=== PATIENT | male | born 1945 | race Caucasian/White ===

== ENCOUNTER → 2016-09-17 | Outpatient (CLI) | payer BC ==
[~2016-09-17] MED LIST: ALBUAER2 INH; FLUT220A INH; LISI-725 PO; PRLSR20 PO; SALM50AE2 INH; THEO300T14 PO; TIOTCAP INH
--- NOTE | 2016-09-17 10:29 | DIAGNOSTIC IMAGING REPORT ---
CT OF THE CHEST WITHOUT IV CONTRAST CLINICAL HISTORY: Abnormal chest CT. Follow-up examination. COMPARISON STUDY: 05/31/2016 CT DOSE: 321.33 mGycm TECHNIQUE: CT of the thorax was performed from the thoracic inlet to the lung bases. Images are reviewed in the axial, sagittal, and coronal planes. IV contrast was not administered for this examination. FINDINGS: Thyroid: Imaged portions of the thyroid gland are normal in appearance. Thoracic aorta: The thoracic aorta is normal in course and caliber, noting standard 3 vessel arch anatomy. Heart: The heart is normal in size. There is no pericardial effusion. There are coronary artery calcifications present. Lungs and pleural spaces: No pleural effusions are visualized. There is mild lower lobe bronchial wall thickening. There is an irregular flat lesion within the right lower lobe measuring 30 x 35 x 11 mm. This is in the area of previously described right lower lobe tree-in-bud opacities. The morphology of this lesion favors focal atelectasis. A three-month follow-up study is however recommended. Mediastinum: There is no pathologic mediastinal adenopathy by size criteria Shelli: There is no evidence of pathologic hilar adenopathy given the limitations of a noncontrast study Axilla: Clear. Upper abdomen: There are postsurgical changes within the upper abdomen. Skeletal structures: There are no lytic or blastic osseous lesions. IMPRESSION: 1. Developing irregular flat lesion within the right lower lobe measuring 30 x 35 x 11 mm. The morphology of this lesion favors focal atelectasis. A three-month follow-up study is recommended. 2. No evidence of pathologic adenopathy Electronically signed by: Miguel Angel Andrade M.D. 09/17/2016 10:28 AM Dictated Date/Time: 09/17/2016 10:21 AM
== END | disposition home or self-care (01) ==
LOC: C.CTS 09:46
PROVIDERS: ATTEND Internal Medicine Pulmonary Disease
DX: R09.89 Other specified symptoms and signs involving the circulatory and respiratory systems (principal); R91.8 Other nonspecific abnormal finding of lung field

== ENCOUNTER → 2017-01-15 | Outpatient (CLI) | payer BC ==
[~2017-01-15] MED LIST changes: +THEO1TAB14 PO; -THEO300T14 PO
--- NOTE | 2017-01-15 16:22 | DIAGNOSTIC IMAGING REPORT ---
TWO VIEW CHEST CLINICAL HISTORY: Atelectasis. FINDINGS: PA and lateral chest radiographs are compared to study dated 01/07/2016 and correlated with chest CT dated 09/17/2016. The heart is mildly enlarged and there is atherosclerotic calcification of the thoracic aorta. The pulmonary vasculature is noncongested. Emphysema and chronic interstitial thickening are similar to previous. No airspace consolidation or pleural effusion is seen. There is mild bibasilar atelectasis. There is no pneumothorax. The skeletal structures are osteopenic. Degenerative change is noted throughout the thoracic spine. IMPRESSION: Cardiomegaly and emphysema. No acute cardiopulmonary abnormality is identified. Electronically signed by: Trey Smith M.D. 01/15/2017 4:21 PM Dictated Date/Time: 01/15/2017 4:19 PM
== END | disposition home or self-care (01) ==
LOC: C.RAD1850 16:10
PROVIDERS: ATTEND Internal Medicine Pulmonary Disease
DX: J98.11 Atelectasis (principal); I51.7 Cardiomegaly; J43.9 Emphysema, unspecified

== ENCOUNTER → 2017-07-11 | Outpatient (CLI) | payer BC ==
[~2017-07-11] MED LIST changes: -THEO1TAB14 PO; +THEO300T14 PO
[2017-07-11 12:43] LABS: BASO ABS # 0.09 K/uL (0-0.2); EOS % 9.2 %; EOS ABS # 0.84 K/uL (0-0.5); HEMOGLOBIN 14.2 g/dL (14.0-18.0); IG# 0.02 K/uL (0.00-0.02); LYMPH % 19.5 %; LYMPH ABS # 1.79 K/uL (1.2-3.4); MEAN CELL VOLUME 92.2 fL (80-100); MEAN CORPUSCULAR HEMOGLOBIN 29.8 pg (25-34); MEAN CORPUSCULAR HGB CONC 32.3 g/dl (32-36); MEAN PLATELET VOLUME 11.4 fL (7.4-10.4); MONO % 6.9 %; MONO ABS # 0.63 K/uL (0.11-0.59); NEUT % 63.2 %; NEUT ABS # 5.79 K/uL (1.4-6.5); PLATELET COUNT 213 K/uL (130-400); RED CELL DISTRIBUTION WIDTH CV 14.8 % (11.5-14.5); RED CELL DISTRIBUTION WIDTH SD 49.7 fL (36.4-46.3); WHITE BLOOD COUNT 9.16 K/uL (4.8-10.8)
[2017-07-11 13:09] LABS: ALBUMIN 3.3 gm/dl (3.4-5.0); ALT/SGPT 21 U/L (12-78); BLOOD UREA NITROGEN 16 mg/dl (7-18); CALCIUM 8.9 mg/dl (8.5-10.1); CARBON DIOXIDE 27 mmol/L (21-32); CHOLESTEROL 144 mg/dl (0-200); CREATININE 1.24 mg/dl (0.60-1.40); GLUCOSE 123 mg/dl (70-99); POTASSIUM 4.1 mmol/L (3.5-5.1); SODIUM 138 mmol/L (136-145)
[2017-07-11 13:14] LABS: ALKALINE PHOSPHATASE 78 U/L (45-117); AST/SGOT 22 U/L (15-37); LDL CHOLESTEROL CALCULATED 74 mg/dl; TOTAL PROTEIN 7.9 gm/dl (6.4-8.2)
[2017-07-11 13:26] LABS: HEMOGLOBIN A1C 6.2 % (4.5-5.6)
== END | disposition home or self-care (01) ==
LOC: C.LABBFT 09:43
PROVIDERS: ATTEND Internal Medicine
DX: I25.10 Atherosclerotic heart disease of native coronary artery without angina pectoris (principal); I10 Essential (primary) hypertension; E78.00 Pure hypercholesterolemia, unspecified; R97.20 Elevated prostate specific antigen [PSA]; E11.9 Type 2 diabetes mellitus without complications; R79.89 Other specified abnormal findings of blood chemistry

== ENCOUNTER → 2017-07-15 | Outpatient (CLI) | payer BC | END | disposition home or self-care (01) | LOC: C.LABBFT 11:30 | PROVIDERS: ATTEND Internal Medicine | DX: R77.9 Abnormality of plasma protein, unspecified (principal) ==

== ENCOUNTER → 2017-07-22 | Outpatient (CLI) | payer BC ==
--- NOTE | 2017-07-22 15:45 | DIAGNOSTIC IMAGING REPORT ---
(CHEST) THORAX WITHOUT CLINICAL HISTORY: 72 years-old Male presenting with R09.89 Abnormal finding of lung, right lower lobe. TECHNIQUE: Multidetector CT imaging of the chest was performed without the use of intravenous contrast. IV contrast: None. A dose lowering technique was used consistent with the principles of ALARA (as low as reasonably achievable). COMPARISON: 09/20. CT DOSE (mGy.cm): The estimated cumulative dose is 415.35 mGy.cm. 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 On soft tissue windows, normal thyroid and thoracic inlet. Prominent mediastinal lymph nodes, the largest measuring 12 mm in the short axis in the precarinal region, previously 6 mm. Suggestion of right hilar lymphadenopathy, however, evaluation of chao limited in the absence of intravenous contrast. Atherosclerosis of the aorta. Mild multichamber enlargement of the heart. Coronary artery calcification. Trace pericardial effusion. Small right pleural effusion. Trace left pleural effusion. Upper abdomen normal. On lung windows, interval evolution of the previously noted irregular linear consolidation in the right lower lobe. This is now peripheral and difficult to measure. This primarily involves the medial basal and posterior basal segments of the right lower lobe. Scattered groundglass and solid peribronchovascular consolidation in the right lower lobe. Additional site of irregular peripheral consolidation noted in the right lower lobe immediately superior to the diaphragm. Underlying emphysema suggested. Subtle groundglass centrilobular nodules scattered throughout the lungs with an upper lobe predominance. Minimal dependent consolidation in the lingula likely atelectasis. Limited nodular dependent consolidation in the left lower lobe. Bronchial wall thickening. Central airways patent. On bone windows, degenerative changes of the spine. IMPRESSION: 1. Interval evolution of the regular bandlike consolidation in the medial basal and posterior basal segments of the right lower lobe. The morphology is now peripheral and difficult to measure as a discrete mass. Atelectasis or scarring is still favored though follow-up is warranted (3 month follow-up). PET/CT may also be helpful to evaluate for neoplasm. This may be amenable to endobronchial biopsy. 2. Findings suggest smoking-related lung injury. 3. Small right and trace left pleural effusions. 4. Small pericardial effusion. 5. Interval development of mediastinal lymphadenopathy. This could be reactive though this does raise concern for an underlying malignancy. Electronically signed by: Derick Washington M.D. 07/22/2017 3:44 PM Dictated Date/Time: 07/22/2017 3:34 PM
== END | disposition home or self-care (01) ==
LOC: C.CTS 15:05
PROVIDERS: ATTEND Internal Medicine
DX: R09.89 Other specified symptoms and signs involving the circulatory and respiratory systems (principal); J90 Pleural effusion, not elsewhere classified; I31.3 Pericardial effusion (noninflammatory)

== ENCOUNTER → 2017-07-26 | Outpatient (CLI) | payer BC | END | disposition home or self-care (01) | LOC: C.LABBFT 12:53 | PROVIDERS: ATTEND Internal Medicine | DX: R77.9 Abnormality of plasma protein, unspecified (principal) ==

== ENCOUNTER → 2017-08-20 | Outpatient (CLI) | payer BC ==
[~2017-08-20] MED LIST changes: +ALBINS/ INH; +APIX1TAB3 PO; +DILT-113 PO; +SYMIN160 INH; +TAMS0.4C38 PO; +VNTHFA/IN INH
--- NOTE | 2017-08-20 10:48 | DIAGNOSTIC IMAGING REPORT ---
KUB CLINICAL HISTORY: Nephrolithiasis. FINDINGS: 2 AP supine abdominal radiographs are compared to study dated 08/07/2017 and correlated with abdominal CT dated 03/01/2016. There is a nonobstructed abdominal bowel gas pattern. Moderate fecal retention is noted. Numerous surgical clips project over the upper abdomen. Suture material is noted in the left mid abdomen. No calculi are seen projecting over the left kidney. No calculi are seen projecting over the right kidney on today's examination. A 7 calcification projects over the right hemipelvis. This was not clearly seen previously and may represent a distal ureteral stone. The skeletal structures are osteopenic. Moderate lumbosacral spondylosis is observed. IMPRESSION: 1. No calculi are seen projecting over either kidney and today's examination. 2. There is a 7 mm calcification projecting over the distal right ureter in the pelvis. This was not clearly seen on 08/07/2017 and may represent a distal ureteral stone. Clinical correlation will be required. Electronically signed by: Trey Smith M.D. 08/20/2017 10:47 AM Dictated Date/Time: 08/20/2017 10:44 AM
== END | disposition home or self-care (01) ==
LOC: C.RAD1850 10:27
PROVIDERS: ATTEND Urology
DX: N20.0 Calculus of kidney (principal)

== ENCOUNTER → 2017-08-21 | Outpatient (CLI) | payer BC | END | disposition home or self-care (01) | LOC: C.CPL 15:15 | PROVIDERS: ATTEND Nurse Practitioner Adult Health | DX: N20.0 Calculus of kidney (principal); N20.1 Calculus of ureter ==

== ENCOUNTER → 2017-09-04 | Outpatient (CLI) | payer BC ==
[~2017-09-04] MED LIST changes: -ALBUAER2 INH; -FLUT220A INH; -LISI-725 PO; -SALM50AE2 INH; -THEO300T14 PO; -TIOTCAP INH
[2017-09-04 13:08] LABS: BASO % 0.6 %; BASO ABS # 0.05 K/uL (0-0.2); EOS % 5.3 %; EOS ABS # 0.45 K/uL (0-0.5); HEMATOCRIT 45.5 % (42-52); HEMOGLOBIN 14.9 g/dL (14.0-18.0); IG# 0.02 K/uL (0.00-0.02); LYMPH % 20.4 %; LYMPH ABS # 1.74 K/uL (1.2-3.4); MEAN CELL VOLUME 88.9 fL (80-100); MEAN CORPUSCULAR HEMOGLOBIN 29.1 pg (25-34); MEAN CORPUSCULAR HGB CONC 32.7 g/dl (32-36); MEAN PLATELET VOLUME 11.2 fL (7.4-10.4); MONO % 6.6 %; MONO ABS # 0.56 K/uL (0.11-0.59); NEUT % 66.9 %; NEUT ABS # 5.69 K/uL (1.4-6.5); PLATELET COUNT 235 K/uL (130-400); RED CELL DISTRIBUTION WIDTH CV 14.8 % (11.5-14.5); RED CELL DISTRIBUTION WIDTH SD 47.9 fL (36.4-46.3); WHITE BLOOD COUNT 8.51 K/uL (4.8-10.8)
[2017-09-04 13:24] LABS: BLOOD UREA NITROGEN 14 mg/dl (7-18); CARBON DIOXIDE 26 mmol/L (21-32); CREATININE 1.29 mg/dl (0.60-1.40); POTASSIUM 3.8 mmol/L (3.5-5.1); SODIUM 137 mmol/L (136-145)
== END | disposition home or self-care (01) ==
LOC: C.LAB1850 10:36
PROVIDERS: ATTEND Urology
DX: R97.20 Elevated prostate specific antigen [PSA] (principal); N20.0 Calculus of kidney

== ENCOUNTER → 2017-09-05 | Outpatient (CLI) | payer BC ==
--- NOTE | 2017-09-05 18:29 | DIAGNOSTIC IMAGING REPORT ---
KUB CLINICAL HISTORY: N20.0 NephrolithiasisTO BE DONE EITHER THE NIGHT BEFORE OR [facility]NI COMPARISON STUDY: 08/20/2017 FINDINGS: 7 mm distal right ureteral calculus unchanged from the prior study. This overlaps the inferior right sacrum. Kidneys show no significant nephrocalcinosis. Bowel pattern is nonobstructive. IMPRESSION: Unchanged 7 mm distal right ureteral calculus. The above report was generated using voice recognition software. It may contain grammatical, syntax or spelling errors. Electronically signed by: Richmond Mcqueen M.D. 09/05/2017 6:27 PM Dictated Date/Time: 09/05/2017 6:26 PM
== END | disposition home or self-care (01) ==
LOC: C.RAD 18:08
PROVIDERS: ATTEND Nurse Practitioner Adult Health
DX: N20.0 Calculus of kidney (principal); N20.1 Calculus of ureter

== ENCOUNTER → 2017-09-06 | Day surgery (SDC) | payer BC ==
[2017-09-03 10:09] VITALS: Ht 180.3 cm; Wt 94.1 kg
[~2017-09-06] VITALS: Ht 180.3 cm; Wt 94.1 kg
[~2017-09-06] MED LIST changes: +ATROPINE SULFATE 0.1 MG/ML 5ML SYR IV PRN; +CIPROFLOXACIN 400MG / D5W IV SCH; +DEXAMETHASONE SOD INJ 4 MG/ML VIAL IV PRN; +EpHEDrine SULFATE INJ 50 MG/ML AMP IV PRN; +FENTANYL CITRATE INJ 50 MCG/1 ML 2 ML VIAL IV PRN; +FENTANYL CITRATE INJ 50 MCG/1 ML 2 ML VIAL ONE; +KETOROLAC TROMETHAMINE 30 MG/ML VIAL IV. PRN; +LABETALOL HCL IV 5 MG/ML 20ML IV PRN; +LACTATED RINGER'S 1000ML 1,000 ML IV SCH; +LIDOCAINE HCL 2% 2 ML VIAL (20MG/ML) ONE; +METOCLOPRAMIDE HCL INJ 5 MG/ML 2 ML VIAL IV PRN; +MIDAZOLAM HCL 1 MG/ML 2ML VIAL ONE; +MoRPHine SULFATE 10 MG/ML CARP/VIAL IV PRN; +ONDANSETRON INJ 2 MG/ML 2 ML VIAL IV PRN; +OXYCODONE/ACETAMINOPHEN 5-325 TAB PO PRN; +OXYCODONE/ACETAMINOPHEN 7.5-325 TAB PO PRN; +PHENYLEPHRINE 100MCG/ML 5ML SYR IV PRN; +PROPOFOL IV EMULSION 10 MG/ML 20 ML VIAL IV ONE
--- NOTE | 2017-09-06 07:15 | History & Physical Bridge - [place] ---
H&P Re-Evaluation Bridge Note: I have examined the patient, reviewed the History & Physical and in the interval since the performance of the History & Physical I have noted the following changes of clinical significance: No changes noted
--- NOTE | 2017-09-06 07:17 | Discharge Instructions ---
Discharge Instructions Date of Service Sep 06, 2017. Admission Reason for Admission: Stones Discharge Discharge Diagnosis / Problem: R Ureteral Stone Discharge Goals Goal(s): Decrease discomfort, Improve function Activity Recommendations Activity Limitations: resume your previous activity Lifting Limitations: gradually increase as tolerated Exercise/Sports Limitations: gradually increase as tolerated Shower/Bathe: no limitations . Instructions / Follow-Up Instructions / Follow-Up May have blood in urine. May have pain in side or flank. May have pelvic pain. Call if any fevers or chills. Current Hospital Diet Patient's current hospital diet: Discharge Diet Recommended Diet: Regular Diet Procedures Procedures Performed: R ESWL Pending Studies Studies pending at discharge: no Laboratory Results Hemoglobin A1c Test 07/11/17 09:52 Range/Units Estimated Average Glucose 131 mg/dl Hemoglobin A1c 6.2 H 4.5-5.6 % Lipid Panel Test 07/11/17 09:52 Range/Units Triglycerides Level 70 0-150 mg/dl Cholesterol Level 144 0-200 mg/dl HDL Cholesterol 56 mg/dl Cholesterol/HDL Ratio 2.6 LDL Cholesterol, Calculated 74 mg/dl Medical Emergencies . Who to Call and When: Medical Emergencies: If at any time you feel your situation is an emergency, please call 911 immediately. . Non-Emergent Contact Non-Emergency issues call your: Primary Care Provider, Urologist Call Non-Emergent contact if: you have a fever, temperature is above 101, temperature is above 101.5, your pain is not controlled, your pain is worsening . . "Provider Documentation" section prepared by Ethan Talamantes. .
--- NOTE | 2017-09-06 07:49 | [facility] Operative Report ---
Operative Report Operative Date Sep 06, 2017. Pre-Operative Diagnosis R Distal Ureteral Stone Post-Operative Diagnosis Same Procedure(s) Performed R ESWL Surgeon Albin Estimated Blood Loss None Findings R Distal Ureteral Stone Specimens None Drains None Anesthesia Type General Complication(s) none Disposition Recovery Room / PACU Indications R Ureteral Stone which failed trial of passage. Risks and benefits discussed at length. Description of Procedure Patient was consented and brought back to the operating room. Patient was placed under anesthesia in the supine position. Patient was prepped and draped in the regular sterile fashion. A time out was completed. With the time out completed, The patient was assessed with fluoroscopy. The stone was identified and position was triangulated. At this point, the shock waves commenced. The stone was monitored throughout the process with fluoroscopy to assess progression and maintain position. The stone was pulverized with 3000 shocks at a maximum voltage of 6 with a total fluoroscopic time of 2:12. With the stone treated, the procedure ended. The patient was cleaned, aroused from anesthesia, and transferred to the pacu in stable condition having tolerated the procedure well with no complications. I was present and participated in all aspects of the procedure. The patient will be monitored in the PACU until transferred. I attest to the content of the Intraoperative Record and any orders documented therein. Any exceptions are noted below. Signed 09/06/2017 at 08:55
[2017-09-06 09:46] VITALS: TEMP 36.4
--- NOTE | 2017-09-06 10:03 | Anesthesia Progress Nt - [facility] ---
Anesthesia Post Op Note Date & Time Sep 06, 2017 at 10:03 Vital Signs Pain Intensity: 0 Vital Signs Past 12 Hours Date Time Temp Pulse Resp B/P (MAP) Pulse Ox O2 Delivery O2 Flow Rate FiO2 09/06/17 09:46 36.4 68 16 142/89 (106) 96 Room Air 09/06/17 09:40 36.7 62 16 128/94 97 09/06/17 09:37 68 20 09/06/17 09:37 66 20 98 09/06/17 09:36 141/92 09/06/17 09:32 73 22 09/06/17 09:32 70 22 144/63 96 09/06/17 09:27 62 15 122/87 96 09/06/17 09:27 63 15 09/06/17 09:22 73 19 09/06/17 09:22 64 19 96 09/06/17 09:21 126/90 09/06/17 09:17 76 21 09/06/17 09:17 75 21 96 09/06/17 09:16 128/92 09/06/17 09:12 19 09/06/17 09:12 77 19 09/06/17 09:11 135/88 09/06/17 09:09 36.5 67 16 135/93 95 Mask 09/06/17 09:08 135/93 09/06/17 09:07 65 6 09/06/17 09:07 78 6 98 09/06/17 06:36 36.4 80 16 154/88 (110) 100 Room Air Notes Mental Status: alert / awake / arousable, participated in evaluation Pt Amnestic to Procedure: Yes Nausea / Vomiting: adequately controlled Pain: adequately controlled Airway Patency, RR, SpO2: stable & adequate BP & HR: stable & adequate Hydration State: stable & adequate Anesthetic Complications: no major complications apparent
[2017-09-06 10:20] VITALS: BP 122/74; PULSE 57; O2SAT 96
== END | disposition home or self-care (01) ==
LOC: X.SURG 06:06
PROVIDERS: ATTEND Urology
DX: N20.1 Calculus of ureter (principal); N40.0 Benign prostatic hyperplasia without lower urinary tract symptoms; I25.10 Atherosclerotic heart disease of native coronary artery without angina pectoris; J44.9 Chronic obstructive pulmonary disease, unspecified; K21.0 Gastro-esophageal reflux disease with esophagitis; J43.9 Emphysema, unspecified; E11.9 Type 2 diabetes mellitus without complications; E78.5 Hyperlipidemia, unspecified; M10.9 Gout, unspecified; E78.00 Pure hypercholesterolemia, unspecified; I10 Essential (primary) hypertension; D47.2 Monoclonal gammopathy; Z87.891 Personal history of nicotine dependence; Z79.899 Other long term (current) drug therapy; Z79.52 Long term (current) use of systemic steroids

== ENCOUNTER → 2017-09-18 | Outpatient (CLI) | payer BC ==
[~2017-09-18] MED LIST changes: -APIX1TAB3 PO; -ATROPINE SULFATE 0.1 MG/ML 5ML SYR IV PRN; -CIPROFLOXACIN 400MG / D5W IV SCH; -DEXAMETHASONE SOD INJ 4 MG/ML VIAL IV PRN; -EpHEDrine SULFATE INJ 50 MG/ML AMP IV PRN; -FENTANYL CITRATE INJ 50 MCG/1 ML 2 ML VIAL IV PRN; -FENTANYL CITRATE INJ 50 MCG/1 ML 2 ML VIAL ONE; -KETOROLAC TROMETHAMINE 30 MG/ML VIAL IV. PRN; -LABETALOL HCL IV 5 MG/ML 20ML IV PRN; -LACTATED RINGER'S 1000ML 1,000 ML IV SCH; -LIDOCAINE HCL 2% 2 ML VIAL (20MG/ML) ONE; -METOCLOPRAMIDE HCL INJ 5 MG/ML 2 ML VIAL IV PRN; -MIDAZOLAM HCL 1 MG/ML 2ML VIAL ONE; -MoRPHine SULFATE 10 MG/ML CARP/VIAL IV PRN; -ONDANSETRON INJ 2 MG/ML 2 ML VIAL IV PRN; -OXYCODONE/ACETAMINOPHEN 5-325 TAB PO PRN; -OXYCODONE/ACETAMINOPHEN 7.5-325 TAB PO PRN; -PHENYLEPHRINE 100MCG/ML 5ML SYR IV PRN; -PROPOFOL IV EMULSION 10 MG/ML 20 ML VIAL IV ONE
--- NOTE | 2017-09-18 15:00 | DIAGNOSTIC IMAGING REPORT ---
KUB CLINICAL HISTORY: N20.0 nephrolithiasis COMPARISON STUDY: 09/05/2017 FINDINGS: There are multiple surgical clips within the upper abdomen. The renal shadows are partially obscured overlying bowel gas and fecal material. The previously identified distal right ureteral calculus is no longer visualized. Please correlate with recent strained urine samples. IMPRESSION: 1. No renal calculi identified 2. The previously described distal right ureteral calculus is no longer visualized and may have passed. Please correlate with patient's symptoms. Electronically signed by: Miguel Angel Andrade M.D. 09/18/2017 2:59 PM Dictated Date/Time: 09/18/2017 2:57 PM
== END | disposition home or self-care (01) ==
LOC: C.RAD1850 14:29
PROVIDERS: ATTEND Nurse Practitioner Adult Health
DX: N20.0 Calculus of kidney (principal)

== ENCOUNTER → 2017-09-19 | Outpatient (CLI) | payer BC | END | disposition home or self-care (01) | LOC: C.LABSPEC 17:09 | PROVIDERS: ATTEND Urology | DX: N20.0 Calculus of kidney (principal) ==

== ENCOUNTER → 2017-09-19 | Outpatient (CLI) | payer BC | END | disposition home or self-care (01) | LOC: C.PATHSPEC 17:37 | PROVIDERS: ATTEND Urology | DX: N40.0 Benign prostatic hyperplasia without lower urinary tract symptoms (principal) ==

== ENCOUNTER → 2018-01-15 | Outpatient (CLI) | payer BC ==
[2018-01-15 12:32] LABS: HEMOGLOBIN A1C 5.9 % (4.5-5.6)
[2018-01-15 12:45] LABS: BLOOD UREA NITROGEN 17 mg/dl (7-18); CREATININE 1.11 mg/dl (0.60-1.40)
== END | disposition home or self-care (01) ==
LOC: C.LAB1850 11:00
PROVIDERS: ATTEND Internal Medicine Pulmonary Disease
DX: E11.9 Type 2 diabetes mellitus without complications (principal); J44.9 Chronic obstructive pulmonary disease, unspecified

== ENCOUNTER → 2018-01-28 | Outpatient (CLI) | payer BC ==
[~2018-01-28] MED LIST changes: +OPTIRAY 320 IV PRN
--- NOTE | 2018-01-28 10:40 | DIAGNOSTIC IMAGING REPORT ---
CT (CHEST) THORAX WITH CLINICAL HISTORY: 72 years-old Male presenting with R09.89 Abnormal finding of lung R59.0 Mediastinal adenopathy. TECHNIQUE: Multidetector CT imaging of the chest was performed after the administration of intravenous contrast. IV contrast: 94 mL of Optiray 320. A dose lowering technique was used consistent with the principles of ALARA (as low as reasonably achievable). COMPARISON: 07/22/2017. CT DOSE (mGy.cm): The estimated cumulative dose is 474.33 mGycm. 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 On soft tissue windows, normal thyroid and thoracic inlet. Resolution of pathologically enlarged mediastinal lymph nodes. Scattered subcentimeter mediastinal and bilateral hilar lymph nodes likely reactive in the setting of known smoking related lung injury. Atherosclerosis of the aorta. Normal heart size. Coronary artery calcification. Trace pericardial effusion. Small right and trace left pleural effusions have resolved. Pneumobilia, which is chronic. Surgical clips in the region of the gastroesophageal junction, unchanged. On lung windows, linear opacities in the medial segment of the right middle lobe, medial basal right lower lobe, and anterior segment of the lingula. This is chronic largely dating back to 2017. The previously noted posterior basal right lower lobe consolidation has resolved. No new focal infiltrate or nodule. Lungs hyperinflated. Trace emphysema. Bronchial wall thickening with minimal subsegmental bronchial debris, likely mucous plugging. No pneumothorax. On bone windows, degenerative changes of the spine. IMPRESSION: 1. Resolution of right lower lobe consolidation in the posterior basal segment. 2. Resolution of pleural effusions. 3. Chronic scarring, unchanged. 4. Resolution of pathologically enlarged lymph nodes. Residual small lymph nodes likely reactive. 5. Smoking related lung injury. Electronically signed by: Derick Washington M.D. 01/28/2018 10:39 AM Dictated Date/Time: 01/28/2018 10:29 AM
== END | disposition home or self-care (01) ==
LOC: C.CTS 09:56
PROVIDERS: ATTEND Internal Medicine Pulmonary Disease
DX: R59.0 Localized enlarged lymph nodes (principal); R09.89 Other specified symptoms and signs involving the circulatory and respiratory systems; J98.4 Other disorders of lung; T65.291A Toxic effect of other tobacco and nicotine, accidental (unintentional), initial encounter; X58.XXXA Exposure to other specified factors, initial encounter

== ENCOUNTER 2019-11-28 02:25 | Inpatient (IN) ==
[2019-11-28] MEDS ORDERED: ALBUT/IPRATROP 3MG/0.5MG NEB 3 ML VIAL ONE (02:28)
[2019-11-28] MEDS ORDERED: ALBUT/IPRATROP 3MG/0.5MG NEB 3 ML VIAL NEB STA (02:28)
[2019-11-28] MEDS ORDERED: DEXAMETHASONE **PF** INJ 10 MG/ML VIAL IV ONE (02:32)
[2019-11-28 02:52] LABS: Basophils # (auto) 0.04 K/uL (0-0.2); Basophils % (auto) 0.3 %; Eosinophils # (auto) 1.03 K/uL (0-0.5); Eosinophils % (auto) 7.6 %; Hemoglobin 15.2 g/dL (14.0-18.0); Immature Granulocytes # (auto) 0.01 K/uL (0.00-0.02); Immature Granulocytes % (auto) 0.1 %; Lymphocytes # (auto) 2.32 K/uL (1.2-3.4); Mean Corpuscular Hemoglobin 29.4 pg (25-34); Mean Corpuscular Hgb Conc 31.7 g/dL (32-36); Mean Corpuscular Volume 92.8 fL (80-100); Mean Platelet Volume 11.5 fL (7.4-10.4); Monocytes # (auto) 0.38 K/uL (0.11-0.59); Monocytes % (auto) 2.8 %; Neutrophils # (auto) 9.85 K/uL (1.4-6.5); Neutrophils % (auto) 72.2 %; Platelet Count 222 K/uL (130-400); RDW Coefficient of Variation 13.9 % (11.5-14.5); RDW Standard Deviation 47.3 fL (36.4-46.3); Red Blood Count 5.17 M/uL (4.7-6.1); White Blood Count 13.63 K/uL (4.8-10.8)
[2019-11-28] MEDS ORDERED: ONDANSETRON INJ 2 MG/ML 2 ML VIAL IV STA (03:05)
[2019-11-28 03:09] LABS: Partial Thromboplastin Ratio 0.9; Partial Thromboplastin Time 26.5 Seconds (21.0-31.0); Prothrombin Time 10.9 Seconds (9.0-12.0)
[2019-11-28 03:12] LABS: Alanine Aminotransferase 29 U/L (12-78); Albumin Level 3.6 gm/dl (3.4-5.0); Aspartate Aminotransferase 25 U/L (15-37); BUN Creatinine Ratio 13.8 (10-20); Blood Urea Nitrogen 17 mg/dl (7-18); Calcium 8.6 mg/dl (8.5-10.1); Carbon Dioxide 24 mmol/L (21-32); Chloride 110 mmol/L (98-107); Creatinine Clr Calc Pharmacy 60.9 ml/min; Est GFR (African American) 68.4; Glucose 167 mg/dl (70-99); Potassium 4.2 mmol/L (3.5-5.1); Sodium 141 mmol/L (136-145)
[2019-11-28 03:17] LABS: Albumin Globulin Ratio 0.8 (0.9-2); Alkaline Phosphatase 90 U/L (45-117); Globulin 4.5 gm/dl (2.5-4.0); NT Pro B Type Natriuretic Pept 871 pg/ml (0-900); Total Protein 8.1 gm/dl (6.4-8.2); Troponin I < 0.015 ng/ml (0-0.045)
[2019-11-28] MEDS ORDERED: PIPERACILL/TAZOBAC CONSULT ACTIVE PRN (03:32)
[2019-11-28] MEDS ORDERED: PIPERACILLIN/TAZOBACTAM 4.5 GM/120 ML BAG IV ONE (03:32)
--- NOTE | 2019-11-28 03:34 | Emergency Department Note ---
History of Present Illness General Chief complaint: Respiratory Problems Stated complaint: RESP PROBLEMS Time Seen by Provider: 11/28/19 02:26 History of Present Illness Maximum Pain Intensity: 0 This 74-year-old presents to the ER complaining of acute shortness of breath Location: Chest Quality: Hard to breathe Severity: Severe Duration: Past few hours Timing: Started tonight Context: Patient could not breathe and the brought him in Modifying factors: better with nothing; worse with activity Patient states he went to bed last night feeling okay. He woke up gasping for air and asked his to bring him to the ER. He has history of COPD. He has a history of A. fib and is on Eliquis and has not missed any doses. Patient denies chest pain, fevers, flulike illness, cough, congestion, abdominal pain, leg pain or swelling. No history of CHF. 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 Patient denies any risk factors for COVID. His feels fine. No one in the household is sick. Home Medications Home Medications Medication Instructions Recorded Confirmed Type omeprazole 20 mg capsule,delayed 20 mg PO DAILY #90 cap 07/15/19 11/28/19 Rx release tiotropium bromide 18 mcg capsule 1 cap INHALATION DAILY #90 puffs 07/16/19 11/28/19 Rx with inhalation device albuterol sulfate 2.5 mg INH .q 4-6 h PRN #360 ml 09/01/19 11/28/19 Rx diltiazem HCl 180 mg 180 mg PO BID #180 cap 09/01/19 11/28/19 Rx capsule,extended release 24 hr albuterol sulfate 90 mcg/actuation 2 puffs INHALATION Q4H PRN #18 gm 09/18/19 11/28/19 Rx aerosol inhaler apixaban 5 mg tablet 5 mg PO BID #180 tab 11/12/19 11/28/19 Rx dutasteride 0.5 mg capsule 0.5 mg PO DAILY #90 cap 11/23/19 11/28/19 Rx tamsulosin 0.4 mg capsule 0.8 mg PO DAILY #180 cap 11/23/19 11/28/19 Rx losartan 50 mg tablet 50 mg PO DAILY #90 tab 11/25/19 11/28/19 Rx budesonide-formoterol [Symbicort] 2 puff INHALATION BID 11/28/19 11/28/19 History Allergies Allergy/AdvReac Type Severity Reaction Status Date / Time hydrocodone Allergy Intermediate FEELING Verified 11/28/19 02:41 HOT, SWEATY, simvastatin Allergy Intermediate Couldn't Verified 11/28/19 02:41 move. tramadol Allergy Intermediate Confused Verified 11/28/19 02:41 doxycycline AdvReac Mild STOMACH Verified 11/28/19 02:41 PAIN Past Med/Surg History Medical History Atrial fibrillation with rapid ventricular response Bronchitis Intestinal obstruction Sepsis Surgical History History of abdominal surgery History of cholecystectomy History of exploratory laparotomy History of pancreatectomy History of partial gastrectomy Family History Mother Cirrhosis Diabetes Stroke Sister Diabetes Social History Preferred Language: Lebanese marital status: current occupational status: retired Feels Safe at Home: Yes Smoking Status: Former smoker Hx Alcohol Use: Yes Hx Substance Use: No Review of Systems A total of 10 systems reviewed and were otherwise negative Physical Exam Vital Signs Vital Signs - 24 hr 11/28/19 02:25 11/28/19 02:32 11/28/19 02:59 Temperature 36.8 C Temperature Source Skin Pulse Rate 142 H 121 H Pulse Rate from SpO2 Sensor Pulse Rhythm Irregular Respiratory Rate 24 28 H Respiratory Effort / Characteristics Labored Spontaneous Labored Short of Breath Respiratory Pattern Regular Blood Pressure 166/115 H Blood Pressure Mean 132 Blood Pressure Position Lying Pulse Oximetry 98 100 Oxygen Delivery Method Non-rebreather Oxygen Flow Rate 15 Fraction of Inspired Oxygen 40 Sepsis Recent Fever Within 48 Hours No No Sepsis New/Unexplained Change in Mental Status No Sepsis Action Taken by Nursing No Action Required No Action Required 11/28/19 03:12 11/28/19 03:26 11/28/19 03:30 Temperature Temperature Source Pulse Rate 113 H 101 H Pulse Rate from SpO2 Sensor 97 H 100 H Pulse Rhythm Respiratory Rate 16 21 Respiratory Effort / Characteristics Respiratory Pattern Blood Pressure 106/78 115/75 Blood Pressure Mean 84 89 Blood Pressure Position Pulse Oximetry 100 97 95 Oxygen Delivery Method CPAP BiPAP BiPAP Oxygen Flow Rate Fraction of Inspired Oxygen 40 40 Sepsis Recent Fever Within 48 Hours Sepsis New/Unexplained Change in Mental Status Sepsis Action Taken by Nursing 11/28/19 04:00 11/28/19 04:30 11/28/19 05:00 Temperature Temperature Source Pulse Rate 111 H 99 H 97 H Pulse Rate from SpO2 Sensor 103 H 91 H 101 H Pulse Rhythm Respiratory Rate 17 24 20 Respiratory Effort / Characteristics Respiratory Pattern Blood Pressure 106/73 111/71 130/75 Blood Pressure Mean 83 87 102 Blood Pressure Position Pulse Oximetry 95 96 97 Oxygen Delivery Method BiPAP BiPAP BiPAP Oxygen Flow Rate Fraction of Inspired Oxygen 40 40 40 Sepsis Recent Fever Within 48 Hours Sepsis New/Unexplained Change in Mental Status Sepsis Action Taken by Nursing 11/28/19 05:30 Temperature Temperature Source Pulse Rate 93 H Pulse Rate from SpO2 Sensor 92 H Pulse Rhythm Respiratory Rate 22 Respiratory Effort / Characteristics Respiratory Pattern Blood Pressure 133/83 Blood Pressure Mean 92 Blood Pressure Position Pulse Oximetry 97 Oxygen Delivery Method BiPAP Oxygen Flow Rate Fraction of Inspired Oxygen 40 Sepsis Recent Fever Within 48 Hours Sepsis New/Unexplained Change in Mental Status Sepsis Action Taken by Nursing VITALS: Vitals are noted on the nurse's note and reviewed by myself. Vital signs hypoxic and tachycardic. GENERAL: White male in acute respiratory distress diaphoretic struggling to breathe SKIN: The skin was without rashes, erythema, edema, or bruising. There is no tenting of the skin. Capillary reflex less than 2 seconds. HEAD: Normocephalic atraumatic. EARS: External auditory canals clear, tympanic membranes pearly richardson without erythema or effusion bilaterally. EYES: Pupils equal round and reactive to light and accommodation. Conjunctivae without injection, sclerae without icterus. Extraocular movements intact. NOSE: Patent, turbinates without inflammation or discharge. No sinus tenderness. MOUTH: Mucous membranes moist. Pharynx without erythema or exudate. Uvula mi dline. Airway patent. Tongue does not deviate. NECK: Supple without nuchal rigidity. No lymphadenopathy. No thyromegaly. Cervical spine is nontender. No JVD. HEART: Tachycardic and irregularly irregular LUNGS: Diffuse inspiratory and end expiratory wheezes + retractions + accessory muscle use. ABDOMEN: Positive bowel sounds x 4. Normal tympanic percussion. Soft, nontender, without masses or organomegaly. Velarde sign negative. No guarding or rebound tenderness. No CVA tenderness MUSCULOSKELETAL: No muscle atrophy, or edema noted. NEURO: Patient was alert and oriented to person place and time. Normal sensation to light and sharp touch. No focal neurological deficits. Course Administered Medications Discontinued Medications Albuterol (Duoneb) Confirm Administered Dose 3 ml .ROUTE .STK-MED ONE Stop: 11/28/19 02:29 Last Admin: 11/28/19 03:22 Dose: Not Given Documented by: [id number] Albuterol (Duoneb) 3 ml NEB NOW STA Stop: 11/28/19 02:29 Last Admin: 11/28/19 02:58 Dose: 3 ml Documented by: [id number] Dexamethasone Sodium Phosphate (Decadron Pf) 10 mg IV NOW ONE Stop: 11/28/19 02:33 Last Admin: 11/28/19 02:51 Dose: 10 mg Documented by: [id number] Piperacillin Sod/Tazobactam Sod (Zosyn) 4.5 gm in 120 mls @ 240 mls/hr IV NOW ONE Stop: 11/28/19 04:01 Last Infusion: 11/28/19 04:27 Dose: 0 mls/hr Documented by: [id number] Admin: 11/28/19 03:57 Dose: 240 mls/hr Documented by: [id number] Ondansetron HCl (Zofran) 4 mg IV NOW STA Stop: 11/28/19 03:06 Last Admin: 11/28/19 03:22 Dose: 4 mg Documented by: [id number] Critical Care Time Critical Care Time: Yes Total Critical Care Time: 35 Medical Decision Making Medical Records Attestation: I reviewed the patient's medical records. Home Medications Current Medication List: was personally reviewed by me Laboratory Data Attestation: I reviewed the patient's lab results. Result diagrams: 11/28/19 02:40 11/28/19 02:40 Lab Results 11/28/19 11/28/19 11/28/19 Range/Units 02:40 02:40 02:40 WBC 13.63 H (4.8-10.8) K/uL RBC 5.17 (4.7-6.1) M/uL Hgb 15.2 (14.0-18.0) g/dL Hct 48.0 (42-52) % MCV 92.8 (80-100) fL MCH 29.4 (25-34) pg MCHC 31.7 L (32-36) g/dL RDW Std Deviation 47.3 H (36.4-46.3) fL RDW Coeff of Radha 13.9 (11.5-14.5) % Plt Count 222 (130-400) K/uL MPV 11.5 H (7.4-10.4) fL Immature Gran % (Auto) 0.1 % Neut % (Auto) 72.2 % Lymph % (Auto) 17.0 % [place] % (Auto) 2.8 % Eos % (Auto) 7.6 % Baso % (Auto) 0.3 % Immature Gran # (Auto) 0.01 (0.00-0.02) K/uL Neut # (Auto) 9.85 H (1.4-6.5) K/uL Lymph # (Auto) 2.32 (1.2-3.4) K/uL [place] # (Auto) 0.38 (0.11-0.59) K/uL Eos # (Auto) 1.03 H (0-0.5) K/uL Baso # (Auto) 0.04 (0-0.2) K/uL PT 10.9 (9.0-12.0) Seconds INR 1.0 (0.9-1.1) APTT 26.5 (21.0-31.0) Seconds PTT Ratio 0.9 Sodium 141 (136-145) mmol/L Potassium 4.2 (3.5-5.1) mmol/L Chloride 110 H (98-107) mmol/L Carbon Dioxide 24 (21-32) mmol/L Anion Gap 7.0 (3-11) BUN 17 (7-18) mg/dl Creatinine 1.21 (0.6-1.4) mg/dl Est Cr Clr Drug Dosing 60.9 ml/min Est GFR ( Amer) 68.4 Est GFR (Non-Af Amer) 59.0 BUN/Creatinine Ratio 13.8 (10-20) Glucose 167 H (70-99) mg/dl Calcium 8.6 (8.5-10.1) mg/dl Magnesium 2.0 (1.8-2.4) mg/dl Total Bilirubin 1.0 (0.2-1) mg/dl AST 25 (15-37) U/L ALT 29 (12-78) U/L Alkaline Phosphatase 90 (45-117) U/L Lactate Dehydrogenase (87-241) U/L Troponin I < 0.015 (0-0.045) ng/ml NT-Pro-B Natriuret Pep 871 (0-900) pg/ml Total Protein 8.1 (6.4-8.2) gm/dl Albumin 3.6 (3.4-5.0) gm/dl Globulin 4.5 H (2.5-4.0) gm/dl Albumin/Globulin Ratio 0.8 L (0.9-2) Adenovirus (PCR) (NotDetected) B. pertussis DNA (PCR) (NotDetected) B.parapertussis DNA PCR (NotDetected) C. pneumoniae DNA (PCR) (NotDetected) Coronavirus OC43 (PCR) (NotDetected) Coronavirus HKU1 (PCR) (NotDetected) Coronavirus 229E (PCR) (NotDetected) COVID-19 PCR (Negative) Coronavirus NL63 (PCR) (NotDetected) Human Metapneumovir PCR (NotDetected) Influenza Type A (PCR) (NotDetected) Influenza Type B (PCR) (NotDetected) M. pneumoniae (PCR) (NotDetected) Parainfluenza 1 (PCR) (NotDetected) Parainfluenza 2 (PCR) (NotDetected) Parainfluenza 3 (PCR) (NotDetected) Parainfluenza 4 (PCR) (NotDetected) RSV (PCR) (NotDetected) Entero/Rhino (PCR) (NotDetected) 11/28/19 11/28/19 11/28/19 Range/Units 02:40 03:55 03:55 WBC (4.8-10.8) K/uL RBC (4.7-6.1) M/uL Hgb (14.0-18.0) g/dL Hct (42-52) % MCV (80-100) fL MCH (25-34) pg MCHC (32-36) g/dL RDW Std Deviation (36.4-46.3) fL RDW Coeff of Radha (11.5-14.5) % Plt Count (130-400) K/uL MPV (7.4-10.4) fL Immature Gran % (Auto) % Neut % (Auto) % Lymph % (Auto) % [place] % (Auto) % Eos % (Auto) % Baso % (Auto) % Immature Gran # (Auto) (0.00-0.02) K/uL Neut # (Auto) (1.4-6.5) K/uL Lymph # (Auto) (1.2-3.4) K/uL [place] # (Auto) (0.11-0.59) K/uL Eos # (Auto) (0-0.5) K/uL Baso # (Auto) (0-0.2) K/uL PT (9.0-12.0) Seconds INR (0.9-1.1) APTT (21.0-31.0) Seconds PTT Ratio Sodium (136-145) mmol/L Potassium (3.5-5.1) mmol/L Chloride (98-107) mmol/L Carbon Dioxide (21-32) mmol/L Anion Gap (3-11) BUN (7-18) mg/dl Creatinine (0.6-1.4) mg/dl Est Cr Clr Drug Dosing ml/min Est GFR ( Amer) Est GFR (Non-Af Amer) BUN/Creatinine Ratio (10-20) Glucose (70-99) mg/dl Calcium (8.5-10.1) mg/dl Magnesium (1.8-2.4) mg/dl Total Bilirubin (0.2-1) mg/dl AST (15-37) U/L ALT (12-78) U/L Alkaline Phosphatase (45-117) U/L Lactate Dehydrogenase 315 H (87-241) U/L Troponin I (0-0.045) ng/ml NT-Pro-B Natriuret Pep (0-900) pg/ml Total Protein (6.4-8.2) gm/dl Albumin (3.4-5.0) gm/dl Globulin (2.5-4.0) gm/dl Albumin/Globulin Ratio (0.9-2) Adenovirus (PCR) Not Detected (NotDetected) B. pertussis DNA (PCR) Not Detected (NotDetected) B.parapertussis DNA PCR Not Detected (NotDetected) C. pneumoniae DNA (PCR) Not Detected (NotDetected) Coronavirus OC43 (PCR) Not Detected (NotDetected) Coronavirus HKU1 (PCR) Not Detected (NotDetected) Coronavirus 229E (PCR) Not Detected (NotDetected) COVID-19 PCR NEGATIVE (Negative) Coronavirus NL63 (PCR) Not Detected (NotDetected) Human Metapneumovir PCR Not Detected (NotDetected) Influenza Type A (PCR) Not Detected (NotDetected) Influenza Type B (PCR) Not Detected (NotDetected) M. pneumoniae (PCR) Not Detected (NotDetected) Parainfluenza 1 (PCR) Not Detected (NotDetected) Parainfluenza 2 (PCR) Not Detected (NotDetected) Parainfluenza 3 (PCR) Not Detected (NotDetected) Parainfluenza 4 (PCR) Not Detected (NotDetected) RSV (PCR) Not Detected (NotDetected) Entero/Rhino (PCR) Not Detected (NotDetected) Imaging Data Attestation: I personally reviewed and interpreted this imaging study as follows: Blood Pressure Blood Pressure Findings: Normal blood pressure MDM Narrative Prior records/ancillary studies reviewed. Triage Nursing notes reviewed. Additional history obtained from the family. The patient's history was concerning for respiratory difficulties. Differential diagnosis: Etiologies such as infections, reactive airway disease, pneumonia, pneum othorax, COPD, CHF, cardiac ischemia, pulmonary embolism, musculoskeletal, gastrointestinal, as well as others were entertained. Physical examination: As above. ER treatment provided: Patient was struggling to breathe and his sats in triage were in the low 80s. He was emergently brought back. Symptoms were rapid in onset and he denied any symptoms of feeling sick or exposure to COVID. He was immediately placed on oxygen and then BiPAP as he was struggling to breathe and fatiguing. An order was placed for continuous cardiac monitoring. The monitor shows a rate of 60-1 30 with a A. fib rhythm. Nebulizer, BiPAP, Decadron, Zosyn On reassessment the patient felt better. Diagnostic interpretation by me: The electrocardiogram was poor baseline, irregularly irregular, no acute ST-T wave changes, rate of 120s, impression atrial fibrillation interpreted by myself EKG ordered for dyspnea The labs revealed leukocytosis, hyperglycemia without DKA Lactic 2.14 Blood cultures pending Negative COVID. Negative bio fire Imaging studies: Chest x-ray with patchy pulmonary congestion to the lower lobes, no pneumothorax or free air per my interpretation Consultation: A consultation was placed with Dr. Rice, hospitalist. The case was discussed and diagnostics were reviewed. The patient was evaluated in the ER for further treatment. This appears to be consistent with acute respiratory failure with pneumonia. Blood cultures pending. Mildly elevated lactic. Leukocytosis. Patient was emergently brought back. He was struggling to breathe and fatiguing. He was immediately placed on oxygen and then BiPAP. He was given a nebulizer and steroids and had great improvement. He stated he felt much better. Patient denied any exposure or risk factors for COVID. He did not feel sick or or complained of any cold symptoms. X-ray was concerning for patchy infiltrates to the lower lobes. Bio fire and COVID test were negative. Patient is in a negative pressure room. Patient was reassessed multiple times and had great improvement. He was admitted to medicine. By the evaluation outlined above emergent etiologies such as CHF, cardiac ischemia, pulmonary embolism, pneumothorax, musculoskeletal, as well as others were deemed relatively unlikely. The pt informed about the findings as listed above. All questions were answered and pleased with the treatment. The chart was completed utilizing [employer] Speech voice recognition software. Grammatical errors, random word insertions, pronoun errors, and incomplete sentences are an occassional consequence of this system due to software limitations, ambient noise, and hardware issues. Any formal questions or concerns about the content, text, or information contained within the body of this dictation should be directly addressed to the physician assistant professor of spanish for clarification. Impression & Plan Acute respiratory failure, Pneumonia Discharge Plan Visit Data Chief Complaint: Respiratory Problems Stated Complaint: RESP PROBLEMS ED Provider: Breanna Gutierres ED Midlevel Provider: Renetta Bradley Discharge Problem: Acute respiratory failure, Pneumonia Patient Disposition: Admitted As Inpatient Condition: Fair Forms Stand Alone Forms: [facility] [employer] Prescriptions Prescriptions: No Action omeprazole 20 mg capsule,delayed release(DR/EC) 20 mg PO DAILY Qty: 90 RF: 2 tiotropium bromide 18 mcg capsule, w/inhalation device 1 cap inhalation DAILY Qty: 90 RF: 3 diltiazem HCl 180 mg capsule,extended release 24hr 180 mg PO BID Qty: 180 RF: 3 albuterol sulfate 2.5 mg /3 mL (0.083 %) solution for nebulization 2.5 mg INH .q 4-6 h PRN (Reason: shortness of breath or wheezing) Qty: 360 RF: 11 albuterol sulfate 90 mcg/actuation HFA aerosol inhaler 2 puffs inhalation Q4H PRN (Reason: shortness of breath or wheezing) Qty: 18 RF: 3 apixaban 5 mg tablet 5 mg PO BID Qty: 180 RF: 3 losartan 50 mg tablet 50 mg PO DAILY Qty: 90 RF: 3 tamsulosin 0.4 mg capsule 0.8 mg PO DAILY Qty: 180 RF: 3 dutasteride [Avodart] 0.5 mg capsule 0.5 mg PO DAILY Qty: 90 RF: 3 budesonide-formoterol [Symbicort] 160-4.5 mcg/actuation HFA aerosol inhaler 2 puff INHALATION BID RF: 0 Referrals Referrals: Dudley Hernandez MD [Primary Care Provider] - Discharge Problem: Acute respiratory failure Qualifiers: Respiratory failure complication: unspecified whether with hypoxia or hypercapnia Qualified Code(s): J96.00 - Acute respiratory failure, unspecified whether with hypoxia or hypercapnia
[2019-11-28 05:24] LABS: Adenovirus PCR Not Detected (NotDetected)
[2019-11-28 05:25] LABS: Bordetella parapertussis PCR Not Detected (NotDetected); Bordetella pertussis PCR Not Detected (NotDetected); Chlamydia pneumoniae PCR Not Detected (NotDetected); Coronavirus 229E PCR Not Detected (NotDetected); Coronavirus HKU1 PCR Not Detected (NotDetected); Coronavirus NL63 PCR Not Detected (NotDetected); Coronavirus OC43PCR Not Detected (NotDetected); Human Metapneumovirus PCR Not Detected (NotDetected); Influenza A PCR Not Detected (NotDetected); Influenza B PCR Not Detected (NotDetected); Mycoplasma pneumoniae PCR Not Detected (NotDetected); Parainfluenza Virus 1 PCR Not Detected (NotDetected); Parainfluenza Virus 2 PCR Not Detected (NotDetected); Parainfluenza Virus 3 PCR Not Detected (NotDetected); Parainfluenza Virus 4 PCR Not Detected (NotDetected); Respiratory Syncytial VirusPCR Not Detected (NotDetected); Rhinovirus/Enterovirus PCR Not Detected (NotDetected)
--- NOTE | 2019-11-28 05:30 | History & Physical Report ---
Date of Service November 28, 2019 Assessment & Plan (1) Acute respiratory failure: Mr. Wolff is a 74 yo M with a PMHx of COPD, atrial fibrillation on anticoagulation and pre-diabetes who presented to the ED with acute onset SOB. - patient found to be tachypneic and satting in the low 80s on arrival - patient's respiratory status improved with administration Duo-Neb, Decadron and BiPAP - currently satting 97% on BiPAP with an FiO2 of 40 - respiratory rate normalized - etiology: A-fib vs. COPD exacerbation secondary to PNA (2) Pneumonia: - consolidated infiltrates in b/l lung woods on CXR, final read pending - no risk factors for HCAP; presumed CAP - WBC elevated to 13 on admission - blood cultures obtained - COVID negative; RVP pending - patient not an aspiration risk - CURB 65 score of 1; PSI class IV - patient received 1 dose of IV zosyn in ED - will discontinue zosyn in favor of IV Levaquin for atypical coverage (3) AF (atrial fibrillation): - present on admission; may be etiology of sudden onset SOB after physical exertion today (yard work in mid-day sun) - on anticoagulation with Eliquis - rate controlled with home diltiazem dose - continue senior advisory (4) Chronic obstructive pulmonary disease: - patient denies any previous exacerbation - home regimen consists of spiriva, symbicort, and albuterol prn - ordered Symbicort Respules BID (5) BPH (benign prostatic hyperplasia): - continue home tamsulosin - patient has been self-cathing over the past few weeks - continue straight caths as needed - he has an outpatient cystoscopy schedule 12/02 (6) Diabetes mellitus type II, controlled: - patient believes he has always been in pre-diabetic range - most recent A1c 6.1 from earlier this week - diet/exercise controlled (7) Hypertension: - continue home losartan Dispo: Tele DVT ppx: on Eliquis Diet: Heart Healthy, DM II Code: full History of Present Illness Primary Care Provider: Josh Hernandez MD Mr. Wolff is a 74 yo male with a PMHx of COPD, atrial fibrillation on anticoagulation and pre-diabetes who presented to the ED for evaluation of acute onset SOB. Mr. Wolff was in his usual state of health on 11/27/19. He denies general malaise, cough, fever/chills. He worked outside in his yard all day with a good energy level. Before going to bed, he began to feel slightly SOB, and eventually awoke in the middle of the night with worsened breathing. This prompted him to seek medical attention. He has been compliant with his COPD medication regimen and denies any prior COPD exacerbations. He denies any sick contacts or recent travel. ED course: Patient afebrile on arrival, with O2 saturations in the low 80s (per ED PA-C). He was administered a Duo-neb, 10mg of Decadron and started on BiPAP with an FiO2 of 40. His breathing improved and respirations normalized. WBC 13.6 with neutrophilia. Blood cultures obtained. Trop undetectable. BNP 871. LDH elevated to 315. COVID-19 negative. RVP pending. UA ordered. EKG showing non-RVR a-fib. CXR showing consolidated infiltrates in bilateral lung woods, final read pending. Patient was started on IV Zosyn. Allergies Allergy/AdvReac Type Severity Reaction Status Date / Time hydrocodone Allergy Intermediate FEELING Verified 11/28/19 02:41 HOT, SWEATY, simvastatin Allergy Intermediate Couldn't Verified 11/28/19 02:41 move. tramadol Allergy Intermediate Confused Verified 11/28/19 02:41 doxycycline AdvReac Mild STOMACH Verified 11/28/19 02:41 PAIN Home Medications Home Medications Medication Instructions Recorded Confirmed Type omeprazole 20 mg capsule,delayed 20 mg PO DAILY #90 cap 07/15/19 11/28/19 Rx release tiotropium bromide 18 mcg capsule 1 cap INHALATION DAILY #90 puffs 07/16/19 11/28/19 Rx with inhalation device albuterol sulfate 2.5 mg INH .q 4-6 h PRN #360 ml 09/01/19 11/28/19 Rx diltiazem HCl 180 mg 180 mg PO BID #180 cap 09/01/19 11/28/19 Rx capsule,extended release 24 hr albuterol sulfate 90 mcg/actuation 2 puffs INHALATION Q4H PRN #18 gm 09/18/19 11/28/19 Rx aerosol inhaler apixaban 5 mg tablet 5 mg PO BID #180 tab 11/12/19 11/28/19 Rx dutasteride 0.5 mg capsule 0.5 mg PO DAILY #90 cap 11/23/19 11/28/19 Rx tamsulosin 0.4 mg capsule 0.8 mg PO DAILY #180 cap 11/23/19 11/28/19 Rx losartan 50 mg tablet 50 mg PO DAILY #90 tab 11/25/19 11/28/19 Rx azithromycin [Zithromax] 250 mg PO DAILY 4 Days #4 tab 11/28/19 Rx budesonide-formoterol [Symbicort] 2 puff INHALATION BID 11/28/19 11/28/19 History cefdinir 300 mg PO BID 6 Days #12 cap 11/28/19 Rx Past Med/Surg History Medical History Atrial fibrillation with rapid ventricular response Bronchitis Intestinal obstruction Sepsis Surgical History History of abdominal surgery History of cholecystectomy History of exploratory laparotomy History of pancreatectomy History of partial gastrectomy Family History Mother Cirrhosis Diabetes Stroke Sister Diabetes Social History Preferred Language: [place] Communication Ability: Effective Top Hat Body Maker Required: No Beliefs That Will Affect Care: None marital status: Current Living Situation: Spouse current occupational status: retired Feels Safe at Home: Yes Smoking Status: Never smoker Hx Alcohol Use: Yes Alcohol type: beer Hx Substance Use: No Review of Systems Constitutional: no fever, no chills and no weakness Respiratory: + dyspnea; no cough Physical Exam Constitutional: WD/WN, vitals as above cooperative Eyes: + anicteric sclerae ENMT: external ear and nose normal, oropharynx normal Neck: normal visual inspection and trachea midline Respiratory: normal respiratory effort; no labored breathing, does not use accessory muscles and no cough Auscultation: + rhonchi and + wheezes (end expiratory wheezes present in bilateral lung woods ) BIPAP in place . Moving air well Cardiovascular: Rate/Rhythm: + irregularly irregular Heart Sounds: normal S1 and normal S2; no murmur Extremities: + pedal edema (+1 pitting edema bilaterally ) Gastrointestinal (Abdomen): normal bowel sounds, soft, nontender, no hepatosplenomegaly Skin: no rashes, warm and dry Psychiatric: A+Ox3, euthymic affect Results & Data Results & Data ([place]) Vital Signs (Past 12 Hours) Vital Signs Temp Pulse Resp BP Pulse Ox 11/28/19 05:00 97 H 20 130/75 97 11/28/19 04:30 99 H 24 111/71 96 11/28/19 04:00 111 H 17 106/73 95 11/28/19 03:30 101 H 21 115/75 95 11/28/19 03:26 113 H 16 106/78 97 11/28/19 03:12 100 11/28/19 02:59 121 H 28 H 100 11/28/19 02:32 36.8 C 142 H 24 166/115 H 98 Supervising Physician Co-Signing Physician Notes Attending addendum: I have physically seen this patient, have supervised the medical residents activities, and agree with the H&P unless as otherwise noted. Assessment and Plan: Bilateral lower lobe pneumonia/COPD- COVID19 negative in the ED tonight. Received Zosyn 4.5 g IV x1 in the ED. Placed on ceftriaxone 1 g IV daily and levofloxacin 500 mg IV daily. DuoNebs 4 times daily and every 2 hours as needed continue BiPAP at current settings, but taper as symptoms improve. Pulmicort Respules 0.5 mg inhaled twice daily Atrial fibrillation/hypertension- Continue Eliquis, diltiazem and losartan. Diabetes mellitus- Placed on Accu-Cheks before meals and at bedtime with NovoLog coverage per scale. Remainder of orders and notations as noted. Resident Activity Tracking Resident Involvement: Resident Care Provided Care Provided: Adult Hospital Medicine (1) Acute respiratory failure Respiratory failure complication: unspecified whether with hypoxia or hypercapnia Qualified Code(s): J96.00 - Acute respiratory failure, unspecified whether with hypoxia or hypercapnia
--- NOTE | 2019-11-28 05:32 | Emergency Department Note ---
ED Visit Note I saw this patient in conjunction with Celia Bradley PA-C. I agree with her decision making and treatment plan. I saw this patient when he initially arrived in the emergency department. He underwent laboratory testing, EKG, chest x-ray and COVID testing. On repeat examination, the patient is on BiPAP and no longer in respiratory distress. He is feeling much better. He was easily able to communicate with me at this time. [facility] . : Acute respiratory failure Qualifiers: Respiratory failure complication: unspecified whether with hypoxia or hypercapnia Qualified Code(s): J96.00 - Acute respiratory failure, unspecified whether with hypoxia or hypercapnia
[2019-11-28] MEDS ORDERED: MAGNESIUM HYDROXIDE SUSP 30 ML UDC PO PRN (06:52)
[2019-11-28] MEDS ORDERED: ONDANSETRON INJ 2 MG/ML 2 ML VIAL IV PRN (06:52)
[2019-11-28] MEDS ORDERED: ALUMINUM/MAGNESIUM SUSP 30 ML UDC PO PRN (06:52)
[2019-11-28] MEDS ORDERED: ZOLPIDEM TARTRATE 5 MG TAB PO PRN (06:52)
[2019-11-28] MEDS ORDERED: ACETAMINOPHEN 325 MG TAB PO PRN (06:52)
[2019-11-28] MEDS ORDERED: POLYETHYLENE (MIRALAX) 17 GM PACK PO PRN (06:52)
[2019-11-28] MEDS ORDERED: BUDESONIDE 0.25 MG/2 ML VIAL (PULMICORT) NEB PRN (06:52)
[2019-11-28] MEDS ORDERED: ALBUT/IPRATROP 3MG/0.5MG NEB 3 ML VIAL NEB SCH (07:00)
[2019-11-28] MEDS: AVODART~ORDER AWAITING ACTION SCH ×2 (07:39→16:02)
--- NOTE | 2019-11-28 07:39 | XRay Report ---
XR chest 1V portable CLINICAL HISTORY: Dyspnea COMPARISON STUDY: Chest CT January 28, 2018. Chest radiograph August 27, 2018. FINDINGS: There is no pneumothorax or pleural effusion. Bibasilar consolidation is present. Cardiomed iastinal silhouette is unremarkable. There is no evidence for pulmonary edema. IMPRESSION: Bibasilar consolidation suggestive of pneumonia. Radiographic follow up to ensure resolu tion is recommended. ACT 112: Negative or not required by law. Electronically signed by: Gautam Givens M.D. 11/28/2019 7:38 AM
[2019-11-28] MEDS ORDERED: LEVOFLOXACIN/D5W 250 MG/50 ML BAG IV SCH (08:00)
[2019-11-28] MEDS ORDERED: UMECLIDINIUM BROMIDE 62.5MCG/BLISTER 7 PUFFS/INHALER INH SCH (09:00)
[2019-11-28] MEDS ORDERED: FLUTICASONE/VILANTEROL 100/25MCG 14 PUFFS/INHALER INH SCH (09:00)
[2019-11-28] MEDS ORDERED: dilTIAZem HCL 180 MG CAPCR PO SCH (09:00)
[2019-11-28] MEDS ORDERED: TAMSULOSIN HCL 0.4 MG CAP PO SCH (09:00)
[2019-11-28] MEDS ORDERED: PANTOprazole 40 MG TAB PO SCH (09:00)
[2019-11-28] MEDS ORDERED: APIXABAN 5 MG TABLET PO SCH (09:00)
[2019-11-28] MEDS ORDERED: LOSARTAN POTASSIUM 50 MG TAB PO SCH (09:00)
[2019-11-28] MEDS ORDERED: AZITHROMYCIN 250 MG TAB PO ONE (16:51)
--- NOTE | 2019-11-28 17:05 | Discharge Summary ---
Date of Service November 28, 2019 Admission HPI Per Admitting Provider Mr. Wolff is a 74 yo male with a PMHx of COPD, atrial fibrillation on anticoagulation and pre-diabetes who presented to the ED for evaluation of acute onset SOB. Mr. Wolff was in his usual state of health on 11/27/19. He denies general malaise, cough, fever/chills. He worked outside in his yard all day with a good energy level. Before going to bed, he began to feel slightly SOB, and eventually awoke in the middle of the night with worsened breathing. This prompted him to seek medical attention. He has been compliant with his COPD medication regimen and denies any prior COPD exacerbations. He denies any sick contacts or recent travel. ED course: Patient afebrile on arrival, with O2 saturations in the low 80s (per ED PA-C). He was administered a Duo-neb, 10mg of Decadron and started on BiPAP with an FiO2 of 40. His breathing improved and respirations normalized. WBC 13.6 with neutrophilia. Blood cultures obtained. Trop undetectable. BNP 871. LDH elevated to 315. COVID-19 negative. RVP pending. UA ordered. EKG showing non-RVR a-fib. CXR showing consolidated infiltrates in bilateral lung woods, final read pending. Patient was started on IV Zosyn. Principal Diagnosis acute hypoxic respiratory failure related to pneumonia (community acquired) superimposed on COPD Discharge Exam [facility] [place] [place] at mmm breathing unlabored no accessory muscles no conversational dyspnea no dyspnea on exertion no distress good effort skin no rashes no pallor or icterus neuro no focal deficits gait stable and fast - we walked ~200ft around the unit fairly briskly and he had no dyspnea, was 95% on RA at the end of the walk Discharge Data Allergies Allergy/AdvReac Type Severity Reaction Status Date / Time hydrocodone Allergy Intermediate FEELING Verified 11/28/19 02:41 HOT, SWEATY, simvastatin Allergy Intermediate Couldn't Verified 11/28/19 02:41 move. tramadol Allergy Intermediate Confused Verified 11/28/19 02:41 doxycycline AdvReac Mild STOMACH Verified 11/28/19 02:41 PAIN Consultations 11/28/19 07:07 ED Decision to Admit Routine Hospital Course (1) Acute respiratory failure: due to pneumonia superimposed on COPD (2) Pneumonia: CAP -fortunately quickly resolved. got ceftriaxone and levaquin initially -improving well --> stable for home --> finish course of treatment with zithromax and rocephin -PCP f/u (3) Chronic obstructive pulmonary disease: 95% on RA after ambulation - continue home regimen Total Time Total Time Spent Total Time Spent (In Minutes): >30 Discharge Plan Discharge Items Patient Disposition: Home - Self-Care Reason For Visit: RESPIRATORY DISTRESS Discharge Diagnosis: pneumonia - improving (see below) Condition on Discharge: Fair Activity: Resume your previous activity Activity Comment: take it easy for the next week or so, but there are no "formal restrictions Non-emergency contact: Primary Care Provider Follow-up/Referrals: Dudley Hernandez MD [Primary Care Provider] - Diet: Regular Addtl Attending Provider Instructions: pneumonia - your shortness of breath and low oxygen appears to have been from a pneumonia (and probably a subsequent flare of COPD). fortunately you're getting better really quickly and since you are no longer short of breath and off of oxygen/ able to walk around without oxygen or shortness of breath, it'll be very safe to get you home -we'll finish out a course of antibiotics with zithromax and cefdinir (the two different antibiotics due to covering for what the "usual suspects" for your kind of pneumonia would be) ---the zithromax will be a 250mg dose tomorrow, 11/29, 11/30, and 12/01 ---the cefdinir will be 300mg twice a day for the next 6 days (starting tomorrow morning) ---->both are usually really well tolerated, but if they're upsetting your stomach, it's OK to take with food --->we'll ask that you follow up with Dr Hernandez to follow through on making sure you get back to "good as new" Pending Studies at Discharge: No Stand-Alone Forms: [facility] [employer], Smoking Cessation Medications and DC Order Prescriptions: New azithromycin [Zithromax] 250 mg tablet 250 mg PO DAILY 4 Days Qty: 4 RF: 0 cefdinir 300 mg capsule 300 mg PO BID 6 Days Qty: 12 RF: 0 Continued omeprazole 20 mg capsule,delayed release(DR/EC) 20 mg PO DAILY Qty: 90 RF: 2 tiotropium bromide 18 mcg capsule, w/inhalation device 1 cap inhalation DAILY Qty: 90 RF: 3 diltiazem HCl 180 mg capsule,extended release 24hr 180 mg PO BID Qty: 180 RF: 3 albuterol sulfate 2.5 mg /3 mL (0.083 %) solution for nebulization 2.5 mg INH .q 4-6 h PRN (Reason: shortness of breath or wheezing) Qty: 360 RF: 11 albuterol sulfate 90 mcg/actuation HFA aerosol inhaler 2 puffs inhalation Q4H PRN (Reason: shortness of breath or wheezing) Qty: 18 RF: 3 apixaban 5 mg tablet 5 mg PO BID Qty: 180 RF: 3 losartan 50 mg tablet 50 mg PO DAILY Qty: 90 RF: 3 tamsulosin 0.4 mg capsule 0.8 mg PO DAILY Qty: 180 RF: 3 dutasteride [Avodart] 0.5 mg capsule 0.5 mg PO DAILY Qty: 90 RF: 3 budesonide-formoterol [Symbicort] 160-4.5 mcg/actuation HFA aerosol inhaler 2 puff INHALATION BID RF: 0 Discharge Orders: Discharge Order (Routine); Ordered 11/28/19 Ordered By: Ted Nails Admission Data Admit Date/Time: 11/28/19 06:02 Attending Provider: Ted Nails Admit Provider: Melinda Johnson Primary Care Provider: Dudley Hernandez Other Providers: Peewee Shields Coding Level of Care Code D/C Day Management >30 mins Diagnoses Acute respiratory failure J96.00 Respiratory failure complication: unspecified whether with hypoxia or hypercapnia Pneumonia J18.9 Chronic obstructive pulmonary disease J44.9
[2019-11-28 17:28] LABS: Appearance Urine Clear (Clear); Bacteria Urine Automated Negative (Negative); Bilirubin Urine Negative (Negative); Blood Urine 1+ (Negative); Color Urine Yellow; Epithelial Cell Urine Auto 20-30 /lpf (0-5); Glucose Urine UA 3+ (Negative); Ketones Urine Trace (Negative); Leukocyte Esterase Urine Negative (Negative); Nitrite Urine Negative (Negative); Protein Urine Negative (Negative); Specific Gravity Urine 1.026 (1.000-1.030); Urobilinogen Urine Negative (Negative)
--- NOTE | 2019-11-29 00:48 | Billing Data ---
Date of Service November 29, 2019 Coding Level of Care Code 27771 OBS Care - Level 3
--- NOTE | 2019-11-29 09:58 | Electrocardiogram Report ---
Test Reason : Blood Pressure : / mmHG Vent. Rate : 150 BPM Atrial Rate : 288 BPM P-R Int : 000 ms QRS Dur : 056 ms QT Int : 304 ms P-R-T Axes : 000 046 088 degrees QTc Int : 480 ms Poor data quality, interpretation may be adversely affected Possible Atrial fibrillation Low voltage QRS Abnormal ECG When compared with ECG of 21-AUG-2017 15:27, QRS voltage has decreased Repeat Tracing with better baseline Confirmed by Luke Krishna ([id number]) on 11/29/2019 9:58:38 AM Referred By: REFERRED SELF Confirmed By:Luke Krishna
[2019-11-30 13:56] LABS: iSTAT Arterial Blood Gas HCO3 22 meg/L (19-24); iSTAT Arterial Blood Gas pCO2 42 mmHg (35-46); iSTAT Arterial Blood Gas pH 7.32 (7.35-7.45); iSTAT Arterial Blood Gas pO2 184 mmHg (80-95); iSTAT Carbon Dioxide 23 mmol/L (24-31)
[2019-11-30 13:57] LABS: iSTAT Sample Type Arterial
== END 2019-11-28 18:13 | disposition home or self-care (01) | DRG 193 ==
LOC: ED 02:25 → SUATTDRO 06:02 → 2S 06:02

== ENCOUNTER 2020-06-01 08:52 | Inpatient (IN) ==
[2020-06-01] MEDS ORDERED: DEXAMETHASONE SOD INJ 10 MG/ML VIAL IV ONE (09:08)
[2020-06-01] MEDS ORDERED: ALBUT/IPRATROP 3MG/0.5MG NEB 3 ML VIAL NEB STA (09:08)
[2020-06-01 09:38] LABS: Basophils # (auto) 0.02 K/uL (0-0.2); Basophils % (auto) 0.1 %; Eosinophils # (auto) 0.01 K/uL (0-0.5); Eosinophils % (auto) 0.1 %; Hematocrit (blood only) 43.7 % (42-52); Hemoglobin 14.7 g/dL (14.0-18.0); Immature Granulocytes # (auto) 0.05 K/uL (0.00-0.02); Immature Granulocytes % (auto) 0.3 %; Lymphocytes # (auto) 0.56 K/uL (1.2-3.4); Lymphocytes % (auto) 3.5 %; Mean Corpuscular Hemoglobin 31.1 pg (25-34); Mean Corpuscular Hgb Conc 33.6 g/dL (32-36); Mean Corpuscular Volume 92.6 fL (80-100); Mean Platelet Volume 10.8 fL (7.4-10.4); Monocytes # (auto) 0.85 K/uL (0.11-0.59); Monocytes % (auto) 5.3 %; Neutrophils # (auto) 14.58 K/uL (1.4-6.5); Neutrophils % (auto) 90.7 %; Platelet Count 203 K/uL (130-400); RDW Coefficient of Variation 14.1 % (11.5-14.5); RDW Standard Deviation 48.2 fL (36.4-46.3); Red Blood Count 4.72 M/uL (4.7-6.1); White Blood Count 16.07 K/uL (4.8-10.8)
--- NOTE | 2020-06-01 09:45 | Emergency Department Note ---
Impression & Plan Acute exacerbation of chronic obstructive pulmonary disease, Pneumonia, Hypoxia ED Provider Note NAME: LUCI LEDEZMA AGE: 75 SEX: M : 1945 ARRIVES VIA: Walk-In INFORMANT: Patient, ED PROVIDER(S): Can Lane DO CHIEF COMPLAINT: Shortness of breath HPI: The patient is a 75-year-old male who presented to the emergency department for an evaluation of difficulty breathing. 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 He notices a cough which is sometimes productive for clear sputum. He also notices significant difficulty breathing with exertion. He notices no abdominal pain or vomiting. He does note chest heaviness but denies having any specific chest pain. He states his symptoms are much worse with exertion. He did not see his family doctor for the symptoms. He presented to the emergency department with his significant other. He denies having any lower extremity swelling. He has been compliant with all of his medications. He has been using his bronchodilators more than usual with some relief of his symptoms. The patient does have a history of COPD and feels that today's presentation is consistent with his previous COPD history. ROS: See above HPI for pertinent positives & negatives. A total of 10 systems reviewed and were otherwise negative. PAST MEDICAL HISTORY: See Below PAST SURGICAL HISTORY: See Below FAMILY HISTORY: See Below SOCIAL HISTORY: See Below HOME MEDICATIONS: See Below ALLERGIES: See Below VITALS: See Below PHYSICAL EXAMINATION: GENERAL: The patient is awake and alert. He is somewhat anxious appearing and appears to be in some degree of distress with breathing. EYES: The conjunctivae are clear. The pupils are round and reactive. EARS, NOSE, MOUTH AND THROAT: The nose is without any evidence of any deformity. NECK: The neck is nontender and supple. RESPIRATORY: Shallow respirations were noted. Poor air movement was noted. Diminished breath sounds are noted in both upper lung woods. Mild conversational dyspnea was noted. CARDIOVASCULAR: Irregular and tachycardic rate was noted auscultation. There was no definite murmur. GASTROINTESTINAL: The abdomen is soft. Abdomen is nontender. MUSCULOSKELETAL/EXTREMITIES: There is no evidence of gross deformity full range of motion is noted in the hips and shoulders. SKIN: Trace pedal edema was noted bilaterally. Skin was warm and dry. NEUROLOGIC: Patient is awake alert and oriented x3. MEDICAL DECISION MAKING: The patient is a 75-year-old male who presented to the emergency department for an evaluation of cough and shortness of breath. The patient is a history of COPD. He was treated with bronchodilator therapy as well as IV steroids. He was also treated with IV antibiotics and IV fluids. I discussed the patient's laboratory and radiographic studies with him. Given his presentation I do feel this is consistent with COPD exacerbation as well as pneumonia. Given the patient's age and comorbidities I feel he would be much better managed as an inpatient. I discussed [facility]. They have agreed to evaluate the patient in the emergency department for further management and disposition. The patient was feeling much better and breathing easier on reevaluation. He was also treated with Tylenol for fever. Triage Nursing notes reviewed. Prior medical records reviewed Vital Signs: reviewed and remarkable for fever, tachycardia and elevated blood pressure. He was also noted to have hypoxia. Differential diagnosis: Reactive airway disease, pneumonia, pneumothorax, COPD, CHF, infections, cardiac ischemia, pulmonary embolism, musculoskeletal, gastrointestinal, as well as other pathologies. ER treatment provided: See below Diagnostics interpreted by me: ECG: EKG was obtained in the emergency department. My interpretation is atrial fibrillation at 133 bpm. No PVCs were noted. Low voltage was noted throughout. Diffuse ST segment abnormalities were noted. This was compared to a tracing from August [id number]. No significant changes were noted. Cardiac Monitoring: An order was placed for continuous cardiac monitoring. The monitor shows a rate of 115 bpm with atrial fibrillation rhythm. Laboratory studies: As stated above and show below. Imaging studies: See below Consultation(s): 1140: I discussed this case with Deborah who is on-call [facility]. ED COURSE: Procedures: none PDMP:reviewed and no issues Critical Care: I have personally spent greater than 45 minutes of critical care time in the direct management of this patient. This includes bedside care, interpretation of diagnostic studies, and testing, discussion with consultants, patient, and family members, and other required patient management activities. This 45 minutes is in excess of all separately billable procedures. Past Med/Surg History Medical History Atrial fibrillation with rapid ventricular response Bronchitis Chronic bronchitis Chronic dyspnea Intestinal obstruction Sepsis Surgical History History of abdominal surgery History of cholecystectomy History of exploratory laparotomy History of pancreatectomy History of partial gastrectomy Family History Mother Cirrhosis Diabetes Stroke Sister Diabetes Social History Smoking Status: Former smoker Tobacco Type: Cigarettes Years Smoked: 30; Hx Alcohol Use: Yes Alcohol type: beer Hx Substance Use: No Preferred Language: Indonesian Communication Ability: Effective [employer] Clerk Required: No Beliefs That Will Affect Care: None marital status: Current Living Situation: Spouse current occupational status: retired Feels Safe at Home: Yes Assistive Devices: None Allergies Allergies Allergy/AdvReac Type Severity Reaction Status Date / Time hydrocodone Allergy Intermediate FEELING Verified 06/01/20 11:43 HOT, SWEATY, simvastatin Allergy Intermediate Myalgia Verified 06/01/20 11:43 tramadol Allergy Intermediate Confused Verified 06/01/20 11:43 doxycycline AdvReac Mild STOMACH Verified 06/01/20 11:43 PAIN Home Meds Previous Rx's Medication Instructions Recorded apixaban 5 mg tablet 5 mg PO BID #180 tab 11/12/19 omeprazole 20 mg capsule,delayed 20 mg PO DAILY #90 cap 01/15/20 release diltiazem HCl 180 mg 180 mg PO BID #180 cap 03/16/20 capsule,extended release 24 hr albuterol sulfate See Rx Instructions .ROUTE 04/21/20 .COMPLEX #360 ml albuterol sulfate 90 mcg/actuation 2 puff INHALATION Q4H PRN #54 gm 04/21/20 aerosol inhaler budesonide-formoterol HFA 160 2 puff INHALATION BID #3 inhaler 05/03/20 mcg-4.5 mcg/actuation aerosol inhaler losartan 50 mg tablet 50 mg PO DAILY #90 tab 05/30/20 tamsulosin 0.4 mg capsule 0.8 mg PO DAILY #180 cap 05/31/20 Results & Data (ED) Vital Signs Vital Signs - 24 hr 06/01/20 08:57 06/01/20 09:09 06/01/20 09:24 Temperature 37.6 C H Temperature Source Temporal Artery Scan Pulse Rate 133 H 110 H Pulse Rate [Apical] Pulse Rate from SpO2 Sensor 128 H 121 H Respiratory Rate 22 20 Respiratory Effort / Characteristics Short of Breath Respiratory Depth Respiratory Pattern Blood Pressure 131/78 151/86 H Blood Pressure [Right Arm] Blood Pressure Mean 95 103 Blood Pressure Mean [Right Arm] Blood Pressure Position Sitting Pulse Oximetry 89 L 96 93 Oxygen Delivery Method Room Air Nasal Cannula Nasal Cannula Oxygen Flow Rate 2 2 Sepsis Recent Fever Within 48 Hours No Sepsis New/Unexplained Change in Mental Status N/A Sepsis Action Taken by Nursing No Action Required Oxygen Flow Rate - Titration Pulse Oximetry Post Tiitration 06/01/20 09:26 06/01/20 09:29 06/01/20 09:30 Temperature Temperature Source Pulse Rate 118 H 119 H Pulse Rate [Apical] 125 H Pulse Rate from SpO2 Sensor 127 H Respiratory Rate 26 H 23 Respiratory Effort / Characteristics Non-Labored Spontaneous Respiratory Depth Normal Respiratory Pattern Regular Blood Pressure 147/94 H Blood Pressure [Right Arm] 151/86 H Blood Pressure Mean 129 Blood Pressure Mean [Right Arm] 107 Blood Pressure Position Pulse Oximetry 89 L 96 95 Oxygen Delivery Method Room Air Nasal Cannula Nasal Cannula Oxygen Flow Rate 2 2 Sepsis Recent Fever Within 48 Hours Sepsis New/Unexplained Change in Mental Status Sepsis Action Taken by Nursing Oxygen Flow Rate - Titration 2 Pulse Oximetry Post Tiitration 96 06/01/20 09:31 06/01/20 09:37 06/01/20 09:43 Temperature Temperature Source Pulse Rate 113 H Pulse Rate [Apical] 109 H Pulse Rate from SpO2 Sensor 118 H Respiratory Rate 24 21 Respiratory Effort / Characteristics Spontaneous Labored Short of Breath SOB on Exertion Spontaneous Short of Breath Respiratory Depth Shallow Respiratory Pattern Regular Blood Pressure Blood Pressure [Right Arm] Blood Pressure Mean Blood Pressure Mean [Right Arm] Blood Pressure Position Pulse Oximetry 96 97 Oxygen Delivery Method Nasal Cannula Nasal Cannula Oxygen Flow Rate 2 2 Sepsis Recent Fever Within 48 Hours Sepsis New/Unexplained Change in Mental Status Sepsis Action Taken by Nursing Oxygen Flow Rate - Titration Pulse Oximetry Post Tiitration 06/01/20 10:00 06/01/20 10:01 06/01/20 10:30 Temperature Temperature Source Pulse Rate 111 H 111 H 113 H Pulse Rate [Apical] Pulse Rate from SpO2 Sensor 111 H 119 H 117 H Respiratory Rate 21 22 24 Respiratory Effort / Characteristics Respiratory Depth Respiratory Pattern Blood Pressure 132/90 130/83 Blood Pressure [Right Arm] Blood Pressure Mean 119 103 Blood Pressure Mean [Right Arm] Blood Pressure Position Pulse Oximetry 96 96 95 Oxygen Delivery Method Nasal Cannula Oxygen Flow Rate 2 Sepsis Recent Fever Within 48 Hours Sepsis New/Unexplained Change in Mental Status Sepsis Action Taken by Nursing Oxygen Flow Rate - Titration Pulse Oximetry Post Tiitration 06/01/20 10:31 06/01/20 11:00 06/01/20 11:01 Temperature Temperature Source Pulse Rate 112 H 108 H 108 H Pulse Rate [Apical] Pulse Rate from SpO2 Sensor 115 H 109 H 105 H Respiratory Rate 20 28 H 26 H Respiratory Effort / Characteristics Respiratory Depth Respiratory Pattern Blood Pressure 149/87 H Blood Pressure [Right Arm] Blood Pressure Mean 104 Blood Pressure Mean [Right Arm] Blood Pressure Position Pulse Oximetry 96 94 94 Oxygen Delivery Method Nasal Cannula Nasal Cannula Nasal Cannula Oxygen Flow Rate 2 2 2 Sepsis Recent Fever Within 48 Hours Sepsis New/Unexplained Change in Mental Status Sepsis Action Taken by Nursing Oxygen Flow Rate - Titration Pulse Oximetry Post Tiitration 06/01/20 11:30 06/01/20 11:31 06/01/20 11:39 Temperature 38.2 C H Temperature Source Oral Pulse Rate 116 H 123 H Pulse Rate [Apical] Pulse Rate from SpO2 Sensor 117 H 123 H Respiratory Rate 22 20 Respiratory Effort / Characteristics Respiratory Depth Respiratory Pattern Blood Pressure 143/92 H Blood Pressure [Right Arm] Blood Pressure Mean 120 Blood Pressure Mean [Right Arm] Blood Pressure Position Pulse Oximetry 95 95 Oxygen Delivery Method Nasal Cannula Nasal Cannula Oxygen Flow Rate 2 2 Sepsis Recent Fever Within 48 Hours Sepsis New/Unexplained Change in Mental Status Sepsis Action Taken by Nursing Oxygen Flow Rate - Titration Pulse Oximetry Post Tiitration Home Medications Current Medication List: was personally reviewed by me Laboratory Data Attestation: I reviewed the patient's lab results. Result diagrams: 06/01/20 09:25 06/01/20 09:20 Lab Results 06/01/20 06/01/20 06/01/20 Range/Units 09:20 09:20 09:20 WBC (4.8-10.8) K/uL RBC (4.7-6.1) M/uL Hgb (14.0-18.0) g/dL Hct (42-52) % MCV (80-100) fL MCH (25-34) pg MCHC (32-36) g/dL RDW Std Deviation (36.4-46.3) fL RDW Coeff of Radha (11.5-14.5) % Plt Count (130-400) K/uL MPV (7.4-10.4) fL Immature Gran % (Auto) % Neut % (Auto) % Lymph % (Auto) % Day % (Auto) % Eos % (Auto) % Baso % (Auto) % Neut # (Auto) (1.4-6.5) K/uL Lymph # (Auto) (1.2-3.4) K/uL Day # (Auto) (0.11-0.59) K/uL Eos # (Auto) (0-0.5) K/uL Baso # (Auto) (0-0.2) K/uL Immature Gran # (Auto) (0.00-0.02) K/uL PT 10.8 (9.0-12.0) Seconds INR 1.0 (0.9-1.1) APTT 28.8 (21.0-31.0) Seconds PTT Ratio 1.0 D-Dimer 250 (0-500) ug/L FEU VBG pH (7.36-7.41) VBG pCO2 (38-50) mmHg VBG pO2 mmHg VBG HCO3 mmol/L VBG O2 Saturation % VBG Base Excess mEq/L Barometric Pressure mm/Hg Sodium 138 (136-145) mmol/L Potassium 4.4 (3.5-5.1) mmol/L Chloride 107 (98-107) mmol/L Carbon Dioxide 22 (21-32) mmol/L Anion Gap 9.0 (3-11) BUN 14 (7-18) mg/dl Creatinine 1.25 (0.6-1.4) mg/dl Est Cr Clr Drug Dosing 55.2 ml/min Est GFR ( Amer) 65.3 Est GFR (Non-Af Amer) 56.4 BUN/Creatinine Ratio 11.4 (10-20) Glucose 211 H (70-99) mg/dl Lactate (0.4-2.0) mmol/L Calcium 8.8 (8.5-10.1) mg/dl Magnesium 1.8 (1.8-2.4) mg/dl Total Bilirubin 1.6 H (0.2-1) mg/dl AST 13 L (15-37) U/L ALT 15 (12-78) U/L Alkaline Phosphatase 87 (45-117) U/L Troponin I < 0.015 (0-0.045) ng/ml Total Protein 7.3 (6.4-8.2) gm/dl Albumin 3.3 L (3.4-5.0) gm/dl Globulin 4.0 (2.5-4.0) gm/dl Albumin/Globulin Ratio 0.8 L (0.9-2) Procalcitonin < 0.05 (0-0.5) ng/ml COVID-19 Eval Order SARS-CoV-2, RNA, NAAT (NEGATIVE) 06/01/20 06/01/20 06/01/20 Range/Units 09:25 09:25 09:25 WBC 16.07 H (4.8-10.8) K/uL RBC 4.72 (4.7-6.1) M/uL Hgb 14.7 (14.0-18.0) g/dL Hct 43.7 (42-52) % MCV 92.6 (80-100) fL MCH 31.1 (25-34) pg MCHC 33.6 (32-36) g/dL RDW Std Deviation 48.2 H (36.4-46.3) fL RDW Coeff of Radha 14.1 (11.5-14.5) % Plt Count 203 (130-400) K/uL MPV 10.8 H (7.4-10.4) fL Immature Gran % (Auto) 0.3 % Neut % (Auto) 90.7 % Lymph % (Auto) 3.5 % Day % (Auto) 5.3 % Eos % (Auto) 0.1 % Baso % (Auto) 0.1 % Neut # (Auto) 14.58 H (1.4-6.5) K/uL Lymph # (Auto) 0.56 L (1.2-3.4) K/uL Day # (Auto) 0.85 H (0.11-0.59) K/uL Eos # (Auto) 0.01 (0-0.5) K/uL Baso # (Auto) 0.02 (0-0.2) K/uL Immature Gran # (Auto) 0.05 H (0.00-0.02) K/uL PT (9.0-12.0) Seconds INR (0.9-1.1) APTT (21.0-31.0) Seconds PTT Ratio D-Dimer (0-500) ug/L FEU VBG pH (7.36-7.41) VBG pCO2 (38-50) mmHg VBG pO2 mmHg VBG HCO3 mmol/L VBG O2 Saturation % VBG Base Excess mEq/L Barometric Pressure mm/Hg Sodium (136-145) mmol/L Potassium (3.5-5.1) mmol/L Chloride (98-107) mmol/L Carbon Dioxide (21-32) mmol/L Anion Gap (3-11) BUN (7-18) mg/dl Creatinine (0.6-1.4) mg/dl Est Cr Clr Drug Dosing ml/min Est GFR ( Amer) Est GFR (Non-Af Amer) BUN/Creatinine Ratio (10-20) Glucose (70-99) mg/dl Lactate (0.4-2.0) mmol/L Calcium (8.5-10.1) mg/dl Magnesium (1.8-2.4) mg/dl Total Bilirubin (0.2-1) mg/dl AST (15-37) U/L ALT (12-78) U/L Alkaline Phosphatase (45-117) U/L Troponin I (0-0.045) ng/ml Total Protein (6.4-8.2) gm/dl Albumin (3.4-5.0) gm/dl Globulin (2.5-4.0) gm/dl Albumin/Globulin Ratio (0.9-2) Procalcitonin (0-0.5) ng/ml COVID-19 Eval [facility] SARS-CoV-2, RNA, NAAT NEGATIVE (NEGATIVE) 06/01/20 06/01/20 Range/Units 09:29 09:29 WBC (4.8-10.8) K/uL RBC (4.7-6.1) M/uL Hgb (14.0-18.0) g/dL Hct (42-52) % MCV (80-100) fL MCH (25-34) pg MCHC (32-36) g/dL RDW Std Deviation (36.4-46.3) fL RDW Coeff of Radha (11.5-14.5) % Plt Count (130-400) K/uL MPV (7.4-10.4) fL Immature Gran % (Auto) % Neut % (Auto) % Lymph % (Auto) % Day % (Auto) % Eos % (Auto) % Baso % (Auto) % Neut # (Auto) (1.4-6.5) K/uL Lymph # (Auto) (1.2-3.4) K/uL Day # (Auto) (0.11-0.59) K/uL Eos # (Auto) (0-0.5) K/uL Baso # (Auto) (0-0.2) K/uL Immature Gran # (Auto) (0.00-0.02) K/uL PT (9.0-12.0) Seconds INR (0.9-1.1) APTT (21.0-31.0) Seconds PTT Ratio D-Dimer (0-500) ug/L FEU VBG pH 7.45 H (7.36-7.41) VBG pCO2 33 L (38-50) mmHg VBG pO2 45 mmHg VBG HCO3 23 mmol/L VBG O2 Saturation 81.1 % VBG Base Excess -0.8 mEq/L Barometric Pressure 740.0 mm/Hg Sodium (136-145) mmol/L Potassium (3.5-5.1) mmol/L Chloride (98-107) mmol/L Carbon Dioxide (21-32) mmol/L Anion Gap (3-11) BUN (7-18) mg/dl Creatinine (0.6-1.4) mg/dl Est Cr Clr Drug Dosing ml/min Est GFR ( Amer) Est GFR (Non-Af Amer) BUN/Creatinine Ratio (10-20) Glucose (70-99) mg/dl Lactate 2.7 H* (0.4-2.0) mmol/L Calcium (8.5-10.1) mg/dl Magnesium (1.8-2.4) mg/dl Total Bilirubin (0.2-1) mg/dl AST (15-37) U/L ALT (12-78) U/L Alkaline Phosphatase (45-117) U/L Troponin I (0-0.045) ng/ml Total Protein (6.4-8.2) gm/dl Albumin (3.4-5.0) gm/dl Globulin (2.5-4.0) gm/dl Albumin/Globulin Ratio (0.9-2) Procalcitonin (0-0.5) ng/ml COVID-19 Eval Order SARS-CoV-2, RNA, NAAT (NEGATIVE) Administered Medications Piperacillin Sod/Tazobactam Sod (Zosyn) 4.5 gm in 120 mls @ 240 mls/hr IV NOW ONE Stop: 06/01/20 11:48 Last Admin: 06/01/20 11:42 Dose: 240 mls/hr Documented by: [id number] Sodium Chloride (Nss) 500 mls @ 999 mls/hr IV .Q31M ONE Stop: 06/01/20 11:49 Last Admin: 06/01/20 11:43 Dose: 999 mls/hr Documented by: [id number] Discontinued Medications Albuterol (Albut/Ipratrop 3mg/0.5mg Neb 3 Ml Vial) 3 ml NEB NOW STA Stop: 06/01/20 09:09 Last Admin: 06/01/20 09:42 Dose: 3 ml Documented by: [id number] Dexamethasone (Dexamethasone Sod Inj 10 Mg/Ml Vial) 10 mg IV NOW ONE Stop: 06/01/20 09:09 Last Admin: 06/01/20 09:33 Dose: 10 mg Documented by: [id number] Imaging Data Radiologist's Impression: Patient: LUCI LEDEZMA Admit Date: 06/01/20 MR#: [id number] Address1: [address] [place] [address] Acct ID:[id number] Address2: Date: 1945 [facility] Zip: [place] [address] Age: 75 Location: ED Sex: M Room/Bed: Att Phy: Diagnosis: SOB Destiny Phy: Josh Hernandez MD Service Date: 06/01/20 Fam Phy: Interpreting Phy: Miguel Angel Andrade MD Admit Phy: Ordering Phy: Can Lane DO cc: ~ XR chest 1V portable CLINICAL HISTORY: SEPSIS COMPARISON STUDY: January 20, 2020 FINDINGS: There is radiographic evidence of pulmonary emphysema. The heart is the upper limits of normal in size. There is no failure. There is right lower lobe parenchymal consolidation consistent with a pneumonia. Increased markings are also present the left lung base, also likely infectious/inflammatory. IMPRESSION: 1. Multifocal airspace opacities right greater than left, likely secondary to a multifocal pneumonia. Clinical and radiographic follow-up is recommended. ACT 112: Negative or not required by law. Electronically signed by: Miguel Angel Andrade M.D. 06/01/2020 10:42 AM Dictated: 06/01/20 1041 Transcribed: 06/01/20 1041 Blood Pressure Blood Pressure Findings: Elevated blood pressure Discharge Plan Visit Data Chief Complaint: Shortness of Breath/Dyspnea Stated Complaint: SOB ED Provider: Can Lane Discharge Problem: Acute exacerbation of chronic obstructive pulmonary disease, Pneumonia, Hypoxia Patient Disposition: Being Evaluated by Hospitalist Condition: Good Forms Stand Alone Forms: My [employer] Prescriptions Prescriptions: No Action apixaban 5 mg tablet 5 mg PO BID Qty: 180 RF: 3 omeprazole 20 mg capsule,delayed release(DR/EC) 20 mg PO DAILY Qty: 90 RF: 2 diltiazem HCl 180 mg capsule,extended release 24hr 180 mg PO BID Qty: 180 RF: 3 albuterol sulfate 90 mcg/actuation HFA aerosol inhaler 2 puff inhalation Q4H PRN (Reason: shortness of breath or wheezing) Qty: 54 RF: 3 albuterol sulfate 2.5 mg /3 mL (0.083 %) solution for nebulization See Rx Instructions .ROUTE .COMPLEX Qty: 360 RF: 0 [id number] [Trelegy Ellipta] 200-62.5-25 mcg blister with device RF: 0 budesonide-formoterol [Symbicort] 160-4.5 mcg/actuation HFA aerosol inhaler 2 puff INHALATION BID Qty: 3 RF: 3 losartan 50 mg tablet 50 mg PO DAILY Qty: 90 RF: 3 tamsulosin 0.4 mg capsule 0.8 mg PO DAILY Qty: 180 RF: 3 Referrals Referrals: Dudley Hernandez MD [Primary Care Provider] -
[2020-06-01 09:48] LABS: Base Excess VBG -0.8 mEq/L; Oxygen Saturation VBG 81.1 %; pH VBG 7.45 (7.36-7.41)
[2020-06-01 09:50] LABS: D Dimer 250 ug/L FEU (0-500); Partial Thromboplastin Time 28.8 Seconds (21.0-31.0); Prothrombin Time 10.8 Seconds (9.0-12.0)
[2020-06-01 09:54] LABS: Alanine Aminotransferase 15 U/L (12-78); Albumin Level 3.3 gm/dl (3.4-5.0); Aspartate Aminotransferase 13 U/L (15-37); BUN Creatinine Ratio 11.4 (10-20); Blood Urea Nitrogen 14 mg/dl (7-18); Calcium 8.8 mg/dl (8.5-10.1); Carbon Dioxide 22 mmol/L (21-32); Chloride 107 mmol/L (98-107); Creatinine Clr Calc Pharmacy 55.2 ml/min; Est GFR (African American) 65.3; Est GFR (Non-African American) 56.4; Glucose 211 mg/dl (70-99); Magnesium 1.8 mg/dl (1.8-2.4); Potassium 4.4 mmol/L (3.5-5.1); Sodium 138 mmol/L (136-145)
[2020-06-01 09:59] LABS: Albumin Globulin Ratio 0.8 (0.9-2); Alkaline Phosphatase 87 U/L (45-117); Bilirubin,Total 1.6 mg/dl (0.2-1); Total Protein 7.3 gm/dl (6.4-8.2); Troponin I < 0.015 ng/ml (0-0.045)
--- NOTE | 2020-06-01 10:44 | XRay Report ---
XR chest 1V portable CLINICAL HISTORY: SEPSIS COMPARISON STUDY: January 20, 2020 FINDINGS: There is radiographic evidence of pulmonary emphysema. The heart is the upper limits of nor mal in size. There is no failure. There is right lower lobe parenchymal consolidation consistent with a pneumonia. Increased markings are also present the left lung base, also likely infectious/inflamma tory. IMPRESSION: 1. Multifocal airspace opacities right greater than left, likely secondary to a multifocal pneumonia. Clinical and radiographic follow-up is recommended. ACT 112: Negative or not required by law. Electronically signed by: Miguel Angel Andrade M.D. 06/01/2020 10:42 AM
[2020-06-01] MEDS ORDERED: PIPERACILLIN/TAZOBACTAM 4.5 GM/120 ML BAG IV ONE (11:19)
[2020-06-01] MEDS ORDERED: SODIUM CHLORIDE 0.9% 500 ML IV ONE (11:19)
[2020-06-01] MEDS ORDERED: PIPERACILL/TAZOBAC CONSULT ACTIVE PRN ×2 (11:19→15:57)
[2020-06-01] MEDS ORDERED: ACETAMINOPHEN 500 MG TAB PO STA (11:44)
--- NOTE | 2020-06-01 12:01 | History & Physical Report ---
Date of Service June 01, 2020 Assessment & Plan (1) Pneumonia: - Admit to med surg with tele - Sputum culture, mucinex, duonebs QID and Q2H prn, tessalon pearls - Wean O2 prn, does not wear any O2 - COVID swab neg, will check MRSA swab - WBC at time of admission = 16 - BCx x 2, follow - Tmax = 38.2 on admission - Lactic acid = 2.3, Procalcitonin neg - CXR reviewed with multifocal pna - Continue antibiotic therapy with zosyn IV and azithromycin PO (2) Hypoxia: - Initially 87-88% on RA, improved now with 2L O2, maintain between 90-92% with hx of COPD, pulse ox of 95% on 2L - VBG showing pH of 7.45, CO2 33, bicarb 23 - Respiratory alkalosis with no evidence of hypoxemia (3) Chronic obstructive pulmonary disease: - As above, treated with IV Decadron 10 mg in the ER, will continue prednisone 40 mg daily - Appears to be more pneumonia related versus COPD exacerbation (4) Hypertension: -History of such, BPH 140s over 90s on admission, patient missed morning medications including losartan, diltiazem -We will give dose of losartan now (5) AF (atrial fibrillation): -Permanent, continue Eliquis for anticoagulation, missed morning dose, resume with evening dose -Diltiazem ER 180 mg BID, dose, will give short acting 60 mg 1 time now and resume ER dosing this evening, patient denies palpitations or any chest complaints -EKG reviewed showing A. fib with heart rate in the 120s-130s. - Now lower after dosing. (6) CAD in [place] artery: - Hx of such, continue eliquis as above (7) Diabetes mellitus type II, controlled: Last A1c was 6.1 in November 2019, check A1c with a.m. labs, heart healthy diabetic diet, is not on oral antihyperglycemics, follow a.m. labs if elevated then can start sliding scale (8) DVT prophylaxis: Apixaban for afib History of Present Illness Primary Care Provider: Josh Hernandez MD This is a 75-year-old male with past medical history of A. fib on Eliquis, COPD, GERD, BPH, who presents with acute onset of worsening shortness of breath x1 day. Patient was working on cleaning antlers from a 9 point monique he shot earlier this season drinking a beer where he realized he was not feeling so well. He went inside took a shower and went to bed. He awoke this morning and felt significantly worse, had difficulty taking deep breaths and had difficulty getting dressed due to GIBSON. He admits to a cough with sputum production which is yellow/white/brown at times, denies hemoptysis. He does not typically require oxygen however was initially hypoxic with O2 sats at 87 to 88% on room air, is currently on 2 L with O2 sats at 94%. Denies any fevers, chills or sweats. He is febrile here in the ER with T-max = 38.2. Patient denies any known COVID-19 exposures or travel. He lives at home with his . He denies any abdominal complaints, no nausea or vomiting. He is hungry and requesting something to eat. Denies any other acute complaints or pain. Allergies Allergy/AdvReac Type Severity Reaction Status Date / Time hydrocodone Allergy Intermediate FEELING Verified 06/01/20 11:43 HOT, SWEATY, simvastatin Allergy Intermediate Myalgia Verified 06/01/20 11:43 tramadol Allergy Intermediate Confused Verified 06/01/20 11:43 doxycycline AdvReac Mild STOMACH Verified 06/01/20 11:43 PAIN Home Medications Medication Instructions Recorded Confirmed Type apixaban 5 mg tablet 5 mg PO BID #180 tab 11/12/19 06/01/20 Rx omeprazole 20 mg capsule,delayed 20 mg PO DAILY #90 cap 01/15/20 06/01/20 Rx release diltiazem HCl 180 mg 180 mg PO BID #180 cap 03/16/20 06/01/20 Rx capsule,extended release 24 hr albuterol sulfate See Rx Instructions .ROUTE 04/21/20 06/01/20 Rx .COMPLEX #360 ml albuterol sulfate 90 mcg/actuation 2 puff INHALATION Q4H PRN #54 gm 04/21/20 06/01/20 Rx aerosol inhaler budesonide-formoterol HFA 160 2 puff INHALATION BID #3 inhaler 05/03/20 06/01/20 Rx mcg-4.5 mcg/actuation aerosol inhaler losartan 50 mg tablet 50 mg PO DAILY #90 tab 05/30/20 06/01/20 Rx tamsulosin 0.8 mg PO HS 06/01/20 06/01/20 History Past Med/Surg History Medical History Atrial fibrillation with rapid ventricular response Bronchitis Chronic bronchitis Chronic dyspnea Intestinal obstruction Sepsis Surgical History History of abdominal surgery History of cholecystectomy History of exploratory laparotomy History of pancreatectomy History of partial gastrectomy Family History Mother Cirrhosis Diabetes Stroke Sister Diabetes Social History Smoking Status: Former smoker Tobacco Type: Cigarettes Years Smoked: 30; Smoking End Date: 1997; Hx Alcohol Use: Yes Alcohol type: beer Hx Substance Use: No Preferred Language: Swedish Communication Ability: Effective Software 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 Required: No Beliefs That Will Affect Care: None marital status: Current Living Situation: Spouse current occupational status: retired Feels Safe at Home: Yes Safety Concerns: Feels Safe At This Time Assistive Devices: Denture - Upper Review of Systems Review of Systems: Constitutional: No fever, sweats or chills Eyes: No diplopia, no worsening or blurred vision ENT: normal hearing, no trouble swallowing Respiratory: As per HPI + cough, + sputum, +dyspnea on exertion Cardiovascular: No chest pain, + slight tightness with deep breaths or pal pitations Abdomen: No pain, nausea, vomiting, diarrhea or constipation Musculoskeletal: No joint pain, calf pain, swelling Neurologic: No weakness, numbness/tingling, or balance problems Psychiatric: No anxiety or depression Skin: No rash or itch Physical Exam Physical Exam: General: awake, alert, no apparent distress Head: Normocephalic, atraumatic ENT: PERRL, EOMI, no pharyngeal exudate, mucous membranes moist Chest: on 2 L via NC, + barrel chested, diminshed at bases bilaterally, +faint crackles and expiratory wheeze at R base Cardiac: irregularly irregular, HR in 120s at bedside, no murmur, no JVD, normal peripheral pulses, good capillary refill Abdominal: NABS x 4 quadrants, soft, nondistended, nontender to palpation, no rebound or guarding Extremities: Normal inspection, 2+ peripheral edema BLE, no erythema, calfs nontender to palpation Psych: Normal mood and affect Neuro: AAO x 3, strength intact bilaterally and rated 5/5, no motor deficits, speech is clear, no peripheral sensory deficits Results & Data Results & Data ([facility]) Vital Signs (Past 12 Hours) Vital Signs Temp Pulse Pulse Resp BP BP Pulse Ox 06/01/20 11:39 38.2 C H 06/01/20 11:31 123 H 20 95 06/01/20 11:30 116 H 22 143/92 H 95 06/01/20 11:01 108 H 26 H 94 06/01/20 11:00 108 H 28 H 149/87 H 94 06/01/20 10:31 112 H 20 96 06/01/20 10:30 113 H 24 130/83 95 06/01/20 10:01 111 H 22 96 06/01/20 10:00 111 H 21 132/90 96 06/01/20 09:43 109 H 21 97 06/01/20 09:31 113 H 24 96 06/01/20 09:30 119 H 125 H 23 147/94 H 151/86 H 95 06/01/20 09:29 118 H 26 H 96 06/01/20 09:26 89 L 06/01/20 09:24 110 H 20 151/86 H 93 06/01/20 09:09 96 06/01/20 08:57 37.6 C H 133 H 22 131/78 89 L Diagnostic Findings XR chest 1V portable CLINICAL HISTORY: SEPSIS COMPARISON STUDY: January 20, 2020 FINDINGS: There is radiographic evidence of pulmonary emphysema. The heart is the upper limits of normal in size. There is no failure. There is right lower lobe parenchymal consolidation consistent with a pneumonia. Increased markings are also present the left lung base, also likely infectious/inflammatory. IMPRESSION: 1. Multifocal airspace opacities right greater than left, likely secondary to a multifocal pneumonia. Clinical and radiographic follow-up is recommended. ECG Additional Comments: 01-JUN-2020 09:08:14 [facility]-EDSTAT ROUTINE RETRIEVAL Poor data quality, interpretation may be adversely affected Atrial fibrillation with rapid ventricular response Septal infarct (cited on or before 01-JUN-2020) Abnormal ECG When compared with ECG of 28-NOV-2019 02:30, Questionable change in QRS axis Nonspecific T wave abnormality now evident in Inferior leads Nonspecific T wave abnormality, worse in Anterior leads Nonspecific T wave abnormality no longer evident in Lateral leads 25mm/s 10mm/mV 150Hz 9.0.9 12SL 241 HUNTER: 11 Referred by: REFERRED SELF Unconfirmed Vent. rate 133 BPM GA interval * ms QRS duration 62 ms QT/QTc 274/407 ms Code Status & VTE Plan Code Status Full code - discussed with the pt at bedside Supervising Physician Co-Signing Physician Notes I supervised Deborah Pineda PA-C on this patient's care. I examined the patient today independently of her. I discussed the plan of care with her with the plan being as written in her note except for any following changes/exceptions: None. PG Care Time/CCT Total # of Minutes Spent Total Time Spent with Patient: Total time spent is greater than 50% in coordina tion of care (as documented) at patient's floor/unit and/or counseling patient: Coding Level of Care Code 22329 Initial Inpt Care Lvl 3 Diagnoses Pneumonia J18.9 Laterality: right Lung location: lower lobe of lung Pneumonia type: due to unspecified organism Hypoxia R09.02 Chronic obstructive pulmonary disease J44.9 Hypertension I10 AF (atrial fibrillation) I48.91 CAD in [place] artery I25.10 Diabetes mellitus type II, controlled E11.9 DVT prophylaxis Z29.9 (1) Pneumonia Laterality: right Lung location: lower lobe of lung Pneumonia type: due to unspecified organism Qualified Code(s): J18.9 - Pneumonia, unspecified organism
[2020-06-01] MEDS ORDERED: dilTIAZem HCl 60 MG TAB PO ONE (12:35)
[2020-06-01] MEDS: LOSARTAN POTASSIUM 50 MG TAB PO SCH (14:22)
[2020-06-01] MEDS ORDERED: ALBUTEROL 0.083% NEBU SOLN 3 ML VIAL INH PRN (15:57)
[2020-06-01] MEDS ORDERED: ACETAMINOPHEN 325 MG TAB PO PRN (15:57)
[2020-06-01] MEDS ORDERED: NON-FORMULARY MEDICATION (Fluticasone-Umeclidin-Vilanter [Trelegy Ellipta] 200-62.5-25 mcg inhalation SCH (15:57)
[2020-06-01] MEDS ORDERED: ALBUTEROL HFA 8 GM INHALER INH PRN (15:57)
[2020-06-01] MEDS ORDERED: ONDANSETRON INJ 2 MG/ML 2 ML VIAL IV PRN (15:57)
[2020-06-01] MEDS ORDERED: AZITHROMYCIN 250 MG TAB PO ONE (15:57)
[2020-06-01] MEDS: PIPERACILLIN/TAZOBACTAM 3.375 GM in DEXTROSE 5% 100 ML IV SCH (18:12)
[2020-06-01] MEDS: BENZONATATE 100 MG CAPSULE PO SCH ×2 (18:13→20:46)
[2020-06-01] MEDS: dilTIAZem HCL 180 MG CAPCR PO SCH (20:45)
[2020-06-01] MEDS: APIXABAN 5 MG TABLET PO SCH (20:45)
[2020-06-01] MEDS: guaiFENesin 600 MG TABCR PO SCH (20:45)
[2020-06-01] MEDS ORDERED: TAMSULOSIN HCL 0.4 MG CAP PO SCH (21:00)
[2020-06-02] MEDS: PIPERACILLIN/TAZOBACTAM 3.375 GM in DEXTROSE 5% 100 ML IV SCH ×2 (00:11→08:20)
--- NOTE | 2020-06-02 06:27 | Electrocardiogram Report ---
Test Reason : Blood Pressure : / mmHG Vent. Rate : 133 BPM Atrial Rate : 104 BPM P-R Int : 000 ms QRS Dur : 062 ms QT Int : 274 ms P-R-T Axes : 000 -24 066 degrees QTc Int : 407 ms Poor data quality, interpretation may be adversely affected Atrial fibrillation with rapid ventricular response Septal infarct (cited on or before 01-JUN-2020) Abnormal ECG When compared with ECG of 28-NOV-2019 02:30, Questionable change in QRS axis Confirmed by Chon Barr ([id number]) on 06/02/2020 6:27:13 AM Referred By: REFERRED SELF Confirmed By:Chon Barr
[2020-06-02 07:03] LABS: Hemoglobin 13.6 g/dL (14.0-18.0); Mean Corpuscular Hemoglobin 30.8 pg (25-34); Mean Corpuscular Hgb Conc 33.2 g/dL (32-36); Mean Corpuscular Volume 92.8 fL (80-100); Mean Platelet Volume 11.2 fL (7.4-10.4); Platelet Count 189 K/uL (130-400); Red Blood Count 4.42 M/uL (4.7-6.1); White Blood Count 18.06 K/uL (4.8-10.8)
[2020-06-02 07:31] LABS: Albumin Level 2.8 gm/dl (3.4-5.0); BUN Creatinine Ratio 15.2 (10-20); Calcium 8.7 mg/dl (8.5-10.1); Creatinine Clr Calc Pharmacy 63.7 ml/min; Est GFR (African American) 70.8; Est GFR (Non-African American) 61.1; Potassium 4.1 mmol/L (3.5-5.1)
[2020-06-02 07:40] LABS: Albumin Globulin Ratio 0.7 (0.9-2); Bilirubin,Total 2.6 mg/dl (0.2-1); Globulin 4.1 gm/dl (2.5-4.0); Total Protein 6.9 gm/dl (6.4-8.2)
[2020-06-02] MEDS: LOSARTAN POTASSIUM 50 MG TAB PO SCH (08:18)
[2020-06-02] MEDS: dilTIAZem HCL 180 MG CAPCR PO SCH (08:18)
[2020-06-02] MEDS: guaiFENesin 600 MG TABCR PO SCH (08:19)
[2020-06-02] MEDS: APIXABAN 5 MG TABLET PO SCH (08:19)
[2020-06-02] MEDS: BENZONATATE 100 MG CAPSULE PO SCH (08:20)
[2020-06-02] MEDS ORDERED: AZITHROMYCIN 250 MG TAB PO SCH (09:00)
[2020-06-02] MEDS ORDERED: PANTOprazole 40 MG TAB PO SCH (09:00)
[2020-06-02] MEDS ORDERED: FLUTICASONE/VILANTEROL 200/25MCG 14 PUFFS/INHALER INH SCH (09:00)
[2020-06-02] MEDS ORDERED: predniSONE 20 MG TAB PO SCH (09:00)
--- NOTE | 2020-06-02 10:29 | Discharge Summary ---
Date of Service June 02, 2020 Admission HPI Per Admitting Provider This is a 75-year-old male with past medical history of A. fib on Eliquis, COPD, GERD, BPH, who presents with acute onset of worsening shortness of breath x1 day. Patient was working on cleaning antlers from a 9 point monique he shot earlier this season drinking a beer where he realized he was not feeling so well. He went inside took a shower and went to bed. He awoke this morning and felt significantly worse, had difficulty taking deep breaths and had difficulty getting dressed due to GIBSON. He admits to a cough with sputum production which is yellow/white/brown at times, denies hemoptysis. He does not typically require oxygen however was initially hypoxic with O2 sats at 87 to 88% on room air, is currently on 2 L with O2 sats at 94%. Denies any fevers, chills or sweats. He is febrile here in the ER with T-max = 38.2. Patient denies any known COVID-19 exposures or travel. He lives at home with his . He denies any abdominal complaints, no nausea or vomiting. He is hungry and requesting something to eat. Denies any other acute complaints or pain. Admission Exam Per Admitting Provider Physical Exam: General: awake, alert, no apparent distress Head: Normocephalic, atraumatic ENT: PERRL, EOMI, no pharyngeal exudate, mucous membranes moist Chest: on 2 L via NC, + barrel chested, diminished at bases bilaterally, +faint crackles and expiratory wheeze at R base Cardiac: irregularly irregular, HR in 120s at bedside, no murmur, no JVD, normal peripheral pulses, good capillary refill Abdominal: NABS x 4 quadrants, soft, nondistended, nontender to palpation, no rebound or guarding Extremities: Normal inspection, 2+ peripheral edema BLE, no erythema, calfs nontender to palpation Psych: Normal mood and affect Neuro: AAO x 3, strength intact bilaterally and rated 5/5, no motor deficits, speech is clear, no peripheral sensory deficits Principal Diagnosis Multifocal pneumonia Discharge Exam Physical Exam: General: awake, alert, no apparent distress Head: Normocephalic, atraumatic ENT: PERRL, EOMI, no pharyngeal exudate, mucous membranes moist Chest: on 1-2 L via NC, + barrel chested, diminished at bases bilaterally, +faint crackles and expiratory wheeze at R base - slightly improved today, feels breathing has improved. Cardiac: irregularly irregular, HR improved to 80-90, no murmur, no JVD, normal peripheral pulses, good capillary refill Abdominal: NABS x 4 quadrants, soft, nondistended, nontender to palpation, no rebound or guarding Extremities: Normal inspection, 2+ peripheral edema BLE, no erythema, calfs nontender to palpation Psych: Normal mood and affect Neuro: AAO x 3, strength intact bilaterally and rated 5/5, no motor deficits, speech is clear, no peripheral sensory deficits Discharge Data Allergies Allergy/AdvReac Type Severity Reaction Status Date / Time hydrocodone Allergy Intermediate FEELING Verified 06/01/20 11:43 HOT, SWEATY, simvastatin Allergy Intermediate Myalgia Verified 06/01/20 11:43 tramadol Allergy Intermediate Confused Verified 06/01/20 11:43 doxycycline AdvReac Mild STOMACH Verified 06/01/20 11:43 PAIN Consultations 06/01/20 11:39 ED Decision to Admit Stat 06/01/20 15:57 Consult Case Management - Discharge Planning Routine Hospital Course (1) Pneumonia: - Admit to med surg with tele - Sputum culture, mucinex, duonebs QID and Q2H prn, penny quiroz - was able to wean off to RA with sats 90-92% - COVID swab neg, will check MRSA swab - WBC at time of admission = 16 --> 18 but is likely inflammatory and on antibiotics + prednisone - BCx x 2, follow - Tmax = 38.2 on admission - afebrile overnight - Lactic acid = 2.3, Procalcitonin neg - CXR reviewed with multifocal pna - Continue antibiotic therapy with zosyn IV and azithromycin PO -- will transition to augmentin x 5 more days, and azithromycin x 3 more days - Continue prednisone taper with 40 mg daily ( x 2 d) then transition to 20 mg daily on 06/03 x 2 days, then 10 mg daily x 2 days. (2) Hypoxia: - Initially 87-88% on RA, improved now with 2L O2, maintain between 90-92% with hx of COPD - able to be weaned off as above - VBG showing pH of 7.45, CO2 33, bicarb 23 - Respiratory alkalosis with no evidence of hypoxemia (3) Chronic obstructive pulmonary disease: - As above, treated with IV Decadron 10 mg in the ER, will continue prednisone taper - Appears to be more pneumonia related versus COPD exacerbation (4) Hypertension: -History of such, BPH 140s over 90s on admission, patient missed morning medications including losartan, diltiazem -Improved with implementation of home medications (5) AF (atrial fibrillation): -Permanent, continue Eliquis for anticoagulation, missed morning dose, resume with evening dose -Diltiazem ER 180 mg BID, dose, will give short acting 60 mg 1 time now and resume ER dosing this evening, patient denies palpitations or any chest complaints -EKG reviewed showing A. fib with heart rate in the 120s-130s. - Rate in low 100s, due for morning meds soon (6) CAD in [place] artery: - Hx of such, continue eliquis as above (7) Diabetes mellitus type II, controlled: Last A1c was 6.1 in November 2019, check A1c with a.m. labs, heart healthy diabetic diet, is not on oral antihyperglycemics, follow a.m. labs if elevated then can start sliding scale (8) DVT prophylaxis: Apixaban for afib Total Time Total Time Spent Total Time Spent (In Minutes): 34 min Discharge Plan Discharge Items Patient Disposition: Home - Self-Care Reason For Visit: MULTIFOCAL PNA Discharge Diagnosis: Multifocal pneumonia Condition on Discharge: Good Activity: Resume your previous activity Lifting: Gradually increase as tolerated Bathing: No limitations Sexual Activity: When tolerated Exercise/Sports: Gradually increase as tolerated Driving/Machine Use: No limitations Non-emergency contact: Primary Care Provider Call non-emergency contact if: you have any medication questions and your symptoms worsen Follow-up/Referrals: Dudley Hernandez MD [Primary Care Provider] - 06/07/20 9:00 am (You have an appt with Karmen Melquiades on Thursday 06/07 @ 900am. Please arrive 15 minutes prior to your appt. It is important that you keep this appt, if it does not fit your schedule, please call [phone] to reschedule. ) Diet: Carb Consistent or DM2 and Heart Healthy Addtl Attending Provider Instructions: You were admitted to [facility] due to increased shortness of breath and diagnosed with multifocal pneumonia. COVID-19 testing was NEGATIVE. You were started on antibiotics and will continue these as tablets as directed below, upon going home. Take the prednisone tapr as directed below. If you develop fever, worsening shortness of breath, cough, chills, then call yo PCP or return to the ER. During your stay here you were treated with supportive care, medications and your symptoms improved. Imaging studies which were completed include CXR, and were abnorma showing pneumonia. Medications: Continue taking you medications as prescribed: Azithromycin 250 mg daily x 3 more days Augmentin 875 mg daily x 5 more days Take prednisone taper as follows: 40 mg x 1 day 20 mg x 2 days 10 mg x 2 days Appointments: Follow up with PCP within 1-2 weeks, you already have an appointment scheduled in late May. Pending Studies at Discharge: No Stand-Alone Forms: My [facility], Smoking Cessation Medications and DC Order Prescriptions: New azithromycin 250 mg Tablet 250 mg PO QAM 3 Days Qty: 3 RF: 0 prednisone 20 mg Tablet 40 mg PO DAILY Qty: 4 RF: 0 prednisone 10 mg tablet 10 mg PO DAILY Qty: 2 RF: 0 Continued apixaban 5 mg tablet 5 mg PO BID Qty: 180 RF: 3 omeprazole 20 mg capsule,delayed release(DR/EC) 20 mg PO DAILY Qty: 90 RF: 2 diltiazem HCl 180 mg capsule,extended release 24hr 180 mg PO BID Qty: 180 RF: 3 albuterol sulfate 90 mcg/actuation HFA aerosol inhaler 2 puff inhalation Q4H PRN (Reason: shortness of breath or wheezing) Qty: 54 RF: 3 albuterol sulfate 2.5 mg /3 mL (0.083 %) solution for nebulization See Rx Instructions .ROUTE .COMPLEX Qty: 360 RF: 0 budesonide-formoterol [Symbicort] 160-4.5 mcg/actuation HFA aerosol inhaler 2 puff INHALATION BID Qty: 3 RF: 3 losartan 50 mg tablet 50 mg PO DAILY Qty: 90 RF: 3 tamsulosin 0.4 mg capsule 0.8 mg PO HS RF: 0 Discontinued ceuuidispix-[id number]-[id number] [Trelegy Ellipta] 200-62.5-25 mcg blister with device 1 ea inhalation UD RF: 0 Discharge Orders: Discharge Order (Routine); Ordered 06/02/20 Ordered By: Dari Pineda Admission Data Admit Date/Time: 06/01/20 12:35 Attending Provider: Pablo Ventura Admit Provider: Pablo Ventura Primary Care Provider: Dudley Hernandez Other Providers: Pablo Ventura Coding Level of Care Code D/C Day Management >30 mins Diagnoses Pneumonia J18.9 Laterality: right Lung location: lower lobe of lung Pneumonia type: due to unspecified organism Hypoxia R09.02 Chronic obstructive pulmonary disease J44.9 Hypertension I10 AF (atrial fibrillation) I48.91 CAD in [place] artery I25.10 Diabetes mellitus type II, controlled E11.9 DVT prophylaxis Z29.9
== END 2020-06-02 13:09 | disposition home or self-care (01) | DRG 190 ==
LOC: ED 08:52 → 2N 12:35

== ENCOUNTER 2022-08-15 07:49 | Inpatient (IN) ==
[2022-08-15] MEDS ORDERED: ALBUT/IPRATROP 3MG/0.5MG NEB 3 ML VIAL NEB STA (08:02)
[2022-08-15] MEDS ORDERED: SODIUM CHLORIDE 0.9% 1000ML 1,000 ML IV ONE (08:02)
[2022-08-15] MEDS ORDERED: methylPREDNISolone 125 MG/2 ML VIAL IV STA (08:02)
[2022-08-15] MEDS ORDERED: guaiFENesin 600 MG TABCR PO STA (08:02)
--- NOTE | 2022-08-15 08:07 | Emergency Department Note ---
Impression & Plan COPD exacerbation, RSV (respiratory syncytial virus infection), Hypoxia, Shortness of breath at rest ED Provider Note NAME: LUCI LEDEZMA AGE: 77 SEX: M ARRIVES VIA: Ambulance INFORMANT: Patient ED PROVIDER(S): Gustabo Fong MD CHIEF COMPLAINT: SOB PLAN: Disposition: Admit MEDICAL DECISION MAKING: The patient is a pleasant 77-year-old gentleman with a past medical history of COPD, atrial fibrillation on Eliquis, hypertension, GERD, BPH who presents to [facility] emergency department via EMS for evaluation of worsening shortness of breath with cough, congestion over the past several days where the patient reports feeling increasingly short of breath. He denies nausea, vomiting, diarrhea or urinary symptoms. On arrival the patient is uncomfortable, mildly dyspneic but no acute distress, afebrile heart in the 100s in atrial fibrillation with O2 saturation 89% on room air placed on nasal cannula to the low 90s. He appears clinically dry. He has wheezes and rhonchi of bilateral lower lung woods. EKG demonstrates atrial fibrillation without overt acute ischemia. CXR interpreted as negative though with increased interstitial densities which may reflect scarring. WBC and platelets within normal limits. H/H similar to prior. Chemistry without metabolic acidosis. Electrolytes and LFTs without significant abnormality. High-sensitivity troponin 6.9, within normal limits. Lipase is not elevated. Procalcitonin is undetectable. COVID-19 and influenza PCR's were negative. RSV PCR was positive. Patient did feel improvement following IV flui d hydration, Solu-Medrol, guaifenesin and DuoNeb. Given his worsening respiratory status in the setting of his COPD now requiring oxygen he agrees with plan for admission for further management. Case was discussed with Dr. Barnhart, [facility] hospitalist, who will evaluate the patient for admission. Further management per admitting team. Triage Nursing notes reviewed and agree them. Prior/outside medical records reviewed Vital Signs: reviewed Differential diagnosis: Reactive airway disease, pneumonia, pneumothorax, COPD, CHF, infections, cardiac ischemia, pulmonary embolism, musculoskeletal, gastrointestinal, as well as other pathologies. ER treatment provided: See below. Diagnostics interpreted by me: ECG: Atrial fibrillation, RVR, 104 bpm, no ectopy, no overt ST elevation or depression, QTc 428, QRS 66 Cardiac Monitoring: An order for continuous cardiac monitoring was placed and demonstrated atrial fibrillation, 104 bpm, no ectopy. Laboratory studies: See below Imaging studies: See below Consultation(s): Case was discussed with Dr. Barnhart, [facility] hospitalist, who will evaluate the patient for admission. HPI: The patient is a pleasant 77-year-old gentleman with a past medical history of COPD, atrial fibrillation on Eliquis, hypertension, GERD, BPH who presents to the emergency department via EMS for evaluation of worsening shortness of breath with cough, congestion over the past several days where the patient reports feeling increasingly short of breath. He denies nausea, vomiting, diarrhea or u rinary symptoms. ROS: See above HPI for pertinent positives & negatives. A total of 10 systems reviewed and were otherwise negative. VITALS:See Below PHYSICAL EXAMINATION: GENERAL: Awake, alert, Mildly dyspneic-appearing, in no distress HENT: Normocephalic, atraumatic. Oropharynx with dry mucous membranes and otherwise unremarkable. EYES: Normal conjunctiva. Sclera non-icteric. NECK: Supple. No nuchal rigidity. FROM. No JVD. RESPIRATORY: Wheezing rhonchi bilateral lower lung woods. Mild increased work of breathing but no acute distress. CARDIAC: Tachycardic rate, irregular rhythm. Extremities warm and well perfused. Pulses equal. ABDOMEN: Soft, non-distended. No tenderness to palpation. No rebound or guardin g. No masses. RECTAL: Deferred. MUSCULOSKELETAL: Chest examination reveals no tenderness. The back is symmetrical on inspection without obvious abnormality. There is no CVA tenderness to palpation. No joint edema. LOWER EXTREMITIES: Calves are equal size bilaterally and non-tender. No edema. No discoloration. NEURO: Normal sensorium. No sensory or motor deficits noted. SKIN: No rash or jaundice noted. Gustabo Fong MD Past Med/Surg History Medical History Asthma exacerbation Atrial fibrillation with rapid ventricular response BPH with obstruction/lower urinary tract symptoms Bronchitis Chronic bronchitis Chronic dyspnea Chronic obstructive pulmonary disease Fluid overload Intestinal obstruction Peripheral eosinophilia Sepsis Surgical History History of abdominal surgery History of cholecystectomy History of exploratory laparotomy History of pancreatectomy History of partial gastrectomy Family History Mother Cirrhosis Diabetes Stroke Hypertension Sister Diabetes Multiple myeloma Brother Heart disease Other Coronary heart disease No family history of adverse response to anesthesia No family history of bleeding disorder Denies family history of Ovarian cancer Prostate cancer Breast cancer Colorectal cancer Social History Smoking Status: Former smoker Tobacco Type: Cigarettes Cigarettes Per Day: less than 1ppd; Second Hand Exposure: Yes; Hx Alcohol Use: Yes Alcohol type: beer Alcohol Intake Frequency Comment: 2-3 daily Hx Substance Use: No Preferred Language: British Communication Ability: Effective Hearing Ability: Hard of Hearing Hot Wire Glass 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 Required: No Beliefs That Will Affect Care: None marital status: Current Living Situation: Spouse current occupational status: retired Feels Safe at Home: Yes Safety Concerns: Feels Safe At This Time Childhood Exposure to Second-Hand Smoke: Yes caffeine: Yes (1 c coffee daily) Dental Care, Regularly: No Physical Activity Frequency: Daily Seatbelt Use: always Sunscreen Use: No Assistive Devices: Oxygen - Continuous Allergies Allergies Allergy/AdvReac Type Severity Reaction Status Date / Time hydrocodone Allergy Intermediate FEELING Verified 07/02/22 08:59 HOT, SWEATY, simvastatin Allergy Intermediate Myalgia Verified 07/02/22 08:59 tramadol Allergy Intermediate Confused Verified 07/02/22 08:59 doxycycline AdvReac Mild STOMACH Verified 07/02/22 08:59 PAIN Home Meds Home Medications Medication Instructions Recorded Confirmed guaifenesin 1,200 mg tablet, 1,200 mg PO DAILY 04/10/21 07/02/22 extended release 12 hr (Mucinex) dutasteride 0.5 mg capsule 0.5 mg PO DAILY 04/18/22 07/02/22 umeclidinium 62.5 mcg/actuation 1 inh inhalation DAILY 05/03/22 07/02/22 blister powder for inhalation (Incruse Ellipta) Previous Rx's Medication Instructions Recorded benralizumab 30 mg/mL subcutaneous 30 mg subcut .COMPLEX #1 mL 09/07/21 syringe (Fasenra) budesonide-formoterol HFA 160 2 puff inhalation BID #3 Inhalers 12/25/21 mcg-4.5 mcg/actuation aerosol inhaler (Symbicort) albuterol sulfate 90 mcg/actuation 2 puff inhalation Q4H PRN 01/25/22 aerosol inhaler shortness of breath or wheezing #54 grams omeprazole 20 mg capsule,delayed 20 mg PO DAILY #90 caps 02/12/22 release tamsulosin 0.4 mg capsule 0.8 mg PO DAILY #180 caps 02/15/22 montelukast 10 mg tablet 10 mg PO DAILY #30 tabs 04/12/22 (Singulair) apixaban 5 mg tablet 5 mg PO BID #180 tabs 05/14/22 albuterol sulfate 2.5 mg/3 mL See Rx Instructions .Route 07/02/22 (0.083 %) solution for nebulization .COMPLEX #360 mL roflumilast 500 mcg tablet 500 mcg PO DAILY #30 tabs 07/16/22 diltiazem HCl 180 mg 180 mg PO BID #180 caps 07/19/22 capsule,extended release 24 hr losartan 50 mg tablet 50 mg PO DAILY #90 tabs 08/01/22 Results & Data (ED) Vital Signs Vital Signs - 24 hr 08/15/22 07:37 08/15/22 07:37 08/15/22 07:37 Temperature 36.7 C Temperature Source Oral Pulse Rate 124 H Pulse Rate from SpO2 Sensor Pulse Rhythm Irregular Respiratory Rate 26 H Respiratory Effort / Characteristics Spontaneous Labored Short of Breath SOB on Exertion Spontaneous Short of Breath SOB on Exertion Respiratory Pattern Tachypnea Tachypnea Blood Pressure 132/97 Blood Pressure Mean 108 Pulse Oximetry 89 L 89 L Oxygen Delivery Method Room Air Room Air Nasal Cannula Oxygen Flow Rate 3 Sepsis Recent Fever Within 48 Hours No Sepsis New/Unexplained Change in Mental Status No Sepsis Action Taken by Nursing No Action Required Oxygen Flow Rate - Titration 3 Pulse Oximetry Post Tiitration 93 08/15/22 08:05 08/15/22 08:13 08/15/22 09:00 Temperature Temperature Source Pulse Rate 114 H 107 H 100 H Pulse Rate from SpO2 Sensor 117 H 100 H Pulse Rhythm Respiratory Rate 20 21 Respiratory Effort / Characteristics Respiratory Pattern Blood Pressure 127/78 Blood Pressure Mean 94 Pulse Oximetry 94 94 Oxygen Delivery Method Nasal Cannula Oxygen Flow Rate 3 2 Sepsis Recent Fever Within 48 Hours Sepsis New/Unexplained Change in Mental Status Sepsis Action Taken by Nursing Oxygen Flow Rate - Titration Pulse Oximetry Post Tiitration 08/15/22 10:00 08/15/22 11:01 Temperature Temperature Source Pulse Rate 99 H 115 H Pulse Rate from SpO2 Sensor 88 108 H Pulse Rhythm Respiratory Rate 28 H 20 Respiratory Effort / Characteristics Respiratory Pattern Blood Pressure 118/78 106/76 Blood Pressure Mean 91 86 Pulse Oximetry 96 90 Oxygen Delivery Method Oxygen Flow Rate 2 Sepsis Recent Fever Within 48 Hours Sepsis New/Unexplained Change in Mental Status Sepsis Action Taken by Nursing Oxygen Flow Rate - Titration Pulse Oximetry Post Tiitration Laboratory Data 08/15/22 07:57 08/15/22 07:57 Lab Results 08/15/22 08/15/22 08/15/22 Range/Units 07:57 07:57 07:57 WBC 10.77 (4.8-10.8) K/ul RBC 4.59 L (4.70-6.10) M/uL Hgb 13.0 L (14.0-18.0) g/dl Hct 39.4 L (42.0-52.0) % MCV 85.8 (80.0-100.0) fL MCH 28.3 (25.0-34.0) pg MCHC 33.0 (32.0-36.0) g/dL RDW Std Deviation 40.3 (36.4-46.3) fL RDW Coeff of Radha 13.0 (11.5-14.5) % Plt Count 189 (130-400) K/uL MPV 10.9 (9.4-12.4) fL Immature Gran % (Auto) 0.4 % Neut % (Auto) 79.1 % Lymph % (Auto) 14.4 % [place] % (Auto) 6.0 % Eos % (Auto) 0.0 % Baso % (Auto) 0.1 % Neut # (Auto) 8.52 H (1.40-6.50) K/uL Lymph # (Auto) 1.55 (1.2-3.4) K/uL [place] # (Auto) 0.65 H (0.11-0.59) K/uL Eos # (Auto) 0.00 (0-0.50) K/uL Baso # (Auto) 0.01 (0-0.2) K/uL Immature Gran # (Auto) 0.04 (0.01-0.20) K/uL Sodium 137 (136-145) mmol/L Potassium 3.3 L (3.5-5.1) mmol/L Chloride 104 (98-107) mmol/L Carbon Dioxide 26 (21-32) mmol/L Anion Gap 7 (3-11) BUN 18 (6-23) mg/dl Creatinine 1.08 (0.6-1.4) mg/dl Est Cr Clr Drug Dosing 62.6 ml/min Est GFR ( Amer) 76.9 ml/min Est GFR (Non-Af Amer) 66.3 ml/min BUN/Creatinine Ratio 16.7 (10-20) Glucose 140 H (70-99(Fasting)) mg/dl Calcium 9.2 (8.5-10.1) mg/dl Phosphorus 3.4 (2.5-4.9) mg/dl Magnesium 2.1 (1.7-2.4) mg/dl Total Bilirubin 0.8 (0.2-1.0) mg/dl AST 15 (13-39) U/L ALT 10 (7-52) U/L Alkaline Phosphatase 78 (34-104) U/L Troponin I High Sens 6.9 (0-20) pg/ml Total Protein 7.6 (6.0-8.3) gm/dl Albumin 3.4 (3.4-5.0) gm/dl Globulin 4.2 H (2.5-4.0) gm/dl Albumin/Globulin Ratio 0.8 L (0.9-2) Lipase < 3 L (11-82) U/L Procalcitonin < 0.05 (0-0.5) ng/ml SARS-CoV-2 (PCR) (Negative) Influenza Type A (PCR) (Neg) Influenza Type B (PCR) (Neg) RSV (RT-PCR) (Neg) 08/15/22 Range/Units 08:29 WBC (4.8-10.8) K/ul RBC (4.70-6.10) M/uL Hgb (14.0-18.0) g/dl Hct (42.0-52.0) % MCV (80.0-100.0) fL MCH (25.0-34.0) pg MCHC (32.0-36.0) g/dL RDW Std Deviation (36.4-46.3) fL RDW Coeff of Radha (11.5-14.5) % Plt Count (130-400) K/uL MPV (9.4-12.4) fL Immature Gran % (Auto) % Neut % (Auto) % Lymph % (Auto) % [place] % (Auto) % Eos % (Auto) % Baso % (Auto) % Neut # (Auto) (1.40-6.50) K/uL Lymph # (Auto) (1.2-3.4) K/uL [place] # (Auto) (0.11-0.59) K/uL Eos # (Auto) (0-0.50) K/uL Baso # (Auto) (0-0.2) K/uL Immature Gran # (Auto) (0.01-0.20) K/uL Sodium (136-145) mmol/L Potassium (3.5-5.1) mmol/L Chloride (98-107) mmol/L Carbon Dioxide (21-32) mmol/L Anion Gap (3-11) BUN (6-23) mg/dl Creatinine (0.6-1.4) mg/dl Est Cr Clr Drug Dosing ml/min Est GFR ( Amer) ml/min Est GFR (Non-Af Amer) ml/min BUN/Creatinine Ratio (10-20) Glucose (70-99(Fasting)) mg/dl Calcium (8.5-10.1) mg/dl Phosphorus (2.5-4.9) mg/dl Magnesium (1.7-2.4) mg/dl Total Bilirubin (0.2-1.0) mg/dl AST (13-39) U/L ALT (7-52) U/L Alkaline Phosphatase (34-104) U/L Troponin I High Sens (0-20) pg/ml Total Protein (6.0-8.3) gm/dl Albumin (3.4-5.0) gm/dl Globulin (2.5-4.0) gm/dl Albumin/Globulin Ratio (0.9-2) Lipase (11-82) U/L Procalcitonin (0-0.5) ng/ml SARS-CoV-2 (PCR) NEGATIVE (Negative) Influenza Type A (PCR) Negative (Neg) Influenza Type B (PCR) Negative (Neg) RSV (RT-PCR) Positive A* (Neg) Administered Medications Apixaban (Apixaban 5 Mg Tablet) 5 mg PO BID EMILIE Stop: 09/14/22 13:33 Last Admin: 08/15/22 14:21 Dose: 5 mg Documented By: MTR Diltiazem HCl (Diltiazem Hcl 180 Mg Capcr) 180 mg PO QAM EMILIE Stop: 09/14/22 12:09 Last Admin: 08/15/22 12:24 Dose: 180 mg Documented By: MTR(2) Tamsulosin HCl (Tamsulosin Hcl 0.4 Mg Cap) 0.8 mg PO DAILY [facility] Stop: 09/14/22 13:33 Last Admin: 08/15/22 14:20 Dose: 0.8 mg Documented By: MTR Discontinued Medications Albuterol (Albut/Ipratrop 3mg/0.5mg Neb 3 Ml Vial) 3 ml NEB NOW STA; Protocol Stop: 08/15/22 08:03 Last Admin: 08/15/22 08:22 Dose: 3 ml Documented By: MTR(2) Azithromycin (Azithromycin 250 Mg Tab) 500 mg PO NOW ONE Stop: 08/15/22 13:35 Last Admin: 08/15/22 14:21 Dose: 500 mg Documented By: MTR Guaifenesin (Guaifenesin 600 Mg Tabcr) 1,200 mg PO NOW STA Stop: 08/15/22 08:03 Last Admin: 08/15/22 08:22 Dose: 1,200 mg Documented By: MTR(2) Sodium Chloride (Nss 1000ml) 1,000 mls @ 999 mls/hr IV .Q1H1M ONE Stop: 08/15/22 09:02 Last Infusion: 08/15/22 09:11 Dose: 0 mls/hr Documented By: MTR(2) Admin: 08/15/22 08:23 Dose: 999 mls/hr Documented By: MTR(2) Methylprednisolone (Methylprednisolone 125 Mg/2 Ml Vial) 125 mg IV NOW STA Stop: 08/15/22 08:03 Last Admin: 08/15/22 08:22 Dose: 125 mg Documented By: MTR(2) Imaging Data Radiologist's Impression: Chest X-Ray 08/15/22 08:02 XR chest 1V portable CLINICAL HISTORY: Chest pain, nonspecific TECHNIQUE: Single frontal radiograph of the chest was obtained. Comparison: Comparison is made to chest radiograph 02/03/2021 FINDINGS: No lines and tubes are seen. Calcified aortic knob is seen. Emphysema is seen. Atelectasis is noted in the bilateral lung bases. No evidence of pleural effusion or pneumothorax. IMPRESSION: No acute chest disease. ACT 112: Negative or not required by law. Electronically signed by: Kirk Prado M.D. 08/15/2022 8:24 AM Discharge Plan Visit Data Chief Complaint: Shortness of Breath/Dyspnea Stated Complaint: SOB ED Provider: Gustabo Fong Discharge Problem: COPD exacerbation, RSV (respiratory syncytial virus infection), Hypoxia, Shortness of breath at rest Patient Disposition: Admitted As Inpatient Discharge Instructions Interventions: ED Discharge Assessment Last Done: 08/15/22 13:03
[2022-08-15 08:25] LABS: Basophils # (auto) 0.01 K/uL (0-0.2); Basophils % (auto) 0.1 %; Hematocrit (blood only) 39.4 % (42.0-52.0); Immature Granulocytes # (auto) 0.04 K/uL (0.01-0.20); Immature Granulocytes % (auto) 0.4 %; Lymphocytes # (auto) 1.55 K/uL (1.2-3.4); Lymphocytes % (auto) 14.4 %; Mean Corpuscular Hemoglobin 28.3 pg (25.0-34.0); Mean Corpuscular Volume 85.8 fL (80.0-100.0); Mean Platelet Volume 10.9 fL (9.4-12.4); Monocytes # (auto) 0.65 K/uL (0.11-0.59); Neutrophils # (auto) 8.52 K/uL (1.40-6.50); Neutrophils % (auto) 79.1 %; Platelet Count 189 K/uL (130-400); RDW Standard Deviation 40.3 fL (36.4-46.3); Red Blood Count 4.59 M/uL (4.70-6.10); White Blood Count 10.77 K/ul (4.8-10.8)
--- NOTE | 2022-08-15 08:25 | XRay Report ---
XR chest 1V portable CLINICAL HISTORY: Chest pain, nonspecific TECHNIQUE: Single frontal radiograph of the chest was obtained. Comparison: Comparison is made to chest radiograph 02/03/2021 FINDINGS: No lines and tubes are seen. Calcified aortic knob is seen. Emphysema is seen. Atelectasis is noted i n the bilateral lung bases. No evidence of pleural effusion or pneumothorax. IMPRESSION: No acute chest disease. ACT 112: Negative or not required by law. Electronically signed by: Kirk Prado M.D. 08/15/2022 8:24 AM
[2022-08-15 08:50] LABS: Anion Gap 7 (3-11); BUN Creatinine Ratio 16.7 (10-20); Blood Urea Nitrogen 18 mg/dl (6-23); Calcium 9.2 mg/dl (8.5-10.1); Carbon Dioxide 26 mmol/L (21-32); Chloride 104 mmol/L (98-107); Creatinine Clr Calc Pharmacy 62.6 ml/min; Est GFR (African American) 76.9 ml/min; Est GFR (Non-African American) 66.3 ml/min; Glucose 140 mg/dl (70-99(Fasting)); Potassium 3.3 mmol/L (3.5-5.1); Sodium 137 mmol/L (136-145)
[2022-08-15 08:51] LABS: Alanine Aminotransferase 10 U/L (7-52); Albumin Globulin Ratio 0.8 (0.9-2); Albumin Level 3.4 gm/dl (3.4-5.0); Alkaline Phosphatase 78 U/L (34-104); Aspartate Aminotransferase 15 U/L (13-39); Bilirubin,Total 0.8 mg/dl (0.2-1.0); Globulin 4.2 gm/dl (2.5-4.0); Lipase < 3 U/L (11-82); Magnesium 2.1 mg/dl (1.7-2.4); Phosphorus 3.4 mg/dl (2.5-4.9); Total Protein 7.6 gm/dl (6.0-8.3)
[2022-08-15 08:56] LABS: Troponin I High Sensitivity 6.9 pg/ml (0-20)
[2022-08-15 09:17] LABS: Influenza A virus by PCR Negative (Neg); Influenza B virus by PCR Negative (Neg); SARS CoV2 RNA(COVID-19) Ceph NEGATIVE (Negative)
--- NOTE | 2022-08-15 11:13 | History & Physical Report ---
Date of Service August 15, 2022 Assessment & Plan (1) Acute exacerbation of chronic obstructive pulmonary disease: Plan: Shortness of breath, URI symptoms. AoC COPD exacerbation Several days of dyspnea, congestion, increasing shortness of breath Fever improved, no night sweats, no leukocytosis. Suspect viral URI inciting acute on chronic COPD exacerbation. Pro-Afshin is pending, if positive or worsening signs suggestive of superimposed pneumonia add Rocephin Received methylprednisolone in ER continue steroids and azithromycin for COPD exacerbation Clinically hypovolemic, tachycardic to 100s in A-fib SPO2 88-89% EKG: Low voltage, poor quality. A-fib rate 104. QTc 428. No territorial ST segment changes. CXR: No acute findings WBC: 10.77, no leukocytosis. Hemoglobin 13.0 Creatinine with normal baseline, admitting creatinine 1.08. Mild hypokalemia at 3.3. COVID/flu/RSV: Pending. If COVID-positive patient would want treatment with remdesivir Received 1 L NSS, Methylpred 125 in ER, nebulizer x1 Patient with negative dobutamine stress echo for ischemia at 109% MPHR, negative dobutamine stress EKG and no dobutamine induced chest pain on 04/21/2021. Normal LV SF at that time. Procalcitonin: Pending - Was not diagnosed with COVID, bu tthink he had it when his did in 2019. Is vaccinated. 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 Derek Newton Scheduled for parotidectomy August 2022. 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 Next follow-up 09/2022 Type II DM Last A1c: 6.2% Diet controlled - Will add SSI while on steroids Dyslipidemia Has received statins in the past Has denied PCSK9 inhibitor in the past Outpatient follow-up Hypertension Previously well controlled at home, intermittent whitecoat hypertension in office Continue diltiazem, losartan Permanent A-fib with RVR Anticoagulated on apixaban Continue diltiazem 180 mg XR twice daily Missed morning dose, given stat in ER AsthmaCOVID overlap PFT 09/2021: FVC 86%, FEV1 1.4/44%, FEV1/FVC 51%, severe obstruction with significant postbronchodilator response. DLCO not reported. Continue high-dose Symbicort Patient is now able to tolerate Incruse while on dutasteride/Flomax. 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 On Fasenra, follows with allergy/immunology DVT prophylaxis: Anticoagulated Diet: Heart healthy Disposition: PCU in case IV rate control is required CODE STATUS: DNR/DNI, discussed with patient at bedside (2) Acute respiratory failure: (3) CAD in [place] artery: (4) BPH with obstruction/lower urinary tract symptoms: (5) Diabetes mellitus type II, controlled: (6) Mass of parotid gland: History of Present Illness Primary Care Provider: Josh Hernandez MD Forest is a 77-year-old male with a past medical history of MGUS, transaminitis, DM 2, CAD, BPH, permanent A-fib, asthmaCOPD overlap, and peripheral eosinophilia who presents for chest discomfort and upper respiratory symptoms of several days. Forest is seen with his and moy present in the room. Reports 'my lungs have been bad for 25 years with chronic shortness of breath' but has been worse last 3-4 days. Has had nausea and diarrhea and noted his O2 levels at home were lower than normal with more dyspnea. Last night he used his 's oxygen to sleep, he does not normally use oxygen. Even using 5L at home was having difficulty walking in the morning. No melena/BRBPR. Has had a fever of 101*F 3-4 days ago at home, next day come down 99-98.7 after that No night sweats No vomiting Mild stomachache 3-4 days ago which ahs passed Eating breakfast in room without nausea/vomiting Diarrhea has improved today +wheezing, improved with nebulizer in ER No chest pain, no chest pressure No bleeding NO headache/syncope/pre-syncope Did not take medications this AM due to shortness of breath SoB improved after neb, but still SoB even with eating in the room yon eli normal Medical History: Reviewed Medications: Reviewed Surgical History: Reviewed Allergies: Reviewed Social History: Reviewed. Chew tobacco use. NO cigarette use. Usually 2-3 beer qHS, no use in the last week. Code Status: DNR/DNI Allergies Allergy/AdvReac Type Severity Reaction Status Date / Time hydrocodone Allergy Intermediate FEELING Verified 07/02/22 08:59 HOT, SWEATY, simvastatin Allergy Intermediate Myalgia Verified 07/02/22 08:59 tramadol Allergy Intermediate Confused Verified 07/02/22 08:59 doxycycline AdvReac Mild STOMACH Verified 07/02/22 08:59 PAIN Home Medications Medication Instructions Recorded Confirmed Type guaifenesin 1,200 mg tablet, 1,200 mg PO DAILY 04/10/21 07/02/22 History extended release 12 hr (Mucinex) benralizumab 30 mg/mL subcutaneous 30 mg subcut .COMPLEX #1 mL 09/07/21 07/02/22 Rx syringe (Fasenra) budesonide-formoterol HFA 160 2 puff inhalation BID #3 Inhalers 12/25/21 07/02/22 Rx mcg-4.5 mcg/actuation aerosol inhaler (Symbicort) albuterol sulfate 90 mcg/actuation 2 puff inhalation Q4H PRN 01/25/22 07/02/22 Rx aerosol inhaler shortness of breath or wheezing #54 grams omeprazole 20 mg capsule,delayed 20 mg PO DAILY #90 caps 02/12/22 07/02/22 Rx release tamsulosin 0.4 mg capsule 0.8 mg PO DAILY #180 caps 02/15/22 07/02/22 Rx montelukast 10 mg tablet 10 mg PO DAILY #30 tabs 04/12/22 07/02/22 Rx (Singulair) dutasteride 0.5 mg capsule 0.5 mg PO DAILY 04/18/22 07/02/22 History umeclidinium 62.5 mcg/actuation 1 inh inhalation DAILY 05/03/22 07/02/22 History blister powder for inhalation (Incruse Ellipta) apixaban 5 mg tablet 5 mg PO BID #180 tabs 05/14/22 07/02/22 Rx albuterol sulfate 2.5 mg/3 mL See Rx Instructions .Route 07/02/22 Rx (0.083 %) solution for nebulization .COMPLEX #360 mL roflumilast 500 mcg tablet 500 mcg PO DAILY #30 tabs 07/16/22 Rx diltiazem HCl 180 mg 180 mg PO BID #180 caps 07/19/22 Rx capsule,extended release 24 hr losartan 50 mg tablet 50 mg PO DAILY #90 tabs 08/01/22 Rx Past Med/Surg History Medical History Asthma exacerbation Atrial fibrillation with rapid ventricular response BPH with obstruction/lower urinary tract symptoms Bronchitis Chronic bronchitis Chronic dyspnea Chronic obstructive pulmonary disease Fluid overload Intestinal obstruction Peripheral eosinophilia Sepsis Surgical History History of abdominal surgery History of cholecystectomy History of exploratory laparotomy History of pancreatectomy History of partial gastrectomy Family History Mother Cirrhosis Diabetes Stroke Hypertension Sister Diabetes Multiple myeloma Brother Heart disease Other Coronary heart disease No family history of adverse response to anesthesia No family history of bleeding disorder Denies family history of Ovarian cancer Prostate cancer Breast cancer Colorectal cancer Social History Smoking Status: Former smoker Tobacco Type: Cigarettes Cigarettes Per Day: less than 1ppd; Second Hand Exposure: Yes; Hx Alcohol Use: Yes Alcohol type: beer Alcohol Intake Frequency Comment: 2-3 daily Hx Substance Use: No Preferred Language: Chilean Communication Ability: Effective Hearing Ability: Hard of Hearing Retail Sales Director Required: No Beliefs That Will Affect Care: None marital status: Current Living Situation: Spouse current occupational status: retired Feels Safe at Home: Yes Childhood Exposure to Second-Hand Smoke: Yes caffeine: Yes (1 c coffee daily) Dental Care, Regularly: No Physical Activity Frequency: Daily Seatbelt Use: always Sunscreen Use: No Assistive Devices: Oxygen - at Night Review of Systems Review of Systems: All systems reviewed & are unremarkable except as noted in HPI & below Physical Exam Physical Exam: General: A&Ox3. NAD. Cooperative. HEENT: Atraumatic, normocephalic. Vision/hearing intact. Pulm: Diffuse wheezing, coarse in bases bibasillar. Symmetrical chest rise. No increased work of breathing. No respiratory distress. Cardiac: irir, -mrg. Radial pulses intact and symmetrical. Abdominal: Nontender, nondistended, soft. BS present. Ext: warm, dry. 5/5 distal extremity strength. No LE edema. Radial/PT pulses intact and symmetrical. Results & Data Results & Data ([facility]) Vital Signs (Past 12 Hours) Vital Signs Temp Pulse Resp BP Pulse Ox O2 Del Method O2 Flow Rate 08/15/22 11:01 115 H 20 106/76 90 2 08/15/22 10:00 99 H 28 H 118/78 96 08/15/22 09:00 100 H 21 127/78 94 2 08/15/22 08:13 107 H 08/15/22 08:05 114 H 20 94 Nasal Cannula 3 08/15/22 07:37 Nasal Cannula 3 08/15/22 07:37 36.7 C 124 H 26 H 132/97 89 L Room Air 08/15/22 07:37 89 L Room Air PG Care Time/CCT Total # of Minutes Spent Total Time Spent with Patient: Total time spent is greater than 50% in coordination of care (as documented) at patient's floor/unit and/or counseling patient: Coding Level of Care Code 27590 INT INP/OBS CARE MIN Diagnoses Acute exacerbation of chronic obstructive pulmonary disease J44.1 Acute respiratory failure J96.00 Respiratory failure complication: unspecified whether with hypoxia or hypercapnia CAD in [place] artery I25.10 BPH with obstruction/lower urinary tract symptoms N40.1; N13.8 Diabetes mellitus type II, controlled E11.9 Mass of parotid gland K11.8 (2) Acute respiratory failure Respiratory failure complication: unspecified whether with hypoxia or hypercapnia Qualified Code(s): J96.00 - Acute respiratory failure, unspecified whether with hypoxia or hypercapnia
[2022-08-15 11:33] LABS: RSV by PCR Positive (Neg)
[2022-08-15] MEDS: dilTIAZem HCL 180 MG CAPCR PO SCH (12:24)
[2022-08-15] MEDS ORDERED: ACETAMINOPHEN 325 MG TAB PO PRN (13:34)
[2022-08-15] MEDS ORDERED: ALBUTEROL HFA 8 GM INHALER INH PRN (13:34)
[2022-08-15] MEDS ORDERED: AZITHROMYCIN 250 MG TAB PO ONE (13:34)
[2022-08-15] MEDS: TAMSULOSIN HCL 0.4 MG CAP PO SCH (14:20)
[2022-08-15] MEDS: APIXABAN 5 MG TABLET PO SCH ×2 (14:21→20:29)
--- NOTE | 2022-08-15 15:35 | Electrocardiogram Report ---
Test Reason : Blood Pressure : / mmHG Vent. Rate : 104 BPM Atrial Rate : 040 BPM P-R Int : 000 ms QRS Dur : 066 ms QT Int : 326 ms P-R-T Axes : 000 -40 053 degrees QTc Int : 428 ms Poor data quality, interpretation may be adversely affected Atrial fibrillation with rapid ventricular response Left axis deviation Low voltage QRS Septal infarct (cited on or before 01-JUN-2020) Abnormal ECG When compared with ECG of 11-FEB-2021 20:28, Questionable change in initial forces of Anteroseptal leads Confirmed by Can Guan ([id number]) on 08/15/2022 3:35:18 PM Referred By: REFERRED SELF Confirmed By:Can Guan
[2022-08-16 06:52] LABS: Basophils # (auto) 0.01 K/uL (0-0.2); Basophils % (auto) 0.1 %; Hematocrit (blood only) 36.7 % (42.0-52.0); Hemoglobin 12.3 g/dl (14.0-18.0); Immature Granulocytes # (auto) 0.06 K/uL (0.01-0.20); Immature Granulocytes % (auto) 0.5 %; Lymphocytes # (auto) 1.03 K/uL (1.2-3.4); Lymphocytes % (auto) 8.4 %; Mean Corpuscular Hemoglobin 28.6 pg (25.0-34.0); Mean Corpuscular Hgb Conc 33.5 g/dL (32.0-36.0); Mean Corpuscular Volume 85.3 fL (80.0-100.0); Mean Platelet Volume 11.5 fL (9.4-12.4); Monocytes # (auto) 0.38 K/uL (0.11-0.59); Monocytes % (auto) 3.1 %; Neutrophils # (auto) 10.75 K/uL (1.40-6.50); Neutrophils % (auto) 87.9 %; Platelet Count 193 K/uL (130-400); RDW Coefficient of Variation 13.1 % (11.5-14.5); White Blood Count 12.23 K/ul (4.8-10.8)
[2022-08-16 07:11] LABS: Calcium 9.1 mg/dl (8.5-10.1); Creatinine Clr Calc Pharmacy 67.8 ml/min; Est GFR (African American) 84.4 ml/min; Est GFR (Non-African American) 72.8 ml/min; Potassium 4.2 mmol/L (3.5-5.1)
[2022-08-16] MEDS: APIXABAN 5 MG TABLET PO SCH ×2 (09:30→21:23)
[2022-08-16] MEDS: AZITHROMYCIN 250 MG TAB PO SCH (09:31)
[2022-08-16] MEDS: dilTIAZem HCL 180 MG CAPCR PO SCH ×2 (09:32→21:23)
[2022-08-16] MEDS: FLUTICASONE/VILANTEROL 100/25MCG 14 PUFFS/INHALER INH SCH (09:33)
[2022-08-16] MEDS: guaiFENesin 600 MG TABCR PO SCH (09:34)
[2022-08-16] MEDS: LOSARTAN POTASSIUM 50 MG TAB PO SCH (09:35)
[2022-08-16] MEDS: MONTELUKAST SODIUM 10 MG TABLET PO SCH (09:36)
[2022-08-16] MEDS: methylPREDNISolone 40 MG in SYRINGE 0 ML IV SCH ×2 (09:36→21:23)
[2022-08-16] MEDS: PANTOprazole 40 MG TAB PO SCH (09:37)
[2022-08-16] MEDS: TAMSULOSIN HCL 0.4 MG CAP PO SCH (09:38)
[2022-08-16] MEDS: ROFLUMILAST 500 MCG TAB PO SCH (09:38)
[2022-08-16] MEDS: UMECLIDINIUM BROMIDE 62.5MCG/BLISTER 7 PUFFS/INHALER INH SCH (09:39)
[2022-08-16] MEDS: ALBUT/IPRATROP 3MG/0.5MG NEB 3 ML VIAL NEB SCH ×3 (11:27→19:29)
--- NOTE | 2022-08-16 11:33 | Hospitalist Progress Note ---
Date of Service August 16, 2022 Assessment & Plan (1) Acute exacerbation of chronic obstructive pulmonary disease: Plan: Shortness of breath, URI symptoms, fever, low appetite, diarrhea. AoC COPD exacerbation 2/2 RSV CXR no PNA but with atelectasis Was requiring 5LNC at home (used his 's O2), now weaned to 2LNC Pro-Afshin negative - continue steroids and azithromycin for COPD exacerbation -add scheduled Duonebs -continue home maintenance inhalers -continue supplemental O2 AsthmaCOVID overlap PFT 09/2021: FVC 86%, FEV1 1.4/44%, FEV1/FVC 51%, severe obstruction with significant postbronchodilator response. DLCO not reported. Continue high-dose Symbicort Patient is now able to tolerate Incruse while on dutasteride/Flomax. 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 Derek Newton Scheduled for parotidectomy August 2022. 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 Next follow-up 09/2022 (10) Dyslipidemia: Plan: Has received statins in the past Has denied PCSK9 inhibitor in the past Outpatient follow-up (11) Hypertension: Plan: Previously well controlled at home, intermittent white coat hypertension in office Continue diltiazem, losartan -add home lasix back on Plan DVT proph-ELiquis DIspo-continued stay PCU Discussed care with at bedside Admission and Anticipated Discharge Date Admission Date: August 15, 2022 Subjective Feeling GIBSON with walking to the bathroom. Otherwise feels a little better. Still wheezing. No nausea or diarrhea. Is eating. Tele with Afib, rates controlled Physical Exam Constitutional: WD/WN, vitals as above Neck: + abnormal visual inspection (right parotid mass visible) Respiratory: normal respiratory effort; no cough Auscultation: + diminished lung sounds (throughout) and + wheezes (exp, bilat); no crackles and no rhonchi Cardiovascular: Rate/Rhythm: regular rate and + irregularly irregular Heart Sounds: no murmur Extremities: no edema Gastrointestinal (Abdomen): normal bowel sounds, soft, nontender, no hepatosplenomegaly Psychiatric: A+Ox3, euthymic affect Results & Data Results & Data ([facility]) Vital Signs (Past 12 Hours) Vital Signs Temp Pulse Pulse Resp BP Pulse Ox O2 Del Method 08/16/22 10:59 36.4 C L 105 H 19 119/63 94 Nasal Cannula 08/16/22 09:02 83 20 114/70 92 Room Air 08/16/22 08:43 Nasal Cannula 08/16/22 07:25 36.4 C L 74 20 117/78 95 Nasal Cannula 08/16/22 07:10 78 08/16/22 04:45 36.6 C 94 H 20 111/69 95 Nasal Cannula O2 Flow Rate 08/16/22 10:59 2 08/16/22 09:02 2 08/16/22 08:43 2 08/16/22 07:25 2 08/16/22 07:10 08/16/22 04:45 2 Laboratory Results CBC, CMP, troponin reviewed PG Care Time/CCT Total # of Minutes Spent Total Time Spent with Patient: Total time spent is greater than 50% in coordination of care (as documented) at patient's floor/unit and/or counseling patient: Coding Level of Care Code 41569 SUB INP/OBS CARE 3/50MIN Diagnoses Acute exacerbation of chronic obstructive pulmonary disease J44.1 RSV (respiratory syncytial virus infection) B33.8 Acute respiratory failure J96.00 Respiratory failure complication: unspecified whether with hypoxia or hypercapnia BPH with obstruction/lower urinary tract symptoms N40.1; N13.8 Diabetes mellitus type II, controlled E11.9 Mass of parotid gland K11.8 Permanent atrial fibrillation I48.21 Peripheral eosinophilia D72.19 Monoclonal gammopathy of undetermined significance D47.2 Dyslipidemia E78.5 Hypertension I10 (3) Acute respiratory failure Respiratory failure complication: unspecified whether with hypoxia or hypercapnia Qualified Code(s): J96.00 - Acute respiratory failure, unspecified whether with hypoxia or hypercapnia
[2022-08-16] MEDS: FUROSEMIDE 20 MG TAB PO SCH (12:25)
[2022-08-16] MEDS: DUTASTERIDE 0.5MG PO SCH ×2 (12:34→12:35)
[2022-08-17] MEDS: ALBUT/IPRATROP 3MG/0.5MG NEB 3 ML VIAL NEB SCH ×4 (06:59→19:07)
[2022-08-17 07:14] LABS: Hematocrit (blood only) 37.3 % (42.0-52.0); Hemoglobin 12.3 g/dl (14.0-18.0); Mean Corpuscular Hemoglobin 28.3 pg (25.0-34.0); Mean Corpuscular Volume 85.7 fL (80.0-100.0); Mean Platelet Volume 11.3 fL (9.4-12.4); Platelet Count 220 K/uL (130-400); RDW Coefficient of Variation 13.2 % (11.5-14.5); RDW Standard Deviation 41.2 fL (36.4-46.3); Red Blood Count 4.35 M/uL (4.70-6.10); White Blood Count 13.77 K/ul (4.8-10.8)
[2022-08-17 07:37] LABS: Basophils # (auto) 0.01 K/uL (0-0.2); Basophils % (auto) 0.1 %; Immature Granulocytes # (auto) 0.07 K/uL (0.01-0.20); Immature Granulocytes % (auto) 0.5 %; Lymphocytes # (auto) 0.97 K/uL (1.2-3.4); Monocytes # (auto) 0.29 K/uL (0.11-0.59); Monocytes % (auto) 2.1 %; Neutrophils # (auto) 12.43 K/uL (1.40-6.50); Neutrophils % (auto) 90.3 %
[2022-08-17 07:58] LABS: BUN Creatinine Ratio 26.9 (10-20); Calcium 9.1 mg/dl (8.5-10.1); Creatinine Clr Calc Pharmacy 65.4 ml/min; Est GFR (African American) 80.5 ml/min; Est GFR (Non-African American) 69.4 ml/min; Magnesium 2.2 mg/dl (1.7-2.4); Potassium 4.1 mmol/L (3.5-5.1)
[2022-08-17] MEDS: guaiFENesin 600 MG TABCR PO SCH (09:05)
[2022-08-17] MEDS: dilTIAZem HCL 180 MG CAPCR PO SCH ×2 (09:05→21:10)
[2022-08-17] MEDS: ROFLUMILAST 500 MCG TAB PO SCH (09:05)
[2022-08-17] MEDS: PANTOprazole 40 MG TAB PO SCH (09:05)
[2022-08-17] MEDS: AZITHROMYCIN 250 MG TAB PO SCH (09:05)
[2022-08-17] MEDS: APIXABAN 5 MG TABLET PO SCH ×2 (09:05→21:10)
[2022-08-17] MEDS: LOSARTAN POTASSIUM 50 MG TAB PO SCH (09:06)
[2022-08-17] MEDS: FUROSEMIDE 20 MG TAB PO SCH (09:06)
[2022-08-17] MEDS: MONTELUKAST SODIUM 10 MG TABLET PO SCH (09:06)
[2022-08-17] MEDS: FLUTICASONE/VILANTEROL 100/25MCG 14 PUFFS/INHALER INH SCH (09:06)
[2022-08-17] MEDS: TAMSULOSIN HCL 0.4 MG CAP PO SCH (09:06)
[2022-08-17] MEDS: UMECLIDINIUM BROMIDE 62.5MCG/BLISTER 7 PUFFS/INHALER INH SCH (09:06)
[2022-08-17] MEDS: DUTASTERIDE 0.5MG PO SCH (09:07)
[2022-08-17] MEDS: methylPREDNISolone 40 MG in SYRINGE 0 ML IV SCH ×2 (09:12→21:10)
--- NOTE | 2022-08-17 19:09 | Hospitalist Progress Note ---
Date of Service August 17, 2022 Assessment & Plan (1) Acute exacerbation of chronic obstructive pulmonary disease: Plan: Shortness of breath, URI symptoms, fever, low appetite, diarrhea. Acute exacerbation of COPD 2/2 RSV CXR no PNA but with atelectasis Was requiring 5LNC at home (used his 's O2), now weaned to room air and improving Still with some wheezing Pro-Afshin negative - continue steroids and azithromycin for COPD exacerbation -Continue scheduled Duonebs -continue home maintenance inhalers -continue supplemental O2 as needed keep pulse ox greater than 90%-Will need a two-step prior to discharge AsthmaCOVID overlap PFT 09/2021: FVC 86%, FEV1 1.4/44%, FEV1/FVC 51%, severe obstruction with significant postbronchodilator response. DLCO not reported. 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 Derek Newton Scheduled for parotidectomy August 27, 2022. 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 Next follow-up 09/2022 (10) Dyslipidemia: Plan: Has received statins in the past Has denied PCSK9 inhibitor in the past Outpatient follow-up (11) Hypertension: Plan: Blood pressures controlled Continue diltiazem, losartan --Continue home Lasix Plan DVT proph-ELiquis DIspo-continued stay PCU, improving, possible discharged home in the next 1 to 2 days Discussed care with at bedside Admission and Anticipated Discharge Date Admission Date: August 15, 2022 Subjective Patient feeling better today, weaned off oxygen. Still feeling short of breath with walking to the bathroom and back. No bowel movement today but had one yesterday. Telemetry with atrial fibrillation with rates in the 80s to 100s, PVCs Physical Exam Constitutional: WD/WN, vitals as above Neck: + abnormal visual inspection (right parotid mass visible) Respiratory: normal respiratory effort; no cough Auscultation: + diminished lung sounds (throughout) and + wheezes (exp, bilat); no crackles and no rhonchi Cardiovascular: Rate/Rhythm: regular rate and + irregularly irregular Heart Sounds: no murmur Extremities: no edema Gastrointestinal (Abdomen): normal bowel sounds, soft, nontender, no hepatosplenomegaly Psychiatric: A+Ox3, euthymic affect Results & Data Results & Data ([facility]) Vital Signs (Past 12 Hours) Vital Signs Temp Pulse Pulse Resp BP Pulse Ox O2 Del Method 08/17/22 16:00 80 08/17/22 15:42 36.6 C 101 H 20 116/55 L 93 Room Air 08/17/22 14:51 79 18 94 Room Air 08/17/22 12:10 36.5 C 119 H 20 109/63 91 Room Air 08/17/22 11:00 92 H 18 92 Room Air 08/17/22 10:42 Nasal Cannula 08/17/22 07:35 36.4 C L 101 H 18 122/72 92 Room Air O2 Flow Rate 08/17/22 16:00 08/17/22 15:42 08/17/22 14:51 08/17/22 12:10 08/17/22 11:00 08/17/22 10:42 2 08/17/22 07:35 Laboratory Results CBC, BMP, magnesium reviewed PG Care Time/CCT Total # of Minutes Spent Total Time Spent with Patient: Total time spent is greater than 50% in coordination of care (as documented) at patient's floor/unit and/or counseling patient: Coding Level of Care Code 63784 SUB INP/OBS CARE 2/35MIN Diagnoses Acute exacerbation of chronic obstructive pulmonary disease J44.1 RSV (respiratory syncytial virus infection) B33.8 Acute respiratory failure J96.00 Respiratory failure complication: unspecified whether with hypoxia or hypercapnia BPH with obstruction/lower urinary tract symptoms N40.1; N13.8 Diabetes mellitus type II, controlled E11.9 Mass of parotid gland K11.8 Permanent atrial fibrillation I48.21 Peripheral eosinophilia D72.19 Monoclonal gammopathy of undetermined significance D47.2 Dyslipidemia E78.5 Hypertension I10 (3) Acute respiratory failure Respiratory failure complication: unspecified whether with hypoxia or hypercapnia Qualified Code(s): J96.00 - Acute respiratory failure, unspecified whether with hypoxia or hypercapnia
[2022-08-18] MEDS: ALBUT/IPRATROP 3MG/0.5MG NEB 3 ML VIAL NEB SCH ×3 (07:02→14:48)
[2022-08-18] MEDS: DUTASTERIDE 0.5MG PO SCH (08:21)
[2022-08-18] MEDS: UMECLIDINIUM BROMIDE 62.5MCG/BLISTER 7 PUFFS/INHALER INH SCH (08:22)
[2022-08-18] MEDS: dilTIAZem HCL 180 MG CAPCR PO SCH (08:22)
[2022-08-18] MEDS: APIXABAN 5 MG TABLET PO SCH (08:22)
[2022-08-18] MEDS: FLUTICASONE/VILANTEROL 100/25MCG 14 PUFFS/INHALER INH SCH (08:22)
[2022-08-18] MEDS: PANTOprazole 40 MG TAB PO SCH (09:27)
[2022-08-18] MEDS: AZITHROMYCIN 250 MG TAB PO SCH (09:27)
[2022-08-18] MEDS: LOSARTAN POTASSIUM 50 MG TAB PO SCH (09:27)
[2022-08-18] MEDS: FUROSEMIDE 20 MG TAB PO SCH (09:27)
[2022-08-18] MEDS: TAMSULOSIN HCL 0.4 MG CAP PO SCH (09:27)
[2022-08-18] MEDS: guaiFENesin 600 MG TABCR PO SCH (09:27)
[2022-08-18] MEDS: MONTELUKAST SODIUM 10 MG TABLET PO SCH (09:27)
[2022-08-18] MEDS: ROFLUMILAST 500 MCG TAB PO SCH (09:27)
[2022-08-18] MEDS: methylPREDNISolone 40 MG in SYRINGE 0 ML IV SCH (09:28)
[2022-08-18 10:00] LABS: Calcium 8.9 mg/dl (8.5-10.1); Creatinine Clr Calc Pharmacy 68.1 ml/min; Est GFR (African American) 84.4 ml/min; Est GFR (Non-African American) 72.8 ml/min; Magnesium 2.2 mg/dl (1.7-2.4)
[2022-08-18] MEDS ORDERED: METOPROLOL TARTRATE 25 MG TAB PO SCH (12:45)
--- NOTE | 2022-08-18 15:35 | Discharge Summary ---
Date of Service August 18, 2022 Admission HPI Per Admitting Provider Forest is a 77-year-old male with a past medical history of MGUS, transaminitis, DM 2, CAD, BPH, permanent A-fib, asthmaCOPD overlap, and peripheral eosinophilia who presents for chest discomfort and upper respiratory symptoms of several days. Forest is seen with his and moy present in the room. Reports 'my lungs have been bad for 25 years with chronic shortness of breath' but has been worse last 3-4 days. Has had nausea and diarrhea and noted his O2 levels at home were lower than normal with more dyspnea. Last night he used his 's oxygen to sleep, he does not normally use oxygen. Even using 5L at home was having difficulty walking in the morning. No melena/BRBPR. Has had a fever of 101*F 3-4 days ago at home, next day come down 99-98.7 after that No night sweats No vomiting Mild stomachache 3-4 days ago which ahs passed Eating breakfast in room without nausea/vomiting Diarrhea has improved today +wheezing, improved with nebulizer in ER No chest pain, no chest pressure No bleeding NO headache/syncope/pre-syncope Did not take medications this AM due to shortness of breath SoB improved after neb, but still SoB even with eating in the room yon eli normal Medical History: Reviewed Medications: Reviewed Surgical History: Reviewed Allergies: Reviewed Social History: Reviewed. Chew tobacco use. NO cigarette use. Usually 2-3 beer qHS, no use in the last week. Code Status: DNR/DNI Principal Diagnosis COPD exacerbation, RSV, rapid atrial fibrillation, acute respiratory failure with hypoxia-resolved Discharge Exam Constitutional WD/WN, vitals as above Neck + abnormal visual inspection (right parotid mass visible) Respiratory normal respiratory effort; no labored breathing and no cough Auscultation: lungs clear to auscultation bilaterally; no diminished lung sounds Cardiovascular Rate/Rhythm: regular rate and + irregularly irregular Heart Sounds: no murmur Extremities: no edema Gastrointestinal (Abdomen) normal bowel sounds, soft, nontender, no hepatosplenomegaly Psychiatric A+Ox3, euthymic affect Discharge Data Allergies Allergy/AdvReac Type Severity Reaction Status Date / Time hydrocodone Allergy Intermediate FEELING Verified 07/02/22 08:59 HOT, SWEATY, simvastatin Allergy Intermediate Myalgia Verified 07/02/22 08:59 tramadol Allergy Intermediate Confused Verified 07/02/22 08:59 doxycycline AdvReac Mild STOMACH Verified 07/02/22 08:59 PAIN Consultations 08/15/22 10:47 ED Decision to Admit Stat Hospital Course (1) Acute exacerbation of chronic obstructive pulmonary disease: Shortness of breath, URI symptoms, fever, low appetite, diarrhea. Acute exacerbation of COPD 2/2 RSV CXR no PNA but with atelectasis Was requiring 5LNC at home (used his 's O2), now weaned to room air and improving. Two-step walk test revealed his pulse ox remained normal with exertion. Wheezing resolved Pro-Afshin negative -Received IV steroids and will convert to prednisone 40 mg a day 2 more days for total 5-day course on discharge -Completed 5-day course of azithromycin for COPD exacerbation-needs 2 more days on discharge -Continue albuterol nebulizers at home as needed -continue home maintenance inhalers AsthmaCOVID overlap PFT 09/2021: FVC 86%, FEV1 1.4/44%, FEV1/FVC 51%, severe obstruction with significant postbronchodilator response. DLCO not reported. Continue montelukast Continue Mucinex Continue Fasenra (2) RSV (respiratory syncytial virus infection): as above supportive care (3) Acute respiratory failure: as above, 2/2 COPD exacerbation and RSV He passed a two-step walk test but was dyspneic with exertion despite pulse ox being in the normal range His heart rate did go up to the 140s at its peak with his 6-minute walk test. His heart rate quickly recovered to the 80s in atrial fibrillation as soon as he rested. Suspect most of his dyspnea is related to tachycardia -Started metoprolol 25 Mg p.o. 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 Derek Newton Scheduled for parotidectomy August 27, 2022. Staging studies/adjuvant radiation treatment decision pending surgical pathology and excision follow-up -He will schedule a follow-up with his perl software engineer for pulmonary clearance prior to surgery (7) Permanent atrial fibrillation: Permanent A-fib with RVR-rates now well controlled except after receiving nebulizers and ambulating-has rates in the 140s at times which causes him dyspnea. Rates quickly improved back to normal with rest -Started metoprolol 25 Mg p.o. 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 Next follow-up 09/2022 (10) Dyslipidemia: Has received statins in the past Has denied PCSK9 inhibitor in the past Outpatient follow-up (11) Hypertension: Blood pressures controlled Continue diltiazem, losartan --Continue home Lasix -Adding metoprolol as above for more for rate control Plan DVT proph-ELiquis DIspo-stable for discharge to home today Discussed care with at bedside Total Time Total Time Spent Total Time Spent (In Minutes): 40 minutes Discharge Plan Discharge Items Patient Disposition: Home - Self-Care Reason For Visit: AOC COPD, AFIB RVR Discharge Diagnosis: COPD exacerbation, RSV, rapid atrial fibrillation, hypoxia Condition on Discharge: Fair Activity: As commented below Lifting: Gradually increase as tolerated Bathing: No limitations Exercise/Sports: Gradually increase as tolerated Non-emergency contact: Primary Care Provider and Electronic Equipment Trades Worker Call non-emergency contact if: you have any medication questions and your symptoms worsen Follow-up/Referrals: Josh Hernandez MD [Primary Care Provider] - (Follow-up within 1 to 2 weeks.) Serge Torrez MD [Physician] - (Call to follow-up within 1 week to get pulmonology clearance prior to your parotid gland surgery.) Diet: Heart Healthy Addtl Attending Provider Instructions: Please finish out 2 more days of the antibiotic called azithromycin as well as 2 more days of prednisone for your COPD exacerbation. You can continue your nebulizer 2-3 times a day as needed in addition to your daily maintenance inhalers. You no longer needed any extra oxygen at the time of discharge. Your heart rates were fast with walking around. For this, you were started on a new medication called metoprolol to be taken twice a day. Please call to make a follow-up appointment with your perl software engineer to get clearance prior to your upcoming surgery. Pending Studies at Discharge: No Stand-Alone Forms: My [facility], Smoking Cessation Medications and DC Order Prescriptions: New azithromycin 250 mg Tablet 250 mg PO QAM Qty: 2 0RF metoprolol tartrate 25 mg Tablet 25 mg PO BID Qty: 60 0RF prednisone 20 mg tablet 40 mg PO DAILY 2 Days Qty: 4 0RF Continued Fasenra 30 mg/mL syringe 30 mg subcut .COMPLEX Qty: 1 11RF Rx Instructions: INJECT 30MG SQ EVERY 4 WEEKS X 3 DOSES, THEN INJECT 30MG SQ EVERY 8 WEEKS MAINTENANCE APPROVED under pharmacy GOOD 08/23/21-11/15/21 APPROVED under medical benefit also GOOD 08/23/21-08/22/22 [id number] Will be a Buy and Bill budesonide-formoterol [Symbicort] 160-4.5 mcg/actuation HFA aerosol inhaler 2 puff INHALATION BID Qty: 3 3RF albuterol sulfate 90 mcg/actuation HFA aerosol inhaler 2 puff inhalation Q4H PRN (Reason: shortness of breath or wheezing) Qty: 54 3RF omeprazole 20 mg capsule,delayed release(DR/EC) 20 mg PO DAILY Qty: 90 3RF montelukast [Singulair] 10 mg tablet 10 mg PO DAILY Qty: 30 5RF apixaban 5 mg tablet 5 mg PO BID Qty: 180 3RF roflumilast 500 mcg tablet 500 mcg PO DAILY Qty: 30 0RF diltiazem HCl 180 mg capsule,extended release 24hr 180 mg PO BID Qty: 180 3RF losartan 50 mg tablet 50 mg PO DAILY Qty: 90 3RF dutasteride 0.5 mg capsule 0.5 mg PO DAILY tamsulosin 0.4 mg capsule 0.8 mg PO DAILY Qty: 180 3RF Incruse Ellipta 62.5 mcg/actuation blister with device 1 inh inhalation DAILY Mucinex 1,200 mg tablet extended release 12hr 1,200 mg PO DAILY furosemide 20 mg tablet 20 mg PO QAM albuterol sulfate 2.5 mg /3 mL (0.083 %) solution for nebulization See Rx Instructions .ROUTE .COMPLEX PRN (Reason: Wheezing) Rx Instructions: inhale 1 vial by nebulization every 4-6 hours if needed for shortness of breath or wheezing Discharge Orders: Discharge Order (Routine); Ordered 08/18/22 Ordered By: Kelly Mason Admission Data Admit Date/Time: 08/15/22 11:44 Attending Provider: Kelly Mason Admit Provider: Derick Barnhart Primary Care Provider: Josh Hernandez Other Providers: Derick Barnhart Coding Level of Care Code 09832 INP/OBS DISCH >30 MIN Diagnoses Acute exacerbation of chronic obstructive pulmonary disease J44.1 RSV (respiratory syncytial virus infection) B33.8 Acute respiratory failure J96.00 Respiratory failure complication: unspecified whether with hypoxia or hy percapnia BPH with obstruction/lower urinary tract symptoms N40.1; N13.8 Diabetes mellitus type II, controlled E11.9 Mass of parotid gland K11.8 Permanent atrial fibrillation I48.21 Peripheral eosinophilia D72.19 Monoclonal gammopathy of undetermined significance D47.2 Dyslipidemia E78.5 Hypertension I10
== END 2022-08-18 16:27 | disposition home or self-care (01) | DRG 190 ==
LOC: ED 07:49 → SUATTDRO 11:44 → 2S 11:44

== ENCOUNTER 2022-10-27 15:56 | Observation (INO) ==
[2022-10-27] MEDS ORDERED: methylPREDNISolone 125 MG/2 ML VIAL IV STA (16:18)
[2022-10-27] MEDS ORDERED: ALBUT/IPRATROP 3MG/0.5MG NEB 3 ML VIAL INH STA (16:18)
[2022-10-27 17:08] LABS: Hematocrit (blood only) 39.3 % (42.0-52.0); Hemoglobin 13.1 g/dl (14.0-18.0); Mean Corpuscular Hemoglobin 28.7 pg (25.0-34.0); Mean Corpuscular Hgb Conc 33.3 g/dL (32.0-36.0); Mean Corpuscular Volume 86.2 fL (80.0-100.0); Mean Platelet Volume 11.1 fL (9.4-12.4); Platelet Count 209 K/uL (130-400); RDW Coefficient of Variation 14.7 % (11.5-14.5); RDW Standard Deviation 46.7 fL (36.4-46.3); Red Blood Count 4.56 M/uL (4.70-6.10); White Blood Count 14.63 K/ul (4.8-10.8)
[2022-10-27 17:14] LABS: Albumin Level 3.5 gm/dl (3.4-5.0); Calcium 8.9 mg/dl (8.6-10.3); Creatinine Clr Calc Pharmacy 73.4 ml/min; Est GFR (African American) 90.9 ml/min; Est GFR (Non-African American) 78.4 ml/min; Globulin 3.5 gm/dl (2.5-4.0); Magnesium 1.9 mg/dl (1.7-2.4); Potassium 3.5 mmol/L (3.5-5.1)
--- NOTE | 2022-10-27 17:16 | Emergency Department Note ---
Impression & Plan SOB (shortness of breath), COPD exacerbation, Parainfluenza infection, Leukocytosis ED Provider Note NAME: LUCI LEDEZMA AGE: 77 SEX: M : 1945 ARRIVES VIA: Walk-In INFORMANT: [Patient] ED PROVIDER(S): [Trey Lundberg MD] CHIEF COMPLAINT: Short of breath HISTORY OF PRESENT ILLNESS: The patient is a 77-year-old male who presents to the ED with 3 days of cough and cold symptoms. He has been short of breath for at least 2 days and actually feels worse today than he did yesterday. His shortness of breath is with any exertion. The patient has had a low-grade fever. He was seen in the ED yesterday and diagnosed with parainfluenza 3 as well as a COPD flare. He was placed on prednisone. He has been taking Tylenol as well. Despite the prednisone, the patient feels worse, his breathing has worsened to the point where he can barely take a step. He presents back for evaluation. No vomiting, no diarrhea. He thinks his cough and stuffy nose is actually better, it is the breathing that is worse. PMHx/PSHx: See Below SOCIAL HISTORY: See Below. PHYSICAL EXAM: GENERAL: Patient is in no acute distress. HEENT: No acute trauma, normocephalic atraumatic, mucous membranes moist, no na huong congestion. NECK: No stridor, no adenopathy, no meningismus, trachea is midline. LUNGS: Diminished breath sounds, no wheezing or rhonchi, no obvious respiratory distress. HEART: Irregular rhythm, no murmurs, normal rate. Heart tones are distant. ABDOMEN: Soft, nontender, bowel sounds positive, no peritonitis. EXTREMITIES: No cyanosis or edema, full range of motion of all the joints without pain or difficulty, no signs for acute trauma. NEUROLOGIC: Oriented x 3, no acute motor or sensory deficits, no focal weakness. SKIN: No rash, no jaundice, no diaphoresis. DIFFERENTIAL DIAGNOSIS: Exacerbation of COPD, viral illness, pneumonia, CHF, pneumothorax, anemia, PR, PE, among others. EMERGENCY DEPARTMENT COURSE/PROCEDURES: Prior/Outside records reviewed: Recent ED note. ECG per my interpretation: Indication was shortness of breath. The ECG shows atrial fibrillation with low voltage. The rate is 91. There is diffuse nonspecific ST change. There is no ST elevation, no PVCs. The QTc is 400. Continuous Cardiac Monitoring per my interpretation: An order was placed for continuous cardiac monitoring. The monitor shows a rate of 93 with normal sinus rhythm. MEDICAL DECISION MAKING: There is a mild leukocytosis, this could be consistent with infection or his recent steroid use. There is a very mild anemia with a hemoglobin of 13.1, this is baseline for the patient. There is a normal platelet count. No coagulopathy. No renal failure or concerning electrolyte abnormality. No concerning liver enzyme elevation. BNP is mildly elevated consistent with potential fluid overload. ECG shows atrial fibrillation, no obvious ischemia. Cardiac enzyme testing x1 is not consistent with acute cardiac injury. COVID test returned negative. Chest film per my review does show evidence for COPD. There is some bilateral parenchymal congestion to the lower lungs consistent with a potential viral infection, no focal pneumonia per my review, no CHF. On exam, the patient was not moving a lot of air, he was not hypoxic. The patient received a DuoNeb, IV ceftriaxone and IV Solu-Medrol. The patient does seem slightly improved. The patient has a flare of his COPD from his parainfluenza infection. This has caused his worsening dyspnea. He feels worse today compared to yesterday despite the steroids that were prescribed. Hospitalization is indicated. I spoke with the patient and case management, the on-call hospitalist was consulted. DISPOSITION: Patient presentation and findings warrant a hospital stay. Past Med/Surg History Medical History Asthma exacerbation Atrial fibrillation with rapid ventricular response BPH with obstruction/lower urinary tract symptoms Bronchitis Chronic bronchitis Chronic dyspnea Chronic obstructive pulmonary disease Fluid overload Intestinal obstruction Peripheral eosinophilia Sepsis Surgical History History of abdominal surgery History of cholecystectomy History of exploratory laparotomy History of pancreatectomy History of partial gastrectomy Family History Mother Cirrhosis Diabetes Stroke Hypertension Sister Diabetes Multiple myeloma Brother Heart disease Other Coronary heart disease No family history of adverse response to anesthesia No family history of bleeding disorder Denies family history of Ovarian cancer Prostate cancer Breast cancer Colorectal cancer Social History Smoking Status: Former smoker Tobacco Type: Cigarettes Cigarettes Per Day: less than 1ppd; Second Hand Exposure: Yes; Do You Dip or Chew Tobacco: Yes (1 can every 5-6 days); Hx Alcohol Use: Yes Alcohol type: beer Alcohol Intake Frequency Comment: 2-3 daily Hx Substance Use: No Preferred Language: Macanese Communication Ability: Effective Hearing Ability: Hard of Hearing Help Desk Administrator Required: No Beliefs That Will Affect Care: None marital status: Current Living Situation: Spouse current occupational status: retired Feels Safe at Home: Yes Childhood Exposure to Second-Hand Smoke: Yes Diet: regular caffeine: Yes (1 c coffee daily) Dental Care, Regularly: No Physical Activity Frequency: Daily Seatbelt Use: always Sunscreen Use: No Assistive Devices: None Allergies Allergies Allergy/AdvReac Type Severity Reaction Status Date / Time hydrocodone Allergy Intermediate FEELING Verified 10/18/22 10:20 HOT, SWEATY, simvastatin Allergy Intermediate Myalgia Verified 10/18/22 10:20 tramadol Allergy Intermediate Confused Verified 10/18/22 10:20 doxycycline AdvReac Mild STOMACH Verified 10/18/22 10:20 PAIN Home Meds Home Medications Medication Instructions Recorded Confirmed guaifenesin 1,200 mg tablet, 1,200 mg PO DAILY 04/10/21 10/27/22 extended release 12 hr (Mucinex) dutasteride 0.5 mg capsule 0.5 mg PO DAILY 04/18/22 10/27/22 albuterol sulfate 2.5 mg/3 mL See Rx Instructions .Route 08/16/22 10/27/22 (0.083 %) solution for nebulization .COMPLEX PRN Wheezing furosemide 20 mg tablet 20 mg PO QAM 08/16/22 10/27/22 Previous Rx's Medication Instructions Recorded albuterol sulfate 90 mcg/actuation 2 puff inhalation Q4H PRN 01/25/22 aerosol inhaler shortness of breath or wheezing #54 grams omeprazole 20 mg capsule,delayed 20 mg PO DAILY #90 caps 02/12/22 release tamsulosin 0.4 mg capsule 0.8 mg PO DAILY #180 caps 02/15/22 apixaban 5 mg tablet 5 mg PO BID #180 tabs 05/14/22 diltiazem HCl 180 mg 180 mg PO BID #180 caps 07/19/22 capsule,extended release 24 hr losartan 50 mg tablet 50 mg PO DAILY #90 tabs 08/01/22 benralizumab 30 mg/mL subcutaneous 30 mg subcut .COMPLEX #1 mL 08/27/22 syringe (Fasenra) metoprolol tartrate 25 mg tablet 25 mg PO BID #180 tabs 09/04/22 budesonide-formoterol HFA 160 2 puff inhalation BID #3 Inhalers 09/11/22 mcg-4.5 mcg/actuation aerosol inhaler (Symbicort) umeclidinium 62.5 mcg/actuation 1 inh inhalation DAILY #30 ea 09/26/22 blister powder for inhalation (Incruse Ellipta) roflumilast 500 mcg tablet 500 mcg PO DAILY #90 tabs 10/08/22 montelukast 10 mg tablet 10 mg PO DAILY #30 tabs 10/23/22 (Singulair) prednisone 10 mg tablet 10 mg PO DIRECTED #31 tabs 10/26/22 Results & Data (ED) Vital Signs Vital Signs - 24 hr 10/27/22 16:08 10/27/22 16:25 10/27/22 16:41 Temperature 36.8 C Temperature Source Temporal Artery Scan Pulse Rate 110 H 93 H Pulse Rate [Apical] Respiratory Rate 18 Blood Pressure 112/72 Blood Pressure [Right Arm] Blood Pressure Mean 85 Blood Pressure Mean [Right Arm] Blood Pressure Position [Right Arm] Pulse Oximetry 92 94 Oxygen Delivery Method Room Air Room Air Sepsis Recent Fever Within 48 Hours No Sepsis New/Unexplained Change in Mental Status No Sepsis Action Taken by Nursing No Action Required 10/27/22 17:15 10/27/22 17:15 Temperature Temperature Source Pulse Rate 83 Pulse Rate [Apical] 83 Respiratory Rate 18 18 Blood Pressure Blood Pressure [Right Arm] 115/75 Blood Pressure Mean Blood Pressure Mean [Right Arm] 88 Blood Pressure Position [Right Arm] Sitting Pulse Oximetry 94 94 Oxygen Delivery Method Room Air Room Air Sepsis Recent Fever Within 48 Hours Sepsis New/Unexplained Change in Mental Status Sepsis Action Taken by Group Home Medications Current Medication List: was personally reviewed by me Laboratory Data Attestation: I reviewed the patient's lab results. 10/27/22 16:36 10/27/22 16:36 Lab Results 10/27/22 10/27/22 10/27/22 Range/Units 16:36 16:36 16:36 WBC 14.63 H (4.8-10.8) K/ul RBC 4.56 L (4.70-6.10) M/uL Hgb 13.1 L (14.0-18.0) g/dl Hct 39.3 L (42.0-52.0) % MCV 86.2 (80.0-100.0) fL MCH 28.7 (25.0-34.0) pg MCHC 33.3 (32.0-36.0) g/dL RDW Std Deviation 46.7 H (36.4-46.3) fL RDW Coeff of Radha 14.7 H (11.5-14.5) % Plt Count 209 (130-400) K/uL MPV 11.1 (9.4-12.4) fL Immature Gran % (Auto) 0.7 % Neut % (Auto) 91.3 % Lymph % (Auto) 3.5 % Hardeman % (Auto) 4.4 % Eos % (Auto) 0.0 % Baso % (Auto) 0.1 % Neut # (Auto) 13.37 H (1.40-6.50) K/uL Lymph # (Auto) 0.51 L (1.2-3.4) K/uL Hardeman # (Auto) 0.64 H (0.11-0.59) K/uL Eos # (Auto) 0.00 (0-0.50) K/uL Baso # (Auto) 0.01 (0-0.2) K/uL Immature Gran # (Auto) 0.10 (0.01-0.20) K/uL PT 11.1 (9.0-12.0) Seconds INR 1.0 (0.9-1.1) APTT 30.2 (21.0-31.0) Seconds PTT Ratio 1.1 Sodium 136 (136-145) mmol/L Potassium 3.5 (3.5-5.1) mmol/L Chloride 105 (98-107) mmol/L Carbon Dioxide 22 (21-32) mmol/L Anion Gap 9 (3-11) BUN 16 (6-23) mg/dl Creatinine 0.94 (0.6-1.4) mg/dl Est Cr Clr Drug Dosing 73.4 ml/min Est GFR ( Amer) 90.9 ml/min Est GFR (Non-Af Amer) 78.4 ml/min BUN/Creatinine Ratio 17.0 (10-20) Glucose 222 H (70-99(Fasting)) mg/dl Calcium 8.9 (8.6-10.3) mg/dl Magnesium 1.9 (1.7-2.4) mg/dl Total Bilirubin 1.0 D (0.2-1.0) mg/dl AST 14 (13-39) U/L ALT 10 (7-52) U/L Alkaline Phosphatase 75 (34-104) U/L Troponin I High Sens 8.6 (0-20) pg/ml B-Natriuretic Peptide (0-100) pg/ml Total Protein 7.0 (6.0-8.3) gm/dl Albumin 3.5 (3.4-5.0) gm/dl Globulin 3.5 (2.5-4.0) gm/dl Albumin/Globulin Ratio 1.0 (0.9-2) SARS-CoV-2, RNA, NAAT (NEGATIVE) 10/27/22 10/27/22 Range/Units 16:36 16:50 WBC (4.8-10.8) K/ul RBC (4.70-6.10) M/uL Hgb (14.0-18.0) g/dl Hct (42.0-52.0) % MCV (80.0-100.0) fL MCH (25.0-34.0) pg MCHC (32.0-36.0) g/dL RDW Std Deviation (36.4-46.3) fL RDW Coeff of Radha (11.5-14.5) % Plt Count (130-400) K/uL MPV (9.4-12.4) fL Immature Gran % (Auto) % Neut % (Auto) % Lymph % (Auto) % Hardeman % (Auto) % Eos % (Auto) % Baso % (Auto) % Neut # (Auto) (1.40-6.50) K/uL Lymph # (Auto) (1.2-3.4) K/uL Hardeman # (Auto) (0.11-0.59) K/uL Eos # (Auto) (0-0.50) K/uL Baso # (Auto) (0-0.2) K/uL Immature Gran # (Auto) (0.01-0.20) K/uL PT (9.0-12.0) Seconds INR (0.9-1.1) APTT (21.0-31.0) Seconds PTT Ratio Sodium (136-145) mmol/L Potassium (3.5-5.1) mmol/L Chloride (98-107) mmol/L Carbon Dioxide (21-32) mmol/L Anion Gap (3-11) BUN (6-23) mg/dl Creatinine (0.6-1.4) mg/dl Est Cr Clr Drug Dosing ml/min Est GFR ( Amer) ml/min Est GFR (Non-Af Amer) ml/min BUN/Creatinine Ratio (10-20) Glucose (70-99(Fasting)) mg/dl Calcium (8.6-10.3) mg/dl Magnesium (1.7-2.4) mg/dl Total Bilirubin (0.2-1.0) mg/dl AST (13-39) U/L ALT (7-52) U/L Alkaline Phosphatase (34-104) U/L Troponin I High Sens (0-20) pg/ml B-Natriuretic Peptide 207 H (0-100) pg/ml Total Protein (6.0-8.3) gm/dl Albumin (3.4-5.0) gm/dl Globulin (2.5-4.0) gm/dl Albumin/Globulin Ratio (0.9-2) SARS-CoV-2, RNA, NAAT NEGATIVE (NEGATIVE) Administered Medications Discontinued Medications Albuterol (Albut/Ipratrop 3mg/0.5mg Neb 3 Ml Vial) 3 ml INH NOW STA Stop: 10/27/22 16:19 Last Admin: 10/27/22 16:46 Dose: 3 ml Documented By: AMS Ceftriaxone Sodium (Rocephin) 2,000 mg in 70 mls @ 140 mls/hr IV NOW STA Stop: 10/27/22 17:50 Last Admin: 10/27/22 17:37 Dose: 140 mls/hr Documented By: AMS Methylprednisolone (Methylprednisolone 125 Mg/2 Ml Vial) 60 mg IV NOW STA Stop: 10/27/22 16:19 Last Admin: 10/27/22 16:45 Dose: 60 mg Documented By: AMS Imaging Data Radiologist's Impression: Chest X-Ray 10/27/22 16:18 XR chest 1V portable CLINICAL HISTORY: Dyspnea TECHNIQUE: Single frontal radiograph of the chest was obtained. Comparison: Comparison is made to chest radiograph 10/26/2022 FINDINGS: No lines and tubes are seen. Calcified aortic knob is seen. Peribronchial thickening is seen. No evidence of pleural effusion or pneumothorax. IMPRESSION: Peribronchial thickening is seen compatible with infectious/inflammatory airways disease or viral pneumonia. No vonda consolidation is seen. ACT 112: Negative or not required by law. Electronically signed by: Kirk Prado M.D. 10/27/2022 5:31 PM Discharge Plan Visit Data Chief Complaint: Shortness of Breath/Dyspnea Stated Complaint: SOB ED Provider: Trey Lundberg Discharge Problem: SOB (shortness of breath), COPD exacerbation, Parainfluenza infection, Leukocytosis Patient Disposition: Admitted As Inpatient Condition: Fair Forms Stand Alone Forms: My [facility] [employer] Prescriptions Prescriptions: No Action albuterol sulfate 90 mcg/actuation HFA aerosol inhaler 2 puff inhalation Q4H PRN (Reason: shortness of breath or wheezing) Qty: 54 3RF omeprazole 20 mg capsule,delayed release(DR/EC) 20 mg PO DAILY Qty: 90 3RF apixaban 5 mg tablet 5 mg PO BID Qty: 180 3RF diltiazem HCl 180 mg capsule,extended release 24hr 180 mg PO BID Qty: 180 3RF losartan 50 mg tablet 50 mg PO DAILY Qty: 90 3RF Fasenra 30 mg/mL syringe 30 mg subcut .COMPLEX Qty: 1 11RF Rx Instructions: INJECT 30MG SQ EVERY 8 WEEKS MAINTENANCE APPROVED under medical benefit GOOD 08/20/22-08/19/23 [id number] Will be a Buy and Bill budesonide-formoterol [Symbicort] 160-4.5 mcg/actuation HFA aerosol inhaler 2 puff INHALATION BID Qty: 3 3RF roflumilast 500 mcg tablet 500 mcg PO DAILY Qty: 90 3RF montelukast [Singulair] 10 mg tablet 10 mg PO DAILY Qty: 30 5RF dutasteride 0.5 mg capsule 0.5 mg PO DAILY tamsulosin 0.4 mg capsule 0.8 mg PO DAILY Qty: 180 3RF metoprolol tartrate 25 mg tablet 25 mg PO BID Qty: 180 3RF Incruse Ellipta 62.5 mcg/actuation blister with device 1 inh inhalation DAILY Qty: 30 3RF Mucinex 1,200 mg tablet extended release 12hr 1,200 mg PO DAILY prednisone 10 mg tablet 10 mg PO DIRECTED Qty: 31 0RF Rx Instructions: Prednisone 40 mg for 4 days, 30 mg for 3 days, 20 mg for 2 days and 10 mg for 2 days. furosemide 20 mg tablet 20 mg PO QAM albuterol sulfate 2.5 mg /3 mL (0.083 %) solution for nebulization See Rx Instructions .ROUTE .COMPLEX PRN (Reason: Wheezing) Rx Instructions: inhale 1 vial by nebulization every 4-6 hours if needed for shortness of breath or wheezing Referrals Referrals: Josh Hernandez MD [Primary Care Provider] -
[2022-10-27 17:19] LABS: Troponin I High Sensitivity 8.6 pg/ml (0-20)
[2022-10-27] MEDS ORDERED: cefTRIAXone SODIUM 2,000 MG/70 ML BAG IV STA (17:21)
[2022-10-27 17:25] LABS: Basophils # (auto) 0.01 K/uL (0-0.2); Basophils % (auto) 0.1 %; Immature Granulocytes % (auto) 0.7 %; Lymphocytes # (auto) 0.51 K/uL (1.2-3.4); Lymphocytes % (auto) 3.5 %; Monocytes # (auto) 0.64 K/uL (0.11-0.59); Monocytes % (auto) 4.4 %; Neutrophils # (auto) 13.37 K/uL (1.40-6.50); Neutrophils % (auto) 91.3 %
[2022-10-27 17:29] LABS: Partial Thromboplastin Ratio 1.1; Partial Thromboplastin Time 30.2 Seconds (21.0-31.0); Prothrombin Time 11.1 Seconds (9.0-12.0)
--- NOTE | 2022-10-27 17:33 | XRay Report ---
XR chest 1V portable CLINICAL HISTORY: Dyspnea TECHNIQUE: Single frontal radiograph of the chest was obtained. Comparison: Comparison is made to chest radiograph 10/26/2022 FINDINGS: No lines and tubes are seen. Calcified aortic knob is seen. Peribronchial thickening is seen. No evid ence of pleural effusion or pneumothorax. IMPRESSION: Peribronchial thickening is seen compatible with infectious/inflammatory airways disease or viral pne umonia. No vonda consolidation is seen. ACT 112: Negative or not required by law. Electronically signed by: Kirk Prado M.D. 10/27/2022 5:31 PM
--- NOTE | 2022-10-27 17:46 | History & Physical Report ---
Date of Service October 27, 2022 Assessment & Plan (1) Acute exacerbation of chronic obstructive pulmonary disease: Plan: Shortness of breath, weakness suspect 2/2 parainfluenza with COPD exacerbation With worsened wheezing, and weakness. No hypoxia. Congestion improved, exertional dyspnea worsened. No tachycardia. - On exam greatly reduced air movement, end expiratory wheezing - BC pending 10/26 Patient is with new leukocytosis of 14 in the setting of prednisone use Continue methylprednisolone 40 mg CXR with peribronchial thickening suspicious for infectious/inflammatory disease versus viral pneumonia, no consolidation is appreciated BNP 207, last 160 High-sensitivity troponin 8.6, troponin yesterday was 9.2 Creatinine 0.94, baseline less than 1. Creatinine/BUN ratio 17 No gross electrolyte derangement Procalcitonin pending EKG: A-fib, QTc 400, no territorial ST segment change Received empiric Rocephin for secondary coverage while in ER. Patient was febrile to 38.6*C while in ER. No consolidation is seen on x-ray. With positive parainfluenza and no consolidation will defer additional Rocephin and follow clinically. Will add 5-day course of azithromycin with concurrent COPD exacerbation, QT is not prolonged. Continue inhaler/formulary equivalent Continue montelukast Continue Fasenra Atrial fibrillation, Permanent, chronic anticoagulated, well-controlled rate On Eliquis, continue Admitting EKG A-fib, adequately rate controlled/without RVR Continue diltiazem Normal stress echo 2020 without evidence of ischemia No chest pain prior to admission, troponin 10/26 and 10/27 are normal Peripheral eosinophilia On Fasenra, follows outpatient with immunology No eosinophilia on admitting CBC MGUS Noted incidentally 2017, follows with oncology as outpatient, no acute change in management Type II DM Diet controlled Last A1c 6.2% Pharmacy consulted while on 3 times daily steroids for assistance in management It is not carb diet Hypertension More recently has been adequately controlled, does have whitecoat hypertension history Continue diltiazem, losartan DVT prophylaxis: Anticoagulated on DOAC Diet: Heart healthy Disposition: Medical surgical. No chest pain, no RVR and hemodynamically stable at time of admission. If chest pain/rapid rate develops transfer to telemetry CODE STATUS: DNR/DNI (2) Acute bronchitis due to parainfluenza virus: (3) COPD exacerbation: (4) CAD in [place] artery: (5) Asthma-COPD overlap syndrome: (6) Chronic obstructive pulmonary disease: (7) Permanent atrial fibrillation: History of Present Illness Primary Care Provider: Josh Hernandez MD [place] is a 77-year-old male with a past medical history of asthmaCOPD, MGUS, DM 2, CAD who presents with 3 days of shortness of breath, cough, and weakness which seems to be worsening over the last 3 days. Endorses low-grade fever. Was seen in the ER 10/26, was parainfluenza positive, was discharged home for parainfluenza illness for COPD flare on home prednisone however he has had progressively worsening weakness, he is unable to ambulate due to rapid fatigue, and represents for additional care. Worsened breathing, easy exercise fatigue without chest pain. Took several puffs of albuterol this AM which helped a little but not much. Wheezing i smuch worse last 2 days. Cannot go more than a few steps due to wheezing/shortness of breath, prednisone usually helps but hasn't seen much benefit from this. Has not felt feverish/chilly today but did have one fever in the ER. No night sweats. +increased sputum production, yellow in color. Normal sputum is clear, this is increased and change din the last 2-3 days. He denies chest pain at any point. No weight change, he has had intermittent leg swelling in the past but his legs are currently dry and does not think he has any swelling at all. He does not have shortness of breath which worsens when laying flat/denies orthopnea. Medical History: Reviewed Medications: Reviewed Surgical History: Reviewed Allergies: Reviewed Social History: Reviewed. Chew tobacco use. No cigarette use. Intermittent beer use in the evening, none in several days. Code Status: DNR/DNI Allergies Allergy/AdvReac Type Severity Reaction Status Date / Time hydrocodone Allergy Intermediate FEELING Verified 10/18/22 10:20 HOT, SWEATY, simvastatin Allergy Intermediate Myalgia Verified 10/18/22 10:20 tramadol Allergy Intermediate Confused Verified 10/18/22 10:20 doxycycline AdvReac Mild STOMACH Verified 10/18/22 10:20 PAIN Home Medications Medication Instructions Recorded Confirmed Type guaifenesin 1,200 mg tablet, 1,200 mg PO DAILY 04/10/21 10/27/22 History extended release 12 hr (Mucinex) albuterol sulfate 90 mcg/actuation 2 puff inhalation Q4H PRN 01/25/22 10/27/22 Rx aerosol inhaler shortness of breath or wheezing #54 grams omeprazole 20 mg capsule,delayed 20 mg PO DAILY #90 caps 02/12/22 10/27/22 Rx release tamsulosin 0.4 mg capsule 0.8 mg PO DAILY #180 caps 02/15/22 10/27/22 Rx dutasteride 0.5 mg capsule 0.5 mg PO DAILY 04/18/22 10/27/22 History apixaban 5 mg tablet 5 mg PO BID #180 tabs 05/14/22 10/27/22 Rx diltiazem HCl 180 mg 180 mg PO BID #180 caps 07/19/22 10/27/22 Rx capsule,extended release 24 hr losartan 50 mg tablet 50 mg PO DAILY #90 tabs 08/01/22 10/27/22 Rx albuterol sulfate 2.5 mg/3 mL See Rx Instructions .Route 08/16/22 10/27/22 History (0.083 %) solution for nebulization .COMPLEX PRN Wheezing furosemide 20 mg tablet 20 mg PO QAM 08/16/22 10/27/22 History benralizumab 30 mg/mL subcutaneous 30 mg subcut .COMPLEX #1 mL 08/27/22 10/27/22 Rx syringe (Fasenra) metoprolol tartrate 25 mg tablet 25 mg PO BID #180 tabs 09/04/22 10/27/22 Rx budesonide-formoterol HFA 160 2 puff inhalation BID #3 Inhalers 09/11/22 10/27/22 Rx mcg-4.5 mcg/actuation aerosol inhaler (Symbicort) umeclidinium 62.5 mcg/actuation 1 inh inhalation DAILY #30 ea 09/26/22 10/27/22 Rx blister powder for inhalation (Incruse Ellipta) roflumilast 500 mcg tablet 500 mcg PO DAILY #90 tabs 10/08/22 10/27/22 Rx montelukast 10 mg tablet 10 mg PO DAILY #30 tabs 10/23/22 10/27/22 Rx (Singulair) prednisone 10 mg tablet 10 mg PO DIRECTED #31 tabs 10/26/22 10/27/22 Rx Past Med/Surg History Medical History Asthma exacerbation Atrial fibrillation with rapid ventricular response BPH with obstruction/lower urinary tract symptoms Bronchitis Chronic bronchitis Chronic dyspnea Chronic obstructive pulmonary disease Fluid overload Intestinal obstruction Peripheral eosinophilia Sepsis Surgical History History of abdominal surgery History of cholecystectomy History of exploratory laparotomy History of pancreatectomy History of partial gastrectomy Family History Mother Cirrhosis Diabetes Stroke Hypertension Sister Diabetes Multiple myeloma Brother Heart disease Other Coronary heart disease No family history of adverse response to anesthesia No family history of bleeding disorder Denies family history of Ovarian cancer Prostate cancer Breast cancer Colorectal cancer Social History Smoking Status: Former smoker Tobacco Type: Cigarettes Cigarettes Per Day: less than 1ppd; Second Hand Exposure: Yes; Do You Dip or Chew Tobacco: Yes (1 can every 5-6 days); Hx Alcohol Use: Yes Alcohol type: beer Alcohol Intake Frequency Comment: 2-3 daily Hx Substance Use: No Preferred Language: Bengali Communication Ability: Effective Hearing Ability: Hard of Hearing Physics Department Chair Required: No Beliefs That Will Affect Care: None marital status: Current Living Situation: Spouse current occupational status: retired Feels Safe at Home: Yes Childhood Exposure to Second-Hand Smoke: Yes Diet: regular caffeine: Yes (1 c coffee daily) Dental Care, Regularly: No Physical Activity Frequency: Daily Seatbelt Use: always Sunscreen Use: No Assistive Devices: None Review of Systems Review of Systems: All systems reviewed & are unremarkable except as noted in HPI & below Physical Exam Physical Exam: General: A&Ox3. NAD. Cooperative. HEENT: Atraumatic, normocephalic. Hard of hearing. Vision and hearing otherwise grossly intact Pulm: Greatly diminished air movement in all woods, and expiratory wheezes are presentNo respiratory distress. Cardiac: RRR, -mrg. Radial pulses intact and symmetrical. Abdominal: Nontender, nondistended, soft. BS present. Extremities: Warm, dry. No pitting edema is present. Moves all extremities equally, ankle dorsiflexion/plantarflexion and coal shooter strength are 5/5 bilaterally, sensation of soft touch is intact in hands and feet Results & Data Results & Data Vital Signs (Past 12 Hours) Vital Signs Temp Pulse Pulse Resp BP BP Pulse Ox 10/27/22 17:15 83 18 94 10/27/22 17:15 83 18 115/75 94 10/27/22 16:41 93 H 10/27/22 16:25 94 10/27/22 16:08 36.8 C 110 H 18 112/72 92 O2 Del Method 10/27/22 17:15 Room Air 10/27/22 17:15 Room Air 10/27/22 16:41 10/27/22 16:25 Room Air 10/27/22 16:08 Room Air PG Care Time/CCT Total # of Minutes Spent Total Time Spent with Patient: Total time spent is greater than 50% in coordination of care (as documented) at patient's floor/unit and/or counseling patient: Coding Level of Care Code 61844 INT INP/OBS CARE 2/55MIN Diagnoses Acute exacerbation of chronic obstructive pulmonary disease J44.1 Acute bronchitis due to parainfluenza virus J20.4 CAD in [place] artery I25.10 Asthma-COPD overlap syndrome J44.9 Chronic obstructive pulmonary disease J44.9 Permanent atrial fibrillation I48.21
[2022-10-27] MEDS ORDERED: ALBUTEROL HFA 8 GM INHALER INH PRN (20:25)
[2022-10-27] MEDS ORDERED: ALBUT/IPRATROP 3MG/0.5MG NEB 3 ML VIAL NEB PRN (20:25)
[2022-10-27] MEDS ORDERED: AZITHROMYCIN 250 MG TAB PO ONE (20:25)
[2022-10-27] MEDS ORDERED: POLYETHYLENE (MIRALAX) 17 GM PACK PO PRN (20:25)
[2022-10-27] MEDS ORDERED: ACETAMINOPHEN 325 MG TAB PO PRN (20:25)
[2022-10-27] MEDS: APIXABAN 5 MG TABLET PO SCH (21:17)
[2022-10-27] MEDS: dilTIAZem HCL 180 MG CAPCR PO SCH (21:17)
[2022-10-27] MEDS: METOPROLOL TARTRATE 25 MG TAB PO SCH (21:17)
[2022-10-27] MEDS: guaiFENesin 600 MG TABCR PO SCH (21:18)
[2022-10-28 06:53] LABS: Hematocrit (blood only) 38.1 % (42.0-52.0); Mean Corpuscular Hgb Conc 34.1 g/dL (32.0-36.0); Mean Corpuscular Volume 84.9 fL (80.0-100.0); Mean Platelet Volume 11.4 fL (9.4-12.4); Platelet Count 214 K/uL (130-400); RDW Coefficient of Variation 14.7 % (11.5-14.5); RDW Standard Deviation 46.1 fL (36.4-46.3); Red Blood Count 4.49 M/uL (4.70-6.10); White Blood Count 14.87 K/ul (4.8-10.8)
[2022-10-28 07:13] LABS: BUN Creatinine Ratio 21.6 (10-20); Calcium 9.1 mg/dl (8.6-10.3); Creatinine Clr Calc Pharmacy 77.8 ml/min; Est GFR (African American) 96.7 ml/min; Est GFR (Non-African American) 83.4 ml/min; Potassium 4.3 mmol/L (3.5-5.1)
[2022-10-28 07:29] LABS: Basophils # (auto) 0.01 K/uL (0-0.2); Basophils % (auto) 0.1 %; Echinocytes 1+; Immature Granulocytes # (auto) 0.13 K/uL (0.01-0.20); Immature Granulocytes % (auto) 0.9 %; Lymphocytes # (auto) 0.84 K/uL (1.2-3.4); Lymphocytes % (auto) 5.6 %; Monocytes # (auto) 0.48 K/uL (0.11-0.59); Monocytes % (auto) 3.2 %; Neutrophils # (auto) 13.41 K/uL (1.40-6.50); Neutrophils % (auto) 90.2 %; Ovalocytes 1+; Polychromasia 1+
[2022-10-28] MEDS: FUROSEMIDE 20 MG TAB PO SCH (08:04)
[2022-10-28] MEDS: METOPROLOL TARTRATE 25 MG TAB PO SCH ×2 (08:04→21:11)
[2022-10-28] MEDS: PANTOprazole 40 MG TAB PO SCH (08:05)
[2022-10-28] MEDS: FLUTICASONE/VILANTEROL 200/25MCG 14 PUFFS/INHALER INH SCH (08:05)
[2022-10-28] MEDS: ROFLUMILAST 500 MCG TAB PO SCH (08:05)
[2022-10-28] MEDS: TAMSULOSIN HCL 0.4 MG CAP PO SCH (08:06)
[2022-10-28] MEDS: AZITHROMYCIN 250 MG TAB PO SCH (08:06)
[2022-10-28] MEDS: dilTIAZem HCL 180 MG CAPCR PO SCH ×2 (08:06→21:11)
[2022-10-28] MEDS: LOSARTAN POTASSIUM 50 MG TAB PO SCH (08:06)
[2022-10-28] MEDS: MONTELUKAST SODIUM 10 MG TABLET PO SCH (08:06)
[2022-10-28] MEDS: APIXABAN 5 MG TABLET PO SCH ×2 (08:06→21:11)
[2022-10-28] MEDS: UMECLIDINIUM BROMIDE 62.5MCG/BLISTER 7 PUFFS/INHALER INH SCH (08:07)
[2022-10-28] MEDS ORDERED: guaiFENesin 600 MG TABCR PO SCH (09:00)
[2022-10-28] MEDS ORDERED: methylPREDNISolone 40 MG in SYRINGE 0 ML IV SCH (09:00)
[2022-10-28] MEDS ORDERED: ALBUT/IPRATROP 3MG/0.5MG NEB 3 ML VIAL NEB PRN (09:31)
[2022-10-28] MEDS ORDERED: CARBOHYDRATES FOR HYPOGLYCEMIA PO PRN (09:42)
[2022-10-28] MEDS ORDERED: GLUCOSE 40% GEL 15 GM TUBE PO PRN (09:42)
[2022-10-28] MEDS ORDERED: DEXTROSE 50% 50 ML SYRINGE IV PRN (09:42)
[2022-10-28] MEDS ORDERED: GLUCOSE 10 TAB/TUBE PO PRN (09:42)
[2022-10-28] MEDS ORDERED: PHARMACY GLYCEMIC MGMT CONSULT PRN (09:42)
[2022-10-28] MEDS ORDERED: GLUCAGON FOR INJ 1 MG VIAL SQ PRN (09:42)
--- NOTE | 2022-10-28 09:43 | Hospitalist Progress Note ---
Date of Service October 28, 2022 Assessment & Plan (1) Acute exacerbation of chronic obstructive pulmonary disease: Plan: History of COPD/asthma overlap syndrome, follows with Pulm/Immunology outpatient PFT September 2022 with severe airflow obstruction, FEV1 39%, severe air trapping with RV 185%, severely reduced DLCO 48%, significant FEV1 decline from September 2021 PFT Presented with exertional dyspnea, wheezing, and weakness without hypoxia in the setting of positive Biofire for parainfluenza virus On exam greatly reduced air movement with end-expiratory wheezing Patient is with new leukocytosis of 14 in the setting of prednisone use, stable BCx 10/26 NGTD CXR with peribronchial thickening suspicious for infectious/inflammatory disease versus viral pneumonia, no consolidation is appreciated Procalcitonin detectable at 0.12, but not elevated, low likelihood of bacterial pneumonia Low likelihood PE as patient is not hemodynamically unstable, not hypoxic, on chronic Eliquis BNP 207, relatively stable from previous checks, no evidence of fluid o verload, Echo ordered (also to eval for pulmonary HTN) High-sensitivity troponin low, no evidence of ACS Treating as COPD exacerbation in the setting of parainfluenza infection Continue methylpred 40 mg IV TID, de-escalate as able Continue azithromycin for atypical coverage and anti-inflammatory effect, Duonebs scheduled and prn, Mucinex, home daily inhalers/montelukast/Daliresp Follow up with Pulmonology recommended; considering bronchoscopic lung volume reduction in the future (2) Asthma-COPD overlap syndrome: Plan: see above (3) Acute bronchitis due to parainfluenza virus: Plan: see above (4) CAD in [place] artery: Plan: BP controlled, continue diltiazem and losartan Continue metoprolol No evidence of ACS this admission, hsTroponin was 8, no EKG changes to suggest acute PA (5) Permanent atrial fibrillation: Plan: On Eliquis, continue Admitting EKG AFib without RVR Continue diltiazem (6) Diabetes mellitus type II, controlled: Plan: Diet controlled, continue DM2 diet Last A1c 6.2% in July 2021, repeat ordered Pharmacy consulted while on 3 times daily steroids for assistance in management Plan DVT prophylaxis: Anticoagulated on DOAC Diet: Heart healthy Disposition: Medical/surgical. No chest pain, no RVR and hemodynamically stable at time of admission. If chest pain/rapid rate develops transfer to telemetry CODE STATUS: DNR/DNI Admission and Anticipated Discharge Date Admission Date: October 27, 2022 Subjective Patient without any acute events overnight. Reports that he feels about the same today as yesterday. Still with some sensation of dyspnea with exertion, does report that this has been going on for the last several months but acutely worse in the last couple of days. Denies fevers. Review of Systems Review of Systems: All systems reviewed & are unremarkable except as noted in Subjective Physical Exam Constitutional: WD/WN, vitals as above Respiratory: Poor air movement bilaterally, expiratory wheezing noted Cardiovascular: RRR, no murmur, no edema Gastrointestinal (Abdomen): normal bowel sounds, soft, nontender, no hepatosplenomegaly Skin: no rashes, warm and dry Psychiatric: A+Ox3, euthymic affect Results & Data Results & Data Vital Signs (Past 12 Hours) Vital Signs Temp Pulse Resp BP Pulse Ox O2 Del Method 10/28/22 07:08 36.8 C 66 18 113/71 96 Room Air PG Care Time/CCT Total # of Minutes Spent Total Time Spent with Patient: Total time spent is greater than 50% in coordination of care (as documented) at patient's floor/unit and/or counseling patient: Coding Level of Care Code 88179 SUB INP/OBS CARE 3/50MIN Diagnoses Acute exacerbation of chronic obstructive pulmonary disease J44.1 Asthma-COPD overlap syndrome J44.9 Acute bronchitis due to parainfluenza virus J20.4 CAD in [place] artery I25.10 Permanent atrial fibrillation I48.21 Diabetes mellitus type II, controlled E11.9
[2022-10-28] MEDS: INSULIN ASPART PER UNIT CHARGE SC SCH ×3 (13:00→21:12)
[2022-10-28] MEDS: ALBUT/IPRATROP 3MG/0.5MG NEB 3 ML VIAL NEB SCH ×2 (13:13→19:25)
[2022-10-28] MEDS: methylPREDNISolone 40 MG in SYRINGE 0 ML IV SCH ×2 (13:45→21:12)
--- NOTE | 2022-10-28 14:13 | Pharmacy Report ---
Pharmacy Glycemic Short Note 2 - Date of Service October 28, 2022 - Glycemic Short BSG Results (Last 24 hours): 10/27/22 10/28/22 10/28/22 16:36 06:18 12:07 Glucose 222 H 149 H POC Glucose 142 H OUTPATIENT ANTIDIABETIC REGIMEN: * Diet controlled ASSESSMENT: * Forest is 77 yo T2DM admitted with acute exacerbation of chronic obstructive pulmonary disease. * He is diet controlled at home. Most recent A1c of 6.2% indicates good glycemic control. Repeat A1c pending. * Fasting BSG of 149 mg/dL today despite receiving methylprednisolone 60 mg IV in the ER on 10/27 PM, therefore I held off on basal insulin this morning. Methylprednisolone was later increased to 40 mg IV TID. Patient may require addition of basal insulin this evening. Will add conservative Lantus dose per scale. PLAN FOR INPATIENT GLYCEMIC CONTROL: * Basal insulin * Lantus 0-7 units SQ tonight (7 units for BSG 180 mg/dL or more) * Bolus insulin * NovoLog per scale ACHS or Q6hrs while NPO * Goal Range: Low 110 mg/dL - High 140 mg/dL * Correction Factor: 30 mg/dL/unit * Nutritional / Prandial insulin per carb ratio of 1 unit per 15 grams CHO consumed
[2022-10-28] MEDS ORDERED: LANTUS PER UNIT CHARGE SC SCH (21:00)
[2022-10-28] MEDS: guaiFENesin 600 MG TABCR PO SCH (21:11)
--- NOTE | 2022-10-28 21:14 | Electrocardiogram Report ---
Test Reason : Blood Pressure : / mmHG Vent. Rate : 091 BPM Atrial Rate : 000 BPM P-R Int : 000 ms QRS Dur : 062 ms QT Int : 326 ms P-R-T Axes : 000 006 084 degrees QTc Int : 400 ms Atrial fibrillation Low voltage QRS Septal infarct (cited on or before 27-OCT-2022) Abnormal ECG When compared with ECG of 26-OCT-2022 13:49, No significant change Confirmed by Justin Estrada ([id number]) on 10/28/2022 9:13:49 PM Referred By: Confirmed By:Justin Estrada
[2022-10-29] MEDS: ALBUT/IPRATROP 3MG/0.5MG NEB 3 ML VIAL NEB SCH ×2 (01:28→07:52)
[2022-10-29 08:01] LABS: Hematocrit (blood only) 39.2 % (42.0-52.0); Hemoglobin 12.8 g/dl (14.0-18.0); Mean Corpuscular Hemoglobin 28.6 pg (25.0-34.0); Mean Corpuscular Hgb Conc 32.7 g/dL (32.0-36.0); Mean Corpuscular Volume 87.7 fL (80.0-100.0); Mean Platelet Volume 11.7 fL (9.4-12.4); Platelet Count 231 K/uL (130-400); RDW Coefficient of Variation 14.7 % (11.5-14.5); RDW Standard Deviation 47.1 fL (36.4-46.3); Red Blood Count 4.47 M/uL (4.70-6.10); White Blood Count 13.33 K/ul (4.8-10.8)
[2022-10-29] MEDS: FLUTICASONE/VILANTEROL 200/25MCG 14 PUFFS/INHALER INH SCH (08:08)
[2022-10-29] MEDS: UMECLIDINIUM BROMIDE 62.5MCG/BLISTER 7 PUFFS/INHALER INH SCH (08:09)
[2022-10-29] MEDS: TAMSULOSIN HCL 0.4 MG CAP PO SCH (08:09)
[2022-10-29] MEDS: LOSARTAN POTASSIUM 50 MG TAB PO SCH (08:09)
[2022-10-29] MEDS: FUROSEMIDE 20 MG TAB PO SCH (08:09)
[2022-10-29] MEDS: METOPROLOL TARTRATE 25 MG TAB PO SCH (08:09)
[2022-10-29] MEDS: ROFLUMILAST 500 MCG TAB PO SCH (08:10)
[2022-10-29] MEDS: AZITHROMYCIN 250 MG TAB PO SCH (08:10)
[2022-10-29] MEDS: APIXABAN 5 MG TABLET PO SCH (08:10)
[2022-10-29] MEDS: MONTELUKAST SODIUM 10 MG TABLET PO SCH (08:10)
[2022-10-29] MEDS: PANTOprazole 40 MG TAB PO SCH (08:10)
[2022-10-29] MEDS: dilTIAZem HCL 180 MG CAPCR PO SCH (08:10)
[2022-10-29] MEDS: methylPREDNISolone 40 MG in SYRINGE 0 ML IV SCH (08:11)
[2022-10-29] MEDS: INSULIN ASPART PER UNIT CHARGE SC SCH (08:16)
[2022-10-29 08:22] LABS: BUN Creatinine Ratio 29.6 (10-20); Calcium 9.1 mg/dl (8.6-10.3); Creatinine Clr Calc Pharmacy 63.4 ml/min; Est GFR (African American) 76.9 ml/min; Est GFR (Non-African American) 66.3 ml/min; Potassium 4.3 mmol/L (3.5-5.1)
[2022-10-29 08:30] LABS: Estimated Average Glucose 131 mg/dl; Hemoglobin A1C 6.2 % (4.5-5.6)
[2022-10-29] MEDS ORDERED: methylPREDNISolone 40 MG in SYRINGE 0 ML IV SCH (09:00)
--- NOTE | 2022-10-29 11:03 | Discharge Summary ---
Date of Service October 29, 2022 Admission HPI Per Admitting Provider [place] is a 77-year-old male with a past medical history of asthmaCOPD, MGUS, DM 2, CAD who presents with 3 days of shortness of breath, cough, and weakness which seems to be worsening over the last 3 days. Endorses low-grade fever. Was seen in the ER 10/26, was parainfluenza positive, was discharged home for parainfluenza illness for COPD flare on home prednisone however he has had progressively worsening weakness, he is unable to ambulate due to rapid fatigue, and represents for additional care. Worsened breathing, easy exercise fatigue without chest pain. Took several puffs of albuterol this AM which helped a little but not much. Wheezing i smuch worse last 2 days. Cannot go more than a few steps due to wheezing/shortness of breath, prednisone usually helps but hasn't seen much benefit from this. Has not felt feverish/chilly today but did have one fever in the ER. No night sweats. +increased sputum production, yellow in color. Normal sputum is clear, this is increased and change din the last 2-3 days. He denies chest pain at any point. No weight change, he has had intermittent leg swelling in the past but his legs are currently dry and does not think he has any swelling at all. He does not have shortness of breath which worsens when laying flat/denies orthopnea. Medical History: Reviewed Medications: Reviewed Surgical History: Reviewed Allergies: Reviewed Social History: Reviewed. Chew tobacco use. No cigarette use. Intermittent beer use in the evening, none in several days. Code Status: DNR/DNI Principal Diagnosis Viral bronchitis, acute exacerbation COPD Discharge Exam General-alert and oriented x3, no fevers, no chills HEENT-head atraumatic and normocephalic, pupils equal and reactive to light, extraocular muscles intact Neck-no lymphadenopathy or thyromegaly, trachea midline Chest-diminished breath sounds bilaterally. No rales, wheezing or rhonchi Cardiac-regular rate and rhythm, normal S1 and S2 Abdomen-normal bowel sounds, nontender, no hepatosplenomegaly Extremities-no cyanosis, clubbing, or edema Neuro-cranial nerves II through XII intact, motor and sensory function within normal limits, strength symmetrical , no focal deficits Psych-normal affect, normal mood Discharge Data Allergies Allergy/AdvReac Type Severity Reaction Status Date / Time hydrocodone Allergy Intermediate FEELING Verified 10/18/22 10:20 HOT, SWEATY, simvastatin Allergy Intermediate Myalgia Verified 10/18/22 10:20 tramadol Allergy Intermediate Confused Verified 10/18/22 10:20 doxycycline AdvReac Mild STOMACH Verified 10/18/22 10:20 PAIN Consultations 10/27/22 17:26 ED Decision to Admit Stat Hospital Course (1) Acute exacerbation of chronic obstructive pulmonary disease: Due to viral bronchitis. He is now back to his baseline on room air. Will discharge today, October 29, on a prednisone tapering dose. (2) Asthma-COPD overlap syndrome: see above (3) Acute bronchitis due to parainfluenza virus: Improved. He will be discharged on a prednisone tapering dose. (4) CAD in [place] artery: Stable. Continue current medical management. (5) Permanent atrial fibrillation: Rate controlled. Continue current medications. Continue Eliquis (6) Diabetes mellitus type II, controlled: ADA diet. Sliding scale coverage. Resume usual medications at discharge Plan Home today, October 29, on prednisone tapering dose Total Time Total Time Spent Total Time Spent (In Minutes): 40 minutes Discharge Plan Discharge Items Patient Disposition: Home - Self-Care Reason For Visit: ARTHUR CANNON Discharge Diagnosis: Acute exacerbation COPD, viral bronchitis Condition on Discharge: Good Activity: Resume your previous activity Non-emergency contact: Primary Care Provider Call non-emergency contact if: you have any medication questions and your symptoms worsen Follow-up/Referrals: Josh Hernandez MD [Primary Care Provider] - Diet: Carb Consistent or DM2 Addtl Attending Provider Instructions: Take prednisone in a tapering dose fashion as directed Pending Studies at Discharge: No Stand-Alone Forms: My [employer], Smoking Cessation Medications and DC Order Prescriptions: New prednisone 10 mg tablet See Rx Instructions .ROUTE .COMPLEX Qty: 12 0RF Rx Instructions: 10 mg orally 3 times a day for 2 days, then 10 mg twice a day for 2 days, then 10 mg once a day for 2 days, then stop Continued albuterol sulfate 90 mcg/actuation HFA aerosol inhaler 2 puff inhalation Q4H PRN (Reason: shortness of breath or wheezing) Qty: 54 3RF omeprazole 20 mg capsule,delayed release(DR/EC) 20 mg PO DAILY Qty: 90 3RF apixaban 5 mg tablet 5 mg PO BID Qty: 180 3RF diltiazem HCl 180 mg capsule,extended release 24hr 180 mg PO BID Qty: 180 3RF losartan 50 mg tablet 50 mg PO DAILY Qty: 90 3RF Fasenra 30 mg/mL syringe 30 mg subcut .COMPLEX Qty: 1 11RF Rx Instructions: INJECT 30MG SQ EVERY 8 WEEKS MAINTENANCE APPROVED under medical benefit GOOD 08/20/22-08/19/23 [id number] Will be a Buy and Bill budesonide-formoterol [Symbicort] 160-4.5 mcg/actuation HFA aerosol inhaler 2 puff INHALATION BID Qty: 3 3RF roflumilast 500 mcg tablet 500 mcg PO DAILY Qty: 90 3RF montelukast [Singulair] 10 mg tablet 10 mg PO DAILY Qty: 30 5RF dutasteride 0.5 mg capsule 0.5 mg PO DAILY tamsulosin 0.4 mg capsule 0.8 mg PO DAILY Qty: 180 3RF metoprolol tartrate 25 mg tablet 25 mg PO BID Qty: 180 3RF Incruse Ellipta 62.5 mcg/actuation blister with device 1 inh inhalation DAILY Qty: 30 3RF Mucinex 1,200 mg tablet extended release 12hr 1,200 mg PO DAILY prednisone 10 mg tablet 10 mg PO DIRECTED Qty: 31 0RF Rx Instructions: Prednisone 40 mg for 4 days, 30 mg for 3 days, 20 mg for 2 days and 10 mg for 2 days. furosemide 20 mg tablet 20 mg PO QAM albuterol sulfate 2.5 mg /3 mL (0.083 %) solution for nebulization See Rx Instructions .ROUTE .COMPLEX PRN (Reason: Wheezing) Rx Instructions: inhale 1 vial by nebulization every 4-6 hours if needed for shortness of breath or wheezing Discharge Orders: Discharge Order (Routine); Ordered 10/29/22 Ordered By: Alber Moyer Admission Data Admit Date/Time: 10/27/22 18:15 Attending Provider: Alber Moyer Admit Provider: Derick Barnhart Primary Care Provider: Josh Hernandez Other Providers: Derick Barnhart Coding Level of Care Code 98642 INP/OBS DISCH >30 MIN Diagnoses Acute exacerbation of chronic obstructive pulmonary disease J44.1 Asthma-COPD overlap syndrome J44.9 Acute bronchitis due to parainfluenza virus J20.4 CAD in [place] artery I25.10 Permanent atrial fibrillation I48.21 Diabetes mellitus type II, controlled E11.9
--- NOTE | 2022-10-29 12:16 | XCELERA ---
[id number]
== END 2022-10-29 11:56 | disposition home or self-care (01) ==
LOC: ED 15:56 → 3W 15:56 → SUATTDRO 18:15 → 3W 20:13

== ENCOUNTER 2023-06-16 11:40 | Inpatient (IN) ==
--- NOTE | 2023-06-16 12:19 | Emergency Department Note ---
Impression & Plan Acute respiratory failure with hypoxia, Rhinovirus infection, Pneumonia, COPD with acute exacerbation ED Provider Note NAME: LUCI LEDEZMA AGE: 78 SEX: M ARRIVES VIA: Walk-In INFORMANT: Patient ED PROVIDER(S): Gustabo Fong MD CHIEF COMPLAINT: Shortness of breath. PLAN: Disposition: Admit MEDICAL DECISION MAKING: The patient is a pleasant 78-year-old gentleman with a past medical history of asthma-COPD, MGUS, type 2 diabetes, CAD who presents to the emergency department via walk-in accompanied by family for worsening cough, congestion and shortness of breath over the past 4 days or so. He reports no significant sputum production. He is not on oxygen normally. He is on Eliquis for history of atrial fibrillation. On my evaluation the patient is uncomfortable but no acute distress, afebrile with heart in the 100s and O2 saturation down to 86% initially on 6 L nasal cannula eventually improving at rest with mild increased work of breathing. He has wheezes of bilateral lung woods with rhonchi of the mid to lower right lung woods. EKG without overt acute ischemia with atrial fibrillation similar to prior. Chest x-ray demonstrates right basilar consolidation typical for pneumonia/aspiration pneumonitis. Cardiomegaly is present with emphysema and otherwise no evidence of congestive failure. WBC 11.8 K, nonspecific. H/H and platelets within normal limits. Chemistry without metabolic acidosis. Total bili 1.5, nonspecific with LFTs otherwise unremarkable. High-sensitivity troponin 5.1, within normal limits. Respiratory viral panel/[employer] was positive for enterovirus/rhinovirus. Patient treated initially with cautious IV fluid hydration with 500cc NSS given history of elevated right-sided heart pressures. 30cc/kg deferred. Solu-Medrol, hour-long DuoNeb, guaifenesin additionally administered. Given the patient's hypoxia from baseline with evidence of pneumonia agrees plan for admission for further management. Blood cultures, lactate and procalcitonin ordered and are pending. Case was discussed with Sammy Man, [facility] PAC, with Dr. Shields, [facility] hospitalist who will evaluate the patient for admission. Further management per admitting team. Triage Nursing notes reviewed and agree them. Prior/external medical records reviewed Vital Signs: reviewed Differential diagnosis: Reactive airway disease, pneumonia, pneumothorax, COPD, CHF, infections, cardiac ischemia, pulmonary embolism, musculoskeletal, gastrointestinal, as well as other pathologies. ER treatment provided: See below. Diagnostics interpreted by me: ECG: Atrial fibrillation with RVR, 117 bpm, no ectopy, no overt ST elevation or depression, QTc 418, QRS 64. Cardiac Monitoring: An order for continuous cardiac monitoring was placed and demonstrated Atrial fibrillation with RVR, 117 bpm, no ectopy Laboratory studies: See below Imaging studies: See below Consultation(s): Case was discussed with Sammy Man, [facility] PAC, with Dr. Shields, [facility] hospitalist who will evaluate the patient for admission. HPI: The patient is a pleasant 78-year-old gentleman with a past medical history of asthma-COPD, MGUS, type 2 diabetes, CAD who presents to the emergency department via walk-in accompanied by family for worsening cough, congestion and shortness of breath over the past 4 days or so. He reports no significant sputum production. He is not on oxygen normally. He is on Eliquis for history of atrial fibrillation. ROS: See above HPI for pertinent positives & negatives. A total of 10 systems reviewed and were otherwise negative. VITALS:See Below PHYSICAL EXAMINATION: GENERAL: Awake, alert, uncomfortable-appearing, in no distress HENT: Normocephalic, atraumatic. Oropharynx with dry mucous membranes and otherwise unremarkable. EYES: Normal conjunctiva. Sclera non-icteric. NECK: Supple. No nuchal rigidity. FROM. No JVD. RESPIRATORY: Wheezes of bilateral lung woods with rhonchi of the mid to lower right lung woods. Mild increased work of breathing but no acute distress. CARDIAC: Tachycardic rate, irregular rhythm. Extremities warm and well perfused. Pulses equal. ABDOMEN: Soft, non-distended. No tenderness to palpation. No rebound or guarding. No masses. RECTAL: Deferred. MUSCULOSKELETAL: Chest examination reveals no tenderness. The back is symmetrical on inspection without obvious abnormality. There is no CVA tenderness to palpation. No joint edema. LOWER EXTREMITIES: Calves are equal size bilaterally and non-tender. No edema. No discoloration. NEURO: Normal sensorium. No sensory or motor deficits noted. SKIN: No rash or jaundice noted. 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 Asthma exacerbation Asthma-COPD overlap syndrome Peripheral eosinophilia Fluid overload Chronic obstructive pulmonary disease Chronic bronchitis Chronic dyspnea Permanent atrial fibrillation Sepsis Intestinal obstruction Bronchitis Atrial fibrillation with rapid ventricular response CAD in ruby artery Diabetes mellitus type II, controlled Surgical History History of pancreatectomy History of abdominal surgery History of cholecystectomy History of exploratory laparotomy History of partial gastrectomy Family History Mother Cirrhosis Diabetes Stroke Hypertension Sister Diabetes Multiple myeloma Brother Heart disease Other Coronary heart disease No family history of adverse response to anesthesia No family history of bleeding disorder Denies family history of Ovarian cancer Prostate cancer Breast cancer Colorectal cancer Social History Smoking Status: Heavy tobacco smoker Tobacco Type: Cigarettes Cigarettes Per Day: less than 1ppd; Second Hand Exposure: Yes; Do You Dip or Chew Tobacco: Yes (1 can every 5-6 days); Hx Alcohol Use: Yes Alcohol type: beer Alcohol Intake Frequency Comment: 2-3 daily Hx Substance Use: No Preferred Language: Romanian Communication Ability: Effective Hearing Ability: Hard of Hearing Market Research Assistant Required: No Beliefs That Will Affect Care: None marital status: Current Living Situation: Spouse current occupational status: retired Feels Safe at Home: Yes Childhood Exposure to Second-Hand Smoke: Yes Diet: regular caffeine: Yes (1 c coffee daily) Dental Care, Regularly: No Physical Activity Frequency: Daily Seatbelt Use: always Sunscreen Use: No Assistive Devices: Nebulizer Allergies Allergies Allergy/AdvReac Type Severity Reaction Status Date / Time hydrocodone Allergy Intermediate FEELING Verified 06/03/23 10:29 HOT, SWEATY, simvastatin Allergy Intermediate Myalgia Verified 06/03/23 10:29 tramadol Allergy Intermediate Confused Verified 06/03/23 10:29 doxycycline AdvReac Mild STOMACH Verified 06/03/23 10:29 PAIN Home Meds Home Medications Medication Instructions Recorded Confirmed guaifenesin 1,200 mg tablet, 1,200 mg PO DAILY 04/10/21 06/16/23 extended release 12 hr (Mucinex) albuterol sulfate 2.5 mg/3 mL See Rx Instructions .Route 08/16/22 06/16/23 (0.083 %) solution for nebulization .COMPLEX PRN Wheezing Previous Rx's Medication Instructions Recorded albuterol sulfate 90 mcg/actuation 2 puff inhalation Q4H PRN 01/25/22 aerosol inhaler shortness of breath or wheezing #54 grams diltiazem HCl 180 mg 180 mg PO BID #180 caps 07/19/22 capsule,extended release 24 hr losartan 50 mg tablet 50 mg PO DAILY #90 tabs 08/01/22 benralizumab 30 mg/mL subcutaneous 30 mg subcut .COMPLEX #1 mL 08/27/22 syringe (Fasenra) metoprolol tartrate 25 mg tablet 25 mg PO BID #180 tabs 09/04/22 budesonide-formoterol HFA 160 2 puff inhalation BID #3 Inhalers 09/11/22 mcg-4.5 mcg/actuation aerosol inhaler (Symbicort) roflumilast 500 mcg tablet 500 mcg PO DAILY #90 tabs 10/08/22 umeclidinium 62.5 mcg/actuation 1 inh inhalation DAILY #30 ea 01/08/23 blister powder for inhalation (Incruse Ellipta) omeprazole 20 mg capsule,delayed 20 mg PO DAILY #90 caps 02/04/23 release dutasteride 0.5 mg capsule 0.5 mg PO DAILY #90 caps 03/12/23 tamsulosin 0.4 mg capsule 0.8 mg (2 x 0.4 mg) PO DAILY #180 03/12/23 caps montelukast 10 mg tablet 10 mg PO DAILY #30 tabs 04/24/23 (Singulair) apixaban 5 mg tablet 5 mg PO BID #180 tabs 05/06/23 Results & Data (ED) Vital Signs Vital Signs - 24 hr 06/16/23 11:50 06/16/23 11:54 06/16/23 11:55 Temperature 36.8 C Temperature Source Temporal Artery Scan Pulse Rate 117 H Pulse Rate [Left Finger] Pulse Rate from SpO2 Sensor Pulse Rhythm Respiratory Rate 26 H Respiratory Effort / Characteristics Spontaneous Labored Respiratory Depth Normal Respiratory Pattern Regular Blood Pressure 121/67 Blood Pressure Mean 85 Pulse Oximetry 86 L 86 L 86 L Oxygen Delivery Method Room Air Room Air Nasal Cannula Oxygen Flow Rate 6 Sepsis Recent Fever Within 48 Hours No Sepsis New/Unexplained Change in Mental Status No Sepsis Action Taken by Nursing No Action Required Oxygen Flow Rate - Titration 4 Pulse Oximetry Post Tiitration 90 06/16/23 11:55 06/16/23 12:32 06/16/23 12:48 Temperature Temperature Source Pulse Rate 98 H 96 H Pulse Rate [Left Finger] 91 H Pulse Rate from SpO2 Sensor 87 Pulse Rhythm Regular Respiratory Rate 26 H 17 20 Respiratory Effort / Characteristics Spontaneous Respiratory Depth Respiratory Pattern Blood Pressure 139/74 Blood Pressure Mean 95 Pulse Oximetry 93 94 96 Oxygen Delivery Method Nasal Cannula Nasal Cannula Oxygen Flow Rate 6 6 Sepsis Recent Fever Within 48 Hours Sepsis New/Unexplained Change in Mental Status Sepsis Action Taken by Nursing Oxygen Flow Rate - Titration Pulse Oximetry Post Tiitration 06/16/23 12:52 06/16/23 13:00 06/16/23 13:30 Temperature Temperature Source Pulse Rate 90 95 H 93 H Pulse Rate [Left Finger] Pulse Rate from SpO2 Sensor 95 H 93 H Pulse Rhythm Respiratory Rate 20 22 Respiratory Effort / Characteristics Respiratory Depth Respiratory Pattern Blood Pressure 130/72 144/79 H Blood Pressure Mean 98 113 Pulse Oximetry 96 98 Oxygen Delivery Method Oxygen Flow Rate Sepsis Recent Fever Within 48 Hours Sepsis New/Unexplained Change in Mental Status Sepsis Action Taken by Nursing Oxygen Flow Rate - Titration Pulse Oximetry Post Tiitration 06/16/23 14:00 06/16/23 14:00 06/16/23 14:30 Temperature Temperature Source Pulse Rate 108 H 112 H Pulse Rate [Left Finger] Pulse Rate from SpO2 Sensor 118 H 108 H Pulse Rhythm Respiratory Rate 19 26 H Respiratory Effort / Characteristics Respiratory Depth Respiratory Pattern Blood Pressure 128/84 111/74 Blood Pressure Mean 100 86 Pulse Oximetry 96 97 Oxygen Delivery Method Oxygen Flow Rate Sepsis Recent Fever Within 48 Hours Sepsis New/Unexplained Change in Mental Status Sepsis Action Taken by Nursing Oxygen Flow Rate - Titration Pulse Oximetry Post Tiitration 06/16/23 15:00 06/16/23 15:30 06/16/23 15:30 Temperature Temperature Source Pulse Rate 115 H 112 H Pulse Rate [Left Finger] Pulse Rate from SpO2 Sensor 108 H 115 H Pulse Rhythm Respiratory Rate 24 22 24 Respiratory Effort / Characteristics Respiratory Depth Respiratory Pattern Blood Pressure 133/80 129/71 Blood Pressure Mean 94 98 Pulse Oximetry 92 93 94 Oxygen Delivery Method Oxygen Flow Rate Sepsis Recent Fever Within 48 Hours Sepsis New/Unexplained Change in Mental Status Sepsis Action Taken by Nursing Oxygen Flow Rate - Titration Pulse Oximetry Post Tiitration 06/16/23 16:00 06/16/23 16:00 Temperature Temperature Source Pulse Rate 106 H Pulse Rate [Left Finger] Pulse Rate from SpO2 Sensor 102 H Pulse Rhythm Respiratory Rate 24 Respiratory Effort / Characteristics Respiratory Depth Respiratory Pattern Blood Pressure 114/73 Blood Pressure Mean 90 Pulse Oximetry 97 Oxygen Delivery Method Oxygen Flow Rate Sepsis Recent Fever Within 48 Hours Sepsis New/Unexplained Change in Mental Status Sepsis Action Taken by Nursing Oxygen Flow Rate - Titration Pulse Oximetry Post Tiitration Laboratory Data Attestation: I reviewed the patient's lab results. 06/16/23 12:12 06/16/23 12:12 Lab Results 06/16/23 06/16/23 Range/Units 12:12 12:13 WBC 11.87 H (4.8-10.8) K/ul RBC 4.93 (4.70-6.10) M/uL Hgb 14.9 (14.0-18.0) g/dl Hct 43.8 (42.0-52.0) % MCV 88.8 (80.0-100.0) fL MCH 30.2 (25.0-34.0) pg MCHC 34.0 (32.0-36.0) g/dL RDW Std Deviation 42.6 (36.4-46.3) fL RDW Coeff of Radha 13.1 (11.5-14.5) % Plt Count 235 (130-400) K/uL MPV 11.2 (9.4-12.4) fL Immature Gran % (Auto) 0.5 % Neut % (Auto) 90.5 % Lymph % (Auto) 3.1 % [place] % (Auto) 5.6 % Eos % (Auto) 0.0 % Baso % (Auto) 0.3 % Neut # (Auto) 10.75 H (1.40-6.50) K/uL Lymph # (Auto) 0.37 L (1.20-3.40) K/uL [place] # (Auto) 0.66 H (0.11-0.59) K/uL Eos # (Auto) 0.00 (0.00-0.50) K/uL Baso # (Auto) 0.03 (0.00-0.20) K/uL Immature Gran # (Auto) 0.06 (0.01-0.20) K/uL PT 11.4 (9.0-12.0) Seconds INR 1.0 (0.9-1.1) APTT 31 (21-31) Seconds PTT Ratio 1.1 Sodium 135 L (136-145) mmol/L Potassium 3.5 (3.5-5.1) mmol/L Chloride 101 (98-107) mmol/L Carbon Dioxide 23 (21-32) mmol/L Anion Gap 11 (3-11) BUN 18 (6-23) mg/dl Creatinine 0.98 (0.6-1.4) mg/dl Est Cr Clr Drug Dosing 67.2 ml/min Est GFR ( Amer) 85.8 ml/min Est GFR (Non-Af Amer) 74.1 ml/min BUN/Creatinine Ratio 18.4 (10-20) Glucose 178 H (70-99(Fasting)) mg/dl Calcium 9.1 (8.6-10.3) mg/dl Magnesium 1.9 (1.7-2.4) mg/dl Total Bilirubin 1.5 H (0.2-1.0) mg/dl AST 10 L (13-39) U/L ALT 9 (7-52) U/L Alkaline Phosphatase 85 (34-104) U/L Troponin I High Sens 5.1 (0-20) pg/ml Total Protein 8.0 (6.0-8.3) gm/dl Albumin 3.9 (3.4-5.0) gm/dl Globulin 4.1 H (2.5-4.0) gm/dl Albumin/Globulin Ratio 1.0 (0.9-2) Procalcitonin 0.11 (0-0.5) ng/ml Adenovirus (PCR) Not Detected (NotDetected) B. pertussis DNA (PCR) Not Detected (NotDetected) B.parapertussis DNA PCR Not Detected (NotDetected) C. pneumoniae DNA (PCR) Not Detected (NotDetected) Coronavirus OC43 (PCR) Not Detected (NotDetected) Coronavirus HKU1 (PCR) Not Detected (NotDetected) Coronavirus 229E (PCR) Not Detected (NotDetected) SARS-CoV-2 (PCR) Not Detected (NotDetected) Coronavirus NL63 (PCR) Not Detected (NotDetected) Human Metapneumovir PCR Not Detected (NotDetected) Influenza Type A (PCR) Not Detected (NotDetected) Influenza Type B (PCR) Not Detected (NotDetected) M. pneumoniae (PCR) Not Detected (NotDetected) Parainfluenza 1 (PCR) Not Detected (NotDetected) Parainfluenza 2 (PCR) Not Detected (NotDetected) Parainfluenza 3 (PCR) Not Detected (NotDetected) Parainfluenza 4 (PCR) Not Detected (NotDetected) RSV (PCR) Not Detected (NotDetected) Entero/Rhino (PCR) DETECTED A* (NotDetected) Administered Medications Discontinued Medications Albuterol (Albut/Ipratrop 3mg/0.5mg Neb 3 Ml Vial) 12 ml NEB ONE ONE; Protocol Stop: 06/16/23 12:28 Last Admin: 06/16/23 12:46 Dose: 12 ml Documented By: WILDA Guaifenesin (Guaifenesin 600 Mg Tabcr) 1,200 mg PO NOW STA Stop: 06/16/23 12:28 Last Admin: 06/16/23 12:50 Dose: 1,200 mg Documented By: ROBERT Sodium Chloride (Nss) 500 mls @ 999 mls/hr IV .Q31M ONE Stop: 06/16/23 12:57 Last Infusion: 06/16/23 15:31 Dose: Infused Documented By: Admin: 06/16/23 12:49 Dose: 999 mls/hr Documented By: ROBERT Azithromycin 500 mg/ Dextrose 255 mls @ 127.5 mls/hr IV NOW STA Stop: 06/16/23 18:32 Last Admin: 06/16/23 17:31 Dose: 127.5 mls/hr Documented By: ROBERT Ceftriaxone Sodium 2,000 mg/ (Dextrose) 50 mls @ 100 mls/hr IV NOW STA; Protocol Stop: 06/16/23 17:02 Last Admin: 06/16/23 17:31 Dose: 100 mls/hr Documented By: ROBERT Methylprednisolone (Methylprednisolone 125 Mg/2 Ml Vial) 125 mg IV NOW STA Stop: 06/16/23 12:28 Last Admin: 06/16/23 12:50 Dose: 125 mg Documented By: ROBERT Imaging Data Radiologist's Impression: Chest X-Ray 06/16/23 11:55 SINGLE VIEW CHEST CLINICAL HISTORY: Atypical chest pain FINDINGS: 2 AP, portable, upright chest radiographs are compared to study dated 10/27/2022 and correlated with chest CT dated 05/22/2021. The heart is enlarged noting atherosclerotic calcification of the thoracic aorta. The pulmonary vasculature is noncongested. Emphysema and chronic interstitial thickening similar to previous. There is right basilar consolidation. Scarring/atelectasis is again seen at the left lung base. No large pleural effusion or pneumothorax is identified. The skeletal structures are osteopenic. The bony thorax is grossly intact. Surgical clips are seen in the upper abdomen. IMPRESSION: 1. Cardiomegaly indication emphysema without radiographic evidence of congestive failure. 2. Right basilar consolidation is typical for pneumonia/aspiration pneumonitis. Clinical correlation will be required and radiographic follow-up to resolution is recommended. ACT 112: Negative or not required by law. Electronically signed by: Trey Smith M.D. 06/16/2023 1:13 PM Discharge Plan Visit Data Chief Complaint: Shortness of Breath/Dyspnea Stated Complaint: SHORTNESS OF BREATH, FATIGUE, NAUSEA ED Provider: Gustabo Fong Discharge Problem: Acute respiratory failure with hypoxia, Rhinovirus infection, Pneumonia, COPD with acute exacerbation Discharge Instructions Interventions: ED Discharge Assessment Last Done: 06/16/23 18:00 Discharge Problem: Pneumonia Qualifiers: Pneumonia type: due to unspecified organism Laterality: right Lung location: l ower lobe of lung Qualified Code(s): J18.9 - Pneumonia, unspecified organism
[2023-06-16] MEDS ORDERED: guaiFENesin 600 MG TABCR PO STA (12:27)
[2023-06-16] MEDS ORDERED: ALBUT/IPRATROP 3MG/0.5MG NEB 3 ML VIAL NEB ONE (12:27)
[2023-06-16] MEDS ORDERED: methylPREDNISolone 125 MG/2 ML VIAL IV STA (12:27)
[2023-06-16] MEDS ORDERED: SODIUM CHLORIDE 0.9% 500 ML IV ONE (12:27)
[2023-06-16 12:37] LABS: Hematocrit (blood only) 43.8 % (42.0-52.0); Hemoglobin 14.9 g/dl (14.0-18.0); Mean Corpuscular Hemoglobin 30.2 pg (25.0-34.0); Mean Corpuscular Volume 88.8 fL (80.0-100.0); Mean Platelet Volume 11.2 fL (9.4-12.4); Platelet Count 235 K/uL (130-400); RDW Coefficient of Variation 13.1 % (11.5-14.5); RDW Standard Deviation 42.6 fL (36.4-46.3); Red Blood Count 4.93 M/uL (4.70-6.10); White Blood Count 11.87 K/ul (4.8-10.8)
[2023-06-16 12:47] LABS: Albumin Level 3.9 gm/dl (3.4-5.0); BUN Creatinine Ratio 18.4 (10-20); Bilirubin,Total 1.5 mg/dl (0.2-1.0); Calcium 9.1 mg/dl (8.6-10.3); Creatinine Clr Calc Pharmacy 67.2 ml/min; Est GFR (African American) 85.8 ml/min; Est GFR (Non-African American) 74.1 ml/min; Globulin 4.1 gm/dl (2.5-4.0); Magnesium 1.9 mg/dl (1.7-2.4); Potassium 3.5 mmol/L (3.5-5.1)
[2023-06-16 12:54] LABS: Troponin I High Sensitivity 5.1 pg/ml (0-20)
[2023-06-16 13:03] LABS: Partial Thromboplastin Ratio 1.1; Partial Thromboplastin Time 31 Seconds (21-31); Prothrombin Time 11.4 Seconds (9.0-12.0)
[2023-06-16 13:08] LABS: Basophils # (auto) 0.03 K/uL (0.00-0.20); Basophils % (auto) 0.3 %; Immature Granulocytes # (auto) 0.06 K/uL (0.01-0.20); Immature Granulocytes % (auto) 0.5 %; Lymphocytes # (auto) 0.37 K/uL (1.20-3.40); Lymphocytes % (auto) 3.1 %; Monocytes # (auto) 0.66 K/uL (0.11-0.59); Monocytes % (auto) 5.6 %; Neutrophils # (auto) 10.75 K/uL (1.40-6.50); Neutrophils % (auto) 90.5 %
--- NOTE | 2023-06-16 13:14 | XRay Report ---
SINGLE VIEW CHEST CLINICAL HISTORY: Atypical chest pain FINDINGS: 2 AP, portable, upright chest radiographs are compared to study dated 10/27/2022 and correla kylie with chest CT dated 05/22/2021. The heart is enlarged noting atherosclerotic calcification of the thoracic aorta. The pulmonary vasculature is noncongested. Emphysema and chronic interstitial thicken ing similar to previous. There is right basilar consolidation. Scarring/atelectasis is again seen at the left lung base. No large pleural effusion or pneumothorax is identified. The skeletal structures are osteopenic. The bony thorax is grossly intact. Surgical clips are seen in the upper abdomen. IMPRESSION: 1. Cardiomegaly indication emphysema without radiographic evidence of congestive failure. 2. Right basilar consolidation is typical for pneumonia/aspiration pneumonitis. Clinical correlation will be required and radiographic follow-up to resolution is recommended. ACT 112: Negative or not required by law. Electronically signed by: Trey Smith M.D. 06/16/2023 1:13 PM
[2023-06-16 15:45] LABS: Adenovirus PCR Not Detected (NotDetected); Bordetella parapertussis PCR Not Detected (NotDetected); Bordetella pertussis PCR Not Detected (NotDetected); Chlamydia pneumoniae PCR Not Detected (NotDetected); Coronavirus 229E PCR Not Detected (NotDetected); Coronavirus CoV-2 (COVID19)PCR Not Detected (NotDetected); Coronavirus HKU1 PCR Not Detected (NotDetected); Coronavirus NL63 PCR Not Detected (NotDetected); Coronavirus OC43PCR Not Detected (NotDetected); Human Metapneumovirus PCR Not Detected (NotDetected); Influenza A PCR Not Detected (NotDetected); Influenza B PCR Not Detected (NotDetected); Mycoplasma pneumoniae PCR Not Detected (NotDetected); Parainfluenza Virus 1 PCR Not Detected (NotDetected); Parainfluenza Virus 2 PCR Not Detected (NotDetected); Parainfluenza Virus 3 PCR Not Detected (NotDetected); Parainfluenza Virus 4 PCR Not Detected (NotDetected); Respiratory Syncytial VirusPCR Not Detected (NotDetected)
[2023-06-16 15:59] LABS: Rhinovirus/Enterovirus PCR DETECTED (NotDetected)
--- NOTE | 2023-06-16 16:10 | History & Physical Report ---
Date of Service June 16, 2023 Assessment & Plan (1) Acute respiratory failure with hypoxia: Plan: -Admit to med/tele on continuous pulse oximetry -Currently stable on 2L NC -Presented to the ED with 3 days of progressive SOB, worsening cough and sputum production, and generalized weakness -Found to to be rhinovirus positive for full resp biofire -Chest xray also shows a right basilar consolidation is typical for pneumonia/aspiration pneumonitis -Respiratory status has improved after 125 mg IV solu-medrol, hour long DuoNeb, and dose of Guaifenesin -Will treat him for CAP and COPD exacerbation at this time -Will start Azithromycin and Ceftriaxone daily -Conitnue 40 mg IV solu-medrol q8h -Will start BIDR Budesonide and formoterol -BID Guaifenesin -QIDR DuoNebs, incentive spirometry, flutter therapy -Blood cultures have been obtain, follow sputum culture ordered on admission -PRN O2 to keep SpO2 between 89-92% -Home Eliquis for DVT PPX -HH/DMII diet with 2gm sodium restriction -AM CBC, BMP, PT/INR (2) Atrial fibrillation with rapid ventricular response: Plan: -Patient noted to be in afib RVR wth HR in the 110's on arrival -HR has fluctuated between the 90's-120's since arrival -Patient has known aifb and took his am doses of metoprolol and diltiazem -RVR likely due to acute illness and increased demand on his heart -Patient has been asymptomatic and hemodynamically stable -Potassium at 3.5, mag at 1.9 >Will give 40 meq PO KCL on admission -Will hold IV medications at this time as we do not want to suppress his hearts compensation to his acute illness -Continue Eliquis, Metoprolol, and diltiazem -Communication placed to alert military source operations specialist provider if his HR sustains in the 120's or greater for more than 10 min (3) Acute exacerbation of chronic obstructive pulmonary disease: Plan: -See acute hypoxic respiratory failure (4) Pneumonia: Plan: -See Acute hypoxic respiratory failure (5) Diabetes mellitus type II, controlled: Plan: -Has been diet controlled -Patient will likely be hyperglycemic while on IV steroids -Will monitor BSG ACHS, goal will be 110-160 while on steroids -Start CF 50 ACHS overnight -If he is hyperglycemic tomorrow can start basal regimen as well (6) Hypertension: Plan: -Stable -Continue losartan (7) BPH (benign prostatic hyperplasia): Plan: -Continue Flomax Plan The patient was discussed with Dr. Shields at the time of the admission History of Present Illness Chief Complaint: Cough, SOB, Generalized weakness Primary Care Provider: Josh Hernandez MD [place] is a 78-year-old male with a past medical history of severe asthmaCOPD overlap syndrome, aifb on Eliquis, MGUS, DM 2, CAD, and HFpEF who presented to the [facility] ED on 06/16 with complaints of increased cough, SOB, and generalized weakness. He was noted to be hypoxic at 86% on RA, tachycardic at 117, but otherwise stable. Labs were significant for a leukocytosis of 11, total bili of 1.5, and full respiratory biofire positive for rhinovirus. Chest xray was read as 1. Cardiomegaly indication emphysema without radiographic evidence of congestive failure. 2. Right basilar consolidation is typical for pneumonia/aspiration pneumonitis. Clinical correlation will be required and radiographic follow-up to resolution is recommended.. Prior to admission the patient was stabilized on 6L NC, and given an hour long dueoneb treatment, 125 mg IV methylprednisolone, 500 mL NSS, and a dose of guaifenesin. At the time of the exam the patient was lying in bed in no acute distress with his sitting bedside. He states that he started to develop increased cough frequency, increased sputum production compared to his baseline cough, and generalized weakness on 06/13. Symptoms progressed to the point that he was unable to walk more than a few steps this am without becoming significantly SOB. He does not use oxygen at home and has been taking his medications as prescribed. He denies recent fever, chest pain, hemoptysis, abd pain, nausea, vomiting, diarrhea, dysuria, hematuria, melena, LE swelling and recent trauma. He states that his respiratory status has significantly improved compared to arrival. We discussed code status. At this time he wishes to be a conditional code. We does not want a trial of intubation in the event of respiratory failure. In the event of cardiac arrest, he would want CPR and defibrillation. If it came to the point where he would need to be intubated he would want CPR discontinued. Please refer to Dr. Shields's attestation for any changes to the treatment plan Allergies Allergy/AdvReac Type Severity Reaction Status Date / Time hydrocodone Allergy Intermediate FEELING Verified 06/03/23 10:29 HOT, SWEATY, simvastatin Allergy Intermediate Myalgia Verified 06/03/23 10:29 tramadol Allergy Intermediate Confused Verified 06/03/23 10:29 doxycycline AdvReac Mild STOMACH Verified 06/03/23 10:29 PAIN Home Medications Medication Instructions Recorded Confirmed Type guaifenesin 1,200 mg tablet, 1,200 mg PO DAILY 04/10/21 06/16/23 History extended release 12 hr (Mucinex) albuterol sulfate 90 mcg/actuation 2 puff inhalation Q4H PRN 01/25/22 06/16/23 Rx aerosol inhaler shortness of breath or wheezing #54 grams diltiazem HCl 180 mg 180 mg PO BID #180 caps 07/19/22 06/16/23 Rx capsule,extended release 24 hr losartan 50 mg tablet 50 mg PO DAILY #90 tabs 08/01/22 06/16/23 Rx albuterol sulfate 2.5 mg/3 mL See Rx Instructions .Route 08/16/22 06/16/23 History (0.083 %) solution for nebulization .COMPLEX PRN Wheezing benralizumab 30 mg/mL subcutaneous 30 mg subcut .COMPLEX #1 mL 08/27/22 06/16/23 Rx syringe (Fasenra) metoprolol tartrate 25 mg tablet 25 mg PO BID #180 tabs 09/04/22 06/16/23 Rx budesonide-formoterol HFA 160 2 puff inhalation BID #3 Inhalers 09/11/22 06/16/23 Rx mcg-4.5 mcg/actuation aerosol inhaler (Symbicort) roflumilast 500 mcg tablet 500 mcg PO DAILY #90 tabs 10/08/22 06/16/23 Rx umeclidinium 62.5 mcg/actuation 1 inh inhalation DAILY #30 ea 01/08/23 06/16/23 Rx blister powder for inhalation (Incruse Ellipta) omeprazole 20 mg capsule,delayed 20 mg PO DAILY #90 caps 02/04/23 06/16/23 Rx release dutasteride 0.5 mg capsule 0.5 mg PO DAILY #90 caps 03/12/23 06/16/23 Rx tamsulosin 0.4 mg capsule 0.8 mg (2 x 0.4 mg) PO DAILY #180 03/12/23 06/16/23 Rx caps montelukast 10 mg tablet 10 mg PO DAILY #30 tabs 04/24/23 06/16/23 Rx (Singulair) apixaban 5 mg tablet 5 mg PO BID #180 tabs 05/06/23 06/16/23 Rx Past Med/Surg History Medical History (Updated 06/16/23 @ 16:46 by Sammy Man PA-C) Pulmonary air trapping BPH with obstruction/lower urinary tract symptoms Asthma exacerbation Asthma-COPD overlap syndrome Peripheral eosinophilia Fluid overload Chronic obstructive pulmonary disease Chronic bronchitis Chronic dyspnea Permanent atrial fibrillation Sepsis Intestinal obstruction Bronchitis Atrial fibrillation with rapid ventricular response CAD in [place] artery Diabetes mellitus type II, controlled Surgical History History of pancreatectomy History of abdominal surgery History of cholecystectomy History of exploratory laparotomy History of partial gastrectomy Family History Mother Cirrhosis Diabetes Stroke Hypertension Sister Diabetes Multiple myeloma Brother Heart disease Other Coronary heart disease No family history of adverse response to anesthesia No family history of bleeding disorder Denies family history of Ovarian cancer Prostate cancer Breast cancer Colorectal cancer Social History Smoking Status: Heavy tobacco smoker Tobacco Type: Cigarettes Cigarettes Per Day: less than 1ppd; Second Hand Exposure: Yes; Do You Dip or Chew Tobacco: Yes (1 can every 5-6 days); Hx Alcohol Use: Yes Alcohol type: beer Alcohol Intake Frequency Comment: 2-3 daily Hx Substance Use: No Preferred Language: Irish Communication Ability: Effective Hearing Ability: Hard of Hearing Public Policy Manager Required: No Beliefs That Will Affect Care: None marital status: Current Living Situation: Spouse current occupational status: retired Feels Safe at Home: Yes Childhood Exposure to Second-Hand Smoke: Yes Diet: regular caffeine: Yes (1 c coffee daily) Dental Care, Regularly: No Physical Activity Frequency: Daily Seatbelt Use: always Sunscreen Use: No Assistive Devices: Nebulizer Physical Exam Physical Exam: Physical Exam: General: In no acute distress, stated age, well-nourished, ill appearing but non-toxic HEENT: Normocephalic, atraumatic, no scleral icterus, pupils around round, symmetrical, and reactive to light, moist mucus membranes, trachea midline, no thyromegaly Chest/Pulm: No respiratory distress, symmetrical chest expansion, rhonchi noted in the RLL with scattered expiratory wheezing in all other lung woods Cardiac: irregular rate and rhythm, no murmurs noted Abdomen: Negative for ascites and bruising, normoactive bowel sounds, soft, non-tender to palpation throughout Musculoskeletal: Symmetrical and without signs of acute trauma, upper and lower extremities with full ROM, no atrophy, spasticity, or flaccidity Extremities: Radial, dorsalis pedis, and posterior tibial pulses are intact and symmetrical, no edema noted in the BL LE's Skin: Warm, dry, no rashes , lesions, or scars noted Neuro: Alert and oriented to person, place, month, year, and president, no focal defects, no tremors noted Psych: No acute distress, calm and cooperative during the exam Results & Data Results & Data Vital Signs (Past 12 Hours) Vital Signs Temp Pulse Pulse Resp BP Pulse Ox O2 Del Method 06/16/23 15:30 24 94 06/16/23 15:30 112 H 22 129/71 93 06/16/23 15:00 115 H 24 133/80 92 06/16/23 14:30 112 H 26 H 111/74 97 06/16/23 14:00 108 H 19 96 06/16/23 14:00 128/84 06/16/23 13:30 93 H 22 144/79 H 98 06/16/23 13:00 95 H 20 130/72 96 06/16/23 12:52 90 06/16/23 12:48 91 H 20 96 Nasal Cannula 06/16/23 12:32 96 H 17 139/74 94 06/16/23 11:55 98 H 26 H 93 Nasal Cannula 06/16/23 11:55 86 L Nasal Cannula 06/16/23 11:54 86 L Room Air 06/16/23 11:50 36.8 C 117 H 26 H 121/67 86 L Room Air O2 Flow Rate 06/16/23 15:30 06/16/23 15:30 06/16/23 15:00 06/16/23 14:30 06/16/23 14:00 06/16/23 14:00 06/16/23 13:30 06/16/23 13:00 06/16/23 12:52 06/16/23 12:48 6 06/16/23 12:32 06/16/23 11:55 6 06/16/23 11:55 6 06/16/23 11:54 06/16/23 11:50 Laboratory Results Abnormal lab results 06/16/23 Range/Units 12:12 WBC 11.87 H (4.8-10.8) K/ul Neut # (Auto) 10.75 H (1.40-6.50) K/uL Lymph # (Auto) 0.37 L (1.20-3.40) K/uL [place] # (Auto) 0.66 H (0.11-0.59) K/uL Sodium 135 L (136-145) mmol/L Glucose 178 H (70-99(Fasting)) mg/dl Total Bilirubin 1.5 H (0.2-1.0) mg/dl AST 10 L (13-39) U/L Globulin 4.1 H (2.5-4.0) gm/dl Entero/Rhino (PCR) DETECTED A* (NotDetected) Diagnostic Findings Chest X-Ray 06/16/23 11:55 SINGLE VIEW CHEST CLINICAL HISTORY: Atypical chest pain FINDINGS: 2 AP, portable, upright chest radiographs are compared to study dated 10/27/2022 and correlated with chest CT dated 05/22/2021. The heart is enlarged noting atherosclerotic calcification of the thoracic aorta. The pulmonary vasculature is noncongested. Emphysema and chronic interstitial thickening similar to previous. There is right basilar consolidation. Scarring/atelectasis is again seen at the left lung base. No large pleural effusion or pneumothorax is identified. The skeletal structures are osteopenic. The bony thorax is grossly intact. Surgical clips are seen in the upper abdomen. IMPRESSION: 1. Cardiomegaly indication emphysema without radiographic evidence of congestive failure. 2. Right basilar consolidation is typical for pneumonia/aspiration pneumonitis. Clinical correlation will be required and radiographic follow-up to resolution is recommended. ACT 112: Negative or not required by law. Electronically signed by: Trey Smith M.D. 06/16/2023 1:13 PM ECG Additional Comments: Atrial fibrillation with rapid ventricular response Low voltage QRS Septal infarct (cited on or before 27-OCT-2022) T wave abnormality, consider anterior ischemia Abnormal ECG When compared with ECG of 27-OCT-2022 16:26, Questionable change in initial forces of Septal leads Inverted T waves have replaced nonspecific T wave abnormality in Anterior leads Code Status & VTE Plan Code Status Conditional code; See HPI VTE Prophylaxis Plan VTE Prophylaxis will be ordered: Yes Supervising Physician Co-Signing Physician Notes Attending addendum: I have physically seen this patient, have supervised the GIN's activities, and agree with the H&P unless as otherwise noted. Assessment and Plan: Acute respiratory failure with hypoxia/COPD exacerbation/pneumonia with possible aspiration/rhinovirus infection- Admit to monitored bed Remainder BioFire negative From the ED received the following with improvement in symptoms: Solu-Medrol 125 mg IV, 12 mL DuoNeb, and guaifenesin 1200 mg p.o. Ceftriaxone 2 g IV daily Azithromycin 5 mg IV daily Solu-Medrol 40 mg IV every 8 hours Start twice daily budesonide and formoterol Guaifenesin 1200 mg p.o. twice daily Duonebs every 4 hours while awake and every 2 hours when necessary. Titrate oxygen for pulse ox around 92% Atrial fibrillation with RVR/hypertension- The patient will be admitted to telemetry for serial cardiac enzymes, serial EKG's, cardiac rhythm monitoring and a 2-D echocardiogram with Dopplers. Continue Eliquis Likely in part due to physiologic stress of infection IV fluids as noted above Optimize potassium 3.5 with giving Klor-Con 40 mEq p.o. Continue metoprolol and diltiazem Continue losartan for now, to discontinue if blood pressure becomes borderline and still needs negative inotropes Diabetes mellitus- Follow blood sugars closely while on steroids Placed on Accu-Cheks with SSI as noted PG Care Time/CCT Total # of Minutes Spent Total Time Spent with Patient: Total time spent is greater than 50% in coordination of care (as documented) at patient's floor/unit and/or counseling patient: Coding [place] [address] INT INP/OBS CARE 3/75MIN Patient Type Established Medical Decision Making High Complexity Diagnoses Acute respiratory failure with hypoxia J96.01 Atrial fibrillation with rapid ventricular response I48.91 Acute exacerbation of chronic obstructive pulmonary disease J44.1 Pneumonia J18.9 Controlled type 2 diabetes mellitus without complication, without long-term current use of insulin E11.9 Diabetes mellitus complication status: without complication Diabetes mellitus long-term insulin use: without medical terminologist use Primary hypertension I10 Hypertension type: primary hypertension BPH (benign prostatic hyperplasia) N40.0 (5) Diabetes mellitus type II, controlled Diabetes mellitus complication status: without complication Diabetes mellitus medical terminologist insulin use: without medical terminologist use Qualified Code(s): E11.9 - Type 2 diabetes mellitus without complications (6) Hypertension Hypertension type: primary hypertension Qualified Code(s): I10 - Essential (primary) hypertension
[2023-06-16] MEDS ORDERED: AZITHROMYCIN 500 MG in DEXTROSE 5% 250 ML IV STA (16:33)
[2023-06-16] MEDS ORDERED: cefTRIAXone SODIUM 2,000 MG in DEXTROSE 5 % MINI-B 50 ML IV STA (16:33)
[2023-06-16] MEDS ORDERED: ACETAMINOPHEN 325 MG TAB PO PRN (16:38)
[2023-06-16] MEDS ORDERED: GLUCOSE 40% GEL 15 GM TUBE PO PRN (16:46)
[2023-06-16] MEDS ORDERED: CARBOHYDRATES FOR HYPOGLYCEMIA PO PRN (16:46)
[2023-06-16] MEDS ORDERED: GLUCOSE 10 TAB/TUBE PO PRN (16:46)
[2023-06-16] MEDS ORDERED: GLUCAGON FOR INJ 1 MG VIAL SQ PRN (16:46)
[2023-06-16] MEDS ORDERED: DEXTROSE 50% 50 ML SYRINGE IV PRN (16:46)
[2023-06-16] MEDS ORDERED: POTASSIUM CHLORIDE CRTAB 20 MEQ TABCR PO STA ×2 (16:57→22:46)
[2023-06-16] MEDS: FORMOTEROL 20 MCG/2 ML VIAL NEB SCH (20:39)
[2023-06-16] MEDS: BUDESONIDE 0.5 MG/2 ML VIAL (PULMICORT) NEB SCH (20:39)
[2023-06-16] MEDS: ALBUT/IPRATROP 3MG/0.5MG NEB 3 ML VIAL NEB SCH (20:39)
[2023-06-16] MEDS: APIXABAN 5 MG TABLET PO SCH (21:57)
[2023-06-16] MEDS: guaiFENesin 600 MG TABCR PO SCH (21:57)
[2023-06-16] MEDS: dilTIAZem HCL 180 MG CAPCR PO SCH (21:57)
[2023-06-16] MEDS: METOPROLOL TARTRATE 25 MG TAB PO SCH (21:57)
[2023-06-16] MEDS: INSULIN ASPART PER UNIT CHARGE SC SCH (22:12)
[2023-06-17 06:14] LABS: Hematocrit (blood only) 38.7 % (42.0-52.0); Hemoglobin 12.4 g/dl (14.0-18.0); Mean Corpuscular Hemoglobin 28.9 pg (25.0-34.0); Mean Corpuscular Volume 90.2 fL (80.0-100.0); Mean Platelet Volume 11.3 fL (9.4-12.4); Platelet Count 210 K/uL (130-400); RDW Coefficient of Variation 13.3 % (11.5-14.5); Red Blood Count 4.29 M/uL (4.70-6.10); White Blood Count 13.07 K/ul (4.8-10.8)
[2023-06-17 06:23] LABS: BUN Creatinine Ratio 18.4 (10-20); Calcium 8.7 mg/dl (8.6-10.3); Est GFR (African American) 80.8 ml/min; Est GFR (Non-African American) 69.7 ml/min; Potassium 4.1 mmol/L (3.5-5.1)
[2023-06-17 06:27] LABS: Prothrombin Time 11.4 Seconds (9.0-12.0)
[2023-06-17 06:41] LABS: Basophils # (auto) 0.03 K/uL (0.00-0.20); Basophils % (auto) 0.2 %; Immature Granulocytes # (auto) 0.06 K/uL (0.01-0.20); Immature Granulocytes % (auto) 0.5 %; Lymphocytes # (auto) 0.73 K/uL (1.20-3.40); Lymphocytes % (auto) 5.6 %; Monocytes # (auto) 1.03 K/uL (0.11-0.59); Monocytes % (auto) 7.9 %; Neutrophils # (auto) 11.22 K/uL (1.40-6.50); Neutrophils % (auto) 85.8 %
[2023-06-17 07:43] LABS: Estimated Average Glucose 126 mg/dl
[2023-06-17] MEDS: FORMOTEROL 20 MCG/2 ML VIAL NEB SCH ×2 (07:47→19:25)
[2023-06-17] MEDS: BUDESONIDE 0.5 MG/2 ML VIAL (PULMICORT) NEB SCH ×2 (07:47→19:25)
[2023-06-17] MEDS: ALBUT/IPRATROP 3MG/0.5MG NEB 3 ML VIAL NEB SCH ×4 (07:48→19:25)
--- NOTE | 2023-06-17 08:06 | Hospitalist Progress Note ---
Date of Service June 17, 2023 Assessment & Plan (1) COPD with acute exacerbation: Plan: Acute exacerbation most likely due to pneumonia in the right lower lobe Pulm medications include budesonide/formoterol (ICS/LABA), umeclidinium (LAMA), Roflumilast, montelukast, guaifenesin. Continue these on discharge While inpatient, patient started on budesonide nebulizers twice daily ER, formoterol nebulizer twice daily ER, methylprednisolone 40 mg IV every 8 hours, Roflumilast daily. If patient seems to have improvement, will change IV nebulizer treatments to as needed and place patient back on home medications with metered-dose inhalers. Patient follows with Dr. Torrez as an outpatient. Patient has history of elevated eosinophils. ANCA testing is negative. Continue benralizumab (Fasenra) on discharge for his eosinophilia Most recent PFTs from 09/26/2022 revealed FVC of 83% predicted, FEV1 of 39% predicted, FEV1/FVC of 47% of predicted. Patient has significant air trapping with elevated RV, TLC with RV/TLC at 147% of predicted. Does have slight decrease in DLCO at 48% of predicted with improvement for alveolar volume to 58% of predicted. Continue supplemental oxygen to maintain SpO2 between 88 and 92% Patient would benefit from pulmonary rehab. Continue with flutter valve while inpatient as patient is considerably rhonchorous. He does report sputum production. A sample of brownish-yellow sputum was sent to the lab for evaluation this afternoon. Await culture results (2) Pneumonia: Plan: Right lower lobe consolidation consistent with aspiration/bacterial pneumonia Patient started on azithromycin and ceftriaxone on admission. Sputum sample sent to lab this afternoon. Await culture results. Continue IV antibiotics until resulted (day #2) Procalcitonin was not significantly elevated at 0.11 Patient did have elevated lactic acid Daily chest x-ray while inpatient Maintain supportive care with nebulizer treatment, flutter valve, incentive spirometry, supplemental oxygen Repeat chest x-ray in the morning (3) Rhinovirus infection: Plan: Supportive care Negative for COVID, RSV, influenza type A, type B Continue to treat possible bacterial pneumonia as above (4) Acute respiratory failure with hypoxia: Plan: Severe COPD and air trapping per pulmonary function testing in September 2022 Continue ICS, LABA, LAMA Continue with methylprednisolone IV. If wheezes improved, can convert to oral prednisone after initial 24 hours of IV steroids Recommend pulmonary rehab as an outpatient Continue to follow with Dr. Torrez as an outpatient (5) Atrial fibrillation with rapid ventricular response: Plan: Chronic history of atrial fibrillation Continue apixaban 5 mg p.o. twice daily, diltiazem,metoprolol Currently rate controlled in the 80s Continue on telemetry (6) CAD in [place] artery: Plan: No significant ST changes on EKG on admission Troponin on admission was 5.1 PG/mL QTc 418 ms Repeat EKG this morning as patient was in atrial fibrillation with tachycardia Continue diltiazem, metoprolol, losartan Continue to follow on telemetry (7) Chronic reflux esophagitis: Plan: Continue pantoprazole (8) BPH (benign prostatic hyperplasia): Plan: Continue tamsulosin (9) Diabetes mellitus type II, controlled: Plan: Hemoglobin A1c 6% Patient does not appear to be on home insulin Continue with NovoLog sliding scale insulin while inpatient due to IV steroids Plan Admission and Anticipated Discharge Date Admission Date: June 16, 2023 Supervising Physician Co-Signing Physician Notes PA Supervision Note: I did not personally see or examine the patient today, but I verified all alas points of ROLO Law's assessment and plan with the following exceptions/additions: None Subjective Attending: Dr. Mason This is a 78-year-old male with a past medical history of severe asthmaCOPD overlap syndrome, aifb on Eliquis, MGUS, DM 2, CAD, and HFpEF who presented to the [facility] ED on 06/16 with complaints of 3 days of increased cough, SOB, and generalized weakness. He was noted to be hypoxic at 86% on RA, tachycardic at 117 and in atrial fibrillation. Imaging reviewed pneumonia in the right lower lobe. Antibiotic treatment was initiated with azithromycin and ceftriaxone. Blood cultures x 2 are pending. Lactic acid last evening was 5.2. There is no repeat lab. Procalcitonin is 0.11. Bio fire detected entero/rhinovirus negative for RSV, influenza type a, type B, COVID-19. Heart rate is currently controlled in the 80s. Oxygen saturation is 97% on 2 L via nasal cannula Patient seen and examined at bedside with his present. He continues to feel ill and reports considerable heaviness in the chest with cough. He denies any chest pain or tightness. Heaviness is similar to previous COPD exacerbation. Patient reports that he does not use any supplemental oxygen at home. He is currently found to be 92% on room air. Vital signs are all stable. No other acute complaints at this time Review of Systems 2 Review of Systems: A total of 10 systems was reviewed and is negative other than as listed in the HPI Physical Exam 2 Physical Exam: GENERAL : No acute distress. Appears ill EYES: No icterus, gaze conjugate NOSE: No evidence of epistaxis MOUTH: No lesions or candidiasis NECK: Supple. No appreciation of stridor LUNGS: Lungs sound rhonchorous in all lung woods. No bronchospasm HEART: Regular, rate controlled ABDOMEN: Soft, NT, ND, BS Present EXTREMITIES: No LE edema, pedal pulses intact NEURO: A&OX3 Results & Data Results & Data Vital Signs (Past 12 Hours) Vital Signs Temp Pulse Pulse Resp BP Pulse Ox O2 Del Method 06/17/23 07:32 82 06/17/23 07:25 36.9 C 79 19 115/79 97 Nasal Cannula 06/17/23 03:42 36.7 C 84 18 106/67 96 Room Air 06/16/23 23:20 Nasal Cannula 06/16/23 23:20 36.7 C 110 H 18 135/76 94 Nasal Cannula 06/16/23 20:39 93 H 19 92 Nasal Cannula O2 Flow Rate 06/17/23 07:32 06/17/23 07:25 2.0 06/17/23 03:42 06/16/23 23:20 4 06/16/23 23:20 4 06/16/23 20:39 2 Laboratory Results Abnormal Labs 06/16/23 06/16/23 06/16/23 12:12 16:16 18:43 WBC 11.87 H RBC Hgb Hct Neut # (Auto) 10.75 H Lymph # (Auto) 0.37 L [place] # (Auto) 0.66 H Sodium 135 L Glucose 178 H POC Glucose Hemoglobin A1c Lactate 3.8 H* 5.2 H* Total Bilirubin 1.5 H AST 10 L Globulin 4.1 H Entero/Rhino (PCR) DETECTED A* 06/16/23 06/16/23 06/17/23 22:01 23:28 05:27 WBC 13.07 H RBC 4.29 L Hgb 12.4 L Hct 38.7 L Neut # (Auto) 11.22 H Lymph # (Auto) 0.73 L [place] # (Auto) 1.03 H Sodium Glucose 177 H POC Glucose 318 H* 273 H Hemoglobin A1c 6.0 H Lactate Total Bilirubin AST Globulin Entero/Rhino (PCR) 06/17/23 05:27 06/17/23 05:27 Diagnostic Findings Chest X-Ray 06/16/23 11:55 SINGLE VIEW CHEST CLINICAL HISTORY: Atypical chest pain FINDINGS: 2 AP, portable, upright chest radiographs are compared to study dated 10/27/2022 and correlated with chest CT dated 05/22/2021. The heart is enlarged noting atherosclerotic calcification of the thoracic aorta. The pulmonary vasculature is noncongested. Emphysema and chronic interstitial thickening similar to previous. There is right basilar consolidation. Scarring/atelectasis is again seen at the left lung base. No large pleural effusion or pneumothorax is identified. The skeletal structures are osteopenic. The bony thorax is grossly intact. Surgical clips are seen in the upper abdomen. IMPRESSION: 1. Cardiomegaly indication emphysema without radiographic evidence of congestive failure. 2. Right basilar consolidation is typical for pneumonia/aspiration pneumonitis. Clinical correlation will be required and radiographic follow-up to resolution is recommended. ACT 112: Negative or not required by law. Electronically signed by: Trey Smith M.D. 06/16/2023 1:13 PM PG Care Time/CCT Total # of Minutes Spent Total Time Spent with Patient: Total time spent is greater than 50% in coordination of care (as documented) at patient's floor/unit and/or counseling patient: Coding Level of Care Code 12209 SUB INP/OBS CARE 2/35MIN Diagnoses COPD with acute exacerbation J44.1 Pneumonia J18.9 Laterality: right Lung location: lower lobe of lung Pneumonia type: due to unspecified organism Rhinovirus infection B34.8 Acute respiratory failure with hypoxia J96.01 Atrial fibrillation with rapid ventricular response I48.91 CAD in [place] artery I25.10 Chronic reflux esophagitis K21.0 BPH (benign prostatic hyperplasia) N40.0 Controlled type 2 diabetes mellitus without complication, without long-term current use of insulin E11.9 Diabetes mellitus complication status: without complication Diabetes mellitus lobsterman insulin use: without usp use Time Spent (min) 40 Comment 30 minutes spent [id number] with patient and plus chart review and documentation (2) Pneumonia Laterality: right Lung location: lower lobe of lung Pneumonia type: due to unspecified organism Qualified Code(s): J18.9 - Pneumonia, unspecified organism (9) Diabetes mellitus type II, controlled Diabetes mellitus complication status: without complication Diabetes mellitus usp insulin use: without lobsterman use Qualified Code(s): E11.9 - Type 2 diabetes mellitus without complications
[2023-06-17] MEDS: INSULIN ASPART PER UNIT CHARGE SC SCH ×4 (08:43→21:26)
[2023-06-17] MEDS: METOPROLOL TARTRATE 25 MG TAB PO SCH ×2 (08:52→21:30)
[2023-06-17] MEDS: guaiFENesin 600 MG TABCR PO SCH ×2 (09:16→21:29)
[2023-06-17] MEDS: FINASTERIDE 5 MG TAB PO SCH (09:16)
[2023-06-17] MEDS: LOSARTAN POTASSIUM 50 MG TAB PO SCH (09:16)
[2023-06-17] MEDS: PANTOprazole 40 MG TAB PO SCH (09:17)
[2023-06-17] MEDS: TAMSULOSIN HCL 0.4 MG CAP PO SCH (09:18)
[2023-06-17] MEDS: ROFLUMILAST 500 MCG TAB PO SCH (09:18)
[2023-06-17] MEDS: APIXABAN 5 MG TABLET PO SCH ×2 (09:18→21:28)
[2023-06-17] MEDS: dilTIAZem HCL 180 MG CAPCR PO SCH ×2 (09:19→21:28)
[2023-06-17] MEDS: methylPREDNISolone 40 MG in SYRINGE 0 ML IV SCH ×3 (09:22→21:31)
--- NOTE | 2023-06-17 14:28 | Electrocardiogram Report ---
Test Reason : Blood Pressure : / mmHG Vent. Rate : 117 BPM Atrial Rate : 000 BPM P-R Int : 000 ms QRS Dur : 064 ms QT Int : 300 ms P-R-T Axes : 000 028 102 degrees QTc Int : 418 ms Atrial fibrillation with rapid ventricular response Low voltage QRS Possible Old Septal infarct (cited on or before 27-OCT-2022) Diffuse Minor Nonspecific T wave abnormality Abnormal ECG When compared with ECG of 27-OCT-2022 16:26, HR has increased by 26 bpm Otherwise no significant change Confirmed by Charlie Palafox ([id number]) on 06/17/2023 2:28:29 PM Referred By: REFERRED SELF Confirmed By:Charlie Palafox
[2023-06-17] MEDS: cefTRIAXone SODIUM 2,000 MG in DEXTROSE 5 % MINI-B 50 ML IV SCH (16:07)
[2023-06-17] MEDS: AZITHROMYCIN 500 MG in DEXTROSE 5% 250 ML IV SCH (16:44)
[2023-06-18 06:37] LABS: Basophils # (auto) 0.02 K/uL (0.00-0.20); Basophils % (auto) 0.1 %; Hematocrit (blood only) 37.9 % (42.0-52.0); Hemoglobin 12.7 g/dl (14.0-18.0); Immature Granulocytes # (auto) 0.12 K/uL (0.01-0.20); Immature Granulocytes % (auto) 0.9 %; Lymphocytes # (auto) 0.79 K/uL (1.20-3.40); Lymphocytes % (auto) 5.9 %; Mean Corpuscular Hemoglobin 29.6 pg (25.0-34.0); Mean Corpuscular Hgb Conc 33.5 g/dL (32.0-36.0); Mean Corpuscular Volume 88.3 fL (80.0-100.0); Mean Platelet Volume 11.6 fL (9.4-12.4); Monocytes # (auto) 0.52 K/uL (0.11-0.59); Monocytes % (auto) 3.9 %; Neutrophils # (auto) 12.05 K/uL (1.40-6.50); Neutrophils % (auto) 89.2 %; Platelet Count 238 K/uL (130-400); RDW Coefficient of Variation 13.2 % (11.5-14.5); RDW Standard Deviation 42.6 fL (36.4-46.3); Red Blood Count 4.29 M/uL (4.70-6.10)
[2023-06-18 07:02] LABS: BUN Creatinine Ratio 28.9 (10-20); Calcium 8.8 mg/dl (8.6-10.3); Creatinine Clr Calc Pharmacy 67.9 ml/min; Est GFR (African American) 86.9 ml/min; Potassium 4.3 mmol/L (3.5-5.1)
[2023-06-18 07:11] LABS: Prothrombin Time 11.4 Seconds (9.0-12.0)
--- NOTE | 2023-06-18 07:20 | XRay Report ---
SINGLE VIEW CHEST CLINICAL HISTORY: Pneumonia. FINDINGS: 2 AP, portable, upright chest radiographs are compared to study dated 06/16/2023 and correl ated with chest CT dated 05/22/2021. The heart is enlarged noting atherosclerotic calcification of the thoracic aorta. The pulmonary vasculature is noncongested. Emphysema and chronic interstitial thicke frances is similar to previous. Again seen is right basilar consolidation. There are also mild opacities at the left lung base which are similar to prior studies and likely represents scarring/atelectasis. No large pleural effusion or pneumothorax is identified. The skeletal structures are osteopenic. The bony thorax is grossly intact. Surgical clips are seen in the upper abdomen. IMPRESSION: 1. Cardiomegaly and emphysema without radiographic evidence of congestive failure. 2. Right basilar consolidation is similar previous and typical for pneumonia/aspiration pneumonitis. Clinical correlation will be required and continued radiographic follow-up to resolution is recommend ed. ACT 112: Negative or not required by law. Electronically signed by: Trey Smith M.D. 06/18/2023 7:19 AM
[2023-06-18] MEDS: ALBUT/IPRATROP 3MG/0.5MG NEB 3 ML VIAL NEB SCH ×4 (07:35→19:30)
[2023-06-18] MEDS: FORMOTEROL 20 MCG/2 ML VIAL NEB SCH ×2 (07:35→19:30)
[2023-06-18] MEDS: BUDESONIDE 0.5 MG/2 ML VIAL (PULMICORT) NEB SCH ×2 (07:35→19:30)
[2023-06-18] MEDS: guaiFENesin 600 MG TABCR PO SCH ×2 (08:10→21:00)
[2023-06-18] MEDS: dilTIAZem HCL 180 MG CAPCR PO SCH ×2 (08:10→21:00)
[2023-06-18] MEDS: methylPREDNISolone 40 MG in SYRINGE 0 ML IV SCH ×2 (08:10→16:17)
[2023-06-18] MEDS: TAMSULOSIN HCL 0.4 MG CAP PO SCH (08:10)
[2023-06-18] MEDS: METOPROLOL TARTRATE 25 MG TAB PO SCH ×2 (08:11→21:01)
[2023-06-18] MEDS: PANTOprazole 40 MG TAB PO SCH (08:11)
[2023-06-18] MEDS: FINASTERIDE 5 MG TAB PO SCH (08:11)
[2023-06-18] MEDS: ROFLUMILAST 500 MCG TAB PO SCH (08:11)
[2023-06-18] MEDS: LOSARTAN POTASSIUM 50 MG TAB PO SCH (08:12)
[2023-06-18] MEDS: APIXABAN 5 MG TABLET PO SCH ×2 (08:12→21:00)
[2023-06-18] MEDS: INSULIN ASPART PER UNIT CHARGE SC SCH ×4 (08:31→21:00)
[2023-06-18] MEDS: NYSTATIN SUSP 500,000 U/5 ML UDC PO SCH ×3 (13:59→21:00)
[2023-06-18] MEDS: AZITHROMYCIN 500 MG in DEXTROSE 5% 250 ML IV SCH (16:17)
[2023-06-18] MEDS: cefTRIAXone SODIUM 2,000 MG in DEXTROSE 5 % MINI-B 50 ML IV SCH (18:26)
--- NOTE | 2023-06-18 22:26 | Hospitalist Progress Note ---
Date of Service June 18, 2023 Assessment & Plan (1) COPD with acute exacerbation: Plan: Acute exacerbation most likely due to pneumonia in the right lower lobe and rhinovirus Improving, with acute respiratory failure with hypoxia-down to 1 L nasal cannula-not on oxygen at home Pulm medications include budesonide/formoterol (ICS/LABA), umeclidinium (LAMA), Roflumilast, montelukast, guaifenesin. Continue these on discharge While inpatient, continue budesonide nebulizers twice daily, formoterol nebulizer twice daily, Continue methylprednisolone 40 mg IV every 8 hours Continue roflumilast daily Continue supplemental oxygen to maintain SpO2 between 88 and 92% Patient would benefit from pulmonary rehab. He also is currently being evaluated for ablative lung therapy Continue with flutter valve while inpatient as patient is considerably rhonchorous. He does report sputum production. Sputum sample pending (2) Pneumonia: Plan: Right lower lobe consolidation consistent with secondary bacterial pneumonia despite procalcitonin being normal at 0.11. Elevated lactate from hypoxia Repeat chest x-ray 1/2 similar with right lower lobe infiltrate Continue azithromycin and ceftriaxone Follow chest x-ray to resolution in 4 to 6 weeks Pulmonary care as above Sputum culture pending-follow Blood cultures no growth to date (3) Rhinovirus infection: Plan: Supportive care Negative for COVID, RSV, influenza type A, type B (4) Acute respiratory failure with hypoxia: Plan: With a history of severe COPD and air trapping per pulmonary function testing in September 2022 Continue ICS, LABA, LAMA Continue with methylprednisolone IV. If wheezes improved, can convert to oral prednisone likely tomorrow Recommend pulmonary rehab as an outpatient Continue to follow with Dr. Torrez as an outpatient (5) Atrial fibrillation with rapid ventricular response: Plan: Chronic history of atrial fibrillation-was with elevated rates on admission which is now improved Continue apixaban 5 mg p.o. twice daily, diltiazem,metoprolol Continue on telemetry (6) CAD in [place] artery: Plan: Unclear history of the CAD after review of cardiology notes-question if this is presumed? No significant ST changes on EKG on admission Troponin negative, no chest pain Statin intolerant, not on aspirin but is on Eliquis Continue diltiazem, metoprolol, losartan (7) Chronic reflux esophagitis: Plan: Continue pantoprazole (8) BPH (benign prostatic hyperplasia): Plan: Continue tamsulosin No acute issues (9) Diabetes mellitus type II, controlled: Plan: Hemoglobin A1c 6% Patient does not appear to be on home insulin Continue with NovoLog sliding scale insulin while inpatient due to IV steroids Plan Disposition-continued stay but possible discharge home in the next 1 to 2 days, may need two-step walk test prior to discharge Admission and Anticipated Discharge Date Admission Date: June 16, 2023 Subjective Patient feeling better but still getting dyspneic with walking short distances to the bathroom and back. Moving bowels, eating and drinking, with a mild cough, no other concerns Telemetry with A-fib with rates in the 80s to 90s Physical Exam Constitutional: WD/WN, vitals as above Respiratory: + tachypneic (With short distances) A uscultation: + rhonchi (Right lower lung field) and + wheezes (Bilateral); no crackles Cardiovascular: Rate/Rhythm: regular rate and + irregularly irregular Heart Sounds: no murmur Extremities: no edema Psychiatric: A+Ox3, euthymic affect Results & Data Results & Data Vital Signs (Past 12 Hours) Vital Signs Temp Pulse Resp BP Pulse Ox Pulse Ox O2 Del Method 06/18/23 21:35 94 Room Air 06/18/23 20:19 36.5 C 76 18 123/75 95 Nasal Cannula 06/18/23 20:00 Nasal Cannula 06/18/23 19:30 67 18 93 Nasal Cannula 06/18/23 17:00 91 06/18/23 15:18 36.4 C L 84 19 128/73 92 Nasal Cannula 06/18/23 14:47 80 18 94 Nasal Cannula 06/18/23 11:20 36.8 C 103 H 18 122/72 103 H Room Air 06/18/23 11:00 90 O2 Del Method O2 Flow Rate O2 Flow Rate 06/18/23 21:35 06/18/23 20:19 1 06/18/23 20:00 1 06/18/23 19:30 1 06/18/23 17:00 Nasal Cannula 1 06/18/23 15:18 1.0 06/18/23 14:47 1 06/18/23 11:20 06/18/23 11:00 Nasal Cannula 1 Laboratory Results CBC, BMP, hemoglobin A1c reviewed PG Care Time/CCT Total # of Minutes Spent Total Time Spent with Patient: Total time spent is greater than 50% in coordination of care (as documented) at patient's floor/unit and/or counseling patient: Coding Level of Care Code 81524 SUB INP/OBS CARE 2/35MIN Diagnoses COPD with acute exacerbation J44.1 Pneumonia J18.9 Laterality: right Lung location: lower lobe of lung Pneumonia type: due to unspecified organism Rhinovirus infection B34.8 Acute respiratory failure with hypoxia J96.01 Atrial fibrillation with rapid ventricular response I48.91 CAD in [place] artery I25.10 Chronic reflux esophagitis K21.0 BPH (benign prostatic hyperplasia) N40.0 Controlled type 2 diabetes mellitus without complication, without long-term current use of insulin E11.9 Diabetes mellitus complication status: without complication Diabetes mellitus long-term insulin use: without intermission coordinator use (2) Pneumonia Laterality: right Lung location: lower lobe of lung Pneumonia type: due to unspecified organism Qualified Code(s): J18.9 - Pneumonia, unspecified organism (9) Diabetes mellitus type II, controlled Diabetes mellitus complication status: without complication Diabetes mellitus long-term insulin use: without intermission coordinator use Qualified Code(s): E11.9 - Type 2 diabetes mellitus without complications
[2023-06-19] MEDS: methylPREDNISolone 40 MG in SYRINGE 0 ML IV SCH ×2 (00:11→08:59)
[2023-06-19] MEDS: ALBUT/IPRATROP 3MG/0.5MG NEB 3 ML VIAL NEB SCH ×2 (05:33→11:35)
[2023-06-19] MEDS: FORMOTEROL 20 MCG/2 ML VIAL NEB SCH (05:33)
[2023-06-19] MEDS: BUDESONIDE 0.5 MG/2 ML VIAL (PULMICORT) NEB SCH (05:33)
[2023-06-19 06:44] LABS: Hematocrit (blood only) 36.7 % (42.0-52.0); Hemoglobin 12.3 g/dl (14.0-18.0); Mean Corpuscular Hemoglobin 29.4 pg (25.0-34.0); Mean Corpuscular Hgb Conc 33.5 g/dL (32.0-36.0); Mean Corpuscular Volume 87.6 fL (80.0-100.0); Mean Platelet Volume 11.3 fL (9.4-12.4); Platelet Count 279 K/uL (130-400); RDW Coefficient of Variation 12.9 % (11.5-14.5); RDW Standard Deviation 41.1 fL (36.4-46.3); Red Blood Count 4.19 M/uL (4.70-6.10); White Blood Count 13.62 K/ul (4.8-10.8)
[2023-06-19 06:50] LABS: BUN Creatinine Ratio 35.9 (10-20); Calcium 8.4 mg/dl (8.6-10.3); Est GFR (African American) 80.8 ml/min; Est GFR (Non-African American) 69.7 ml/min; Potassium 3.9 mmol/L (3.5-5.1)
[2023-06-19 07:00] LABS: INR 1.1 (0.9-1.1); Prothrombin Time 11.8 Seconds (9.0-12.0)
[2023-06-19 07:16] LABS: Basophils # (auto) 0.01 K/uL (0.00-0.20); Basophils % (auto) 0.1 %; Immature Granulocytes % (auto) 0.7 %; Lymphocytes # (auto) 1.02 K/uL (1.20-3.40); Lymphocytes % (auto) 7.5 %; Monocytes # (auto) 0.33 K/uL (0.11-0.59); Monocytes % (auto) 2.4 %; Neutrophils # (auto) 12.16 K/uL (1.40-6.50); Neutrophils % (auto) 89.3 %; RBC Morphology Unremarkable
[2023-06-19] MEDS ORDERED: levoFLOXacin/D5W 750 MG/150 ML BAG IV SCH (08:00)
[2023-06-19] MEDS: INSULIN ASPART PER UNIT CHARGE SC SCH ×2 (08:49→12:19)
[2023-06-19] MEDS: dilTIAZem HCL 180 MG CAPCR PO SCH (08:49)
[2023-06-19] MEDS: PANTOprazole 40 MG TAB PO SCH (08:50)
[2023-06-19] MEDS: FINASTERIDE 5 MG TAB PO SCH (08:50)
[2023-06-19] MEDS: TAMSULOSIN HCL 0.4 MG CAP PO SCH (08:50)
[2023-06-19] MEDS: APIXABAN 5 MG TABLET PO SCH (08:50)
[2023-06-19] MEDS: METOPROLOL TARTRATE 25 MG TAB PO SCH (08:50)
[2023-06-19] MEDS: ROFLUMILAST 500 MCG TAB PO SCH (08:50)
[2023-06-19] MEDS: LOSARTAN POTASSIUM 50 MG TAB PO SCH (08:50)
[2023-06-19] MEDS: guaiFENesin 600 MG TABCR PO SCH (08:51)
[2023-06-19] MEDS: NYSTATIN SUSP 500,000 U/5 ML UDC PO SCH ×2 (08:51→12:35)
--- NOTE | 2023-06-19 14:23 | Discharge Summary ---
Discharge Summary Date of Service June 19, 2023 Notes For Next Care Provider Medication Changes From Visit Levaquin 750mg po daily x 6 more days Prednisone taper Admission HPI Per Admitting Provider Forest is a 78-year-old male with a past medical history of severe asthmaCOPD overlap syndrome, aifb on Eliquis, MGUS, DM 2, CAD, and HFpEF who presented to the [facility] ED on 06/16 with complaints of increased cough, SOB, and generalized weakness. He was noted to be hypoxic at 86% on RA, tachycardic at 117, but otherwise stable. Labs were significant for a leukocytosis of 11, total bili of 1.5, and full respiratory biofire positive for rhinovirus. Chest xray was read as 1. Cardiomegaly indication emphysema without radiographic evidence of congestive failure. 2. Right basilar consolidation is typical for pneumonia/aspiration pneumonitis. Clinical correlation will be required and radiographic follow-up to resolution is recommended.. Prior to admission the patient was stabilized on 6L NC, and given an hour long dueoneb treatment, 125 mg IV methylprednisolone, 500 mL NSS, and a dose of guaifenesin. At the time of the exam the patient was lying in bed in no acute distress with his sitting bedside. He states that he started to develop increased cough frequency, increased sputum production compared to his baseline cough, and generalized weakness on 06/13. Symptoms progressed to the point that he was unable to walk more than a few steps this am without becoming significantly SOB. He does not use oxygen at home and has been taking his medications as prescribe d. He denies recent fever, chest pain, hemoptysis, abd pain, nausea, vomiting, diarrhea, dysuria, hematuria, melena, LE swelling and recent trauma. He states that his respiratory status has significantly improved compared to arrival. We discussed code status. At this time he wishes to be a conditional code. We does not want a trial of intubation in the event of respiratory failure. In the event of cardiac arrest, he would want CPR and defibrillation. If it came to the point where he would need to be intubated he would want CPR discontinued. Please refer to Dr. Shields's attestation for any changes to the treatment plan Principal Dx & Hospital Course #1 = Principal Diagnosis (1) COPD with acute exacerbation: Acute exacerbation due to PNA RLL from Pseudomonas and rhinovirus; with acute respiratory failure with hypoxia Hypoxia resolved Pulm medications include budesonide/formoterol (ICS/LABA), umeclidinium (LAMA), Roflumilast, montelukast, guaifenesin. Continue these on discharge While inpatient, received budesonide nebulizers twice daily, formoterol nebulizer twice daily, and methylprednisolone 40 mg IV every 8 hours with improvement He was able to cough up a large amount of sputum and had resolution of his hypoxia Continue roflumilast daily Patient would benefit from pulmonary rehab. He also is currently being evaluated for ablative lung therapy as an outpatient f/u with PULM as outpt (2) Pneumonia: Right lower lobe consolidation consistent with secondary bacterial pneumonia despite procalcitonin being normal at 0.11. Elevated lactate from hypoxia Repeat chest x-ray 1/ similar with right lower lobe infiltrate Received azithromycin and ceftriaxone but then Pseudomonas growing from sputum cx sensitive to FQs--> converted to Levaquin 750mg daily on day of discharge- finish out 7 day course at home Follow chest x-ray to resolution in 4 to 6 weeks Pulmonary care as above Blood cultures remain no growth to date (3) Rhinovirus infection: Supportive care Negative for COVID, RSV, influenza type A, type B (4) Acute respiratory failure with hypoxia: With a history of severe COPD and air trapping per pulmonary function testing in September 2022 Continue ICS, LABA, LAMA steroid taper on discharge Recommend pulmonary rehab as an outpatient Continue to follow with Dr. Torrez as an outpatient (5) Atrial fibrillation with rapid ventricular response: Chronic history of atrial fibrillation-was with elevated rates on admission which is now improved Continue apixaban 5 mg p.o. twice daily, diltiazem,metoprolol (6) CAD in [place] artery: Unclear history of the CAD after review of cardiology notes-question if this is presumed? No significant ST changes on EKG on admission Troponin negative, no chest pain Statin intolerant, not on aspirin but is on Eliquis Continue diltiazem, metoprolol, losartan (7) Chronic reflux esophagitis: Continue pantoprazole (8) BPH (benign prostatic hyperplasia): Continue tamsulosin No acute issues (9) Diabetes mellitus type II, controlled: Hemoglobin A1c 6% Patient does not appear to be on home insulin received NovoLog sliding scale insulin while inpatient due to IV steroids Plan Disposition-dc to home, passed a 2 step walk test prior to discharge and does not require supplemental O2 Discharge Exam Constitutional WD/WN, vitals as above Respiratory Auscultation: + wheezes (Bilateral); no crackles Cardiovascular Rate/Rhythm: regular rate and + irregularly irregular Heart Sounds: no murmur Extremities: no edema Psychiatric A+Ox3, euthymic affect Updated Medication List Medication Instructions Recorded Confirmed Type guaifenesin 1,200 mg tablet, 1,200 mg PO DAILY 04/10/21 06/16/23 History extended release 12 hr (Mucinex) albuterol sulfate 90 mcg/actuation 2 puff inhalation Q4H PRN 01/25/22 06/16/23 Rx aerosol inhaler shortness of breath or wheezing #54 grams diltiazem HCl 180 mg 180 mg PO BID #180 caps 07/19/22 06/16/23 Rx capsule,extended release 24 hr losartan 50 mg tablet 50 mg PO DAILY #90 tabs 08/01/22 06/16/23 Rx albuterol sulfate 2.5 mg/3 mL See Rx Instructions .Route 08/16/22 06/16/23 History (0.083 %) solution for nebulization .COMPLEX PRN Wheezing benralizumab 30 mg/mL subcutaneous 30 mg subcut .COMPLEX #1 mL 08/27/22 06/16/23 Rx syringe (Fasenra) metoprolol tartrate 25 mg tablet 25 mg PO BID #180 tabs 09/04/22 06/16/23 Rx budesonide-formoterol HFA 160 2 puff inhalation BID #3 Inhalers 09/11/22 06/16/23 Rx mcg-4.5 mcg/actuation aerosol inhaler (Symbicort) roflumilast 500 mcg tablet 500 mcg PO DAILY #90 tabs 10/08/22 06/16/23 Rx umeclidinium 62.5 mcg/actuation 1 inh inhalation DAILY #30 ea 01/08/23 06/16/23 Rx blister powder for inhalation (Incruse Ellipta) omeprazole 20 mg capsule,delayed 20 mg PO DAILY #90 caps 02/04/23 06/16/23 Rx release dutasteride 0.5 mg capsule 0.5 mg PO DAILY #90 caps 03/12/23 06/16/23 Rx tamsulosin 0.4 mg capsule 0.8 mg (2 x 0.4 mg) PO DAILY #180 03/12/23 06/16/23 Rx caps montelukast 10 mg tablet 10 mg PO DAILY #30 tabs 04/24/23 06/16/23 Rx (Singulair) apixaban 5 mg tablet 5 mg PO BID #180 tabs 05/06/23 06/16/23 Rx levofloxacin 750 mg tablet 750 mg PO DAILY #6 tabs 06/19/23 Rx nystatin 100,000 unit/mL oral 5 ml PO QID 10 days #200 mL 06/19/23 Rx suspension prednisone 10 mg tablet 10 mg PO DIRECTED #20 tabs 06/19/23 Rx Hospital Stay Data Consultations 06/16/23 16:02 ED Decision to Admit Stat Pending Results Patient Have Any Pending Studies at Discharge: Yes (Final blood cultures-no growth to date) Discharge Instructions Given to Patient (Per Discharging Provider) Please finish out 6 more days of the antibiotic for your pneumonia. It is called levofloxacin. Continue the prednisone taper as prescribed. Continue your usual inhalers and albuterol nebs as needed. Total Time Total Time Spent Total Time Spent (In Minutes): 35 min Coding Level of Care Code 25750 INP/OBS DISCH >30 MIN Diagnoses COPD with acute exacerbation J44.1 Pneumonia J18.9 Laterality: right Lung location: lower lobe of lung Pneumonia type: due to unspecified organism Rhinovirus infection B34.8 Acute respiratory failure with hypoxia J96.01 Atrial fibrillation with rapid ventricular response I48.91 CAD in [place] artery I25.10 Chronic reflux esophagitis K21.0 BPH (benign prostatic hyperplasia) N40.0 Controlled type 2 diabetes mellitus without complication, without long-term current use of insulin E11.9 Diabetes mellitus jail insulin use: without ferry terminal supervisor use Diabetes mellitus complication status: without complication
== END 2023-06-19 14:55 | disposition home or self-care (01) | DRG 177 ==
LOC: ED 11:40 → SUATTDRO 16:11 → EDINP 16:11 → 4W 18:00

== ENCOUNTER 2025-05-28 13:14 | Inpatient (IN) ==
[2025-05-28 14:17] LABS: Hematocrit (blood only) 39.7 % (42.0-52.0); Hemoglobin 13.0 g/dL (14.0-18.0); Immature Granulocytes # (auto) 0.07 K/uL (0.01-0.20); Immature Granulocytes % (auto) 0.6 %; Mean Corpuscular Hemoglobin 29.4 pg (25.0-34.0); Mean Corpuscular Volume 89.8 fL (80.0-100.0); Platelet Count 206 K/uL (130-400); RDW Standard Deviation 50.0 fL (36.4-46.3); Red Blood Count 4.42 M/uL (4.70-6.10); White Blood Count 10.79 K/ul (4.8-10.8)
--- NOTE | 2025-05-28 14:29 | XRay Report ---
SINGLE VIEW CHEST CLINICAL HISTORY: Dyspnea FINDINGS: A PA chest radiograph is compared to study dated 02/08/2025 and correlated with chest CT navdeep ed 05/22/2021. The heart is enlarged noting atherosclerotic calcification of the thoracic aorta. The p ulmonary vasculature is noncongested. Emphysema and chronic interstitial thickening similar to previo us. There is a right pleural effusion with right basilar consolidation. Scarring/atelectasis is noted at the left lung base. No pneumothorax is seen. The skeletal structures are osteopenic. The bony tho rax is grossly intact. Atherosclerotic calcification is seen in the carotid bulbs. IMPRESSION: 1. Cardiomegaly and emphysema without radiographic evidence of congestive failure. 2. There is a right pleural effusion with right basilar consolidation. This could represent atelectas is and/or pneumonia. Clinical correlation will be required and radiographic follow-up to resolution i s recommended. ACT 112: Negative or not required by law. Electronically signed by: Trey Smith M.D. 05/28/2025 2:27 PM
[2025-05-28 14:34] LABS: Alanine Aminotransferase 7.0 U/L (7-52); Albumin Globulin Ratio 0.8 (0.9-2); Albumin Level 3.1 gm/dl (3.4-5.0); Alkaline Phosphatase 78.0 U/L (34-104); Anion Gap 8.0 (3-11); Bilirubin,Total 1.7 mg/dl (0.2-1.0); Creatinine Clr Calc Pharmacy 77.8 ml/min; Globulin 3.7 gm/dl (2.5-4.0); Total Protein 6.8 gm/dl (6.0-8.3)
[2025-05-28 14:43] LABS: Blood Urea Nitrogen 18.0 mg/dl (6-23); Calcium 8.5 mg/dl (8.6-10.3); Carbon Dioxide 26.0 mmol/L (21-32); Chloride 102.0 mmol/L (98-107); Glucose 194.0 mg/dl (70-99(Fasting)); Magnesium 1.8 mg/dl (1.7-2.4); Potassium 3.8 mmol/L (3.5-5.1); Sodium 136.0 mmol/L (136-145)
[2025-05-28 14:46] LABS: INR 1.0 (0.9-1.1); Partial Thromboplastin Time 28 Seconds (21-31); Prothrombin Time 11.0 Seconds (9.0-12.0)
--- NOTE | 2025-05-28 14:56 | Emergency Department Note ---
Impression & Plan Pneumonia, Pleural effusion, GIBSON (dyspnea on exertion), Chest pain ED Provider Note NAME: LUCI LEDEZMA AGE: 80 SEX: M : 1945 ARRIVES VIA: Walk-In INFORMANT: Patient, ED PROVIDER(S): Can Lane DO CHIEF COMPLAINT: Difficulty breathing HPI: The patient is a 80-year-old male who presented to the emergency department for an evaluation of difficulty breathing. The patient does have a history of COPD. He has a remote history of smoking as well. He presented to the emergency department today because he is not feeling much better. He does have a history of a rescue pack that his pulmonary doctor did provide for him. He started on the steroid a few days ago and started on the antibiotic last evening. He does not have any hemoptysis. He denies having any leg swelling or leg pain. He did have some right sided chest pain recently. This is since gone away. ROS: See above HPI for pertinent positives & negatives. A total of 10 systems reviewed and were otherwise negative. PAST MEDICAL HISTORY: See Below PAST SURGICAL HISTORY: See Below FAMILY HISTORY: See Below SOCIAL HISTORY: See Below HOME MEDICATIONS: See Below ALLERGIES: See Below VITALS: See Below PHYSICAL EXAMINATION: GENERAL: Patient is awake alert in no acute distress patient is resting comfortably and showing no signs of anxiety EYES: The conjunctivae are clear. The pupils are round and reactive. EARS, NOSE, MOUTH AND THROAT: The nose is without any evidence of any deformity. NECK: The neck is nontender and supple. RESPIRATORY: Diminished breath sounds are noted throughout. There were rales at the right base. There was no conversational dyspnea. CARDIOVASCULAR: Tachycardic and irregular heart sounds were noted to auscultation. There is no definite murmur. GASTROINTESTINAL: The abdomen is soft. Abdomen is nontender. MUSCULOSKELETAL/EXTREMITIES: There is no evidence of gross deformity full range of motion is noted in the hips and shoulders. SKIN: Trace pedal edema was noted bilaterally. NEUROLOGIC: Patient is awake alert and oriented x3 MEDICAL DECISION MAKING: The patient is a 80-year-old male who has a history of COPD who presented to the emergency department for an evaluation of chest pain and difficulty breathing. The patient tried his rescue pack which includes a steroid as well as an antibiotic that he is symptoms are not improving. He is also been using his other outpatient medications as prescribed. The patient did have abnormal lung sounds on physical exam. Chest x-ray showed the possibility of a right sided pleural effusion and possible infiltrate. Given his smoking history I did feel that further laboratory and radiographic studies should be obtained. I discussed the patient's laboratory and radiographic studies with him. Ultimately the patient was found have signs of infiltrate with a pleural effusion. Given this combination as well as the patient's ongoing symptoms I discussed his condition with the on-call [facility] hospitalist. Vital signs were reassuring but he did become very dyspneic with a short amount of exertion. Triage Nursing notes reviewed. Prior medical records reviewed Vital Signs: reviewed and remarkable for no significant abnormalities Differential diagnosis: Reactive airway disease, pneumonia, pneumothorax, COPD, CHF, infections, cardiac ischemia, pulmonary embolism, musculoskeletal, gastrointestinal, as well as other pathologies. ER treatment provided: See below Diagnostics interpreted by me: ECG: EKG was obtained in the emergency department. My interpretation is atrial fibrillation at 101 bpm. There was no PVCs noted. Nonspecific ST abnormalities were appreciated. This was compared to a tracing from February 08, 2025. No changes were noted. Cardiac Monitoring: An order was placed for continuous cardiac monitoring. The monitor shows a rate of 87 bpm with atrial fibrillation. Laboratory studies: As stated above and show below. Imaging studies: See below. Radiographic imaging was reviewed by myself Consultation(s): I discussed this case with Lesvia who is on-call for the [facility] hospitalist group. Past Med/Surg History Problem List (Updated 05/28/25 @ 16:[address] DO) Chest pain (Acute) GIBSON (dyspnea on exertion) (Acute) Pleural effusion (Acute) Pneumonia (Acute) Prolonged Q-T interval on ECG Cardiomyopathy Permanent atrial fibrillation Chronic systolic (congestive) heart failure Fever (Acute) SIRS (systemic inflammatory response syndrome) (Acute) Abscess of scrotum (Acute) Scrotal abscess Scrotal swelling Hematuria (Acute) Pulmonary hypertension Asthma-COPD overlap syndrome Chronic obstructive pulmonary disease History of dysplastic nevus CAD in [place] artery Pulmonary air trapping Tricuspid regurgitation (Acute) Recurrent cellulitis (Acute) Nephrolithiasis (Acute) Monoclonal gammopathy of undetermined significance (Acute) Mediastinal adenopathy (Acute) Hypertension (Chronic) Dyslipidemia (Acute) Chronic reflux esophagitis (Acute) Allergic rhinitis (Acute) Actinic keratoses Mitral regurgitation Hypoxia (Acute) Statin myopathy (Acute) Peripheral eosinophilia Medical History BPH with obstruction/lower urinary tract symptoms Chronic dyspnea Diabetes mellitus type II, controlled Gout Gastric ulcer Pneumonia Chronic bronchitis Sepsis Intestinal obstruction Bronchitis Surgical History History of pancreatectomy History of abdominal surgery History of cholecystectomy History of exploratory laparotomy History of partial gastrectomy Family History Mother Cirrhosis Diabetes Stroke Hypertension Sister Diabetes Multiple myeloma Brother Heart disease Other Coronary heart disease No family history of adverse response to anesthesia No family history of bleeding disorder Denies family history of Ovarian cancer Prostate cancer Breast cancer Colorectal cancer Social History Smoking Status: Former smoker Tobacco Type: Cigarettes Age Started Using Tobacco: 19; Age Quit Using Tobacco: 51; packs per day: 0.25; Cigarettes Per Day: less than 1ppd; Second Hand Exposure: Yes; Do You Dip or Chew Tobacco: Yes (1 can every 5-6 days); Hx Alcohol Use: Yes Alcohol type: beer Alcohol Intake Frequency Comment: 2-3 daily Hx Substance Use: No Preferred Language: [place] Communication Ability: Effective Visual Impairment: No Limitations Hearing Ability: Hard of Hearing Emergency Veterinarian Required: No Beliefs That Will Affect Care: None marital status: Current Living Situation: Spouse current occupational status: retired Feels Safe at Home: Yes Childhood Exposure to Second-Hand Smoke: Yes Diet: regular caffeine: Yes (1 c coffee daily) Dental Care, Regularly: No Physical Activity Frequency: Daily Seatbelt Use: always Sunscreen Use: No Assistive Devices: None Allergies Allergies Allergy/AdvReac Type Severity Reaction Status Date / Time hydrocodone Allergy Intermediate FEELING Verified 03/12/25 11:23 HOT, SWEATY, simvastatin Allergy Intermediate Myalgia Verified 03/12/25 11:23 tramadol Allergy Intermediate Confused Verified 03/12/25 11:23 doxycycline AdvReac Mild STOMACH Verified 03/12/25 11:23 PAIN Home Meds Home Medications Medication Instructions Recorded Confirmed guaifenesin 1,200 mg tablet, 1,200 mg PO DAILY 04/10/21 03/12/25 extended release 12 hr (Mucinex) Previous Rx's Medication Instructions Recorded apixaban 5 mg tablet 5 mg PO BID #180 tabs 04/24/24 budesonide-formoterol HFA 160 2 puff inhalation BID #30.6 grams 07/17/24 mcg-4.5 mcg/actuation aerosol inhaler albuterol sulfate 90 mcg/actuation 2 puff inhalation Q4H PRN 08/05/24 aerosol inhaler shortness of breath or wheezing #3 Inhalers metoprolol tartrate 25 mg tablet 25 mg PO BID #180 tabs 08/25/24 roflumilast 500 mcg tablet 500 mcg PO DAILY #90 tabs 09/21/24 tiotropium bromide 2.5 2 inh inhalation QAM #12 grams 09/29/24 mcg/actuation mist for inhalation (Spiriva Respimat) tamsulosin 0.4 mg capsule 0.8 mg (2 x 0.4 mg) PO DAILY #180 11/11/24 caps diltiazem HCl 120 mg 120 mg PO BID #180 caps 11/25/24 capsule,extended release 24 hr albuterol sulfate 2.5 mg/3 mL See Rx Instructions .Route 01/20/25 (0.083 %) solution for nebulization .COMPLEX PRN Wheezing #540 mL omeprazole 20 mg capsule,delayed 20 mg PO DAILY #90 caps 02/11/25 release montelukast 10 mg tablet 10 mg PO DAILY #30 tabs 03/15/25 (Singulair) dutasteride 0.5 mg capsule 0.5 mg PO DAILY #90 caps 05/19/25 Results & Data (ED) Vital Signs Vital Signs - 24 hr 05/28/25 13:18 05/28/25 14:35 05/28/25 16:31 Temperature 36.6 C Temperature Source Temporal Artery Scan Pulse Rate 120 H 102 H Pulse Rate [Apical] 87 Respiratory Rate 19 24 Respiratory Effort / Characteristics Non-Labored Spontaneous Respiratory Depth Normal Respiratory Pattern Regular Blood Pressure 122/71 Blood Pressure [Left Arm] 143/84 H Blood Pressure Mean 88 Blood Pressure Mean [Left Arm] 103 Pulse Oximetry 93 93 Oxygen Delivery Method Room Air Room Air Sepsis Recent Fever Within 48 Hours No Sepsis New/Unexplained Change in Mental Status No Sepsis Action Taken by Nursing No Action Required Home Medications Current Medication List: was personally reviewed by me Laboratory Data Attestation: I reviewed the patient's lab results. 05/28/25 13:54 05/28/25 13:54 Lab Results 05/28/25 05/28/25 05/28/25 Range/Units 13:54 14:30 15:45 WBC 10.79 (4.8-10.8) K/ul RBC 4.42 L (4.70-6.10) M/uL Hgb 13.0 L (14.0-18.0) g/dL Hct 39.7 L (42.0-52.0) % MCV 89.8 (80.0-100.0) fL MCH 29.4 (25.0-34.0) pg MCHC 32.7 (32.0-36.0) g/dL RDW Std Deviation 50.0 H (36.4-46.3) fL RDW Coeff of Radha 14.9 H (11.5-14.5) % Plt Count 206 (130-400) K/uL MPV 11.3 (9.4-12.4) fL Immature Gran % (Auto) 0.6 % Neut % (Auto) 78.7 % Lymph % (Auto) 12.1 % Hudson % (Auto) 6.6 % Eos % (Auto) 1.6 % Baso % (Auto) 0.4 % Neut # (Auto) 8.49 H (1.40-6.50) K/uL Lymph # (Auto) 1.31 (1.20-3.40) K/uL Hudson # (Auto) 0.71 H (0.11-0.59) K/uL Eos # (Auto) 0.17 (0.00-0.50) K/uL Baso # (Auto) 0.04 (0.00-0.20) K/uL Immature Gran # (Auto) 0.07 (0.01-0.20) K/uL PT 11.0 (9.0-12.0) Seconds INR 1.0 (0.9-1.1) APTT 28 (21-31) Seconds PTT Ratio 1.0 Sodium 136 (136-145) mmol/L Potassium 3.8 (3.5-5.1) mmol/L Chloride 102 (98-107) mmol/L Carbon Dioxide 26 (21-32) mmol/L Anion Gap 8 (3-11) BUN 18 (6-23) mg/dl Creatinine 0.81 (0.6-1.4) mg/dl Est Cr Clr Drug Dosing 77.8 ml/min eGFR 89.69 BUN/Creatinine Ratio 22.2 H (10-20) Glucose 194 H (70-99(Fasting)) mg/dl Lactate 1.6 (0.4-2.0) mmol/L Calcium 8.5 L (8.6-10.3) mg/dl Magnesium 1.8 (1.7-2.4) mg/dl Total Bilirubin 1.7 H (0.2-1.0) mg/dl AST 9 L (13-39) U/L ALT 7 (7-52) U/L Alkaline Phosphatase 78 (34-104) U/L Troponin I High Sens 5.4 (0-20) pg/ml C-Reactive Protein 13.72 H (0-0.5) mg/dl B-Natriuretic Peptide 147 H (0-100) pg/ml Total Protein 6.8 (6.0-8.3) gm/dl Albumin 3.1 L (3.4-5.0) gm/dl Globulin 3.7 (2.5-4.0) gm/dl Albumin/Globulin Ratio 0.8 L (0.9-2) Procalcitonin < 0.02 (0-0.5) ng/ml SARS-CoV-2 (PCR) NEGATIVE (Negative) Influenza Type A (PCR) Negative (Neg) Influenza Type B (PCR) Negative (Neg) RSV (RT-PCR) Negative (Neg) Administered Medications Discontinued Medications Albuterol (Albut/Ipratrop 3mg/0.5mg Neb 3 Ml Vial) 3 ml NEB NOW STA; Protocol Stop: 05/28/25 14:47 Last Admin: 05/28/25 15:58 Dose: 3 ml Documented By: ÁNGEL Sodium Chloride (Nss) 500 mls @ 999 mls/hr IV .Q31M ONE Stop: 05/28/25 16:02 Last Admin: 05/28/25 15:59 Dose: 999 mls/hr Documented By: ÁNGEL Ceftriaxone Sodium (Rocephin) 2,000 mg in 50 mls @ 100 mls/hr IV NOW STA Stop: 05/28/25 16:01 Last Admin: 05/28/25 15:58 Dose: 100 mls/hr Documented By: AVM Ioversol (Optiray 320 125ml) 120 ml IV ONCE ONE Stop: 05/28/25 15:32 Last Admin: 05/28/25 15:32 Dose: 120 ml Documented By: PAOLO Imaging Data Attestation: I personally reviewed and interpreted this imaging study as follows: My Impression: 1 view chest x-ray was obtained in the emergency department. My interpretation is right-sided pleural effusion no free air or final report below. Radiologist's Impression: Chest X-Ray 05/28/25 13:21 SINGLE VIEW CHEST CLINICAL HISTORY: Dyspnea FINDINGS: A PA chest radiograph is compared to study dated 02/08/2025 and correlated with chest CT dated 05/22/2021. The heart is enlarged noting atherosclerotic calcification of the thoracic aorta. The pulmonary vasculature is noncongested. Emphysema and chronic interstitial thickening similar to previous. There is a right pleural effusion with right basilar consolidation. Scarring/atelectasis is noted at the left lung base. No pneumothorax is seen. The skeletal structures are osteopenic. The bony thorax is grossly intact. Atherosclerotic calcification is seen in the carotid bulbs. IMPRESSION: 1. Cardiomegaly and emphysema without radiographic evidence of congestive failure. 2. There is a right pleural effusion with right basilar consolidation. This could represent atelectasis and/or pneumonia. Clinical correlation will be required and radiographic follow-up to resolution is recommended. ACT 112: Negative or not required by law. Electronically signed by: Trey Smith M.D. 05/28/2025 2:27 PM Chest CTA 05/28/25 14:41 CT angio chest PE protocol CT DOSE: 692.03 mGy.cm HISTORY: 80 years-old Male with PE. Acute shortness of breath TECHNIQUE: Multiple CTA images of the chest were obtained after the intravenous administration of 120 ml Optiray. Coronal and sagittal MIPS were obtained from the axial data set and were submitted for review. All measurements were obtained according to NASCET criteria. A dose lowering technique was utilized adhering to the principles of ALARA. COMPARISON: Outside hospital chest CT 06/11/2023 FINDINGS: CTA: Mild cardiomegaly with moderate coronary artery calcifications. Mild fusiform dilation of the ascending thoracic aorta measures 4.0 x 4.0 cm at the level of the main pulmonary artery. No thoracic aortic aneurysm or dissection identified. No central pulmonary emboli identified. Suboptimal violation of the bibasilar segmental and subsegmental branches secondary to respiratory motion and contrast bolus timing. CT CHEST: Small pericardial effusion measures up to 11 mm anteriorly. Small left with small to moderate right pleural effusions. No pneumothorax. Mild pulmonary emphysema with bronchial wall thickening. Prominent mucous plugging is most pronounced in the right lung base. Similar findings are also present on the exam from 2022. Right basilar predominant air space consolidation with additional mild patchy airspace opacities associated with the mucous plugging within the left lung base. Scattered tree-in-bud nodules. Mild intralobular septal thickening. No acute upper abdominal abnormality. Cholecystectomy. Postoperative changes of the stomach. No acute fracture identified. IMPRESSION: 1. No pulmonary emboli identified. 2. Findings suggestive of aspiration pneumonia with bibasilar, right greater than left mucous plugging and consolidation. Three-month follow-up chest CT after treatment course recommended in order to document resolution. 3. Follow-up speech pathology consultation with video swallow recommended. 4. Small pericardial effusion with small left and [id number] right pleural effusions. ACT 112: Negative or not required by law. The above report was generated using voice recognition software. It may contain grammatical, syntax or spelling errors. Electronically signed by: Yobany Fair M.D. 05/28/2025 3:47 PM Discharge Plan Visit Data Chief Complaint: Respiratory Problems Stated Complaint: COPD, WHEEZING, SOB ED Provider: Can Lane Discharge Problem: Pneumonia, Pleural effusion, GIBSON (dyspnea on exertion), Chest pain Patient Disposition: Being Evaluated by Hospitalist Condition: Fair Forms Stand Alone Forms: [facility] Prescriptions Prescriptions: No Action apixaban 5 mg tablet 5 mg PO BID Qty: 180 3RF budesonide-formoterol 160-4.5 mcg/actuation HFA aerosol inhaler 2 puff inhalation BID Qty: 30.6 3RF albuterol sulfate 90 mcg/actuation HFA aerosol inhaler 2 puff inhalation Q4H PRN (Reason: shortness of breath or wheezing) Qty: 3 3RF metoprolol tartrate 25 mg tablet 25 mg PO BID Qty: 180 3RF roflumilast 500 mcg tablet 500 mcg PO DAILY Qty: 90 3RF Spiriva Respimat 2.5 mcg/actuation mist 2 inh inhalation QAM Qty: 12 3RF diltiazem HCl 120 mg capsule,extended release 24hr 120 mg PO BID Qty: 180 3RF albuterol sulfate 2.5 mg /3 mL (0.083 %) solution for nebulization See Rx Instructions .ROUTE .COMPLEX PRN (Reason: Wheezing) Qty: 540 3RF Rx Instructions: inhale 1 vial by nebulization twice a day and every 4-6 hours if needed for shortness of breath or wheezing omeprazole 20 mg capsule,delayed release(DR/EC) 20 mg PO DAILY Qty: 90 3RF montelukast [Singulair] 10 mg tablet 10 mg PO DAILY Qty: 30 5RF dutasteride 0.5 mg capsule 0.5 mg PO DAILY Qty: 90 3RF Mucinex 1,200 mg tablet extended release 12hr 1,200 mg PO DAILY tamsulosin 0.4 mg capsule 0.8 mg PO DAILY Qty: 180 3RF Referrals Referrals: Melinda Johnson MD [Primary Care Provider] -
[2025-05-28 15:17] LABS: Influenza A virus by PCR Negative (Neg); Influenza B virus by PCR Negative (Neg); SARS CoV2 RNA(COVID-19) Ceph NEGATIVE (Negative)
[2025-05-28] MEDS: OPTIRAY 320 125ml IV ONE (15:32)
--- NOTE | 2025-05-28 15:47 | Electrocardiogram Report ---
Test Reason : Blood Pressure : */* mmHG Vent. Rate : 101 BPM Atrial Rate : * BPM P-R Int : * ms QRS Dur : 62 ms QT Int : 344 ms P-R-T Axes : * -2 26 degrees QTcB Int : 446 ms Atrial fibrillation with rapid ventricular response Nonspecific ST and T wave abnormality Abnormal ECG When compared with ECG of 08-Feb-2025 19:55, QRS axis Shifted right Borderline criteria for Inferior infarct are no longer Present Confirmed by Justin Estrada ([id number]) on 05/28/2025 3:47:04 PM Referred By: Confirmed By: Justin Estrada
--- NOTE | 2025-05-28 15:49 | CT Scan Report ---
CT angio chest PE protocol CT DOSE: 692.03 mGy.cm HISTORY: 80 years-old Male with PE. Acute shortness of breath TECHNIQUE: Multiple CTA images of the chest were obtained after the intravenous administration of 120 ml Optiray. Coronal and sagittal MIPS were obtained from the axial data set and were submitted for review. All measurements were obtained according to NASCET criteria. A dose lowering technique was u tilized adhering to the principles of ALARA. COMPARISON: Outside hospital chest CT 06/11/2023 FINDINGS: CTA: Mild cardiomegaly with moderate coronary artery calcifications. Mild fusiform dilation of the ascendi ng thoracic aorta measures 4.0 x 4.0 cm at the level of the main pulmonary artery. No thoracic aortic aneurysm or dissection identified. No central pulmonary emboli identified. Suboptimal violation of t he bibasilar segmental and subsegmental branches secondary to respiratory motion and contrast bolus t iming. CT CHEST: Small pericardial effusion measures up to 11 mm anteriorly. Small left with small to moderate right p leural effusions. No pneumothorax. Mild pulmonary emphysema with bronchial wall thickening. Prominent mucous plugging is most pronounced in the right lung base. Similar findings are also present on the exam from 2022. Right basilar predominant air space consolidation with additional mild patchy airspac e opacities associated with the mucous plugging within the left lung base. Scattered tree-in-bud nodu les. Mild intralobular septal thickening. No acute upper abdominal abnormality. Cholecystectomy. Postoperative changes of the stomach. No acute fracture identified. IMPRESSION: 1. No pulmonary emboli identified. 2. Findings suggestive of aspiration pneumonia with bibasilar, right greater than left mucous pluggin g and consolidation. Three-month follow-up chest CT after treatment course recommended in order to do cument resolution. 3. Follow-up speech pathology consultation with video swallow recommended. 4. Small pericardial effusion with small left and [id number] right pleural effusions. ACT 112: Negative or not required by law. The above report was generated using voice recognition software. It may contain grammatical, syntax o r spelling errors. Electronically signed by: Yobany Fair M.D. 05/28/2025 3:47 PM
[2025-05-28] MEDS: cefTRIAXone SODIUM 2,000 MG/50 ML BAG IV STA (15:58)
[2025-05-28] MEDS: ALBUT/IPRATROP 3MG/0.5MG NEB 3 ML VIAL NEB STA (15:58)
[2025-05-28] MEDS: SODIUM CHLORIDE 0.9% 500 ML IV ONE (15:59)
--- NOTE | 2025-05-28 16:33 | History & Physical Report ---
"Date of Service May 28, 2025 Assessment & Plan (1) Asthma-COPD overlap syndrome: (2) Chronic obstructive pulmonary disease: (3) Acute exacerbation of chronic obstructive pulmonary disease: (4) Pleural effusion: (5) Chest pain: (6) CAD in [place] artery: Plan Pt is a 80 y/o M w/ a PMHx significant for COPD, Asthma, T2DM, CAD, Atrial Fibrillation, BPH, IgM kappa monoclonal gammopathy who presents with worsening SOB. #COPD Exacerbation | COPD w/ Asthma overlap | Pleural Effusion - Hx recent pneumonia treated w/ abx and 5 day steroid taper completed on 05/25; CXR 05/28 w/ Cardiomegaly + Emphysema w/out evidence congestive failure, R pleural effusion w/ rt basilar consolidation; Chest CTA 05/28 w/ evidence of aspiration pneumonia w/ R>L Mucous Plugging and consolidation as well as a sm pericardial effusion, small left and [id number] right pleural effusions. -Continue Symbicort, Singulair -Loading Dose Solumedrol 125mg IV -Prednisone 30mg TID x2 days, then taper -IV Azithromycin -DuoNeb 0.5% Q4HWA -Albuterol HFA Q4H -Mucinex prn congestion -Sputum Culture -CBC, BMP, BNP, Procal, CRP in AM -Will message Pulm in AM to review CT w/ pleural effusion, consider thoracentesis if no improvement w/ steroid therapy -Consider Echo #Chest Pain - RESOLVED; noted in ED. Troponin 5.4 and EKG without signs of ischemia on admission -Repeat Trop in AM for reassurance -Monitor for sx closely #CAD | Atrial Fibrillation - No acute concerns -Continue Eliquis, Diltiazem, Metoprolol # T2DM - HbA1C 6.5% (03/15/25) -Loose SSI: BSG 110-150, CF 35, CR 15 -Glycemic Consult, pharmacy #HTN - No acute concerns -Continue Losartan #GERD - No acute concerns -Continue omeprazole - change to formularly as necessary #BPH - No acute concerns -Continue Tamsulosin, Dutasyeride #IgM kappa monoclonal gammopathy - No acute concerns, follows w/ oncology VTE Proph: Eliquis Dispo: Admit Med/Tele History of Present Illness Chief Complaint: SOB, Congestion Primary Care Provider: Melinda Johnson MD Pt is a 80 y/o M w/ a PMHx significant for Stage III COPD, Asthma, T2DM, CAD, Atrial Fibrillation, BPH, IgM kappa monoclonal gammopathy who presents with worsening SOB. Pt notes that he started to notice a respiratory decline 1month [employer], but that it became a significant change approximately 1.5wks [employer], he suddenly started to become significantly more SOB. His , at bedside, notes that it became more difficult for pt to do simple things like eating and that he would often require breaks prior to finishing his meal. Pt notes that he then went to the cargo service supervisor who provided him with a 5-day prednisone taper which he completed on 05/25. He notes that despite completing the taper, he continues to feel short of breath. Pt notes that he continues to cough and produce sputum, but notes that he has not been able to tell if there has been an increase as he typically has a productive cough. He otherwise denies fever/chills, changes in weight, fatigue, hemoptysis, chest pain, palpitations, nausea, vomiting, diarrhea, and constipation. He additionally denies any changes in appetite. Pt was transported to the ED via and daughter. While in the ED, the patient received a CXR 05/28 w/ Cardiomegaly + Emphysema w/out evidence congestive failure, R pleural effusion w/ rt basilar consolidation; Chest CTA 05/28 w/ evidence of aspiration pneumonia w/ R>L Mucous Plugging and consolidation as well as a sm pericardial effusion, small left and [id number] right pleural effusions. Pt was admitted to the hospital for further evaluation and care. Pt was additionally noted to have CP while in the ED but noted it had resolved during out conversation. Troponin in the ED 5.4; EGG at that time was without evidence of infarct. Pt is being admitted for further evaluation and care. Allergies Allergy/AdvReac Type Severity Reaction Status Date / Time hydrocodone Allergy Intermediate FEELING Verified 03/12/25 11:23 HOT, SWEATY, simvastatin Allergy Intermediate Myalgia Verified 03/12/25 11:23 tramadol Allergy Intermediate Confused Verified 03/12/25 11:23 doxycycline AdvReac Mild STOMACH Verified 03/12/25 11:23 PAIN Home Medications Medication Instructions Recorded Confirmed Type guaifenesin 1,200 mg tablet, 1,200 mg PO DAILY 04/10/21 05/28/25 History extended release 12 hr (Mucinex) apixaban 5 mg tablet 5 mg PO BID #180 tabs 04/24/24 05/28/25 Rx budesonide-formoterol HFA 160 2 puff inhalation BID #30.6 grams 07/17/24 05/28/25 Rx mcg-4.5 mcg/actuation aerosol inhaler albuterol sulfate 90 mcg/actuation 2 puff inhalation Q4H PRN 08/05/24 05/28/25 Rx aerosol inhaler shortness of breath or wheezing #3 Inhalers metoprolol tartrate 25 mg tablet 25 mg PO BID #180 tabs 08/25/24 05/28/25 Rx roflumilast 500 mcg tablet 500 mcg PO DAILY #90 tabs 09/21/24 05/28/25 Rx tiotropium bromide 2.5 2 inh inhalation QAM #12 grams 09/29/24 05/28/25 Rx mcg/actuation mist for inhalation (Spiriva Respimat) tamsulosin 0.4 mg capsule 0.8 mg (2 x 0.4 mg) PO DAILY #180 11/11/24 05/28/25 Rx caps diltiazem HCl 120 mg 120 mg PO BID #180 caps 11/25/24 05/28/25 Rx capsule,extended release 24 hr omeprazole 20 mg capsule,delayed 20 mg PO DAILY #90 caps 02/11/25 05/28/25 Rx release montelukast 10 mg tablet 10 mg PO DAILY #30 tabs 03/15/25 05/28/25 Rx (Singulair) dutasteride 0.5 mg capsule 0.5 mg PO DAILY #90 caps 05/19/25 05/28/25 Rx albuterol sulfate 2.5 mg/3 mL 2.5 mg inhalation Q4H PRN Wheezing 05/28/25 1 07/29/24 History (0.083 %) solution for nebulization Past Med/Surg History Problem List (Updated 05/28/25 @ 16:[address] DO) Chest pain (Acute) GIBSON (dyspnea on exertion) (Acute) Pleural effusion (Acute) Pneumonia (Acute) Prolonged Q-T interval on ECG Cardiomyopathy Permanent atrial fibrillation Chronic systolic (congestive) heart failure Fever (Acute) SIRS (systemic inflammatory response syndrome) (Acute) Abscess of scrotum (Acute) Scrotal abscess Scrotal swelling Hematuria (Acute) Pulmonary hypertension Asthma-COPD overlap syndrome Chronic obstructive pulmonary disease History of dysplastic nevus CAD in [place] artery Pulmonary air trapping Tricuspid regurgitation (Acute) Recurrent cellulitis (Acute) Nephrolithiasis (Acute) Monoclonal gammopathy of undetermined significance (Acute) Mediastinal adenopathy (Acute) Hypertension (Chronic) Dyslipidemia (Acute) Chronic reflux esophagitis (Acute) Allergic rhinitis (Acute) Actinic keratoses Mitral regurgitation Hypoxia (Acute) Statin myopathy (Acute) Peripheral eosinophilia Medical History BPH with obstruction/lower urinary tract symptoms Chronic dyspnea Diabetes mellitus type II, controlled Gout Gastric ulcer Pneumonia Chronic bronchitis Sepsis Intestinal obstruction Bronchitis Surgical History History of pancreatectomy History of abdominal surgery History of cholecystectomy History of exploratory laparotomy History of partial gastrectomy Family History Mother Cirrhosis Diabetes Stroke Hypertension Sister Diabetes Multiple myeloma Brother Heart disease Other Coronary heart disease No family history of adverse response to anesthesia No family history of bleeding disorder Denies family history of Ovarian cancer Prostate cancer Breast cancer Colorectal cancer Social History Smoking Status: Former smoker Tobacco Type: Cigarettes Age Started Using Tobacco: 19; Age Quit Using Tobacco: 51; packs per day: 0.25; Cigarettes Per Day: less than 1ppd; Second Hand Exposure: Yes; Do You Dip or Chew Tobacco: Yes (1 can every 5-6 days); Hx Alcohol Use: Yes Alcohol type: beer Alcohol Intake Frequency Comment: 2-3 daily Hx Substance Use: No Preferred Language: Honduran Communication Ability: Effective Visual Impairment: No Limitations Hearing Ability: Hard of Hearing Diffusion Furnace Operator Required: No Beliefs That Will Affect Care: None marital status: Current Living Situation: Spouse current occupational status: retired Feels Safe at Home: Yes Childhood Exposure to Second-Hand Smoke: Yes Diet: regular caffeine: Yes (1 c coffee daily) Dental Care, Regularly: No Physical Activity Frequency: Daily Seatbelt Use: always Sunscreen Use: No Assistive Devices: None Review of Systems Review of Systems: All systems reviewed & are unremarkable except as noted in Subjective Physical Exam Physical Exam: General: Pt is a 80 y/o WD/WN M in NAD in bed, and daughter at bedside. VS: reviewed, remarkable - Pt was eating a sandwich during our conversation and O2 sat was 94% on RA Skin: Warm and dry; no lesions or ulcerations Respiratory: Crackles heard @ Rt lung base, expiratory wheezing + prolonged expiration diffusely noted in lungs bilat Cardio: Irregularly Irregular, no murmurs Abdomen: Round, normoactive BS x4, nontender to palpation MSK: FROM of extremities, no deformities Extremities: no edema. Strength +5 throughout Neuro: A&Ox4, cooperative Results & Data Results & Data Vital Signs (Past 12 Hours) Vital Signs Temp Pulse Resp BP Pulse Ox O2 Del Method 05/28/25 14:35 102 H 05/28/25 13:18 97.9 F 120 H 19 122/71 93 Room Air Laboratory Results Reviewed: CBC, CMP, PT/INR, CRP, BNP, Procalcitonin Diagnostic Findings Reviewed: EKG, CXR, Chest CTA Code Status & VTE Plan Code Status Conditional Code PG Care Time/CCT Total # of Minutes Spent Total Time Spent with Patient: Total time spent is greater than 50% in coordination of care (as documented) at patient's floor/unit and/or counseling patient: Coding Level of Care Code 63412 INT INP/OBS CARE 3/75MIN Diagnoses Asthma-COPD overlap syndrome J44.9 Chronic obstructive pulmonary disease J44.9 Acute exacerbation of chronic obstructive pulmonary disease J44.1 Pleural effusion J90 Chest pain R07.9 CAD in [place] artery I25.10"
[2025-05-28] MEDS ORDERED: ALBUTEROL HFA 8 GM INHALER INH PRN (23:06)
[2025-05-28] MEDS ORDERED: PHARMACY GLYCEMIC MGMT CONSULT PRN (23:06)
[2025-05-28] MEDS ORDERED: ONDANSETRON INJ 2 MG/ML 2 ML VIAL IV PRN (23:06)
[2025-05-28] MEDS ORDERED: ACETAMINOPHEN 325 MG TAB PO PRN (23:06)
[2025-05-28] MEDS ORDERED: MELATONIN 3 MG TAB PO PRN (23:06)
[2025-05-28] MEDS ORDERED: GLUCOSE 10 TAB/TUBE PO PRN (23:06)
[2025-05-28] MEDS ORDERED: GLUCOSE 40% GEL 15 GM TUBE PO PRN (23:06)
[2025-05-28] MEDS ORDERED: GLUCAGON FOR INJ 1 MG VIAL SQ PRN (23:06)
[2025-05-28] MEDS ORDERED: POLYETHYLENE (MIRALAX) 17 GM PACK PO PRN (23:06)
[2025-05-28] MEDS ORDERED: CARBOHYDRATES FOR HYPOGLYCEMIA PO PRN (23:06)
[2025-05-28] MEDS ORDERED: DEXTROSE 50% 50 ML SYRINGE IV PRN (23:06)
[2025-05-29] MEDS: INSULIN ASPART PER UNIT CHARGE SC SCH (00:04)
[2025-05-29] MEDS: AZITHROMYCIN 250 MG TAB PO SCH (00:05)
[2025-05-29] MEDS: METOPROLOL TARTRATE 25 MG TAB PO SCH (00:05)
[2025-05-29] MEDS: APIXABAN 5 MG TABLET PO SCH (00:05)
[2025-05-29] MEDS: ALBUTEROL 0.5% NEB SOLN 2.5 MG/0.5 ML VIAL NEB SCH (01:50)
[2025-05-29 06:54] LABS: Hematocrit (blood only) 39.7 % (42.0-52.0); Hemoglobin 13.2 g/dL (14.0-18.0); Immature Granulocytes # (auto) 0.06 K/uL (0.01-0.20); Immature Granulocytes % (auto) 0.9 %; Mean Corpuscular Hemoglobin 29.7 pg (25.0-34.0); Mean Corpuscular Volume 89.2 fL (80.0-100.0); Platelet Count 216 K/uL (130-400); RDW Standard Deviation 48.7 fL (36.4-46.3); Red Blood Count 4.45 M/uL (4.70-6.10); White Blood Count 6.97 K/ul (4.8-10.8)
[2025-05-29 07:49] LABS: Anion Gap 8.0 (3-11); Blood Urea Nitrogen 15.0 mg/dl (6-23); Calcium 8.8 mg/dl (8.6-10.3); Carbon Dioxide 26.0 mmol/L (21-32); Chloride 103.0 mmol/L (98-107); Creatinine Clr Calc Pharmacy 89.9 ml/min; Glucose 176.0 mg/dl (70-99(Fasting)); Potassium 4.5 mmol/L (3.5-5.1); Sodium 137.0 mmol/L (136-145)
--- NOTE | 2025-05-29 08:18 | Hospitalist Progress Note ---
"Date of Service May 29, 2025 Assessment & Plan (1) Asthma-COPD overlap syndrome: (2) Chronic obstructive pulmonary disease: (3) Acute exacerbation of chronic obstructive pulmonary disease: (4) Pleural effusion: (5) Chest pain: (6) CAD in [place] artery: Plan Pt is a 80 y/o M w/ a PMHx significant for COPD, Asthma, T2DM, CAD, Atrial Fibrillation, BPH, IgM kappa monoclonal gammopathy who presents with worsening SOB. #COPD Exacerbation | COPD w/ Asthma overlap | Pleural Effusion - Hx recent pneumonia treated w/ abx and 5 day steroid taper completed on 05/25; CXR 05/28 w/ Cardiomegaly + Emphysema w/out evidence congestive failure, R pleural effusion w/ rt basilar consolidation; Chest CTA 05/28 w/ evidence of aspiration pneumonia w/ R>L Mucous Plugging and consolidation as well as a sm pericardial effusion, small left and [id number] right pleural effusions. -Pulm Consult: transition to nebulized variant of medications, hypertonic saline alone w/ flutter valve 2-D echo, official swallow eval No indication for thoracentesis at this time -Continue Symbicort, Singulair -STOP Prednisone, transitioned to SoluMedrol 40 IV BID -IV Azithromycin -DuoNeb 0.5% Q4HWA -Albuterol HFA Q4H -Mucinex prn congestion -Sputum Culture -CBC, BMP, BNP, Procal, CRP in AM -Will message Pulm in AM to review CT w/ pleural effusion, consider thoracentesis if no improvement w/ steroid therapy -Consider Echo #Chest Pain - RESOLVED; noted in ED. Troponin 5.4 and EKG without signs of ischemia on admission -Repeat Trop in AM for reassurance -Monitor for sx closely #CAD | Atrial Fibrillation - No acute concerns -Continue Eliquis, Diltiazem, Metoprolol # T2DM - HbA1C 6.5% (03/15/25) -Loose SSI: BSG 110-150, CF 35, CR 15 -Glycemic Consult, pharmacy #HTN - No acute concerns -Continue Losartan #GERD - No acute concerns -Continue omeprazole - change to formularly as necessary #BPH - No acute concerns -Continue Tamsulosin, Dutasyeride #IgM kappa monoclonal gammopathy - No acute concerns, follows w/ oncology VTE Proph: Eliquis Dispo: Admit Med/Tele Admission and Anticipated Discharge Date Admission Date: May 28, 2025 Subjective Pt was laying in bed today in [facility]. He notes that he continues to feel quite SOB and didn't get much alleviation of sx following steroid therapy. Patient additionally notes that the antibiotic he was taking outpatient was originally prescribed to him as a prophylactic antibiotic therapy. Patient states he tried taking one of the pills prior to coming into the emergency room in hopes that it would alleviate his symptoms. Despite having an O2 saturation of 97% on room air patient notes he continues to feel extraordinarily dyspneic. Patient continues to endorse cough shortness of breath. Discussed pulmonary consultation with patient which she was agreeable to. Patient otherwise denies chills, changes in weight, fatigue, chest pain, palpitations, nausea, vomiting, diarrhea, and constipation. Telemetry: A-fib in the 80s overnight into AM Review of Systems Review of Systems: All systems reviewed & are unremarkable except as noted in Subjective Physical Exam Physical Exam: General: Pt is a 80 y/o WD/WN M in NAD in bed, and daughter at bedside. VS: reviewed, unremarkable Skin: Warm and dry; no lesions or ulcerations Respiratory: Crackles heard @ Rt lung base, expiratory wheezing + prolonged expiration diffusely noted in lungs bilat Cardio: Irregularly Irregular, no murmurs Abdomen: Round, normoactive BS x4, nontender to palpation MSK: FROM of extremities, no deformities Extremities: no edema. Strength +5 throughout Neuro: A&Ox4, cooperative Results & Data Results & Data Vital Signs (Past 12 Hours) Vital Signs Temp Pulse Pulse Pulse Resp BP BP 05/29/25 07:36 97.3 F L 78 18 142/93 H 05/29/25 07:24 79 05/29/25 03:07 97.5 F L 76 16 125/79 05/29/25 01:12 85 05/28/25 23:28 98 H 05/28/25 23:11 05/28/25 23:11 97.5 F L 115 H 18 150/75 H 05/28/25 22:47 94 H 18 132/88 Pulse Ox O2 Del Method 05/29/25 07:36 95 Room Air 05/29/25 07:24 05/29/25 03:07 97 Room Air 05/29/25 01:12 05/28/25 23:28 05/28/25 23:11 Room Air 05/28/25 23:11 91 Room Air 05/28/25 22:47 94 Room Air Laboratory Results Reviewed: CBC, BMP, Troponin, CRP, Procalcitonin, PG Care Time/CCT Total # of Minutes Spent Total Time Spent with Patient: Total time spent is greater than 50% in coordination of care (as documented) at patient's floor/unit and/or counseling patient: Coding Level of Care Code 30407 SUB INP/OBS CARE 3/50MIN Diagnoses Asthma-COPD overlap syndrome J44.9 Chronic obstructive pulmonary disease J44.9 Acute exacerbation of chronic obstructive pulmonary disease J44.1 Pleural effusion J90 Chest pain R07.9 CAD in [place] artery I25.10"
[2025-05-29] MEDS: ROFLUMILAST 500 MCG TAB PO SCH (09:14)
[2025-05-29] MEDS: TAMSULOSIN HCL 0.4 MG CAP PO SCH (09:16)
[2025-05-29] MEDS: MONTELUKAST SODIUM 10 MG TABLET PO SCH (09:16)
[2025-05-29] MEDS: guaiFENesin 600 MG TABCR PO SCH (09:16)
[2025-05-29] MEDS: FINASTERIDE 5 MG TAB PO SCH (09:17)
[2025-05-29] MEDS: FLUTICASONE/VILANTEROL 100/25MCG 14 PUFFS/INHALER INH SCH (09:17)
[2025-05-29] MEDS: UMECLIDINIUM BROMIDE 62.5MCG/BLISTER 7 PUFFS/INHALER INH SCH (09:17)
--- NOTE | 2025-05-29 12:58 | Pulmonary Consultation ---
Date of Consultation May 29, 2025 Assessment & Plan (1) Multifocal pneumonia: (2) Asthma-COPD overlap syndrome: (3) Acute exacerbation of COPD with asthma: (4) Pleural effusion: (5) Ex-smoker: Plan CTA chest 05/28/2025 personally reviewed: Patchy opacities appreciated bilaterally in the right upper lobe as well as right lower lobe Moderate left-sided pleural effusion with consolidative process in the right lower lobe Endobronchial opacities likely mucous Right hilar and subcarinal lymphadenopathy 2D echo 09/23/2023: EF 45-50%, mild to moderate MR, moderate TR, RV mildly dilated with normal function -- Multifocal pneumonia Respiratory panel negative for COVID, influenza A/B as well as RSV BNP 166 -- Bilateral pleural effusion R>L Likely cardiac in etiology with BNP 166 -- Asthma-COPD overlap syndrome On Brezri and Fascenra at home Absolute eosinophil count 910 on 02/08/2025 IgE 10 and RAST panel negative for everything on 05/04/2021 --A-fib On Eliquis Plan: Patient does not multifocal pneumonia, continue with antibiotics Follow-up sputum culture It seems that he has mucous plugging within the right lower lobe. Would start the patient on hypertonic saline nebulized along with Mucinex and flutter valve The pleural effusion is likely coming from cardiac etiology given that it is bilateral. I ordered 2D echo to see if there is any decline in the cardiac function compared to September 2023 No urgent indication for thoracentesis right now. Change inhalers to nebulized medication while in the hospital. Continue with Incruse Will get official swallow eval as there is likelihood that he might be aspirating I spent more than 75 minutes looking in the chart, images, discussing the plan of care with the patient, RN as well as primary team Please note the above document was generated using voice recognition software. It may contain grammatical, syntax or spelling errors.Any formal questions or concerns about the content, text or information contained within the body of this dictation should be directly addressed to the provider for clarification. History of Present Illness Attending Physician: Juan Foreman MD History of Present Illness 80-year-old male was admitted to the hospital for COPD exacerbation Past medical history: A-fib, IgM kappa monoclonal gammopathy, coronary artery disease, diabetes type 2, A-fib on Eliquis Patient following up with Dr. Torrez as an outpatient At the time of examination patient was having his lunch Patient's was in the room at the time of examination He was not in any respiratory distress He says he is compliant with his inhalers and uses on a regular basis He is also taking Fasenra. With complaint of cough and having difficulty bringing up the phlegm Since coming to the hospital he is bringing up the phlegm. Denies any hemoptysis He was not feeling well for the last couple of days. Denies any sick contacts No fever or chills No dysuria or diarrhea prior to coming to the hospital No unusual headache or blurry vision No nausea or vomiting Social history: Approximately [id number]-[id number] smoking history quit in 1997, used to work in [employer] No history of lung cancer in the family No pets at home Allergies Allergy/AdvReac Type Severity Reaction Status Date / Time hydrocodone Allergy Intermediate FEELING Verified 03/12/25 11:23 HOT, SWEATY, simvastatin Allergy Intermediate Myalgia Verified 03/12/25 11:23 tramadol Allergy Intermediate Confused Verified 03/12/25 11:23 doxycycline AdvReac Mild STOMACH Verified 03/12/25 11:23 PAIN Home Medications Medication Instructions Recorded Confirmed Type guaifenesin 1,200 mg tablet, 1,200 mg PO DAILY 04/10/21 05/28/25 History extended release 12 hr (Mucinex) apixaban 5 mg tablet 5 mg PO BID #180 tabs 04/24/24 05/28/25 Rx budesonide-formoterol HFA 160 2 puff inhalation BID #30.6 grams 07/17/24 05/28/25 Rx mcg-4.5 mcg/actuation aerosol inhaler albuterol sulfate 90 mcg/actuation 2 puff inhalation Q4H PRN 08/05/24 05/28/25 Rx aerosol inhaler shortness of breath or wheezing #3 Inhalers metoprolol tartrate 25 mg tablet 25 mg PO BID #180 tabs 08/25/24 05/28/25 Rx roflumilast 500 mcg tablet 500 mcg PO DAILY #90 tabs 09/21/24 05/28/25 Rx tiotropium bromide 2.5 2 inh inhalation QAM #12 grams 09/29/24 05/28/25 Rx mcg/actuation mist for inhalation (Spiriva Respimat) tamsulosin 0.4 mg capsule 0.8 mg (2 x 0.4 mg) PO DAILY #180 11/11/24 05/28/25 Rx caps diltiazem HCl 120 mg 120 mg PO BID #180 caps 11/25/24 05/28/25 Rx capsule,extended release 24 hr omeprazole 20 mg capsule,delayed 20 mg PO DAILY #90 caps 02/11/25 05/28/25 Rx release montelukast 10 mg tablet 10 mg PO DAILY #30 tabs 03/15/25 05/28/25 Rx (Singulair) dutasteride 0.5 mg capsule 0.5 mg PO DAILY #90 caps 05/19/25 05/28/25 Rx albuterol sulfate 2.5 mg/3 mL 2.5 mg inhalation Q4H PRN Wheezing 05/28/25 05/28/25 History (0.083 %) solution for nebulization Patient History Medical History BPH with obstruction/lower urinary tract symptoms Chronic dyspnea Diabetes mellitus type II, controlled Gout Gastric ulcer Pneumonia Chronic bronchitis Sepsis Intestinal obstruction Bronchitis Surgical History History of pancreatectomy History of abdominal surgery History of cholecystectomy History of exploratory laparotomy History of partial gastrectomy Family History Mother Cirrhosis Diabetes Stroke Hypertension Sister Diabetes Multiple myeloma Brother Heart disease Other Coronary heart disease No family history of adverse response to anesthesia No family history of bleeding disorder Denies family history of Ovarian cancer Prostate cancer Breast cancer Colorectal cancer Social History Smoking Status: Former smoker Tobacco Type: Cigarettes Age Started Using Tobacco: 19; Age Quit Using Tobacco: 51; packs per day: 0.25; Cigarettes Per Day: less than 1ppd; Second Hand Exposure: Yes; Do You Dip or Chew Tobacco: Yes (1 can every 5-6 days); Hx Alcohol Use: Yes Alcohol type: beer Alcohol Intake Frequency Comment: 2-3 daily Hx Substance Use: No Preferred Language: Pashto Communication Ability: Effective Visual Impairment: No Limitations Hearing Ability: Hard of Hearing Color Print Inspector Required: No Beliefs That Will Affect Care: None marital status: Current Living Situation: Spouse current occupational status: retired Other Information That Helps Us Care for You: No Feels Safe at Home: Yes Safety Concerns: Feels Safe At This Time Childhood Exposure to Second-Hand Smoke: Yes Diet: regular caffeine: Yes (1 c coffee daily) Dental Care, Regularly: No Physical Activity Frequency: Daily Seatbelt Use: always Sunscreen Use: No Assistive Devices: Denture - Upper and Glasses Review of Systems 2 Review of Systems: All systems reviewed & are unremarkable except as noted in HPI & below Physical Exam 2 Physical Exam: Constitutional: No acute distress HEENT: EOMI, PERRLA Respiratory system: Decreased air entry bilaterally, more decreased on the right, no wheeze, no rhonchi, positive mild crackles bilateral lower lobe CVS: S1-S2 positive, no murmurs or gallops Abdomen: Soft, nontender, nondistended, positive bowel sounds x4 Extremities: +2 pulses bilaterally radialis/ dorsalis pedis, no cyanosis, no edema Neuro: Awake alert oriented x3 Psych: Normal mood and affect G/U: No [place] Skin: no rashes, warm and dry Lymphatic: no cervical or axillary lymphadenopathy Results & Data Results & Data Vital Signs (Past 12 Hours) Vital Signs Temp Pulse Pulse Pulse Resp BP BP 05/29/25 12:13 68 18 05/29/25 11:03 36.3 C L 81 20 126/85 05/29/25 09:30 92 H 18 05/29/25 07:36 36.3 C L 78 18 142/93 H 05/29/25 07:24 79 05/29/25 03:07 36.4 C L 76 16 125/79 05/29/25 01:12 85 Pulse Ox O2 Del Method 05/29/25 12:13 97 Room Air 05/29/25 11:03 96 Room Air 05/29/25 09:30 96 Room Air 05/29/25 07:36 95 Room Air 05/29/25 07:24 05/29/25 03:07 97 Room Air 05/29/25 01:12 Laboratory Results 05/29/25 06:20 05/29/25 06:20 PG Care Time/CCT Total # of Minutes Spent Total Time Spent with Patient: Total time spent is greater than 50% in coordination of care (as documented) at patient's floor/unit and/or counseling patient: Coding Level of Care Code 11011 INT INP/OBS CARE MIN Diagnoses Multifocal pneumonia J18.8 Asthma-COPD overlap syndrome J44.9 Acute exacerbation of COPD with asthma J44.1 Pleural effusion J90 Ex-smoker Z87.891
--- NOTE | 2025-05-29 13:49 | Pharmacy Report ---
Pharmacy Glycemic Short Note 2 - Date of Service May 29, 2025 - Glycemic Short BSG Results (Last 24 hours): 05/28/25 05/28/25 05/29/25 13:54 23:32 06:20 Glucose 194 H 176 H POC Glucose 187 H 05/29/25 05/29/25 08:14 11:58 Glucose POC Glucose 145 H 192 H OUTPATIENT ANTIDIABETIC REGIMEN: * diet controlled HbA1c: 6.5% on 03/15/25 ASSESSMENT: * Forest is a 80 year old male who was admitted yesterday with a COPD/asthma exacerbation. Pharmacy was consulted for glycemic management while he is admitted. * BSG last evening was 187mg/dL. He received 125mg iv methylprednisolone in the ED, and was then started on prednisone 30mg PO TID. A weight based bolus insulin regimen with a stress of 2 was started at that time. * Fasting BSG was 145mg/dL this morning and trended up to 192mg/dL with lunch. Bolus insulin regimen was tightened to a stress of 3 while he is on the tid prednisone. PLAN FOR INPATIENT GLYCEMIC CONTROL: * Basal insulin * none * Bolus insulin * NovoLog per scale ACHS or Q6hrs while NPO * Goal Range: Low 110 mg/dL - High 140 mg/dL * Correction Factor: 25 mg/dL/unit * Nutritional / Prandial insulin per carb ratio of 1 unit per 8 grams CHO consumed
[2025-05-29] MEDS: ADVANCED PROBIOTIC 625 MG CAPSULE PO SCH (17:52)
[2025-05-29] MEDS: BUDESONIDE 0.5 MG/2 ML VIAL (PULMICORT) NEB SCH (19:47)
[2025-05-29] MEDS: FORMOTEROL 20 MCG/2 ML VIAL NEB SCH (19:47)
[2025-05-29] MEDS: SODIUM CHLOR 7% 4 ML NEB NEB SCH (20:00)
[2025-05-30 06:19] LABS: Hematocrit (blood only) 35.1 % (42.0-52.0); Hemoglobin 11.7 g/dL (14.0-18.0); Immature Granulocytes # (auto) 0.27 K/uL (0.01-0.20); Immature Granulocytes % (auto) 1.7 %; Mean Corpuscular Hemoglobin 29.3 pg (25.0-34.0); Mean Corpuscular Volume 87.8 fL (80.0-100.0); Platelet Count 254 K/uL (130-400); RDW Standard Deviation 48.1 fL (36.4-46.3); Red Blood Count 4.00 M/uL (4.70-6.10); White Blood Count 16.03 K/ul (4.8-10.8)
[2025-05-30 06:57] LABS: Anion Gap 7.0 (3-11); Blood Urea Nitrogen 22.0 mg/dl (6-23); Calcium 8.5 mg/dl (8.6-10.3); Carbon Dioxide 26.0 mmol/L (21-32); Chloride 104.0 mmol/L (98-107); Creatinine Clr Calc Pharmacy 80.8 ml/min; Glucose 198.0 mg/dl (70-99(Fasting)); Potassium 4.1 mmol/L (3.5-5.1); Sodium 137.0 mmol/L (136-145)
--- NOTE | 2025-05-30 08:50 | Hospitalist Progress Note ---
"Date of Service May 30, 2025 Assessment & Plan (1) Asthma-COPD overlap syndrome: (2) Chronic obstructive pulmonary disease: (3) Acute exacerbation of chronic obstructive pulmonary disease: (4) Pleural effusion: (5) Chest pain: (6) CAD in [place] artery: Plan Pt is a 80 y/o M w/ a PMHx significant for COPD, Asthma, T2DM, CAD, Atrial Fibrillation, BPH, IgM kappa monoclonal gammopathy who presents with worsening SOB. #COPD Exacerbation | COPD w/ Asthma overlap | Pleural Effusion - Hx recent pneumonia treated w/ abx and 5 day steroid taper completed on 05/25; CXR 05/28 w/ Cardiomegaly + Emphysema w/out evidence congestive failure, R pleural effusion w/ rt basilar consolidation; Chest CTA 05/28 w/ evidence of aspiration pneumonia w/ R>L Mucous Plugging and consolidation as well as a sm pericardial effusion, small left and [id number] right pleural effusions. -Pulm Consult: transition to nebulized variant of medications, hypertonic saline alone w/ flutter valve 2-D echo; No indication for thoracentesis at this time -Sputum Culture pending - prelim result with moderate normal nicky -Echo pending -VSFF scheduled for 05/31 -Continue Symbicort, Singulair -Continue SoluMedrol 40 IV BID, per pulm -IV Azithromycin -DuoNeb 0.5% Q4HWA -Albuterol HFA Q4H -Mucinex prn congestion -CBC, BMP, BNP, Procal, CRP in AM #Chest Pain - RESOLVED; noted in ED. Troponin 5.4 and EKG without signs of ischemia on admission; repeat trop 05/29 negative -Monitor for sx closely #CAD | Atrial Fibrillation - No acute concerns -Continue Eliquis, Diltiazem, Metoprolol # T2DM - HbA1C 6.5% (03/15/25) -Loose SSI: BSG 110-150, CF 35, CR 15 -Glycemic Consult, pharmacy #HTN - No acute concerns -Continue Losartan #GERD - No acute concerns -Continue omeprazole - change to formularly as necessary #BPH - No acute concerns -Continue Tamsulosin, Dutasyeride #IgM kappa monoclonal gammopathy - No acute concerns, follows w/ oncology VTE Proph: Eliquis Dispo: Med/Tele; PT/OT consulted Admission and Anticipated Discharge Date Admission Date: May 28, 2025 Subjective patient was lying in bed today in [facility]. Patient states that his shortness of breath has improved greatly, notes that they walked around hospital hallways for 5 laps. patient was eating meal during conversation, oxygen saturation remained at 98% on room air while eating. Patient states that video swallowing test was scheduled for tomorrow 05/31. patient otherwise endorses cough, difficulty sleeping, sputum production. Patient denies congestion, chest pain, palpitations, abdominal pain, nausea, vomiting, diarrhea, and constipation. Telemetry: Atrial fibrillation in the 60s and 90s overnight, atrial fibrillation 80s in the a.m. Review of Systems Review of Systems: All systems reviewed & are unremarkable except as noted in Subjective Physical Exam Physical Exam: General: Pt is a 80 y/o WD/WN M in [facility] in bed, and daughter at bedside. VS: reviewed, unremarkable Skin: Warm and dry; no lesions or ulcerations Respiratory: Crackles heard @ Rt lung base, expiratory wheezing + prolonged expiration diffusely noted in lungs bilat Cardio: Irregularly Irregular, no murmurs Abdomen: Round, normoactive BS x4, nontender to palpation MSK: FROM of extremities, no deformities Extremities: no edema. Strength +5 throughout Neuro: A&Ox4, cooperative Results & Data Results & Data Vital Signs (Past 12 Hours) Vital Signs Temp Pulse Pulse Resp BP BP Pulse Ox 05/30/25 07:58 05/30/25 07:54 97.7 F 88 22 136/85 96 05/30/25 07:18 94 H 15 97 05/30/25 03:34 98.1 F 80 18 121/74 95 05/30/25 00:00 97.9 F 87 18 129/80 96 05/29/25 22:01 87 05/29/25 21:41 O2 Del Method 05/30/25 07:58 Room Air 05/30/25 07:54 Room Air 05/30/25 07:18 Room Air 05/30/25 03:34 Room Air 05/30/25 00:00 Room Air 05/29/25 22:01 05/29/25 21:41 Room Air Laboratory Results Reviewed: CBC, BMP, procalcitonin, CRP PG Care Time/CCT Total # of Minutes Spent Total Time Spent with Patient: Total time spent is greater than 50% in coordination of care (as documented) at patient's floor/unit and/or counseling patient: Coding Level of Care Code 44102 SUB INP/OBS CARE 235MIN Diagnoses Asthma-COPD overlap syndrome J44.9 Chronic obstructive pulmonary disease J44.9 Acute exacerbation of chronic obstructive pulmonary disease J44.1 Pleural effusion J90 Chest pain R07.9 CAD in ak chin artery I25.10"
[2025-05-31 07:11] LABS: Hematocrit (blood only) 37.7 % (42.0-52.0); Hemoglobin 12.1 g/dL (14.0-18.0); Immature Granulocytes # (auto) 0.15 K/uL (0.01-0.20); Immature Granulocytes % (auto) 1.0 %; Mean Corpuscular Hemoglobin 28.7 pg (25.0-34.0); Mean Corpuscular Volume 89.3 fL (80.0-100.0); Platelet Count 303 K/uL (130-400); RDW Standard Deviation 49.2 fL (36.4-46.3); Red Blood Count 4.22 M/uL (4.70-6.10); White Blood Count 15.53 K/ul (4.8-10.8)
[2025-05-31 07:34] LABS: Anion Gap 8.0 (3-11); Blood Urea Nitrogen 27.0 mg/dl (6-23); Calcium 8.8 mg/dl (8.6-10.3); Carbon Dioxide 28.0 mmol/L (21-32); Chloride 103.0 mmol/L (98-107); Creatinine Clr Calc Pharmacy 60.5 ml/min; Glucose 187.0 mg/dl (70-99(Fasting)); Potassium 4.4 mmol/L (3.5-5.1); Sodium 139.0 mmol/L (136-145)
[2025-05-31] MEDS: LANTUS PER UNIT CHARGE SC SCH (08:51)
--- NOTE | 2025-05-31 09:02 | Pulmonology Progress Note ---
Date of Service May 31, 2025 Assessment & Plan (1) Multifocal pneumonia: (2) Asthma-COPD overlap syndrome: (3) Acute exacerbation of COPD with asthma: (4) Pleural effusion: (5) Ex-smoker: Plan CTA chest 05/28/2025 personally reviewed: Patchy opacities appreciated bilaterally in the right upper lobe as well as right lower lobe Moderate left-sided pleural effusion with consolidative process in the right lower lobe Endobronchial opacities likely mucous Right hilar and subcarinal lymphadenopathy 2D echo 09/23/2023: EF 45-50%, mild to moderate MR, moderate TR, RV mildly dilated with normal function -- Multifocal pneumonia Respiratory panel negative for COVID, influenza A/B as well as RSV BNP 166 -- Bilateral pleural effusion R>L Likely cardiac in etiology with BNP 166 Bedside ultrasound 05/31/2025 showed small right-sided pleural effusion, no left-sided pleural effusion B-lines posteriorly -- Asthma-COPD overlap syndrome On Brezri and Fascenra at home Absolute eosinophil count 910 on 02/08/2025 IgE 10 and RAST panel negative for everything on 05/04/2021 --A-fib On Eliquis Plan: For multifocal pneumonia, continue with antibiotics Sputum culture negative to date Continue with hypertonic saline nebulized along with Mucinex and flutter valve for mucus plugging in the right lower lobe Recommend to continue with the same regimen even at home Follow-up 2D echo No urgent indication for thoracentesis right now. Continue with nebulized bronchodilators along with Incruse Follow-up swallow eval Please note the above document was generated using voice recognition software. It may contain grammatical, syntax or spelling errors.Any formal questions or concerns about the content, text or information contained within the body of this dictation should be directly addressed to the provider for clarification. Admission and Anticipated Discharge Date Admission Date: May 28, 2025 Subjective Patient seen and examined at bedside. No acute distress, no dressing was overnight He was saturating 98% on room air He was about to go for a walk by physical therapy Denied any headache Has been coughing up and bringing up phlegm Denies any hemoptysis Fair appetite Review of Systems 2 Review of Systems: All systems reviewed & are unremarkable except as noted in Subjective Physical Exam 2 Physical Exam: Constitutional: No acute distress HEENT: EOMI, PERRLA Respiratory system: Decreased air entry bilaterally, no wheeze, no rhonchi, positive crackles bilaterally more on the right side CVS: S1-S2 positive, no murmurs or gallops Abdomen: Soft, nontender, nondistended, positive bowel sounds x4 Extremities: +2 pulses bilaterally radialis/ dorsalis pedis, no cyanosis, no edema Neuro: Awake alert oriented x3 Psych: Normal mood and affect G/U: No Jeffers Skin: no rashes, warm and dry Lymphatic: no cervical or axillary lymphadenopathy Results & Data Results & Data Vital Signs (Past 12 Hours) Vital Signs Temp Pulse Pulse Resp BP Pulse Ox O2 Del Method 05/31/25 07:51 36.3 C L 74 20 135/83 97 Room Air 05/31/25 07:28 68 05/31/25 07:06 74 18 98 Room Air 05/31/25 04:00 36.5 C 74 18 122/79 96 Room Air 05/30/25 22:36 36.5 C 80 18 123/72 96 Room Air Laboratory Results 05/31/25 06:01 05/31/25 06:01 PG Care Time/CCT Total # of Minutes Spent Total Time Spent with Patient: Total time spent is greater than 50% in coordination of care (as documented) at patient's floor/unit and/or counseling patient: Coding Level of Care Code 22624 SUB INP/OBS CARE 2/35MIN Diagnoses Multifocal pneumonia J18.8 Asthma-COPD overlap syndrome J44.9 Acute exacerbation of COPD with asthma J44.1 Pleural effusion J90 Ex-smoker Z87.891
--- NOTE | 2025-05-31 10:47 | XRay Report ---
XR chest 1V portable CLINICAL HISTORY: f/u COMPARISON STUDY: Chest radiograph and chest CT May 28, 2025. FINDINGS: There is no pneumothorax. Small right and trace left pleural effusions are unchanged. Bibas ilar opacities, greater on the right, persist. Cardiac mediastinal silhouette is stable. There is no evidence for overt pulmonary edema. IMPRESSION: 1. No significant change in bibasilar opacities, right greater than left. The findings favor pneumoni a or aspiration pneumonitis. 2. No change in small right and trace left pleural effusions. ACT 112: Negative or not required by law. Electronically signed by: Gautam Givens M.D. 05/31/2025 10:45 AM
[2025-05-31 11:33] VITALS: BP 111/66; TEMP 97.5
--- NOTE | 2025-05-31 12:59 | Pharmacy Report ---
Pharmacy Glycemic Short Note 2 - Date of Service May 31, 2025 - Glycemic Short BSG Results (Last 24 hours): 05/30/25 05/30/25 05/31/25 17:20 20:40 06:01 Glucose 187 H POC Glucose 133 H 140 H 05/31/25 05/31/25 08:00 11:52 Glucose POC Glucose 159 H 146 H OUTPATIENT ANTIDIABETIC REGIMEN: * diet controlled HbA1c: 6.5% on 03/15/25 ASSESSMENT: 05/31 * Patient received total of 19 units of insulin yesterday, all correctional * Fasting BSG 187 mg/dL - will add on some basal insulin this AM, low dose * Steroids now changing, may need to loosen CF/CR later 05/29 * Forest is a 80 year old male who was admitted yesterday with a COPD/asthma exacerbation. Pharmacy was consulted for glycemic management while he is admitted. * BSG last evening was 187mg/dL. He received 125mg iv methylprednisolone in the ED, and was then started on prednisone 30mg PO TID. A weight based bolus insulin regimen with a stress of 2 was started at that time. * Fasting BSG was 145mg/dL this morning and trended up to 192mg/dL with lunch. Bolus insulin regimen was tightened to a stress of 3 while he is on the tid prednisone. PLAN FOR INPATIENT GLYCEMIC CONTROL: * Basal insulin * Lantus 8 units once daily * Bolus insulin * NovoLog per scale ACHS or Q6hrs while NPO * Goal Range: Low 110 mg/dL - High 140 mg/dL * Correction Factor: 25 mg/dL/unit * Nutritional / Prandial insulin per carb ratio of 1 unit per 10 grams CHO consumed
--- NOTE | 2025-05-31 13:28 | Procedure Note ---
Procedure Note Date of Service May 31, 2025 Bedside Ultrasound: Lung: Right:-Small hypoechoic simple right-sided pleural effusion with compressive atelectasis, B-lines posteriorly Left:-No pleural effusion, B-lines posteriorly with curtain sign Please note the above document was generated using voice recognition software. It may contain grammatical, syntax or spelling errors.Any formal questions or concerns about the content, text or information contained within the body of this dictation should be directly addressed to the provider for clarification. [facility] [place] (Charges) Pulmonary/Thoracic Procedure 1: Pulmonary and Thoracic: 29488 US, Chest, real time with imaging documentation Coding CPT Codes Pulmonary/Thoracic - Pulmonary and Thoracic: 71651 US, Chest, real time with imaging documentation ([id number]) Additional Codes Date of Service (PG.SURGERY)
[2025-05-31 14:03] VITALS: RESP 18; O2SAT 99
--- NOTE | 2025-05-31 14:18 | Hospitalist Progress Note ---
"Date of Service May 31, 2025 Assessment & Plan (1) Asthma-COPD overlap syndrome: (2) Chronic obstructive pulmonary disease: (3) Acute exacerbation of chronic obstructive pulmonary disease: (4) Pleural effusion: (5) Chest pain: (6) CAD in [place] artery: Plan Pt is a 80 y/o M w/ a PMHx significant for COPD, Asthma, T2DM, CAD, Atrial Fibrillation, BPH, IgM kappa monoclonal gammopathy who presents with worsening SOB. #COPD Exacerbation | COPD w/ Asthma overlap | Pleural Effusion - Hx recent pneumonia treated w/ abx and 5 day steroid taper completed on 05/25; CXR 05/28 w/ Cardiomegaly + Emphysema w/out evidence congestive failure, R pleural effusion w/ rt basilar consolidation; Chest CTA 05/28 w/ evidence of aspiration pneumonia w/ R>L Mucous Plugging and consolidation as well as a sm pericardial effusion, small left and [id number] right pleural effusions. Pulm Consult: transition to nebulized variant of medications, hypertonic saline alone w/ flutter valve 2-D echo; No indication for thoracentesis at this time Sputum Culture from 05/28 finalized without growth BCx NGTD x 48h Echocardiogram on 05/29 revealed LVEF at 60 to 65%; no regional wall motion abnormalities Continue Symbicort, Singulair Decreased Solu-Medrol 40 mg IV BID -> daily on 05/31 Will plan to send patient home on a prednisone taper DuoNeb 0.5% Q4HWA Albuterol HFA Q4H Mucinex PRN for congestion Patient is not currently on antibiotics on 05/31 Elevated white blood cell count in the setting of steroid use #Dysphagia Concern for aspiration pneumonia Video swallow conducted on 05/31 No aspiration events, but did exhibit esophageal dysmotility Aspiration precautions #Chest Pain - RESOLVED; noted in ED. Troponin 5.4 and EKG without signs of ischemia on admission; repeat trop 05/29 negative #CAD | Atrial Fibrillation - No acute concerns Continue Eliquis, Diltiazem, Metoprolol # T2DM - HbA1C 6.5% (03/15/25) Loose SSI: BSG 110-150, CF 35, CR 15 Glycemic Consult, pharmacy #HTN - No acute concerns Continue Losartan #GERD - No acute concerns Continue omeprazole - change to formularly as necessary #BPH - No acute concerns Continue Tamsulosin, Dutasyeride #IgM kappa monoclonal gammopathy - No acute concerns, follows w/ oncology Disposition: Discharge home VTE PPx: Eliquis Admission and Anticipated Discharge Date Admission Date: May 28, 2025 Subjective Mr. Wolff ROS: Patient endorses Patient denies Results & Data Results & Data Vital Signs (Past 12 Hours) Vital Signs Temp Pulse Pulse Resp BP Pulse Ox O2 Del Method 05/31/25 14:02 65 18 99 Room Air 05/31/25 11:32 36.4 C L 68 20 111/66 98 Room Air 05/31/25 08:00 Room Air 05/31/25 07:51 36.3 C L 74 20 135/83 97 Room Air 05/31/25 07:28 68 05/31/25 07:06 74 18 98 Room Air 05/31/25 04:00 36.5 C 74 18 122/79 96 Room Air PG Care Time/CCT Total # of Minutes Spent Total Time Spent with Patient: Total time spent is greater than 50% in coordination of care (as documented) at patient's floor/unit and/or counseling patient: Coding [place] [address] SUB INP/OBS CARE 3/50MIN Patient Type Established Medical Decision Making High Complexity Diagnoses Asthma-COPD overlap syndrome J44.9 Chronic obstructive pulmonary disease J44.9 Acute exacerbation of chronic obstructive pulmonary disease J44.1 Pleural effusion J90 Chest pain R07.9 CAD in kn[place] artery I25.10"
--- NOTE | 2025-05-31 14:19 | Fluoroscopy Report ---
MODIFIED BARIUM SWALLOW CLINICAL HISTORY: Evaluate for aspiration. Abnormal chest CT. COMPARISON STUDY: None. FLUOROSCOPY TIME: 1.05 minutes. Ka,r: 6.82 mGy. TECHNIQUE: A modified barium swallow was performed in conjunction with Speech Pathology. The patient ingested varying consistencies of barium containing material. Video fluoroscopy was performed. FINDINGS: No aspiration was identified with thin liquids, nectar thick liquids, pudding or cracker an d pudding consistencies. Epiglottic inversion was normal. Laryngeal elevation was normal. Note was ma de of moderate esophageal dysmotility. IMPRESSION: 1. Intact swallowing mechanism. No tracheal aspiration. 2. Moderate esophageal dysmotility. 3. Full recommendations by Speech pathology to follow. ACT 112: Negative or not required by law. Electronically signed by: Gautam Givens M.D. 05/31/2025 2:18 PM
--- NOTE | 2025-05-31 14:48 | Discharge Summary ---
Discharge Summary Date of Service May 31, 2025 Principal Dx & Hospital Course #1 = Principal Diagnosis (1) Asthma-COPD overlap syndrome: (2) Chronic obstructive pulmonary disease: (3) Acute exacerbation of chronic obstructive pulmonary disease: (4) Pleural effusion: (5) Chest pain: (6) CAD in [place] artery: Plan Pt is a 80 y/o M w/ a PMHx significant for COPD, Asthma, T2DM, CAD, Atrial Fibrillation, BPH, IgM kappa monoclonal gammopathy who presents with worsening SOB. #COPD Exacerbation | COPD w/ Asthma overlap | Pleural Effusion - Hx recent pneumonia treated w/ abx and 5 day steroid taper completed on 05/25; CXR 05/28 w/ Cardiomegaly + Emphysema w/out evidence congestive failure, R pleural effusion w/ rt basilar consolidation; Chest CTA 05/28 w/ evidence of aspiration pneumonia w/ R>L Mucous Plugging and consolidation as well as a sm pericardial effusion, small left and [id number] right pleural effusions. Pulm Consult: transition to nebulized variant of medications, hypertonic saline alone w/ flutter valve 2-D echo; No indication for thoracentesis at this time Sputum Culture from 05/28 finalized without growth BCx NGTD x 48h Echocardiogram on 05/29 revealed LVEF at 60 to 65%; no regional wall motion abnormalities Continue Symbicort, Singulair Decreased Solu-Medrol 40 mg IV BID -> daily on 05/31 Patient is non-hypoxic on room air; will discontinue steroids at this time; will defer taper on d/c DuoNeb 0.5% Q4HWA Albuterol HFA Q4H Mucinex PRN for congestion Patient reports he does not need additional refills for COPD medications at time of discharge #Multifocal pneumonia Elevated white blood cell count in the setting of steroid use Clinically, patient denies fevers, and reports improvement in cough and res piratory symptoms Patient received atypical coverage while in the hospital (azithromycin 500 mg p.o. x 3 days) H/o Pseudomonas on prior sputum culture (during hospitalization for PNA: 06/16/23 - 06/19/23) Will plan to discharge patient on the following antibiotic: Levofloxacin 750 mg p.o. daily x 6 days to finish full 7-day course QTc okay at 446; no history of aneurysms, per patient; no aneurysm seen on chest CTA on 05/28 Recommend follow-up CXR to ensure resolution in 4 to 6 weeks #Dysphagia Concern for aspiration pneumonia Video swallow conducted on 05/31 No aspiration events, but did exhibit esophageal dysmotility Patient will require GI evaluation as an outpatient #Chest Pain - RESOLVED; noted in ED. Troponin 5.4 and EKG without signs of ischemia on admission; repeat trop 05/29 negative #CAD | Atrial Fibrillation - No acute concerns Continue Eliquis, Diltiazem, Metoprolol # T2DM - HbA1C 6.5% (03/15/25) Loose SSI: BSG 110-150, CF 35, CR 15 Resume home regimen on discharge #HTN - No acute concerns Continue Losartan #GERD - No acute concerns Continue omeprazole - change to formularly as necessary #BPH - No acute concerns Continue Tamsulosin, Dutasyeride #IgM kappa monoclonal gammopathy - No acute concerns, follows w/ oncology Day of discharge 05/31: VSS; SpO2 99% on RA Mr. Wolff is in good spirits this afternoon. He reports that the video swallow test went well today, and denies any aspiration events. Patient reports that his breathing is significantly improved from when he first arrived in the hospital. He denies SOB at rest or with exertion. He still having productive cough, but reports that the nebulizing treatment yesterday helped clear up most of his sputum production. He denies any pleuritic chest pain or hemoptysis. While his chest felt tight on arrival, he reports he feels much better now. He does not use any supplemental oxygen at home or CPAP at night. He does have a home pulse oximeter. No fevers overnight. Overall, he is eager to return home at this time if possible. He does have a listed allergy to doxycycline (upset stomach), but denies history of allergies to penicillins or other antibiotics to his knowledge; he denies history of aneurysms. ROS: Patient endorses productive cough Patient denies fevers, night sweats, dizziness/lightheadedness with walking, headache, chest pain, chest tightness, chest palpitations, pleuritic CP, wheezing, hemoptysis, SOB at rest, GIBSON, abdominal pain, N/V/D, or changes in urinary/bowel habits. Disposition: Discharge home Notes For Next Care Provider Patient hospitalized for COPD exacerbation in the setting of pneumonia. Improved with IV steroids in the hospital. Underwent a video swallow study on 05/31 which did not reveal any aspiration events, but did reveal esophageal dysmotility. Recommended GI workup as an outpatient. Discharged on levofloxacin 750 mg p.o. x 6 days. Recommend follow-up chest x-ray in the next 4 to 6 weeks to ensure resolution. Admission HPI Per Admitting Provider Pt is a 80 y/o M w/ a PMHx significant for Stage III COPD, Asthma, T2DM, CAD, Atrial Fibrillation, BPH, IgM kappa monoclonal gammopathy who presents with worsening SOB. 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 His , at bedside, notes that it became more difficult for pt to do simple things like eating and that he would often require breaks prior to finishing his meal. Pt notes that he then went to the vision therapist who provided him with a 5-day prednisone taper which he completed on 05/25. He notes that despite completing the taper, he continues to feel short of breath. Pt notes that he continues to cough and produce sputum, but notes that he has not been able to tell if there has been an increase as he typically has a productive cough. He otherwise denies fever/chills, changes in weight, fatigue, hemoptysis, chest pain, palpitations, nausea, vomiting, diarrhea, and constipation. He additionally denies any changes in appetite. Pt was transported to the ED via and daughter. While in the ED, the patient received a CXR 05/28 w/ Cardiomegaly + Emphysema w/out evidence congestive failure, R pleural effusion w/ rt basilar consolidation; Chest CTA 05/28 w/ evidence of aspiration pneumonia w/ R>L Mucous Plugging and consolidation as well as a sm pericardial effusion, small left and [id number] right pleural effusions. Pt was admitted to the hospital for further evaluation and care. Pt was additionally noted to have CP while in the ED but noted it had resolved during out conversation. Troponin in the ED 5.4; EGG at that time was without evidence of infarct. Pt is being admitted for further evaluation and care. Admission Exam Per Admitting Provider General: Pt is a 80 y/o WD/WN M in NAD in bed, and daughter at bedside. VS: reviewed, remarkable - Pt was eating a sandwich during our conversation and O2 sat was 94% on RA Skin: Warm and dry; no lesions or ulcerations Respiratory: Crackles heard @ Rt lung base, expiratory wheezing + prolonged expiration diffusely noted in lungs bilat Cardio: Irregularly Irregular, no murmurs Abdomen: Round, normoactive BS x4, nontender to palpation MSK: FROM of extremities, no deformities Extremities: no edema. Strength +5 throughout Neuro: A&Ox4, cooperative Discharge Exam General: no acute distress; pleasant affect; at bedside; non-toxic appearing; cooperative; SpO2 99% on RA HEENT: normocephalic, atraumatic; PERRLA; vision and hearing intact Neck: supple; trachea midline Skin: warm, dry without signs of tenting; no cyanosis; no rashes, bruising, lesions, or erythema noted CV: chest wall NTP; RRR; S1/S2 normal; no murmurs/rubs/gallops; pulses intact and symmetric at radial, DP, and PT Lungs: no acute respiratory distress; symmetrical chest wall expansion; clear breath sounds across all lung woods w/o adventitious sounds; no wheezing ABD: Soft, NTP; BS present; no rebound/guarding; no distention MSK: no tics or fasciculations; no edema noted in the LEs b/l, nonerythematous Neuro: A&Ox3; normal mood and affect; fluent speech; sensation intact and symmetric in the LEs b/l Gait: Patient exhibits ability to stand from his chair independently and sit on the side of the bed for physical exam Discharge Plan Discharge Items Patient Disposition: Home - Self-Care Reason For Visit: COPD EXACERBATION Discharge Diagnosis: Acute COPD exacerbation, multifocal pneumonia Condition on Discharge: Fair Activity: Resume your previous activity Non-emergency contact: Primary Care Provider and Lead Java Software Engineer Call non-emergency contact if: you have any medication questions, your symptoms worsen and you have a fever Follow-up/Referrals: Melinda Johnson MD [Primary Care Provider] - Diet: Carb Consistent or DM2 Addtl Attending Provider Instructions: You were hospitalized at [facility] from 05/28 to 05/31 after developing shortness of breath, wheezing, and productive cough. On arrival, your imaging was consistent with a multifocal pneumonia (right side worse than left). It is suspected that, while your symptoms were largely triggered by pneumonia, they may have been exacerbated by your history of COPD. You reported improvement in symptoms after receiving IV steroids in the hospital, as well as an antibiotic called azithromycin to cover for atypical pneumonias. Given you report resolution of your symptoms, and your vitals are currently stable, we feel that you are safe to return home at this time on oral antibiotics. New prescriptions on discharge: Levofloxacin 750 mg daily x 6 additional days Please plan to follow-up with your PCP in the next 7 to 10 days for a transitional care appointment. While in the hospital, you also underwent an echocardiogram to assess for fluid buildup outside the right lung (called a pleural effusion). This echocardiogram appeared reassuring, revealing that you had a normal ejection fraction at 60- 65%. Additionally, you underwent a video swallow study on 05/31 that did not reveal episodes of aspiration. However, you may exhibited something called "esophageal dysmotility", and it is recommend that you follow-up with a networking engineer as an outpatient. If you develop any new or worsening symptoms, such as fever, chills, shortness of breath, chest pain, pain with deep breaths, blood in your cough, or fainting spells, please return to the emergency department immediately. It was a pleasure taking care of you. Please reach out with any questions or concerns. Sincerely, The Hospital medicine team at [facility] Pending Studies at Discharge: No Stand-Alone Forms: [facility] Medications and DC Order Prescriptions: New levofloxacin 750 mg tablet 750 mg PO DAILY 6 Days Qty: 6 0RF Rx Instructions: Take 1 tablet by mouth daily Continued apixaban 5 mg tablet 5 mg PO BID Qty: 180 3RF budesonide-formoterol 160-4.5 mcg/actuation HFA aerosol inhaler 2 puff inhalation BID Qty: 30.6 3RF albuterol sulfate 90 mcg/actuation HFA aerosol inhaler 2 puff inhalation Q4H PRN (Reason: shortness of breath or wheezing) Qty: 3 3RF metoprolol tartrate 25 mg tablet 25 mg PO BID Qty: 180 3RF roflumilast 500 mcg tablet 500 mcg PO DAILY Qty: 90 3RF Spiriva Respimat 2.5 mcg/actuation mist 2 inh inhalation QAM Qty: 12 3RF diltiazem HCl 120 mg capsule,extended release 24hr 120 mg PO BID Qty: 180 3RF omeprazole 20 mg capsule,delayed release(DR/EC) 20 mg PO DAILY Qty: 90 3RF montelukast [Singulair] 10 mg tablet 10 mg PO DAILY Qty: 30 5RF dutasteride 0.5 mg capsule 0.5 mg PO DAILY Qty: 90 3RF Mucinex 1,200 mg tablet extended release 12hr 1,200 mg PO DAILY tamsulosin 0.4 mg capsule 0.8 mg PO DAILY Qty: 180 3RF albuterol sulfate 2.5 mg /3 mL (0.083 %) solution for nebulization 2.5 mg inhalation Q4H PRN (Reason: Wheezing) Rx Instructions: inhale 1 vial by nebulization twice a day and every 4-6 hours if needed for shortness of breath or wheezing Discharge Orders: Discharge Order (Routine); Ordered 05/31/25 Ordered By: Caden Willett Admission Data Admit Date/Time: 05/28/25 17:34 Attending Provider: Eusebio Duran Admit Provider: Juan Foreman Primary Care Provider: Melinda Johnson Other Providers: Juan Foreman Hospital Stay Data Consultations 05/28/25 16:30 ED Decision to Admit Stat Diagnostic Imagining Performed 05/28/25 14:41 CT angio chest PE protocol Stat 05/31/25 09:15 US point of care ultrasound Urgent 05/31/25 10:30 FL video swallow Routine Discharge Instructions Given to Patient (Per Discharging Provider) You were hospitalized at [facility] from 05/28 to 05/31 after developing shortness of breath, wheezing, and productive cough. On arrival, your imaging was consistent with a multifocal pneumonia (right side worse than left). It is suspected that, while your symptoms were largely triggered by pneumonia, they may have been exacerbated by your history of COPD. You reported improvement in symptoms after receiving IV steroids in the hospital, as well as an antibiotic called azithromycin to cover for atypical pneumonias. Given you report resolution of your symptoms, and your vitals are currently stable, we feel that you are safe to return home at this time on oral antibiotics. New prescriptions on discharge: Levofloxacin 750 mg daily x 6 additional days Please plan to follow-up with your PCP in the next 7 to 10 days for a transitional care appointment. While in the hospital, you also underwent an echocardiogram to assess for fluid buildup outside the right lung (called a pleural effusion). This echocardiogram appeared reassuring, revealing that you had a normal ejection fraction at 60- 65%. Additionally, you underwent a video swallow study on 05/31 that did not reveal episodes of aspiration. However, you may exhibited something called "esophageal dysmotility", and it is recommend that you follow-up with a networking engineer as an outpatient. If you develop any new or worsening symptoms, such as fever, chills, shortness of breath, chest pain, pain with deep breaths, blood in your cough, or fainting spells, please return to the emergency department immediately. It was a pleasure taking care of you. Please reach out with any questions or concerns. Sincerely, The Hospital medicine team at [facility] Total Time Total Time Spent Total Time Spent (In Minutes): 40 Coding Level of Care Code 26364 INP/OBS DISCH >30 MIN Diagnoses Asthma-COPD overlap syndrome J44.9 Chronic obstructive pulmonary disease J44.9 Acute exacerbation of chronic obstructive pulmonary disease J44.1 Pleural effusion J90 Chest pain R07.9 CAD in [place] artery I25.10
[2025-05-31 15:29] VITALS: PULSE 85
== END 2025-05-31 15:46 | disposition home or self-care (01) | DRG 190 ==
LOC: ED 13:14 → EDINP 17:34 → SUATTDRO 17:34 → 2N 23:13